=== PATIENT | male | born 1940 | race Caucasian/White ===

== ENCOUNTER 2016-07-31 11:56 | Observation (INO) ==
[2016-07-31] MEDS ORDERED: SODIUM CHLORIDE 1,000 ML IV STA (12:07)
[2016-07-31 12:29] LABS: ABG PH 7.121 (7.35-7.45)
[2016-07-31 12:30] LABS: ABG BASE EXCESS -16 (-2.0-2.0); ABG HCO3 13 (22.0-26.0); ABG TCO2 14 (22.0-28.0)
[2016-07-31 12:39] LABS: BASOPHILS % (AUTO) 0.3 % (0.0-3.0); EOSINOPHILS % (AUTO) 0.5 % (0.0-7.0); HEMATOCRIT 43.5 % (42.0-52.0); HEMOGLOBIN 14.9 g/dl (14.0-18.0); IMMATURE GRANULOCYTE % (AUTO) 0.3 % (0.0-5.0); LYMPHOCYTES # (AUTO) 1.1 K/uL (0.60-3.4); LYMPHOCYTES % (AUTO) 16.9 (10.0-50.0); MEAN CORPUSCULAR HEMOGLOBIN 28.9 pg (27.0-31.0); MEAN CORPUSCULAR HGB CONC 34.3 (31.8-35.4); MEAN CORPUSCULAR VOLUME 84.3 fl (80.0-94.0); MONOCYTES # (AUTO) 0.4 K/uL (0.4-2.0); MONOCYTES % (AUTO) 5.4 (0-10); NEUTROPHILS # (AUTO) 4.9 K/ul (2.0-6.9); NEUTROPHILS % (AUTO) 76.6; PLATELET COUNT 284 10^3/uL (140-440); RED BLOOD COUNT 5.16 10^6/ul (4.70-6.10); WHITE BLOOD COUNT 6.44 K/ul (4.2-10.2)
--- NOTE | 2016-07-31 13:02 | DI ---
EXAMINATION: AP chest radiograph. HISTORY: Chest pain COMPARISON: 05/07/2015 FINDINGS: No focal consolidation, pleural effusion or pneumothorax is identified. The cardiomediastinal silhouette is within normal limits. There is calcified atherosclerotic plaque of the aorta. Degenerative changes of the acromioclavicular joints are seen. IMPRESSION: No acute cardiopulmonary findings.
[2016-07-31 13:06] LABS: ALANINE AMINOTRANSFERASE 25 U/L (12-78); ALBUMIN/GLOBULIN RATIO 1.43; ALKALINE PHOSPHATASE 172 U/L (56-119); ANION GAP 12.1; ASPARTATE AMINO TRANSFERASE 23 U/L (15-37); BILIRUBIN,TOTAL 0.65 mg/dL (0.00-1.20); BLOOD UREA NITROGEN 13 mg/dL (7-18); BUN/CREATININE RATIO 14.77; CARBON DIOXIDE 28 mmol/L (23-31); CHLORIDE 104 mmol/L (98-107); CREATINE KINASE 38 U/L; CREATININE 0.88 mg/dL (0.60-1.10); GLUCOSE 105 mg/dL (82-115); POTASSIUM 4.1 mmol/L (3.5-5.1); SODIUM 140 mmol/L (136-145); TOTAL PROTEIN 6.8 g/dL (5.8-8.1)
--- NOTE | 2016-07-31 13:12 | ED.PDOC ---
General ED Provider: Dr. 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 HTN DM IA ARTH CAD. stent 1993 and replaced 2013. gallbladder. appendix. [ End ]. dizzy with chest pressure. [ End ] Time Seen by Physician: 13:07 Mode of Arrival: Walk-In Information Source: Patient Exam Limitations: No limitations Primary Care Provider: SUN NAGEL Nursing and Triage Documentation Reviewed and Agree: No Review of Systems - Review Of Systems Constitutional: Reports: Malaise, Weakness Eyes: Reports: No symptoms Ears, Nose, Mouth, Throat: Reports: No symptoms Respiratory: Reports: No symptoms Cardiac: Reports: Chest pain, Lightheadedness GI: Reports: No symptoms : Reports: No symptoms Musculoskeletal: Reports: No symptoms Skin: Reports: No symptoms Neurological: Reports: Other (dizziness) Endocrine: Reports: No symptoms Hematologic/Lymphatic: Reports: No symptoms All Other Systems: Other Past Medical History - Past Medical History Previously Healthy: No Endocrine: Reports: DM 2 Cardiovascular: Reports: CAD, IA, Hypertension Respiratory: Reports: None Hematological: Reports: None Gastrointestinal: Reports: None Genitourinary: Reports: None Neuro/Psych: Reports: None Musculoskeletal: Reports: Arthritis Cancer: Reports: None - Surgical History General Surgical History: Reports: Appendectomy, Cholecystectomy, Stent - Family History Family History: Reports: Heart, Diabetes - Social History Smoking Status: Former smoker Hx Substance Use: No Alcohol Screening: None Physical Exam - Physical Exam Appearance: Well-appearing, Thin Pain Distress: Mild Eyes: TRACY, EOMI, Conjunctiva clear ENT: Ears normal, Nose normal, Oropharynx normal Neck: Supple Respiratory: Airway patent, Breath sounds clear, Breath sounds equal, Respirations nonlabored Cardiovascular: RRR, Pulses normal, No rub, No murmur GI/: Soft, Nontender, No masses, Bowel sounds normal, No Organomegaly Musculoskeletal: Normal strength, ROM intact, No edema, No calf tenderness Skin: Warm, Dry, Normal color Neurological: Sensation intact, Motor intact, Reflexes intact, Cranial nerves intact, Alert, Oriented Psychiatric: Affect appropriate, Mood appropriate Interpretation - Radiology Interpretation Radiology Interpretation By: Radiologist Radiology Results: No acute changes Exam Interpreted: CT Scan (head) Radiology Interpretation By: Radiologist Radiology Results: Negative Exam Interpreted: CXR - EKG Interpretation Time of EKG #1: 12:10 Rate: Normal Rhythm: Sinus Interpretation: no acute inf q waves Critical Care Note - Critical Care Note Total Time (mins): 10 Course - Course Hematology/Chemistry: 07/31/16 12:20 07/31/16 12:20 Orders, Labs, Meds: Lab Review 07/31/16 07/31/16 07/31/16 12:20 13:20 13:30 WBC 6.44 RBC 5.16 Hgb 14.9 Hct 43.5 MCV 84.3 MCH 28.9 MCHC 34.3 RDW Coeff of Leda 14.3 Plt Count 284 Immature Gran % (Auto) 0.3 Neut % (Auto) 76.6 Lymph % (Auto) 16.9 [place] % (Auto) 5.4 Eos % (Auto) 0.5 Baso % (Auto) 0.3 Immature Gran # (Auto) 0.0 Neut # 4.9 Lymph # 1.1 [place] # 0.4 Eos # 0.0 Baso # 0.0 Puncture Site R rad R rad O2 Saturation 91.0 L 98.0 ABG pH 7.121 L* 7.418 ABG pCO2 40.0 38.7 ABG pO2 81.0 L 102.0 H ABG HCO3 13 L 25.0 ABG Total CO2 14 L 26 ABG Base Excess -16 L 0 Zaki Test + + FiO2 % 21.0 21.0 Sodium 140 Potassium 4.1 Chloride 104 Carbon Dioxide 28 Anion Gap 12.1 BUN 13 Creatinine 0.88 Estimated GFR (MDRD) 85.00 BUN/Creatinine Ratio 14.77 Glucose 105 Calcium 10.0 Total Bilirubin 0.65 AST 23 ALT 25 Alkaline Phosphatase 172 H Total Creatine Kinase 38 Troponin I < 0.0100 B-Natriuretic Peptide 12 Total Protein 6.8 Albumin 4.0 Globulin 2.8 Albumin/Globulin Ratio 1.43 Urine Color Yellow Urine Clarity Clear Urine pH 6.5 Ur Specific [place] 1.010 Urine Protein Negative Urine Glucose (UA) Negative Urine Ketones Negative Urine Blood Negative Urine Nitrite Negative Urine Bilirubin Negative Urine Urobilinogen 0.2 Ur Leukocyte Esterase Negative Orders Category Date Time Status PLACE PATIENT OBSERVATION .TO MEDS[facility] (MONITORED BED ADMISSION 07/31/16 16: 06 Ordered ) ABG DRAW REQUEST Stat CARDIO 07/31/16 12:08 Completed ABG DRAW REQUEST Stat CARDIO 07/31/16 12:58 Completed EKG-(ED ONLY) Stat CARDIO 07/31/16 12:07 Completed EKG-(IP & OP ONLY) DAILY CARDIO 08/01/16 06:00 Ordered EKG-(IP & OP ONLY) DAILY CARDIO 08/02/16 06:00 Ordered EKG-(IP & OP ONLY) DAILY CARDIO 08/03/16 06:00 Ordered ACTIVITY .Early Mobilization for VTE Prevention CARE 07/31/16 16:06 Ordered INTAKE & OUTPUT Q8HR CARE 07/31/16 16:06 Ordered Neuro Check [NEUROLOGICAL CHECKS] Q2HR CARE 07/31/16 16:11 Ordered TELEMETRY MONITORING TELE CARE 07/31/16 16:10 Ordered VITAL SIGNS Q4HR CARE 07/31/16 16:06 Ordered CARDIAC DIET DIETARY 07/31/16 Dinner Ordered 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 .ONCE EMERGENCY 07/31/16 12:07 Active ED IV/MEDIPORT/POWERPORT .ONCE EMERGENCY 07/31/16 12:07 Active Orthostatic [ED ORTHOSTATIC VITAL SIGNS] .ONCE EMERGENCY 07/31/16 12:09 Active ABG Stat LAB 07/31/16 12:20 Completed ABG Stat LAB 07/31/16 13:20 Completed B-TYPE NATRIURETIC PEPTIDE Stat LAB 07/31/16 12:20 Completed CBC W/ AUTO DIFF DAILY@0600 LAB 08/01/16 06:00 Ordered CBC W/ AUTO DIFF DAILY@0600 LAB 08/02/16 06:00 Ordered CBC W/ AUTO DIFF DAILY@0600 LAB 08/03/16 06:00 Ordered CBC W/ AUTO DIFF DAILY@0600 LAB 08/04/16 06:00 Ordered CBC W/ AUTO DIFF DAILY@0600 LAB 08/05/16 06:00 Ordered CBC W/ AUTO DIFF DAILY@0600 LAB 08/06/16 06:00 Ordered CBC W/ AUTO DIFF DAILY@0600 LAB 08/07/16 06:00 Ordered CBC W/ AUTO DIFF DAILY@0600 LAB 08/08/16 06:00 Ordered CBC W/ AUTO DIFF DAILY@0600 LAB 08/09/16 06:00 Ordered CBC W/ AUTO DIFF DAILY@0600 LAB 08/10/16 06:00 Ordered CBC W/ AUTO DIFF DAILY@0600 LAB 08/11/16 06:00 Ordered CBC W/ AUTO DIFF DAILY@0600 LAB 08/12/16 06:00 Ordered CBC W/ AUTO DIFF DAILY@0600 LAB 08/13/16 06:00 Ordered CBC W/ AUTO DIFF DAILY@0600 LAB 08/14/16 06:00 Ordered CBC W/ AUTO DIFF DAILY@0600 LAB 08/15/16 06:00 Ordered CBC W/ AUTO DIFF DAILY@0600 LAB 08/16/16 06:00 Ordered CBC W/ AUTO DIFF DAILY@0600 LAB 08/17/16 06:00 Ordered CBC W/ AUTO DIFF DAILY@0600 LAB 08/18/16 06:00 Ordered CBC W/ AUTO DIFF DAILY@0600 LAB 08/19/16 06:00 Ordered CBC W/ AUTO DIFF DAILY@0600 LAB 08/20/16 06:00 Ordered CBC W/ AUTO DIFF Stat LAB 07/31/16 12:20 Completed COMPREHENSIVE METABOLIC PANEL DAILY@0600 LAB 08/01/16 06:00 Ordered COMPREHENSIVE METABOLIC PANEL DAILY@0600 LAB 08/02/16 06:00 Ordered COMPREHENSIVE METABOLIC PANEL DAILY@0600 LAB 08/03/16 06:00 Ordered COMPREHENSIVE METABOLIC PANEL DAILY@0600 LAB 08/04/16 06:00 Ordered COMPREHENSIVE METABOLIC PANEL DAILY@0600 LAB 08/05/16 06:00 Ordered COMPREHENSIVE METABOLIC PANEL DAILY@0600 LAB 08/06/16 06:00 Ordered COMPREHENSIVE METABOLIC PANEL DAILY@0600 LAB 08/07/16 06:00 Ordered COMPREHENSIVE METABOLIC PANEL DAILY@0600 LAB 08/08/16 06:00 Ordered COMPREHENSIVE METABOLIC PANEL DAILY@0600 LAB 08/09/16 06:00 Ordered COMPREHENSIVE METABOLIC PANEL DAILY@0600 LAB 08/10/16 06:00 Ordered COMPREHENSIVE METABOLIC PANEL DAILY@0600 LAB 08/11/16 06:00 Ordered COMPREHENSIVE METABOLIC PANEL DAILY@0600 LAB 08/12/16 06:00 Ordered COMPREHENSIVE METABOLIC PANEL DAILY@0600 LAB 08/13/16 06:00 Ordered COMPREHENSIVE METABOLIC PANEL DAILY@0600 LAB 08/14/16 06:00 Ordered COMPREHENSIVE METABOLIC PANEL DAILY@0600 LAB 08/15/16 06:00 Ordered COMPREHENSIVE METABOLIC PANEL DAILY@0600 LAB 08/16/16 06:00 Ordered COMPREHENSIVE METABOLIC PANEL DAILY@0600 LAB 08/17/16 06:00 Ordered COMPREHENSIVE METABOLIC PANEL DAILY@0600 LAB 08/18/16 06:00 Ordered COMPREHENSIVE METABOLIC PANEL DAILY@0600 LAB 08/19/16 06:00 Ordered COMPREHENSIVE METABOLIC PANEL DAILY@0600 LAB 08/20/16 06:00 Ordered COMPREHENSIVE METABOLIC PANEL Stat LAB 07/31/16 12:20 Completed CREATINE KINASE Q8H LAB 07/31/16 22:15 Ordered CREATINE KINASE Q8H LAB 08/01/16 06:15 Ordered CREATINE KINASE Stat LAB 07/31/16 12:20 Completed TROPONIN I Q8H LAB 07/31/16 22:15 Ordered TROPONIN I Q8H LAB 08/01/16 06:15 Ordered TROPONIN I Stat LAB 07/31/16 12:20 Completed URINALYSIS C & S IF INDICATED Stat LAB 07/31/16 13:30 Completed 0.9 % Sodium Chloride [Saline Flush] MEDS 07/31/16 12:07 Active 1 syr IVF PRN PRN Acetaminophen [Tylenol] MEDS 07/31/16 16:06 Ordered 650 mg PO Q4H PRN Potassium Chloride in 0.9%NaCl [Sodium Chloride 0.9%- MEDS 07/31/16 16:30 Ordered KCl 20 Meq] 1,000 ml IV 75 mls/hr Sodium Chloride 0.9% [Sodium Chloride] 1,000 ml MEDS 07/31/16 12:07 Discontinued IV BOLUS RESUSCITATION STATUS Routine OTHERS 07/31/16 16:06 Ordered CHEST, 1V AP ONLY Stat RADS 07/31/16 12:[address] HEAD W/O CONTRAST Stat RADS 07/31/16 13:01 Completed U/S DOPPLER CAROTID Stat RADS 07/31/16 15:47 Ordered Medications Generic Name Dose Route Start Last Admin Trade Name Freq PRN Reason Stop Dose Admin Acetaminophen 650 mg 07/31/16 16:06 Tylenol PO Q4H PRN Mild Pain Potassium Chloride/Sodium Chloride 1,000 mls @ 75 mls/hr 07/31/16 16:30 Sodium Chloride 0.9%-Kcl 20 Meq IV .[id number] OSCAR Sodium Chloride 1 syr 07/31/16 12:07 07/31/16 13:37 Saline Flush IVF 1 syr PRN PRN Administration To flush IV Discontinued Medications Generic Name Dose Route Start Last Admin Trade Name Freq PRN Reason Stop Dose Admin Sodium Chloride 1,000 mls @ 1,000 mls/hr 07/31/16 12:07 07/31/16 13:37 Sodium Chloride IV 07/31/16 13:06 1,000 mls/hr BOLUS STA Administration Vital Signs: Temp Pulse Resp BP Pulse Ox 07/31/16 15:28 65 121/68 07/31/16 15:27 61 127/68 07/31/16 11:59 96.4 F L 64 18 138/76 96 Departure - Departure Time of Disposition: 16:03 Disposition: PLACED OBSERVATION Discharge Problem: Dizziness, Chest pain Condition: Fair Pt referred to PMD for follow-up: Yes Allergies/Adverse Reactions: Allergies celecoxib [From Celebrex] Adverse Reaction (Verified 07/31/16 11:57) meloxicam [From Mobic] Adverse Reaction (Verified 07/31/16 11:57) Penicillins Adverse Reaction (Verified 07/31/16 11:57) Rash Home Medications: Ambulatory Orders Aspirin [Ecotrin] 81 mg PO DAILY 05/07/15 Enalapril Maleate 10 mg PO DAILY 05/07/15 Metformin HCl [Glucophage] 1,000 mg PO DAILY 05/07/15 Pantoprazole Sodium [Protonix] 40 mg PO DAILY 05/07/15 Simvastatin 40 mg PO DAILY 05/07/15 Meclizine HCl [Antivert] 25 mg PO BID #20 tablet 10/21/15
[2016-07-31 13:26] LABS: ABG BASE EXCESS 0 (-2.0-2.0); ABG PCO2 38.7 mmHg (35-45); ABG PH 7.418 (7.35-7.45); ABG TCO2 26 (22.0-28.0)
--- NOTE | 2016-07-31 13:40 | CT ---
EXAM: CT head without contrast. HISTORY: Dizziness. COMPARISON: 10/21/2015. TECHNIQUE: Multiple axial images of the brain were obtained from the skull base through the vertex without intravenous contrast. FINDINGS: There is no intracranial hemorrhage or extraaxial collection. The blackman-white differentia tion is maintained without evidence for acute large vascular territory infarction. There are areas of periventricular and subcortical white matter low attenuation. The cortical sulci and cerebral ve ntricles are symmetrically enlarged. The basal cisterns are well visualized. There is no hydroceph alus, mass effect, or midline shift. There is partial opacification of the right mastoid air cells. Otherwise, the paranasal sinuses and mastoid air cells are clear. The calvarium is intact. Since the prior study, there has been no significant interval change. IMPRESSION: 1. No acute intracranial abnormality. 2. Chronic small vessel ischemic changes and atrophy.
[2016-07-31 13:42] LABS: BILIRUBIN,URINE Negative (NEGATIVE); KETONES,URINE Negative (NEGATIVE); LEUKOCYTE ESTERASE ,URINE Negative (NEGATIVE); NITRITE,URINE Negative (NEGATIVE); PH,URINE 6.5 (5-9); PROTEIN,URINE Negative (NEGATIVE); URINE, BLOOD Negative (NEGATIVE)
[2016-07-31 13:43] LABS: ADD URINE MICROSCOPIC NO
[2016-07-31] MEDS ORDERED: TYLENOL PO PRN (16:06)
--- NOTE | 2016-07-31 17:05 | US ---
EXAM: Ultrasound bilateral carotid duplex. HISTORY: Dizziness. COMPARISON: None available. TECHNIQUE: Multiple blackman scale and color Doppler images were obtained. FINDINGS: Please note that estimates of internal carotid artery stenoses are based upon NASCET nicole arevalo. Right carotid: Mixed plaquing noted which causes shadowing and limits evaluation for stenosis in th e proximal internal carotid artery. Peak systolic velocity measurement in the right internal caroti d artery is 0.9 meters per second. Right internal to common carotid artery peak systolic velocity r atio measures 2.3. End diastolic velocity measurement in the right internal carotid artery is 0.3 m eters per second. Flow in the right vertebral artery is the antegrade. Left carotid: Mixed plaquing present which cause shadowing, limiting evaluation of the proximal int ernal carotid artery. Peak systolic velocity measurement in the left internal carotid artery is 1.0 meters per second. Left internal to common carotid artery peak systolic velocity ratio measures 1. 7. End diastolic velocity measurement in the left internal carotid artery measures 0.3 meters per s econd. Flow in the left vertebral artery is antegrade. IMPRESSION: 1. Velocity measurements suggest mild, less than 50%, stenosis in the right and left internal carot id artery. 2. Relatively extensive plaquing in both proximal internal carotid arteries which limit visual asse ssment of stenosis. 3. Antegrade flow in both vertebral arteries.
[2016-07-31] MEDS: SODIUM CHLORIDE 0.9%-KCL 20 MEQ 1,000 ML IV SCH (17:40)
[2016-07-31 17:48] VITALS: BMI 24.7
[2016-07-31] MEDS ORDERED: DECADRON 4 MG/ML SDV 4 MG in SODIUM CHLORIDE 50 ML IV STA (19:12)
[2016-07-31] MEDS ORDERED: DECADRON 4 MG/ML SDV ONE (19:15)
[2016-07-31] MEDS ORDERED: SODIUM CHLORIDE 50 ML IV ONE (19:17)
[2016-07-31] MEDS ORDERED: ANTIVERT ONE (20:00)
[2016-07-31] MEDS ORDERED: MECLIZINE HCL 25 MG PO SCH ×21 (21:00)
[2016-07-31 22:26] LABS: CREATINE KINASE 30 U/L
[2016-08-01 06:04] LABS: BASOPHILS % (AUTO) 0.2 % (0.0-3.0); HEMATOCRIT 41.9 % (42.0-52.0); HEMOGLOBIN 14.3 g/dl (14.0-18.0); IMMATURE GRANULOCYTE % (AUTO) 0.4 % (0.0-5.0); LYMPHOCYTES # (AUTO) 1.2 K/uL (0.60-3.4); LYMPHOCYTES % (AUTO) 14.7 (10.0-50.0); MEAN CORPUSCULAR HEMOGLOBIN 28.7 pg (27.0-31.0); MEAN CORPUSCULAR HGB CONC 34.1 (31.8-35.4); MEAN CORPUSCULAR VOLUME 84.1 fl (80.0-94.0); MONOCYTES # (AUTO) 0.4 K/uL (0.4-2.0); MONOCYTES % (AUTO) 4.5 (0-10); NEUTROPHILS # (AUTO) 6.4 K/ul (2.0-6.9); NEUTROPHILS % (AUTO) 80.2; PLATELET COUNT 267 10^3/uL (140-440); RED BLOOD COUNT 4.98 10^6/ul (4.70-6.10); WHITE BLOOD COUNT 8.03 K/ul (4.2-10.2)
[2016-08-01 06:25] LABS: ALBUMIN 3.6 g/dL (3.4-5.0); ALBUMIN/GLOBULIN RATIO 1.38; ANION GAP 12.1; BILIRUBIN,TOTAL 0.6 mg/dL (0.00-1.20); BUN/CREATININE RATIO 16.88; CALCIUM 9.1 mg/dL (8.2-10.2); CREATININE 0.77 mg/dL (0.60-1.10); POTASSIUM 4.1 mmol/L (3.5-5.1); TOTAL PROTEIN 6.2 g/dL (5.8-8.1)
[2016-08-01 06:34] LABS: CREATINE KINASE 27 U/L
[2016-08-01] MEDS: SODIUM CHLORIDE 0.9%-KCL 20 MEQ 1,000 ML IV SCH (08:03)
[2016-08-01] MEDS ORDERED: DECADRON 4 MG/ML SDV 4 MG in SODIUM CHLORIDE 50 ML IV STA (08:32)
[2016-08-01] MEDS ORDERED: ENALAPRIL MALEATE 10 MG PO SCH ×22 (09:00)
[2016-08-01] MEDS ORDERED: MECLIZINE HCL 25 MG PO SCH ×21 (09:00)
[2016-08-01] MEDS ORDERED: ANTIVERT PO SCH (09:00)
[2016-08-01] MEDS ORDERED: NON-FORMULARY MEDICATION (Metformin Hcl [Glucophage] 1,000 MG) PO SCH ×22 (09:00)
[2016-08-01] MEDS ORDERED: ASPIRIN 81 MG PO SCH (09:00)
[2016-08-01] MEDS ORDERED: NON-FORMULARY MEDICATION (Pantoprazole Sodium [Protonix] 40 MG) PO SCH ×22 (09:00)
--- NOTE | 2016-08-01 09:19 | PCM.PROG ---
Attending Provider: ATTENDING PROVIDER: Dr. JERALD DENISE DATE OF SERVICE: 08/01/16 SUBJECTIVE: This 75 year old WHITE/ M was hospitalized 07/31/16 with dizziness and CHF, bilateral upper extremity weakness, chronic and gradually getting worse over the last year or so. This morning the dizziness is better. He complains of right-sided headache, scheduled for MRI of brain without contrast. The patient has a tremor in hands bilaterally. REVIEW OF SYSTEMS: CONSTITUTIONAL: No fever, no chills. ENDOCRINE: No weight loss or weight gain. HEENT: No sinus drainage, no sore throat. CVS: No angina symptoms. No CHF symptoms. No palpitations. No atypical chest pain for CAD. No shortness of breath. RESPIRATORY: No cough, no hemoptysis. GI: No melena. No abdominal pain. No nausea, no vomiting. : No hematuria. No polyuria. SKIN: No rash. No wounds. MUSCULOSKELETAL: Bilateral upper extremity weakness. 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 Dizziness is better. No blackout. No blurred vision. No double vision. PSYCHIATRIC: Not anxious; no depression. No suicidal thoughts. No homicidal thoughts. PHYSICAL EXAMINATION: GENERAL: Lying in bed in no distress. VITAL SIGNS: Temperature 97.0 F, Pulse 61, Respiratory Rate 18, BP 114/67, Pulse Ox 95% HEENT: Normocephalic, atraumatic. Mucosa is dry, pallor positive. NECK: No JVP, no carotid bruit. No lymphadenopathy. CARDIAC: S1, S2, no S3. No murmur, gallop or regurgitation. LUNGS: Clear to auscultation. ABDOMEN: Soft, non-tender. Bowel sounds active. No rigidity, guarding or CVA tenderness. EXTREMITIES: No clubbing, cyanosis or edema. NEUROLOGIC: Awake, alert and oriented x3. Right-sided headache. Dizziness is less. Tremors hands bilaterally. LYMPHATIC: No palpable lymph nodes SKIN: Not dry. Intact. MUSCULOSKELETAL: No joint swelling. LAB REVIEW: 08/01/16 05:55 08/01/16 05:55 08/01/16 05:55: WBC 8.03, RBC 4.98, Hgb 14.3, Hct 41.9 L, MCV 84.1, MCH 28.7, MCHC 34.1, RDW Coeff of Leda 14.3, Plt Count 267, Immature Gran % (Auto) 0.4, Neut % (Auto) 80.2, Lymph % (Auto) 14.7, [place] % (Auto) 4.5, Eos % (Auto) 0.0, Baso % (Auto) 0.2, Immature Gran # (Auto) 0.0, Neut # 6.4, Lymph # 1.2, [place] # 0.4, Eos # 0.0, Baso # 0.0, Sodium 140, Potassium 4.1, Chloride 109 H, Carbon Dioxide 23, Anion Gap 12.1, BUN 13, Creatinine 0.77, Estimated GFR (MDRD) 99.00 , BUN/Creatinine Ratio 16.88, Glucose 119 H, Calcium 9.1, Total Bilirubin 0.60, AST 19, ALT 20, Alkaline Phosphatase 147 H D, Total Creatine Kinase 27, Troponin I < 0.0100, Total Protein 6.2, Albumin 3.6, Globulin 2.6, Albumin/ Globulin Ratio 1.38 07/31/16 22:00: Total Creatine Kinase 30, Troponin I < 0.0100 ASSESSMENT: 1. Dizziness 2. Upper extremity weakness will get C-spine CT scan 3. Hypertension 4. Dyslipidemia 5. Osteoarthritis 6. DJD spine PLAN: 1. Decadron [address] scan C-spine Plan and coordination of the patient's care discussed in the presence of Survey Coordinator and nurse. CONDITION: Stable SCRIBED BY: MANJU LOBATO Emissions Inspector scribed while in presence of service performed by Dr. JERALD DENISE on 08/01/16 ([id number])
--- NOTE | 2016-08-01 12:29 | CT ---
EXAM: CT cervical spine without contrast. HISTORY: Left arm pain. COMPARISON: 11/08/2011. TECHNIQUE: Multiple axial images of the cervical spine were obtained without intravenous contrast. Images were reformatted in the sagittal and coronal planes. FINDINGS: T curvature and alignment are normal. Paravertebral body intervertebral disc heights are maintained. No fracture or subluxation identified. C2-3: Uncovertebral and facet hypertrophy cause mild to moderate left neural foraminal narrowing. C3-4: Broad-based disc bulge, uncovertebral hypertrophy and facet arthropathy with flattening of th e ventral thecal sac. C4-5: Uncovertebral hypertrophy and facet arthropathy with mild left neural foraminal narrowing. C5-6: Uncovertebral hypertrophy and facet arthropathy with mild left neural foraminal narrowing. C6-7: Uncovertebral hypertrophy and facet arthropathy with mild left neural foraminal narrowing. C7-T1: No neural compromise. Mild emphysematous change seen in the lung apices. Paravertebral soft tissues are without acute abn ormality. Atherosclerotic calcifications are present. There is partial opacification of the right m astoid air cells. IMPRESSION: 1. No fracture or subluxation. 2. Mild degenerative changes as described.
[2016-08-01 14:22] VITALS: BP 97/64; TEMP 96.2
--- NOTE | 2016-08-01 15:16 | HP ---
DATE OF SERVICE: 07/31/16 REASON FOR HOSPITALIZATION: Dizziness HISTORY OF PRESENT ILLNESS: The patient is a 75 year old male who has a history of dizziness for which he takes Antivert. He woke up from the sleep was totally dizzy and not able to tolerated and almost read to fall, took the Antivert and did not help so he came to the emergency room. The room is spinning, not steady and having difficulty walking. He was seen by Dr. Carballo in the emergency room. CBC and CMP is normal. CT scan of the head was negative for any acute strokes. As patient was intractably dizzy and not able to stand he was admitted to the hospital for observation. REVIEW OF SYSTEMS: CONSTITUTIONAL: No night sweats. Weakness and tiredness. No fever or chills. HEENT: Eyes: No visual changes. No eye pain. No eye discharge. ENT: No runny nose. No epistaxis. No sinus pain. No sore throat. No odynophagia. No ear pain. No congestion. RESPIRATORY: No cough, no congestion. No hemoptysis. CARDIOVASCULAR: No angina symptoms. No CHF symptoms. No atypical chest pain for CAD. No palpitations. No shortness of breath. GASTROINTESTINAL: No abdominal pain. No nausea or vomiting. No diarrhea or constipation. No hematemesis. No hematochezia. GENITOURINARY: No urgency. No frequency. No dysuria. No hematuria. No obstructive symptoms. No discharge. No pain. No significant abnormal bleeding. MUSCULOSKELETAL: No musculoskeletal pain. No joint swelling. No arthritis. NEUROLOGICAL: No headache. No neck pain. No syncope. No seizures. Dizziness. PSYCHIATRIC: Not anxious. No depression. No suicidal thoughts. No homicidal thoughts. SKIN: No rash. No lesions. No wounds. ENDOCRINE: No unexplained weight loss. No weight gain. HEMATOLOGIC/LYMPHATIC: No anemia. No purpura. No petechiae. No prolonged or excessive bleeding. No palpable lymph nodes. PERSONAL/FAMILY/SOCIAL HISTORY: The patient does not smoke or drink alcohol. The family history is significant for the heart problems PAST MEDICAL/SURGICAL PROBLEMS: Coronary artery disease, status post stent Hypertension Dyslipidemia Osteoarthritis DJD spine Diabetes Mellitus Bilateral double inguinal hernia repair, 2011 MEDICATIONS: Simvastatin Enalapril Maleate Pantoprazole Aspirin Metformin Meclizine ALLERGIES: Celecoxib Meloxicam Penicillins PHYSICAL EXAMINATION: VITAL SIGNS: blood pressure 138/76, respiratory rate 18, heart rate 64, temperature 96.4. HEENT: Head normocephalic, atraumatic. Eyes: Extraocular muscles are intact. Pupils are equal, round and reactive to light and accommodation. Ears: No lesions. Nose appeared normal. Throat: No exudate or erythema. Mucosa dry. NECK: Supple. No JVD, no carotid bruit. No lymphadenopathy or thyromegaly. LUNGS: Clear to auscultation. Percussion note normal. Chest symmetrical. HEART: S1, S2, no S3. No murmurs. No cyanosis or clubbing. No ascites. Pulses: Dorsalis pedis and posterior tibial pulses +1 to +2 both sides. ABDOMEN: Soft. Nontender. Bowel sounds active. No CVA tenderness. No mass felt. EXTREMITIES: No edema. Full range of motion of all extremities, equal. NEUROLOGIC: No focal deficit. Cranial nerves II through XII are grossly intact. No headache, no double vision or headache. Unsteady on standing but unable to stand straight SKIN: Not dry. Intact. Turgor - normal. LYMPHATIC: No palpable lymph nodes/no lymphedema. MUSCULOSKELETAL: Normal joints with no swelling. Muscle tone is normal. LABS: WBC 6.44, hgb 14.9, hct 43.5, plt count 284, pH 7.418, pCO2 38.7, pO2 102, sodium 140, potassium 4.1, chloride 104, bicarb 28, BUN 13 and creatinine 0.88. ASSESSMENT: 1. Intractable dizziness rule out stroke 2. History of Hypertension 3. Dyslipidemia 4. Diabetes Mellitus PLAN: 1. Admit patient for the observation 2. CBC and CMP today and daily 3. Carotid Ultrasound 4. Decadron 4mg 5. Accu-checks with coverage 6. MRI of brain in the morning Will follow the patient in daily rounds. TIME SPENT: More than 65 minutes. [facility]
[2016-08-01] MEDS ORDERED: NON-FORMULARY MEDICATION (Simvastatin [Simvastatin] 40 MG) PO SCH ×22 (17:00)
--- NOTE | 2016-08-01 22:46 | MRI ---
EXAM: Brain MRI without contrast. HISTORY: Dizziness. COMPARISON: Head CT 07/31/2016. TECHNIQUE: Multiplanar, multisequence MR images were acquired of the brain without contrast. FINDINGS: The midline structures are central and the craniocervical junction is unremarkable. The ventricles and sulci are mildly prominent compatible with age related involutional changes. The brain parenchyma has no diffusion restriction to suggest acute hypoperfusion or infarction. Smal l T2 hyperintensities are present in the supratentorial white matter compatible with mild leukomalac ia. There are no abnormal foci of dark gradient echo signal. The corpus callosum is normal in conf iguration. The pituitary gland is low normal in size. There are no intraorbital masses. The frontal sinus is hypoplastic. Paranasal sinuses are clear. There is mucosal thickening and fluid opacifying a moderately extensive number of the right mastoid air cells which have mildly thickened sclerotic septa.. The flow voids are present in the major intracranial arteries and dural venous sinuses. IMPRESSION: 1. No intracranial mass, hemorrhage or acute cerebral infarct. 2. Age related involutional changes and mild chronic ischemic small vessel disease. 3. Moderately extensive chronic right mastoiditis.
--- NOTE | 2016-08-29 14:51 | DS ---
DATE OF SERVICE: 08/01/16 FINAL DIAGNOSIS: 1. DIZZINESS, MOST LIKELY POSITIONAL AND NO STROKE 2. 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 HYPERTENSION 4. DYSLIPIDEMIA 5. OSTEOARTHRITIS 6. DJD SPINE 7. CAD 8. VASCULAR SURGERY 2014 9. DIABETES MELLITUS DISCHARGE INSTRUCTIONS: Discharge the patient home. Followup appointment with Dr. De La Fuente on Friday, August 09 at 11:30 a.m. An appointment is scheduled with Dr. Menchaca, ENT on August 14 at 9:30 a.m. MEDICATIONS AT DISCHARGE: 1. Simvastatin 2. Aspirin 3. Enalapril 4. Metformin 5. Glucophage 6. Protonix NEW PRESCRIPTIONS: 1. Antivert 25 mg one twice a day as needed for dizziness. Do not drive if dizzy or drowsy from medication. 2. Prednisone 10 mg, take one twice a day for 7 days. Steroid. Take with food. May cause increase in blood sugar. DIET INSTRUCTIONS: Low carbohydrate diabetic diet. ACTIVITY: Resume as tolerated. No driving if dizzy or drowsy. SMOKING: N/A DISEASE SPECIFIC EDUCATION: Dizziness and fall risk discussed with the patient and he verbalized understanding. HOSPITAL COURSE: This is a 75-year-old male who came to the emergency room complaining that he has been feeling dizzy and some chest pressure, left-sided arm pain and numbness. EKG wsn normal sinus. First set of cardiac enzymes were negative. At that time, the patient was admitted for observation to rule out stroke. CT of the head was negative for any stroke. Carotid ultrasound showed less than 50%. Extensive block in both proximal internal carotid arteries. 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 CT of cervical spine was done for the left arm weakness and tingling which did show mild degenerative changes. The patient was given some Decadron and Meclizine which did help him with the dizziness. As the patient was symptom free by the next day and stroke evaluation was also negative, at that time, the patient was discharged home. Mostly, the dizziness is from mastoiditis/positional vertigo so Antivert should be helping him. TIME SPENT: More than 55 minutes. [facility]OSPITALMarleni
== END 2016-08-01 18:30 | disposition home or self-care (01) ==
LOC: ED 11:56 → MEDSURG B 16:29
PROVIDERS: ADMIT Emergency Medicine; ATTEND Emergency Medicine
DX: H81.49 Vertigo of central origin, unspecified ear (principal); H70.90 Unspecified mastoiditis, unspecified ear; M54.12 Radiculopathy, cervical region; I50.9 Heart failure, unspecified; R07.9 Chest pain, unspecified; M79.602 Pain in left arm; E11.9 Type 2 diabetes mellitus without complications; I25.10 Atherosclerotic heart disease of native coronary artery without angina pectoris; I10 Essential (primary) hypertension; M19.90 Unspecified osteoarthritis, unspecified site; M47.9 Spondylosis, unspecified; R26.2 Difficulty in walking, not elsewhere classified; I25.2 Old myocardial infarction; Z87.891 Personal history of nicotine dependence; Z95.5 Presence of coronary angioplasty implant and graft; Z79.84 Long term (current) use of oral hypoglycemic drugs; Z79.899 Other long term (current) drug therapy; Z98.890 Other specified postprocedural states
CPT/HCPCS: 36415; 80053; 81001; 82550; 82803; 82962; 83880; 84484; 85025; 93005; 93010; 96360; 96361; 96365; 97802; 99284

== ENCOUNTER → 2016-08-14 | Outpatient (POV) | payer OTHER ==
[2016-07-31 17:48] VITALS: BMI 24.7
== END ==
LOC: OUTPT 00:01
PROVIDERS: ATTEND Otolaryngology
DX: H91.90 Unspecified hearing loss, unspecified ear (principal); R42 Dizziness and giddiness
CPT/HCPCS: 92557; 92567

== ENCOUNTER 2017-01-21 09:55 | Day surgery (SDC) ==
[2017-01-21 11:08] VITALS: TEMP 98.7
[2017-01-21] MEDS ORDERED: DIPRIVAN 20 ML VIAL IVP ONE (12:44)
[2017-01-21] MEDS ORDERED: VERSED ONE (12:44)
[2017-01-21 13:24] VITALS: BP 115/35
--- NOTE | 2017-01-22 10:31 | OP ---
INDICATIONS FOR PROCEDURE: 76-year-old gentleman presents for colonoscopy exam. He has a remote history of colon polyps, unknown histology. Incidently he suffers with some chronic diarrhea. MEDICATIONS: SEE ANESTHESIA NOTES. PROCEDURE: COLONOSCOPY. REPORT: The risks, benefits, alternatives and limitations were discussed in detail with the patient. Informed consent was obtained. After adequate sedation was achieved, a digital rectal exam revealed good tone, no masses. The colonoscope was introduced into the rectum and advanced under direct visual guidance to the cecum. The cecum was identified by the appendiceal orifice and IC valve. I was able to intubate the terminal ileum and examine the distance of 10 cm. This appeared normal. I then slowly withdrew the scope in a circumferential manner examining the mucosa quite carefully. I looked on the proximal and distal side of folds and flexures as best as possible. I was able to retroflex the scope in the right colon and left colon to increase visualization. The colonic mucosa was unremarkable its entire length other than several small mouth diverticula scattered throughout the sigmoid. No other abnormalities were noted including on retroflex view of the anal canal. The prep was good. The withdrawal time was 6 minutes and 0 seconds. The patient tolerated the procedure well with stable vital signs and pulse oximetry throughout. IMPRESSION: 1. MILD DIVERTICULOSIS 2. OTHERWISE NORMAL COLON EXAM INCLUDING THE TERMINAL ILEUM RECOMMENDATIONS: 1. High fiber diet 2. Office visit as needed 3. Screening colonoscopy examination again in the future as needed CC: DR. ROBE THOMAS
== END 2017-01-21 14:24 | disposition home or self-care (01) ==
LOC: SURG 09:55
PROVIDERS: ATTEND Internal Medicine Gastroenterology
DX: Z09 Encounter for follow-up examination after completed treatment for conditions other than malignant neoplasm (principal); Z86.010 Personal history of colon polyps; K52.9 Noninfective gastroenteritis and colitis, unspecified; K57.30 Diverticulosis of large intestine without perforation or abscess without bleeding

== ENCOUNTER 2017-02-11 14:02 | Outpatient (CLI) ==
--- NOTE | 2017-02-11 17:37 | MRI ---
EXAM: Brain MRI with and without contrast. HISTORY: Dizziness and facial tremors. COMPARISON: Brain MRI 08/01/[address] 07/31/2016. TECHNIQUE: Multiplanar, multisequence MR images were acquired of the brain before and after administ ration of intravenous contrast. FINDINGS: The midline structures are central and the craniocervical junction is unremarkable. The v entricles, sulci and cisterns are prominent compatible with age related involutional changes. There are no abnormal extra-axial fluid collections. The brain parenchyma has no restricted diffusion to suggest acute hypoperfusion or infarction. Small T2 hyperintensities are present in the supratentorial white matter compatible mild leukomalacia. Th ere is no abnormal dark gradient echo signal to suggest intracranial hemorrhage. After administratio n of gadolinium, no enhancing lesions are identified. The corpus callosum has a normal configuration . The sella is mildly expanded and the pituitary gland is low normal in size. There are no intraorbital masses. Mucosal thickening and fluid opacifies a mild to moderate number o f the right mastoid air cells. No abnormal contrast enhancement is present in the internal auditory c anals or labyrinthine structures. Paranasal sinuses are clear. Flow voids are present in the major intracranial arteries and dural venous sinuses. There is left C2- 3 hypertrophic facet arthropathy. Mildly increased T1-8, T2 fatty bone marrow signal is present in t he calvarium suggestive of osteopenia. IMPRESSION: 1. No intracranial mass, hemorrhage or acute cerebral infarct. 2. Age related involutional changes and mild chronic ischemic small vessel disease.
== END 2017-02-11 14:03 | disposition home or self-care (01) ==
LOC: RAD 14:02
PROVIDERS: ATTEND Internal Medicine
DX: R42 Dizziness and giddiness (principal); R25.1 Tremor, unspecified

== ENCOUNTER 2018-06-30 08:54 | Outpatient (CLI) ==
--- NOTE | 2018-06-30 10:10 | CT ---
EXAM: CT of the chest with and without contrast History: Right lung nodule. Comparison: Chest radiograph 07/31/2016 Technique: Multiplanar CT images through the thorax were obtained with and without the administratio n of IV contrast Findings: Heart size is normal. Coronary calcifications. No pericardial effusion. No axillary lym phadenopathy. No mediastinal or hilar lymphadenopathy. Great vessels are unremarkable. No consolid ation. No pleural fluid and no pneumothorax. No lung masses or lung nodules. Within the visualized upper abdomen, status post cholecystectomy. No acute osseous abnormalities. Impression: 1. No acute intrathoracic process. 2. No lung masses or lung nodules. 3. Coronary artery disease
== END 2018-06-30 08:55 | disposition home or self-care (01) ==
LOC: RAD 08:54
PROVIDERS: ATTEND Internal Medicine
DX: R91.1 Solitary pulmonary nodule (principal)

== ENCOUNTER 2018-08-23 18:00 | Emergency (ER) | payer OTHER ==
[2018-08-23 18:02] VITALS: BP 134/77; TEMP 96.3; BMI 25.0
--- NOTE | 2018-08-23 18:42 | ED.PDOC ---
General ED Provider: Dr. ELLA LOPEZ Chief Complaint: Dizziness Stated Complaint: Dizziness and gait imbalance; Onset recently. Hx of parkinsons ds and takes Sinemet and Symmeterl; Has not fallen and denies vertigo -just lightheadedness Time Seen by Physician: 18:30 Mode of Arrival: Walk-In Information Source: Patient Exam Limitations: No limitations Primary Care Provider: SUN NAGEL Nursing and Triage Documentation Reviewed and Agree: Yes Does patient meet sepsis criteria?: No System Inflammatory Response Syndrome: Not Applicable Sepsis Protocol: For patient's 13 years and over: Temp is 96.8 and below OR 101 and greater Pulse >90 BPM Resp >20/minute Acutely Altered Mental Status Are patient's symptoms suggestive of a new infection, such as: -Pneumonia -Skin, Soft Tissue -Endocarditis -UTI -Bone, Joint Infection -Implantable Device -Acute Abdominal Infection -Wound Infection -Meningitis -Blood Stream Catheter Infection -Unknown Neurological Complaint Exam - Dizziness Complaint/Exam Onset: Gradual Symptoms Are: Still present Timing: Intermittent Episodes Lasting: Minutes Initial Severity: Mild Current Severity: Mild Character: Reports: Lightheaded, Dizzy Alleviating: Reports: Lying down Associated Signs and Symptoms: Denies: Nausea, Vomiting, Diaphoresis, Tinnitus, Chest pain, Short of air, Palpitations, Unsteady gait, GI blood loss, Visual changes, Decreased oral intake, Change in medication, Change in diet, OTC meds, Loss of balance CVA Risk Factors: Reports: None Review of Systems - Review Of Systems Constitutional: Reports: No symptoms Eyes: Reports: No symptoms Ears, Nose, Mouth, Throat: Reports: No symptoms Respiratory: Reports: No symptoms Cardiac: Reports: No symptoms GI: Reports: No symptoms : Reports: No symptoms Musculoskeletal: Reports: No symptoms Skin: Reports: No symptoms Neurological: Reports: No symptoms, Other (dizziness) Endocrine: Reports: No symptoms Hematologic/Lymphatic: Reports: No symptoms All Other Systems: Reviewed and Negative Past Medical History - Past Medical History Previously Healthy: No Endocrine: Reports: DM 2 Cardiovascular: Reports: CAD, MO, Hypertension Respiratory: Reports: None Hematological: Reports: None Gastrointestinal: Reports: None Genitourinary: Reports: None Neuro/Psych: Reports: None Musculoskeletal: Reports: Arthritis Cancer: Reports: None - Surgical History General Surgical History: Reports: Appendectomy, Cholecystectomy, Stent - Family History Family History: Reports: Heart, Diabetes - Social History Smoking Status: Former smoker Hx Substance Use: No Alcohol Screening: None - Immunizations Tetanus Shot up to Date: Yes Physical Exam - Physical Exam Appearance: Well-appearing, No pain distress, Well-nourished Ill-appearing: None Pain Distress: None Eyes: TRACY, EOMI, Conjunctiva clear ENT: Ears normal, Nose normal, Oropharynx normal Neck: Supple (No carotid bruit bilat) Respiratory: Airway patent, Breath sounds clear, Breath sounds equal, Respirations nonlabored Cardiovascular: RRR, Pulses normal, No rub, No murmur GI/: Soft, Nontender, No masses, Bowel sounds normal, No Organomegaly Musculoskeletal: Normal strength, ROM intact, No edema, No calf tenderness Skin: Warm, Dry, Normal color Neurological: Sensation intact, Motor intact, Reflexes intact, Cranial nerves intact (postional dizziness upon examination with out loss of balance-dizziness passes), Alert, Oriented Psychiatric: Affect appropriate, Mood appropriate Critical Care Note - Critical Care Note Total Time (mins): 60 Course - Course Hematology/Chemistry: 08/23/18 19:00 08/23/18 19:00 Orders, Labs, Meds: Lab Review 08/23/18 08/23/18 19:00 19:00 WBC 7.51 RBC 5.00 Hgb 14.9 Hct 45.1 MCV 90.2 MCH 29.8 MCHC 33.0 RDW Coeff of Leda 14.6 Plt Count 240 Immature Gran % (Auto) 0.3 Neut % (Auto) 62.0 Lymph % (Auto) 28.0 [place] % (Auto) 7.2 Eos % (Auto) 2.0 Baso % (Auto) 0.5 Immature Gran # (Auto) 0.0 Neut # (Auto) 4.7 Lymph # (Auto) 2.1 [place] # (Auto) 0.5 Eos # (Auto) 0.2 Baso # (Auto) 0.0 Sodium 141.2 Potassium 4.05 Chloride 101.2 Carbon Dioxide 30.6 H Anion Gap 13.45 BUN 11.4 Creatinine 0.80 Estimated GFR (MDRD) 94.00 BUN/Creatinine Ratio 14.25 Glucose 96.5 Calcium 9.43 Total Bilirubin 0.71 AST 29.0 ALT 8.8 Alkaline Phosphatase 175.5 H Troponin I < 0.012 Total Protein 7.39 Albumin 4.56 Globulin 2.83 Albumin/Globulin Ratio 1.61 Orders Category Date Time Status EKG-(ED ONLY) Stat CARDIO 08/23/18 19:41 Ordered CBC W/ AUTO DIFF Stat LAB 08/23/18 19:00 Completed COMPREHENSIVE METABOLIC PANEL Stat LAB 08/23/18 19:00 Completed TROPONIN I Stat LAB 08/23/18 19:00 Completed Meclizine HCl [Antivert] MEDS 08/23/18 19:41 Stat 25 mg PO ONCE STA CT HEAD W/O CONTRAST Stat RADS 08/23/18 18:40 Completed CXR [CHEST, 1V AP ONLY] Stat RADS 08/23/18 18:41 Completed Medications Discontinued Medications Generic Name Dose Route Start Last Admin Trade Name Freq PRN Reason Stop Dose Admin Meclizine HCl 25 mg 08/23/18 19:41 08/23/18 19:50 Antivert PO 08/23/18 19:42 25 mg ONCE STA Administration Vital Signs: Temp Pulse Resp BP Pulse Ox 08/23/18 18:00 96.3 F L 79 18 134/77 97 Departure - Departure Time of Disposition: 19:50 Disposition: HOME SELF-CARE Discharge Problem: Parkinsons disease Instructions: Dizziness (ED) Condition: Good Pt referred to PMD for follow-up: Yes IPMP verified?: No Additional Instructions: Take Meclizine as needed for dizziness Change position slowly Assisted ambulation as needed See PCP in next week Prescriptions: Meclizine HCl 12.5 mg PO Q8HR #15 tablet Allergies/Adverse Reactions: Allergies celecoxib [From Celebrex] Adverse Reaction (Verified 08/23/18 18:02) meloxicam [From Mobic] Adverse Reaction (Verified 08/23/18 18:02) Penicillins Adverse Reaction (Verified 08/23/18 18:02) Rash Home Medications: Ambulatory Orders Enalapril Maleate 10 mg PO DAILY 05/07/15 Pantoprazole Sodium [Protonix] 40 mg PO DAILY 05/07/15 Simvastatin 40 mg PO 1700 05/07/15 Aspirin [Aspir 81] 81 mg PO DAILY 08/14/16 Metformin HCl 1,000 mg PO DAILY 08/14/16 Meclizine HCl 12.5 mg PO Q8HR #15 tablet 08/23/18 Disposition Discussed With: Patient, Family
--- NOTE | 2018-08-23 19:22 | CT ---
EXAM: CT scan brain without contrast HISTORY: Dizziness COMPARISON: CT scan brain 07/31/2016 FINDINGS: Contiguous axial images were obtained from skull base to the convexities without contrast utilizing 5-mm collimation.. Sagittal and coronal reconstructions were imaged and reviewed. The luigi tricles and CSF spaces are prominent compatible with age appropriate atrophy. There is periventricul ar hypodensity noted compatible with chronic microvascular disease. Atherosclerotic changes are seen involving the bilateral vertebral and cavernous internal carotid arteries. Visualized paranasal sin uses and mastoid air cells are clear. The calvarium is intact. IMPRESSION: No acute intracranial findings
--- NOTE | 2018-08-23 19:23 | DI ---
EXAM: Single-view chest HISTORY: Dizziness COMPARISON: Single-view chest 07/31/2016 FINDINGS: The cardiomediastinal silhouette is stable. The lungs are clear bilaterally. No osseous abnormalities are identified. IMPRESSION: No evidence of active pulmonary disease
[2018-08-23] MEDS ORDERED: ANTIVERT PO STA (19:41)
== END 2018-08-23 20:11 | disposition home or self-care (01) ==
LOC: ED 18:00
DX: G20 Parkinson's disease (principal); R42 Dizziness and giddiness; R26.89 Other abnormalities of gait and mobility; E11.9 Type 2 diabetes mellitus without complications; I25.10 Atherosclerotic heart disease of native coronary artery without angina pectoris; I10 Essential (primary) hypertension; I25.2 Old myocardial infarction; Z79.899 Other long term (current) drug therapy
CPT/HCPCS: 36415; 80053; 84484; 85025; 93005; 93010; 99283

== ENCOUNTER 2020-06-23 13:42 | Inpatient (IN) ==
[2020-06-23 14:25] VITALS: BMI 11.8
[2020-06-23] MEDS ORDERED: LASIX IVP STA (14:48)
[2020-06-23 14:51] LABS: ABG PH 7.45 (7.35-7.45)
[2020-06-23] MEDS ORDERED: ATROPINE SULFATE PFS IVP PRN (15:18)
[2020-06-23] MEDS ORDERED: NITROSTAT SL PRN (15:18)
[2020-06-23] MEDS ORDERED: [UNRECOGNIZED DRUG - OTHER] PO SCH (15:30)
[2020-06-23] MEDS ORDERED: LEVODOPA PO SCH (15:30)
[2020-06-23] MEDS ORDERED: CARBIDOPA PO SCH (15:30)
[2020-06-23] MEDS ORDERED: NYSTOP POWDER TP SCH (15:32)
[2020-06-23 15:39] LABS: BASOPHILS % (AUTO) 0.5 % (0.0-3.0); EOSINOPHILS # (AUTO) 0.1 K/ul (0.0-0.7); EOSINOPHILS % (AUTO) 1.6 % (0.0-7.0); HEMATOCRIT 43.9 % (42.0-52.0); HEMOGLOBIN 13.8 g/dl (14.0-18.0); IMMATURE GRANULOCYTE % (AUTO) 0.3 % (0.0-5.0); LYMPHOCYTES # (AUTO) 1.7 K/uL (0.60-3.4); LYMPHOCYTES % (AUTO) 19.5 (10.0-50.0); MEAN CORPUSCULAR HEMOGLOBIN 27.3 pg (27.0-31.0); MEAN CORPUSCULAR HGB CONC 31.4 (31.8-35.4); MEAN CORPUSCULAR VOLUME 86.8 fl (80.0-94.0); MONOCYTES # (AUTO) 0.6 K/uL (0.4-2.0); MONOCYTES % (AUTO) 6.8 (0-10); NEUTROPHILS # (AUTO) 6.3 K/ul (2.0-6.9); NEUTROPHILS % (AUTO) 71.3 % (42.2-75.2); PLATELET COUNT 385 10^3/uL (140-440); RDW COEFFICIENT OF VARIATION 15.1 % (11.6-14.8); RED BLOOD COUNT 5.06 10^6/ul (4.70-6.10); WHITE BLOOD COUNT 8.88 K/ul (4.2-10.2)
[2020-06-23 15:50] LABS: ALBUMIN 4.61 g/dL (3.5-5.0); ALKALINE PHOSPHATASE 160.8 U/L (56-119); ASPARTATE AMINO TRANSFERASE 23.6 U/L (17-59); BILIRUBIN,TOTAL 0.54 mg/dL (0.2-1.3); BLOOD UREA NITROGEN 12.1 mg/dL (9-20); CALCIUM 9.73 mg/dL (8.4-10.2); CHLORIDE 97.8 mmol/L (98-107); CREATINE KINASE 24.2 U/L (55-170); CREATININE 0.75 mg/dL (0.60-1.10); GLUCOSE 117.1 mg/dL (74-106); POTASSIUM 3.53 mmol/L (3.5-5.1); SODIUM 139.5 mmol/L (134.5-145); TOTAL PROTEIN 8.16 g/dL (6.3-8.2)
--- NOTE | 2020-06-23 16:02 | DI ---
EXAM: Single frontal view of the chest HISTORY: Shortness of breath. COMPARISON: Chest x-ray 08/23/2018 FINDINGS: Cardiomediastinal silhouette is normal. There is no pneumothorax or effusion. There is no consolidation, nodule or mass. The osseous structures are unremarkable. IMPRESSION: No acute cardiopulmonary process
[2020-06-23 16:21] LABS: ALANINE AMINOTRANSFERASE < 4.0 U/L (0-50)
[2020-06-23 16:22] LABS: TROPONIN I < 0.012 ng/ml (0.0000-0.120)
[2020-06-23 16:37] LABS: BILIRUBIN,URINE Negative (NEGATIVE); CLARITY,URINE Clear (CLEAR); COLOR,URINE Yellow (YELLOW); GLUCOSE, URINE (UA) Negative (NEGATIVE); KETONES,URINE Negative (NEGATIVE); LEUKOCYTE ESTERASE ,URINE Negative (NEGATIVE); NITRITE,URINE Negative (NEGATIVE); PROTEIN,URINE Negative (NEGATIVE); URINE, BLOOD 1+ (NEGATIVE); UROBILINOGEN,URINE 0.2 (0.2)
[2020-06-23 16:38] LABS: SQUAMOUS EPITHELIAL CELL,UR NOT PRESENT (0-5); URINE RBC, MICROSCOPIC 0-2 (0-2)
[2020-06-23] MEDS: DIFLUCAN PO SCH (16:57)
[2020-06-23] MEDS: TYLENOL PO PRN (18:26)
[2020-06-23] MEDS: CARBIDOPA LEVODOPA PO SCH ×2 (18:31→21:58)
[2020-06-23] MEDS ORDERED: LEVAQUIN 500 MG/100 ML D5W 500 MG/100 ML BAG IV ONE (19:30)
[2020-06-23] MEDS: NYSTOP POWDER TP SCH (20:51)
[2020-06-23 23:57] LABS: TROPONIN I < 0.012 ng/ml (0.0000-0.120)
[2020-06-24] MEDS: TYLENOL PO PRN (04:46)
[2020-06-24 05:00] LABS: BASOPHILS % (AUTO) 0.3 % (0.0-3.0); EOSINOPHILS # (AUTO) 0.2 K/ul (0.0-0.7); HEMATOCRIT 38.4 % (42.0-52.0); HEMOGLOBIN 12.2 g/dl (14.0-18.0); IMMATURE GRANULOCYTE % (AUTO) 0.2 % (0.0-5.0); LYMPHOCYTES # (AUTO) 1.6 K/uL (0.60-3.4); LYMPHOCYTES % (AUTO) 17.4 (10.0-50.0); MEAN CORPUSCULAR HEMOGLOBIN 27.2 pg (27.0-31.0); MEAN CORPUSCULAR HGB CONC 31.8 (31.8-35.4); MEAN CORPUSCULAR VOLUME 85.5 fl (80.0-94.0); MONOCYTES # (AUTO) 0.7 K/uL (0.4-2.0); MONOCYTES % (AUTO) 7.8 (0-10); NEUTROPHILS # (AUTO) 6.5 K/ul (2.0-6.9); NEUTROPHILS % (AUTO) 72.3 % (42.2-75.2); PLATELET COUNT 322 10^3/uL (140-440); RDW COEFFICIENT OF VARIATION 14.8 % (11.6-14.8); RED BLOOD COUNT 4.49 10^6/ul (4.70-6.10); WHITE BLOOD COUNT 8.96 K/ul (4.2-10.2)
[2020-06-24 05:14] LABS: ALBUMIN 3.79 g/dL (3.5-5.0); ALKALINE PHOSPHATASE 145.8 U/L (56-119); ASPARTATE AMINO TRANSFERASE 31.1 U/L (17-59); BILIRUBIN,TOTAL 0.62 mg/dL (0.2-1.3); BLOOD UREA NITROGEN 13.2 mg/dL (9-20); CALCIUM 9.07 mg/dL (8.4-10.2); CARBON DIOXIDE 33.9 mmol/L (22-30.0); CREATININE 0.58 mg/dL (0.60-1.10); GLUCOSE 109.5 mg/dL (74-106); POTASSIUM 3.43 mmol/L (3.5-5.1); TOTAL PROTEIN 6.84 g/dL (6.3-8.2)
[2020-06-24 05:16] LABS: ALANINE AMINOTRANSFERASE < 4.0 U/L (0-50)
[2020-06-24] MEDS: LASIX IVP SCH (05:36)
[2020-06-24] MEDS: PROTONIX PO SCH (05:47)
[2020-06-24] MEDS: LEVAQUIN 250 MG/50 ML D5W 250 MG/50 ML BAG IV SCH (09:13)
[2020-06-24] MEDS: CARBIDOPA LEVODOPA PO SCH ×3 (09:13→20:26)
[2020-06-24] MEDS: ZOCOR PO SCH (09:14)
[2020-06-24] MEDS: ASPIRIN EC PO SCH (09:14)
[2020-06-24] MEDS: DIFLUCAN PO SCH (09:14)
[2020-06-24] MEDS: GLUCOPHAGE PO SCH (09:14)
[2020-06-24] MEDS: ALDACTONE PO SCH (09:14)
[2020-06-24] MEDS: NYSTOP POWDER TP SCH ×3 (09:15→20:25)
[2020-06-25 04:54] LABS: BASOPHILS % (AUTO) 0.5 % (0.0-3.0); EOSINOPHILS # (AUTO) 0.2 K/ul (0.0-0.7); EOSINOPHILS % (AUTO) 2.3 % (0.0-7.0); HEMOGLOBIN 11.7 g/dl (14.0-18.0); IMMATURE GRANULOCYTE % (AUTO) 0.4 % (0.0-5.0); LYMPHOCYTES % (AUTO) 25.6 (10.0-50.0); MEAN CORPUSCULAR HEMOGLOBIN 27.2 pg (27.0-31.0); MEAN CORPUSCULAR HGB CONC 31.6 (31.8-35.4); MONOCYTES # (AUTO) 0.7 K/uL (0.4-2.0); MONOCYTES % (AUTO) 8.3 (0-10); NEUTROPHILS % (AUTO) 62.9 % (42.2-75.2); PLATELET COUNT 310 10^3/uL (140-440); RDW COEFFICIENT OF VARIATION 15.2 % (11.6-14.8); WHITE BLOOD COUNT 7.96 K/ul (4.2-10.2)
[2020-06-25 05:07] LABS: ALANINE AMINOTRANSFERASE < 4.0 U/L (0-50); ALBUMIN 3.65 g/dL (3.5-5.0); ALKALINE PHOSPHATASE 142.9 U/L (56-119); ASPARTATE AMINO TRANSFERASE 29.3 U/L (17-59); BILIRUBIN,TOTAL 0.47 mg/dL (0.2-1.3); BLOOD UREA NITROGEN 14.9 mg/dL (9-20); CALCIUM 8.86 mg/dL (8.4-10.2); CARBON DIOXIDE 33.5 mmol/L (22-30.0); CHLORIDE 97.3 mmol/L (98-107); CREATININE 0.68 mg/dL (0.60-1.10); GLUCOSE 119.9 mg/dL (74-106); SODIUM 136.2 mmol/L (134.5-145); TOTAL PROTEIN 6.61 g/dL (6.3-8.2)
[2020-06-25] MEDS: TYLENOL PO PRN ×2 (05:59→19:16)
[2020-06-25] MEDS: PROTONIX PO SCH (05:59)
[2020-06-25] MEDS: LASIX IVP SCH (05:59)
[2020-06-25] MEDS: LEVAQUIN 250 MG/50 ML D5W 250 MG/50 ML BAG IV SCH (08:39)
[2020-06-25] MEDS: ZOCOR PO SCH (08:39)
[2020-06-25] MEDS: DIFLUCAN PO SCH (08:39)
[2020-06-25] MEDS: NYSTOP POWDER TP SCH ×3 (08:39→20:56)
[2020-06-25] MEDS: ASPIRIN EC PO SCH (08:40)
[2020-06-25] MEDS: GLUCOPHAGE PO SCH (08:40)
[2020-06-25] MEDS: ALDACTONE PO SCH (08:40)
[2020-06-25] MEDS: CARBIDOPA LEVODOPA PO SCH ×3 (08:44→20:55)
[2020-06-26] MEDS: TYLENOL PO PRN ×3 (03:50→20:57)
[2020-06-26 05:30] LABS: BASOPHILS # (AUTO) 0.1 K/uL (0-0.2); BASOPHILS % (AUTO) 0.8 % (0.0-3.0); EOSINOPHILS # (AUTO) 0.3 K/ul (0.0-0.7); EOSINOPHILS % (AUTO) 3.9 % (0.0-7.0); HEMATOCRIT 36.3 % (42.0-52.0); HEMOGLOBIN 11.5 g/dl (14.0-18.0); IMMATURE GRANULOCYTE % (AUTO) 0.3 % (0.0-5.0); LYMPHOCYTES # (AUTO) 2.1 K/uL (0.60-3.4); LYMPHOCYTES % (AUTO) 31.8 (10.0-50.0); MEAN CORPUSCULAR HEMOGLOBIN 27.5 pg (27.0-31.0); MEAN CORPUSCULAR HGB CONC 31.7 (31.8-35.4); MEAN CORPUSCULAR VOLUME 86.8 fl (80.0-94.0); MONOCYTES # (AUTO) 0.5 K/uL (0.4-2.0); MONOCYTES % (AUTO) 7.1 (0-10); NEUTROPHILS # (AUTO) 3.7 K/ul (2.0-6.9); NEUTROPHILS % (AUTO) 56.1 % (42.2-75.2); PLATELET COUNT 324 10^3/uL (140-440); RDW COEFFICIENT OF VARIATION 15.2 % (11.6-14.8); RED BLOOD COUNT 4.18 10^6/ul (4.70-6.10)
[2020-06-26 05:42] LABS: ALBUMIN 3.74 g/dL (3.5-5.0); ALKALINE PHOSPHATASE 129.9 U/L (56-119); ASPARTATE AMINO TRANSFERASE 22.7 U/L (17-59); BILIRUBIN,TOTAL 0.42 mg/dL (0.2-1.3); BLOOD UREA NITROGEN 16.5 mg/dL (9-20); CALCIUM 8.86 mg/dL (8.4-10.2); CARBON DIOXIDE 33.6 mmol/L (22-30.0); CHLORIDE 98.7 mmol/L (98-107); CREATININE 0.67 mg/dL (0.60-1.10); GLUCOSE 102.4 mg/dL (74-106); POTASSIUM 3.51 mmol/L (3.5-5.1); SODIUM 138.2 mmol/L (134.5-145); TOTAL PROTEIN 6.82 g/dL (6.3-8.2)
[2020-06-26 05:47] LABS: ALANINE AMINOTRANSFERASE < 4.0 U/L (0-50)
[2020-06-26] MEDS: PROTONIX PO SCH (05:55)
[2020-06-26] MEDS: LASIX IVP SCH (05:55)
--- NOTE | 2020-06-26 09:14 | PCM.PROG ---
Attending Provider: ATTENDING PROVIDER: Dr. SUN NAGEL This patient is seen with Tiera Vaz, Nurse Practitioner. DATE OF SERVICE: 06/26/20 SUBJECTIVE: This 79 year old /WHITE M was hospitalized 06/23/20. The patient is resting comfortably. He is eating well. Still with some shortness of breath. Labs are stable. REVIEW OF SYSTEMS: CONSTITUTIONAL: No night sweats. No fatigue, malaise, lethargy. No fever or chills. Weakness. HEENT: Eyes: No visual changes. No eye pain. No eye discharge. ENT: No runny nose. No epistaxis. No sinus pain. No odynophagia. No congestion. RESPIRATORY: No cough, no congestion. No hemoptysis. No shortness of breath. CARDIOVASCULAR: No angina symptoms. No CHF symptoms. No atypical chest pain for CAD. No palpitations. No orthopnea.. GASTROINTESTINAL: No abdominal pain. No nausea or vomiting. No diarrhea or constipation. No hematemesis. No hematochezia. GENITOURINARY: No urgency. No frequency. No dysuria. No hematuria. No obstru ctive symptoms. No discharge. No pain. No significant abnormal bleeding. MUSCULOSKELETAL: No musculoskeletal pain; no joint swelling. NEUROLOGICAL: Awake, alert, oriented to time, place and person. No headache. No neck pain. No syncope. No seizures. No dizziness. PSYCHIATRIC: Not anxious. No depression. No suicidal thoughts. No homicidal thoughts. SKIN: No rash. No lesions. No wounds. ENDOCRINE: No unexplained weight loss. No weight gain. HEMATOLOGIC/LYMPHATIC: No anemia. No purpura. No petechiae. No prolonged or excessive bleeding. No palpable lymph nodes. PHYSICAL EXAMINATION: GENERAL: The patient is awake, alert and oriented, lying in bed in no distress. VITAL SIGNS: Temperature 97.7 F, Pulse 65, Respiratory Rate 16, BP 133/73, Pulse Ox 95% HEENT: Head normocephalic, atraumatic. Eyes: Extraocular muscles are intact. Pupils are equal, round and reactive to light and accommodation. Ears: No lesions. Nose appeared normal. Throat: No exudate or erythema. NECK: Supple. No JVD, no carotid bruit. No lymphadenopathy or thyromegaly. LUNGS: Diminished breath sounds. Clear to auscultation. Percussion note normal. Chest symmetrical. HEART: S1, S2, no S3. No murmurs. No cyanosis or clubbing. No ascites. Pulses: Dorsalis pedis and posterior tibial pulses +1 to +2 both sides. ABDOMEN: Soft. Non-tender. Bowel sounds active. No CVA tenderness. No mass felt. EXTREMITIES: No edema. Full range of motion of all extremities, equal. NEUROLOGIC: No focal deficit. Cranial nerves II through XII are grossly intact. No headache. No double vision. SKIN: Not dry. Intact. Turgor-normal. Two areas on coccyx on admission. LYMPHATIC: No palpable lymph nodes/no lymphedema. MUSCULOSKELETAL: Normal joints with no swelling. Muscle tone is normal. LAB REVIEW: 06/26/20 05:05 06/26/20 05:05 06/26/20 05:05: Sodium 138.2, Potassium 3.51, Chloride 98.7, Carbon Dioxide 33.6 H, Anion Gap 9.41, BUN 16.5, Creatinine 0.67, Estimated GFR (MDRD) 115.00, BUN/Creatinine Ratio 24.62, Glucose 102.4, Calcium 8.86, Total Bilirubin 0.42, AST 22.7, ALT < 4.0, Alkaline Phosphatase 129.9 H, Total Protein 6.82, Albumin 3.74, Globulin 3.08, Albumin/Globulin Ratio 1.21 06/26/20 05:05: WBC 6.60, RBC 4.18 L, Hgb 11.5 L, Hct 36.3 L, MCV 86.8, MCH 27.5, MCHC 31.7 L, RDW Coeff of Leda 15.2 H, Plt Count 324, Immature Gran % (Auto) 0.3, Neut % (Auto) 56.1, Lymph % (Auto) 31.8, [place] % (Auto) 7.1, Eos % (Auto) 3.9, Baso % (Auto) 0.8, Neut # (Auto) 3.7, Lymph # (Auto) 2.1, [place] # (Auto) 0.5, Eos # (Auto) 0.3, Baso # (Auto) 0.1, Immature Gran # (Auto) 0.0 ASSESSMENT: Please see below. 1. Shortness of breath 2. COPD 3. Leg edema, resolving 4. Parkinson's disease 5. Generalized weakness. PLAN: 1. Discontinue IV Lasix 2. Lasix PO 40mg tomorrow 3. Continue antibiotics. Plan and coordination of the patient's care discussed in the presence of Planograph Operator and nurse. EDUCATION: CONDITION: SCRIBED BY: Tom ROBERTS scribed while in presence of service performed by Dr. Nagel/Tiera Vaz APRN on 06/26/20 ([id number])
[2020-06-26] MEDS: LEVAQUIN 250 MG/50 ML D5W 250 MG/50 ML BAG IV SCH (09:21)
[2020-06-26] MEDS: ALDACTONE PO SCH (09:22)
[2020-06-26] MEDS: CARBIDOPA LEVODOPA PO SCH ×3 (09:22→20:57)
[2020-06-26] MEDS: GLUCOPHAGE PO SCH (09:22)
[2020-06-26] MEDS: ASPIRIN EC PO SCH (09:22)
[2020-06-26] MEDS: ZOCOR PO SCH (09:22)
[2020-06-26] MEDS: NYSTOP POWDER TP SCH ×3 (09:22→20:58)
--- NOTE | 2020-06-26 13:21 | PN ---
DATE OF SERVICE: 06/23/20 SUBJECTIVE: The patient was hospitalized today through the office. The patient has been started on Levaquin antibiotics for possibility of mild superficial skin infection along with Candidiasis. He has already put out more than 3,000 cc. He has +3 to +4 pitting edema up to the thighs. We placed Moess catheter because he was incontinent to some extent and was unable to get up. He will be restarted on all the medications that was started by Dr. Castillo. CONDITION: Stable. TIME SPENT: More than 30 minutes. Plan and coordination of the patient's care discussed in the presence of nurse. MARTHA
--- NOTE | 2020-06-26 13:31 | PN ---
DATE OF SERVICE: 06/24/20 SUBJECTIVE: 79-year-old white male hospitalized with massive bilateral leg edema, pitting +3 with bilateral pitting edema and having Candidiasis of groin area, possibility of mild cellulitis. The patient's saturation in the office was also borderline 90%. The patient's condition has improved remarkably. He is feeling a lot better, has put out a lot of urine. REVIEW OF SYSTEMS: CONSTITUTIONAL: No night sweats. No fatigue, malaise, lethargy. No fever or chills. HEENT: Eyes: No visual changes. No eye pain. No eye discharge. ENT: No runny nose. No epistaxis. No sinus pain. No sore throat. No odynophagia. No congestion. RESPIRATORY: No cough, no congestion. No hemoptysis. No shortness of breath. CARDIOVASCULAR: No angina symptoms. No CHF symptoms. No atypical chest pain for CAD. No palpitations. No PND. No orthopnea. GASTROINTESTINAL: Appetite seems to have improved according to the patient. No abdominal pain. No nausea or vomiting. No diarrhea or constipation. No hematemesis. No hematochezia. GENITOURINARY: No urgency. No frequency. No dysuria. No hematuria. No obstructive symptoms. No discharge. No pain. No significant abnormal bleeding. MUSCULOSKELETAL: No musculoskeletal pain; no joint swelling. NEUROLOGICAL: The patient is oriented to time, place and person. No headache. No neck pain. No syncope. No seizures. No dizziness. PSYCHIATRIC: Not anxious. No depression. No suicidal thoughts. No homicidal thoughts. SKIN: No rash. No lesions. No wounds. ENDOCRINE: No unexplained weight loss. No weight gain. HEMATOLOGIC/LYMPHATIC: No anemia. No purpura. No petechiae. No prolonged or excessive bleeding. No palpable lymph nodes. PHYSICAL EXAMINATION: GENERAL: The patient is oriented to time, place and person. VITAL SIGNS: Temperature 97.6, pulse 70, respiratory rate 18, blood pressure 126/79, pulse ox 98%. HEENT: Head normocephalic, atraumatic. Eyes: Extraocular muscles are intact. Pupils are equal, round and reactive to light and accommodation. Ears: No lesions. Nose appeared normal. Throat: No exudate or erythema. NECK: Supple. No JVD, no carotid bruit. No lymphadenopathy or thyromegaly. LUNGS: Decreased breath sounds but clear to auscultation. Percussion note normal. Chest symmetrical. HEART: S1, S2, no S3. No murmurs. No cyanosis or clubbing. No ascites. Pulses: Dorsalis pedis and posterior tibial pulses +1 to +2 bilaterally. ABDOMEN: Soft. Nontender. Bowel sounds active. No CVA tenderness. No mass felt. EXTREMITIES: Pitting edema +3. Calf muscles are somewhat loose instead of being tight. Full range of motion of all extremities, equal. NEUROLOGIC: No focal deficit. Cranial nerves II through XII are grossly intact. No headache. No double vision. SKIN: Not dry. Intact. Turgor - normal. LYMPHATIC: No palpable lymph nodes/no lymphedema. MUSCULOSKELETAL: Normal joints with no swelling. Muscle tone is normal. ASSESSMENT: 1. Bilateral leg edema, +3 pitting now. No evidence of real active infection of the skin. Skin redness is from scratching and from hemosideran pigmentation. 2. Coronary artery disease. No evidence of CHF. 3. Chronic anemia. 4. Parkinson's disease with complications. PLAN: 1. Continue IV Lasix. 2. Continue Aldactone. 3. Levaquin started. Possibility of some infection involving skin which is infected by fungal infection. 4. Hypokalemia, borderline. Will give K tab 20 mEq t.i.d. 5. Daily weight. 6. Elevate the legs. 7. Cut down on salt intake. 8. Restrict the fluids 700 cc. The patient was explained about all of this. CONDITION: Stable, improving. TIME SPENT: More than 30 minutes. Plan and coordination of the patient's care discussed in the presence of nurse. MARTHA
--- NOTE | 2020-06-26 13:36 | PN ---
DATE OF SERVICE: 06/25/20 SUBJECTIVE: The patient is doing well, a lot better. He is ready for breakfast. Appetite, according to him, seems to have improved. REVIEW OF SYSTEMS: CONSTITUTIONAL: No night sweats. No fatigue, malaise, lethargy. No fever or chills. HEENT: Eyes: No visual changes. No eye pain. No eye discharge. ENT: No runny nose. No epistaxis. No sinus pain. No sore throat. No odynophagia. No congestion. RESPIRATORY: No cough, no congestion. No hemoptysis. No shortness of breath. CARDIOVASCULAR: No angina symptoms. No CHF symptoms. No atypical chest pain for CAD. No palpitations. No PND. No orthopnea. GASTROINTESTINAL: No abdominal pain. No nausea or vomiting. No diarrhea or constipation. No hematemesis. No hematochezia. GENITOURINARY: No urgency. No frequency. No dysuria. No hematuria. No obstructive symptoms. No discharge. No pain. No significant abnormal bleeding. MUSCULOSKELETAL: No musculoskeletal pain; no joint swelling. NEUROLOGICAL: No headache. No neck pain. No syncope. No seizures. No dizziness. PSYCHIATRIC: Not anxious. No depression. No suicidal thoughts. No homicidal thoughts. SKIN: No rash. No lesions. No wounds. ENDOCRINE: No unexplained weight loss. No weight gain. HEMATOLOGIC/LYMPHATIC: No anemia. No purpura. No petechiae. No prolonged or excessive bleeding. No palpable lymph nodes. PHYSICAL EXAMINATION: GENERAL: The patient is oriented to time, place and person. HEENT: Head normocephalic, atraumatic. Eyes: Extraocular muscles are intact. Pupils are equal, round and reactive to light and accommodation. Ears: No lesions. Nose appeared normal. Throat: No exudate or erythema. NECK: Supple. No JVD, no carotid bruit. No lymphadenopathy or thyromegaly. LUNGS: Clear to auscultation. Percussion note normal. Chest symmetrical. HEART: S1, S2, no S3. No murmurs. No cyanosis or clubbing. No ascites. Pulses: Dorsalis pedis and posterior tibial pulses +1 to +2 bilaterally. ABDOMEN: Soft. Nontender. Bowel sounds active. No CVA tenderness. No mass felt. EXTREMITIES: Leg edema is half of what it was, +2 pitting, was +3 to +4, less tense. Edema has subsided. The Candidiasis of skin in the fold. Full range of motion of all extremities, equal. NEUROLOGIC: No focal deficit. Cranial nerves II through XII are grossly intact. No headache. No double vision. SKIN: Not dry. Intact. Turgor - normal. LYMPHATIC: No palpable lymph nodes/no lymphedema. MUSCULOSKELETAL: Normal joints with no swelling. Muscle tone is normal. ASSESSMENT: 1. Bilateral massive leg edema. 2. Cellulitis seems to be resolving. 3. Parkinson's disease stable. PLAN: 1. Continue IV Lasix. 2. Aldactone. 3. Advise low salt diet. 4. Advise to cut down on fluid intake. CONDITION: Stable. TIME SPENT: More than 30 minutes. Plan and coordination of the patient's care discussed in the presence of nurse. MARTHA
--- NOTE | 2020-06-26 14:42 | RS.OTINEVL ---
Subjective - Patient information Date of Evaluation: 06/26/20 Date of Arrival on Unit: 06/23/20 Admitted From:: Home Diagnosis: BLE edema, SOB, Resp. Failure PRECAUTIONS: O2 2L Usual Living Arrangement: with son Living Arrangement Comments: lives with son Home Environment: Level/No stairs Medical History Comments:: Parkinson's, - Level of function Current Equipment Used at Home: walker, bedside commode Interventions - Objective Patient Orientation: Person, Place, Time Current Interventions: IV's, Oxygen, Telemetry Observation: Pt appears weak and has the posture of Parkinson's with the small gait pattern. Pt has difficulty with ADLS. Pt reports he does his bathing himself. Interventions - ROM Right Upper Extremity AROM: Slight limitation Left Upper Extremity AROM: Slight limitation - Strength Right Upper Extremity Strength: Mild Weakness Left Upper Extremity Strength: Mild Weakness Balance - Sitting Balance Static Sitting Balance: Fair Dynamic Sitting Balance: Fair - Standing Balance Static Standing Balance: Poor Dynamic Standing Balance: Poor ADL Skills - Self Feeding Self Feeding: Set Up Only - Grooming Grooming: Min Assist - Bathing Bathing UE: Independent Bathing LE: Min Assist - Dressing Dressing UE: Independent Dressing LE: Min Assist - Toilet Management Toileting Management: Min Assist Functional Mobility - Transfers Sit to Stand: Mod Assist, 2 person assist Stand to Sit: Mod Assist, 2 person assist Stand Pivot Transfers: Mod Assist, 2 person assist - Ambulation Weight Bearing Status: FWB Assistance needed with Ambulation: Min Assist Comments:: Pt has difficulty with turning with RW and walking. - Safety Awareness Safety Awareness: Fair CHRISTINE INDEX SCORE: . Additional Treatment Performed - Time with patient Length of Evaluation: 20 Total treatment time: 20 Activities Do you enjoy playing games?: Yes Would you be interested in leaving your room for activities?: Yes Would you enjoy group activities?: Yes Do you have difficulty with your vision?: Yes Patient Education Patient Education: Home Safety, Education of Plan of Care Teaching Recipient: Patient Teaching Methods: Discussion Assessment Problem List:: Decreased level of function, Requires training/education, Decreased safety/Risk of falls, Weakness Rehab Potential: Fair Further Therapy Indicated?: Yes Evaluation Complexity: HISTORY: Medium, EXAM OF BODY SYSTEMS: Medium, CLINICAL DECISION MAKING: Medium Patient's Goal(s): To get stronger, edema goes down, and be able to go back home. Short Term Goals - Goals GOAL 1: Pt to increase Indep. of toilet tranfers to Min A. Goal to be met by: 06/29/20 GOAL 2: Pt to increase I of BLE dressing to Min A. Goal to be met by: 06/29/20 GOAL 3: Pt to increase (I) of sink level ADLS to Min A. Custodial Goals GOAL 1: Pt to increase toilet tranfers to Mod-I. Goal to be met by: 06/19/20 GOAL 2: Pt to be Mod-I for ADLS. Goal to be met by: 06/19/20 Goal to be met by: 06/19/20 Plan Plan of Care: Therapeutic EX, Neuromuscular Re-Educ, Therapeutic Activity, Self- Care/Home Management Frequency of Treatment: 1-2 X day, as tolerated Duration of Treatment: 2 Weeks Anticipated Discharge Destination: Home Treatment Diagnosis (ICD 10 Codes): M62.81 General weakness, Z74.1 Need for assistance with personal care. Has the Physician been added for Co-signature?: Yes
--- NOTE | 2020-06-26 15:09 | RS.PTINEVL ---
Subjective - Patient information Date of Evaluation: 06/26/20 Date of Arrival on Unit: 06/23/20 Admitted From:: Home Diagnosis: BLE edema, Resp. failure, gait difficulty, balance impaired Usual Living Arrangement: with son Home Environment: House, Level/No stairs Medical History: Hypertension, COPD, Diabetes, Arthritis, Vascular Disease Medical History Comments:: [place], DDD, Parkinson's disease, GERD, ventricular hypertrophy, LATEX ALLERGY?: No Surgical History Comments:: vascular surgery, B double inguinal hernia repair Medications: see chart Subjective Information/ Patient Comments:: pt states that he is sore on his bottom. He states that he has been sitting up in chair for about an hour. - Level of function Abilities prior to this admission: pt states that his son helped him with ADL's at home. He states he ambulated independently with rwx. Current Level of Function: Partially Dependent Current Equipment Used at Home: rolling walker, bedside commode, shower chair Pain Assessement - Location wounds near coccyx Description: Burning Pain Behavior: Facial Grimacing Pain Aggravating Factors: Changing Position, Sitting Interventions - Objective Patient Orientation: Person, Place, Situation Current Interventions: Oxygen (2 liters), Telemetry Observation: pt with wounds near coccyx covered with mepilex Range of Motion - ROM Right Upper Extremity AROM: WFL's Left Upper Extremity AROM: WFL's Right Lower Extremity AROM: WFL's Left Lower Extremity AROM: WFL's Muscle Strength - Muscle Strength Right Upper Extremity Strength: Mild Weakness (grossly 4-/5) Left Upper Extremity Strength: Mild Weakness (grossly 4-/5) Right Lower Extremity Strength: Mild Weakness (hip flex 3+/5, knee flex/ext 4- /5, ankle DF/PF 4-/5) Left Lower Extremity Strength: Mild Weakness (hip flex 3+/5, knee flex/ext 4-/5, ankle DF/PF 4-/5) Sensation - Sensation Right Upper Extremity Sensation: Intact/Normal Left Upper Extremity Sensation: Intact/Normal Right Lower Extremity Sensation: Intact/Normal Left Lower Extremity Sensation: Intact/Normal Palpation Palpation Findings: Tenderness Comments:: tenderness to palpation BLE Balance - Sitting Balance and Reactions Static Sitting Balance: Fair Dynamic Sitting Balance: Fair Sitting Equilibrium Reactions: Delayed Left, Delayed Right Sitting Protective Reactions: Delayed Left, Delayed Right - Standing Balance and Reactions Static Standing Balance: Poor Dynamic Standing Balance: Poor Standing Equilibrium Reactions: Delayed Left, Delayed Right Standing Protective Reactions: Delayed Left, Delayed Right Functional Mobility - Bed Mobility Comments:: pt seen sitting up in bedside chair. - Transfers Sit to Stand: Min Assist, Mod Assist, 2 person assist Stand to Sit: Min Assist, 2 person assist - Safety Awareness Safety Awareness: Fair CHRISTINE INDEX SCORE: n/a Ambulation - Ambulation Assistive Device Used: Rolling Walker Orthotic/Prosthetic Device: No Distance: 30ft Assistance needed with Ambulation: Min Assist, 1 person assist, 2 person assist Quality of Ambulation: pt amb with O2 at 2 liters Gait Deviations: Forward posture, Short stride Ambulation Comments: pt amb with decreased step length, festinating gait, decreased JORDAN, flexed posture Factors Affecting Ambulation: Decreased Balance, Weakness, Decreased Coordination, Dizziness, Decreased Safety, Limited Endurance Treatment time - Time with patient Length of Evaluation: 21 Total treatment time: 32 Patient Education - Education Patient Education: Activity Modification, Education of Plan of Care Teaching Recipient: Patient Teaching Methods: Discussion, Demonstration Assessment - Assessment Problem List:: Decreased level of function, Requires training/education, Decreased safety/Risk of falls, Weakness Rehab Potential: Fair Further Therapy Indicated?: Yes Candidate for Swing Bed for Therapy Services?: Feel pt may be a candidate for swing bed for therapy if remains cooperative with PT. Evaluation Complexity: HISTORY: Medium, EXAM OF BODY SYSTEMS: Medium, CLINICAL PRESENTATION: Medium, CLINICAL DECISION MAKING: Medium Patient's Goal(s): return home with son Short Term Goals GOAL #1: pt demonstrate rolling, scooting in bed independently Goal to be met by: 06/28/20 GOAL #2: Transfer sup to/from sit min x 1 Goal to be met by: 06/28/20 GOAL #3: Sit to/from stand min x 1 Goal to be met by: 06/28/20 GOAL #4: pt amb with rwx 75ft with min x 1 Goal to be met by: 06/28/20 GOAL #5: Improve BLE Strength 4/5 Goal to be met by: 06/28/20 Half-Way Goals GOAL #1: pt transfer sup to/from sit to/from stand independently Goal to be met by: 06/30/20 GOAL #2: pt amb with rwx functional disatances with CGA x 1 Goal to be met by: 04/30/21 GOAL #3: Improve dyn stand balance fair with rwx Goal to be met by: 06/30/20 Plan Plan of Care: Therapeutic EX, Therapeutic Activity, Self-Care/Home Management Other:: gait training Frequency of Treatment: 1-2 X day, as tolerated Duration of Treatment: 5 days Anticipated Discharge Destination: Home Treatment Diagnosis (ICD 10 Codes): impaired balance R 26.81. difficulty walking R 26.2. muscle weakness M62.81. risk of falls. Parkinsons disease Has the Physician been added for Co-signature?: Yes
[2020-06-27 05:27] LABS: BASOPHILS % (AUTO) 0.5 % (0.0-3.0); EOSINOPHILS # (AUTO) 0.3 K/ul (0.0-0.7); EOSINOPHILS % (AUTO) 4.2 % (0.0-7.0); HEMATOCRIT 37.6 % (42.0-52.0); HEMOGLOBIN 11.8 g/dl (14.0-18.0); IMMATURE GRANULOCYTE % (AUTO) 0.4 % (0.0-5.0); LYMPHOCYTES # (AUTO) 2.1 K/uL (0.60-3.4); LYMPHOCYTES % (AUTO) 26.3 (10.0-50.0); MEAN CORPUSCULAR HGB CONC 31.4 (31.8-35.4); MONOCYTES # (AUTO) 0.6 K/uL (0.4-2.0); MONOCYTES % (AUTO) 6.9 (0-10); NEUTROPHILS % (AUTO) 61.7 % (42.2-75.2); PLATELET COUNT 359 10^3/uL (140-440); RDW COEFFICIENT OF VARIATION 14.7 % (11.6-14.8); RED BLOOD COUNT 4.37 10^6/ul (4.70-6.10); WHITE BLOOD COUNT 8.02 K/ul (4.2-10.2)
[2020-06-27] MEDS: PROTONIX PO SCH (05:36)
[2020-06-27] MEDS: LASIX TAB PO SCH (05:36)
[2020-06-27 05:42] LABS: ALBUMIN 3.82 g/dL (3.5-5.0); ALKALINE PHOSPHATASE 124.3 U/L (56-119); BILIRUBIN,TOTAL 0.34 mg/dL (0.2-1.3); BLOOD UREA NITROGEN 15.8 mg/dL (9-20); CALCIUM 9.04 mg/dL (8.4-10.2); CARBON DIOXIDE 32.6 mmol/L (22-30.0); CHLORIDE 98.7 mmol/L (98-107); CREATININE 0.74 mg/dL (0.60-1.10); GLUCOSE 116.9 mg/dL (74-106); TOTAL PROTEIN 6.87 g/dL (6.3-8.2)
[2020-06-27 05:55] LABS: ALANINE AMINOTRANSFERASE < 4.0 U/L (0-50)
--- NOTE | 2020-06-27 08:26 | PCM.PROG ---
Attending Provider: ATTENDING PROVIDER: Dr. SUN NAGEL This patient is seen with Tiera Vaz, Nurse Practitioner. DATE OF SERVICE: 06/27/20 SUBJECTIVE: This 79 year old /WHITE M was hospitalized 06/23/20. The patient is resting comfortably. Still very weak. He is feeling short of breath. He had over 4000 out yesterday. Old laceration on left arm with purulent drainage. No fever. He was seen by therapy yesterday and they feel he would benefit. REVIEW OF SYSTEMS: CONSTITUTIONAL: No night sweats. No fatigue, malaise, lethargy. No fever or chills. Generalized weakness. HEENT: Eyes: No visual changes. No eye pain. No eye discharge. ENT: No runny nose. No epistaxis. No sinus pain. No odynophagia. No congestion. RESPIRATORY: No cough, no congestion. No hemoptysis. Shortness of breath. CARDIOVASCULAR: No angina symptoms. No CHF symptoms. No atypical chest pain for CAD. No palpitations. No orthopnea.. GASTROINTESTINAL: No abdominal pain. No nausea or vomiting. No diarrhea or constipation. No hematemesis. No hematochezia. GENITOURINARY: No urgency. No frequency. No dysuria. No hematuria. No obstructive symptoms. No discharge. No pain. No significant abnormal bleeding. MUSCULOSKELETAL: No musculoskeletal pain; no joint swelling. NEUROLOGICAL: Awake, alert, oriented to time, place and person. No headache. No neck pain. No syncope. No seizures. No dizziness. PSYCHIATRIC: Not anxious. No depression. No suicidal thoughts. No homicidal thoughts. SKIN: No rash. No lesions. Laceration left arm. ENDOCRINE: No unexplained weight loss. No weight gain. HEMATOLOGIC/LYMPHATIC: No anemia. No purpura. No petechiae. No prolonged or excessive bleeding. No palpable lymph nodes. PHYSICAL EXAMINATION: GENERAL: The patient is awake, alert and oriented, lying in bed in no distress. VITAL SIGNS: Temperature 97.0 F, Pulse 70, Respiratory Rate 20, BP 140/87, Pulse Ox 98% HEENT: Head normocephalic, atraumatic. Eyes: Extraocular muscles are intact. Pupils are equal, round and reactive to light and accommodation. Ears: No lesi ons. Nose appeared normal. Throat: No exudate or erythema. NECK: Supple. No JVD, no carotid bruit. No lymphadenopathy or thyromegaly. LUNGS: Diminished breath sounds. Clear to auscultation. Percussion note normal. Chest symmetrical. HEART: S1, S2, no S3. No murmurs. No cyanosis or clubbing. No ascites. Pulses: Dorsalis pedis and posterior tibial pulses +1 to +2 both sides. ABDOMEN: Soft. Non-tender. Bowel sounds active. No CVA tenderness. No mass felt. EXTREMITIES: No edema. Full range of motion of all extremities, equal. NEUROLOGIC: No focal deficit. Cranial nerves II through XII are grossly intact. No headache. No double vision. SKIN: Not dry. Intact. Turgor-normal. 6 inch laceration left forearm with scabbing and scant purulent drainage. No surrounding erythema or warmth. LYMPHATIC: No palpable lymph nodes/no lymphedema. MUSCULOSKELETAL: Normal joints with no swelling. Muscle tone is normal. LAB REVIEW: 06/27/20 04:45 06/27/20 04:45 06/27/20 04:45: Sodium 137.0, Potassium 3.70, Chloride 98.7, Carbon Dioxide 32.6 H, Anion Gap 9.40, BUN 15.8, Creatinine 0.74, Estimated GFR (MDRD) 103.00, BUN/Creatinine Ratio 21.35, Glucose 116.9 H, Calcium 9.04, Total Bilirubin 0.34, AST 23.0, ALT < 4.0, Alkaline Phosphatase 124.3 H, Total Protein 6.87, Albumin 3.82, Globulin 3.05, Albumin/Globulin Ratio 1.25 06/27/20 04:45: WBC 8.02, RBC 4.37 L, Hgb 11.8 L, Hct 37.6 L, MCV 86.0, MCH 27.0, MCHC 31.4 L, RDW Coeff of Leda 14.7, Plt Count 359, Immature Gran % (Auto) 0.4, Neut % (Auto) 61.7, Lymph % (Auto) 26.3, [place] % (Auto) 6.9, Eos % (Auto) 4.2, Baso % (Auto) 0.5, Neut # (Auto) 5.0, Lymph # (Auto) 2.1, [place] # (Auto) 0.6, Eos # (Auto) 0.3, Baso # (Auto) 0.0, Immature Gran # (Auto) 0.0 ASSESSMENT: Please see below. 1. Shortness of breath 2. COPD 3. Generalized weakness 4. Parkinson's Disease 5. Leg edema 6. Laceration left arm 7. Stage II decubitus on buttocks present on admission. PLAN: 1. Bactroban twice a day 2. Left forearm wound culture 3. Will begin daily PT/OT Plan and coordination of the patient's care discussed in the presence of Complex Human Resources Manager and nurse. SCRIBED BY: Tom ROBERTS scribed while in presence of service performed by Dr. Nagel/Tiera Vaz APRN on 06/27/20 ([id number])
--- NOTE | 2020-06-27 08:31 | HP ---
DATE OF SERVICE: 06/23/20 REASON FOR HOSPITALIZATION/HISTORY OF PRESENT ILLNESS: Leg edema +3 to +4 with scrotal swelling. Shortness of breath with exertion. Fluid coming from skin lesions from thigh. PAST MEDICAL HISTORY: Parkinson's disease Dementia Anemia Dizziness Hypertension BPH GERD Cervical radiculopathy Mild LVH Hyperglycemia REVIEW OF SYSTEMS: CONSTITUTIONAL: No fever, no fatigue. HEENT: No sinus drainage, no sore throat. RESPIRATORY: No cough, no congestion. CARDIOVASCULAR: No atypical chest pain for coronary artery disease. No angina, CHF symptoms, palpitations or shortness of breath. GASTROINTESTINAL: No melena or abdominal pain. No GERD. GENITOURINARY: No hematuria, no polyuria. TON CYLINDER INSPECTOR: No blackout, no dizziness, no headache, no double vision. MUSCULOSKELETAL: No osteoarthritis pain, no joint swelling. ENDOCRINE: No weight loss, no weight gain. SKIN: Dry. Rash. PSYCHIATRIC: Anxious. No depression, no suicidal thoughts, no homicidal thoughts. SOCIAL HISTORY: . Drug usage none. Smoking none. Alcohol use none. FAMILY HISTORY: Father ; mother . MEDICATIONS: Metformin 500 mg one daily Carbidopa-Levodopa 25/100 t.i.d.; 50/200 h.s. Protonix 40 mg one daily Simvastatin 40 mg one daily Aspirin 81 mg one daily Lasix 20 mg one daily Aldactone 25 mg one daily Amantadine 100 mg b.i.d. [place] 5/325 mg 1/2 - 1 daily p.r.n. Neurontin 100 mg p.o. b.i.d. Zaroxolyn 2.5 mg daily Rytary three times a day ALLERGIES: PENICILLIN PHYSICAL EXAMINATION: V/S: Pulse 52, BP 138/64, temperature 97.7, 02 sat 90% on room air. Weight: Unable to weigh. GENERAL APPEARANCE: Oriented times three. HEENT: Normal. NECK: No JVP, no bruits. RESPIRATORY: Lungs are clear. CARDIOVASCULAR: S1, S2, no S3, no murmur. No cyanosis, clubbing. No ascites. GI/ABDOMEN: No tenderness. Bowel sounds are active. EXTREMITIES: +3 to +4 pitting edema. Pulses +1, equal. TON CYLINDER INSPECTOR: Deep tendon reflexes, sensory, motor and gait all normal. RECTAL/PROSTATE: Prostate: 08/20 (0.6); colonoscopy - 01/17. Refused colocare. ASSESSMENT: 1. Bilateral leg edema/Shortness of breath/Respiratory failure. 2. Bilateral carotid stenosis. (Dr. Catalan recommended surgery but patient said "no" according to son.) 3. Parkinson's disease (Dr. Castillo). 4. Bilateral leg pain - radiculopathy; peripheral vascular disease??, Dr. Catalan. 5. 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 6. Lumbar fusion 06/18. 7. Anemia. 8. Dependent leg edema 9. Decubitus both buttocks, Stage 1; skin lesions, conditions of skin inguinal, Dr. Sharpe. 10. Hypertension 11. BPH. 12. CAD with stent. 13. Cervical radiculopathy. 14. Dyslipidemia. 15. LVH. 16. Diabetes mellitus (A1C 5.7 12/20). PLAN: 1. Admit with telemetry orders. 2. ABG. 3. T4, TSH. 4. Continue all home medications. 5. Discontinue p.o. Lasix. 6. IV Lasix 40 mg now and q.a.m. 7. Diflucan 150 mg daily times three days 8. Nystatin powder to inguinal area. 9. Oxygen 2L/cannula/min. TIME SPENT: More than 70 minutes. MTDD
[2020-06-27] MEDS ORDERED: BACTROBAN OINTMENT 1 GRAM APPLICATOR (ER) TP SCH (09:00)
[2020-06-27] MEDS: ZOCOR PO SCH (09:42)
[2020-06-27] MEDS: CARBIDOPA LEVODOPA PO SCH ×3 (09:42→21:18)
[2020-06-27] MEDS: ALDACTONE PO SCH (09:42)
[2020-06-27] MEDS: ASPIRIN EC PO SCH (09:42)
[2020-06-27] MEDS: GLUCOPHAGE PO SCH (09:42)
[2020-06-27] MEDS: NYSTOP POWDER TP SCH ×3 (09:44→21:19)
[2020-06-27] MEDS: BACTROBAN TP SCH ×2 (11:16→21:19)
[2020-06-27] MEDS: TYLENOL PO PRN ×2 (11:27→22:04)
[2020-06-27] MEDS ORDERED: LEVAQUIN 250 MG/50 ML D5W 250 MG/50 ML BAG IV STA (15:59)
[2020-06-28 04:56] LABS: BASOPHILS % (AUTO) 0.5 % (0.0-3.0); EOSINOPHILS # (AUTO) 0.4 K/ul (0.0-0.7); EOSINOPHILS % (AUTO) 4.6 % (0.0-7.0); HEMATOCRIT 37.7 % (42.0-52.0); HEMOGLOBIN 12.3 g/dl (14.0-18.0); IMMATURE GRANULOCYTE % (AUTO) 0.4 % (0.0-5.0); LYMPHOCYTES # (AUTO) 1.9 K/uL (0.60-3.4); LYMPHOCYTES % (AUTO) 23.3 (10.0-50.0); MEAN CORPUSCULAR HEMOGLOBIN 27.8 pg (27.0-31.0); MEAN CORPUSCULAR HGB CONC 32.6 (31.8-35.4); MEAN CORPUSCULAR VOLUME 85.3 fl (80.0-94.0); MONOCYTES # (AUTO) 0.6 K/uL (0.4-2.0); MONOCYTES % (AUTO) 7.1 (0-10); NEUTROPHILS # (AUTO) 5.2 K/ul (2.0-6.9); NEUTROPHILS % (AUTO) 64.1 % (42.2-75.2); PLATELET COUNT 384 10^3/uL (140-440); RDW COEFFICIENT OF VARIATION 14.6 % (11.6-14.8); RED BLOOD COUNT 4.42 10^6/ul (4.70-6.10); WHITE BLOOD COUNT 8.03 K/ul (4.2-10.2)
[2020-06-28 05:10] LABS: ALANINE AMINOTRANSFERASE 4.2 U/L (0-50); ALBUMIN 3.95 g/dL (3.5-5.0); ALKALINE PHOSPHATASE 138.6 U/L (56-119); ASPARTATE AMINO TRANSFERASE 28.9 U/L (17-59); BILIRUBIN,TOTAL 0.42 mg/dL (0.2-1.3); BLOOD UREA NITROGEN 17.4 mg/dL (9-20); CALCIUM 9.17 mg/dL (8.4-10.2); CARBON DIOXIDE 34.7 mmol/L (22-30.0); CHLORIDE 96.9 mmol/L (98-107); CREATININE 0.74 mg/dL (0.60-1.10); GLUCOSE 120.5 mg/dL (74-106); POTASSIUM 3.86 mmol/L (3.5-5.1); SODIUM 137.6 mmol/L (134.5-145); TOTAL PROTEIN 7.04 g/dL (6.3-8.2)
[2020-06-28] MEDS: PROTONIX PO SCH (05:56)
[2020-06-28] MEDS: LASIX TAB PO SCH (05:57)
[2020-06-28] MEDS: ZOCOR PO SCH (08:26)
[2020-06-28] MEDS: GLUCOPHAGE PO SCH (08:26)
[2020-06-28] MEDS: ASPIRIN EC PO SCH (08:26)
[2020-06-28] MEDS: ALDACTONE PO SCH (08:26)
[2020-06-28] MEDS: CARBIDOPA LEVODOPA PO SCH ×3 (08:28→20:41)
[2020-06-28] MEDS: BACTROBAN TP SCH ×2 (08:29→20:40)
[2020-06-28] MEDS: NYSTOP POWDER TP SCH ×3 (08:30→20:40)
[2020-06-28] MEDS: TYLENOL PO PRN ×2 (08:44→16:00)
[2020-06-28] MEDS ORDERED: LEVAQUIN 250 MG/50 ML D5W 250 MG/50 ML BAG IV SCH (09:00)
[2020-06-28] MEDS ORDERED: TORADOL IVP ONE (12:02)
[2020-06-28] MEDS ORDERED: DECADRON IM ONE (12:02)
[2020-06-28] MEDS: DOXYCYCLINE HYCLATE PO SCH ×2 (12:55→20:40)
[2020-06-28] MEDS: ULTRAM PO PRN ×2 (16:01→23:04)
[2020-06-29 05:16] LABS: BASOPHILS % (AUTO) 0.3 % (0.0-3.0); EOSINOPHILS % (AUTO) 0.2 % (0.0-7.0); HEMATOCRIT 39.5 % (42.0-52.0); HEMOGLOBIN 12.6 g/dl (14.0-18.0); IMMATURE GRANULOCYTE # (AUTO) 0.1 (0.0-1.0); IMMATURE GRANULOCYTE % (AUTO) 0.4 % (0.0-5.0); LYMPHOCYTES # (AUTO) 1.9 K/uL (0.60-3.4); LYMPHOCYTES % (AUTO) 15.2 (10.0-50.0); MEAN CORPUSCULAR HGB CONC 31.9 (31.8-35.4); MEAN CORPUSCULAR VOLUME 84.6 fl (80.0-94.0); MONOCYTES # (AUTO) 0.5 K/uL (0.4-2.0); MONOCYTES % (AUTO) 4.4 (0-10); NEUTROPHILS # (AUTO) 9.8 K/ul (2.0-6.9); NEUTROPHILS % (AUTO) 79.5 % (42.2-75.2); PLATELET COUNT 396 10^3/uL (140-440); RDW COEFFICIENT OF VARIATION 14.3 % (11.6-14.8); RED BLOOD COUNT 4.67 10^6/ul (4.70-6.10); WHITE BLOOD COUNT 12.33 K/ul (4.2-10.2)
[2020-06-29 05:27] LABS: ALANINE AMINOTRANSFERASE 6.1 U/L (0-50); ALBUMIN 4.32 g/dL (3.5-5.0); BILIRUBIN,TOTAL 0.38 mg/dL (0.2-1.3); BLOOD UREA NITROGEN 17.1 mg/dL (9-20); CALCIUM 9.65 mg/dL (8.4-10.2); CHLORIDE 96.7 mmol/L (98-107); CREATININE 0.63 mg/dL (0.60-1.10); POTASSIUM 4.26 mmol/L (3.5-5.1); SODIUM 137.4 mmol/L (134.5-145); TOTAL PROTEIN 7.7 g/dL (6.3-8.2)
[2020-06-29] MEDS: PROTONIX PO SCH (05:40)
[2020-06-29] MEDS: LASIX TAB PO SCH (05:40)
--- NOTE | 2020-06-29 08:47 | PCM.PROG ---
Attending Provider: ATTENDING PROVIDER: Dr. SUN NAGEL This patient is seen with Tiera Vaz, Nurse Practitioner. DATE OF SERVICE: 06/29/20 SUBJECTIVE: This 79 year old /WHITE M was hospitalized 06/23/20. The patient is resting comfortably. Still with significant weakness. Leg edema has improved. The patient has staph aureus on left arm. Maybe candidate for swing bed. I feel this would be beneficial for him. REVIEW OF SYSTEMS: CONSTITUTIONAL: No night sweats. No fatigue, malaise, lethargy. No fever or chills. Weakness. HEENT: Eyes: No visual changes. No eye pain. No eye discharge. ENT: No runny nose. No epistaxis. No sinus pain. No odynophagia. No congestion. RESPIRATORY: No cough, no congestion. No hemoptysis. No shortness of breath. CARDIOVASCULAR: No angina symptoms. No CHF symptoms. No atypical chest pain for CAD. No palpitations. No orthopnea.. GASTROINTESTINAL: No abdominal pain. No nausea or vomiting. No diarrhea or constipation. No hematemesis. No hematochezia. GENITOURINARY: No urgency. No frequency. No dysuria. No hematuria. No obstructi ve symptoms. No discharge. No pain. No significant abnormal bleeding. MUSCULOSKELETAL: No musculoskeletal pain; no joint swelling. NEUROLOGICAL: Awake, alert, oriented to time, place and person. No headache. No neck pain. No syncope. No seizures. No dizziness. PSYCHIATRIC: Not anxious. No depression. No suicidal thoughts. No homicidal thoughts. SKIN: No rash. No lesions. No wounds. ENDOCRINE: No unexplained weight loss. No weight gain. HEMATOLOGIC/LYMPHATIC: No anemia. No purpura. No petechiae. No prolonged or excessive bleeding. No palpable lymph nodes. PHYSICAL EXAMINATION: GENERAL: The patient is awake, alert and oriented, lying in bed in no distress. VITAL SIGNS: Temperature 97.5 F, Pulse 74, Respiratory Rate 16, BP 136/81, Pulse Ox 97% HEENT: Head normocephalic, atraumatic. Eyes: Extraocular muscles are intact. Pupils are equal, round and reactive to light and accommodation. Ears: No lesions. Nose appeared normal. Throat: No exudate or erythema. NECK: Supple. No JVD, no carotid bruit. No lymphadenopathy or thyromegaly. LUNGS: Diminished breath sounds. Clear to auscultation. Percussion note normal. Chest symmetrical. HEART: S1, S2, no S3. No murmurs. No cyanosis or clubbing. No ascites. Pulses: Dorsalis pedis and posterior tibial pulses +1 to +2 both sides. ABDOMEN: Soft. Non-tender. Bowel sounds active. No CVA tenderness. No mass felt. EXTREMITIES: Trace leg edema. Full range of motion of all extremities, equal. NEUROLOGIC: No focal deficit. Cranial nerves II through XII are grossly intact. No headache. No double vision. SKIN: Not dry. Intact. Turgor-normal. LYMPHATIC: No palpable lymph nodes/no lymphedema. MUSCULOSKELETAL: Normal joints with no swelling. Muscle tone is normal. LAB REVIEW: 06/29/20 05:00 06/29/20 05:00 06/29/20 05:00: Sodium 137.4, Potassium 4.26, Chloride 96.7 L, Carbon Dioxide 32.0 H, Anion Gap 12.96, BUN 17.1, Creatinine 0.63, Estimated GFR (MDRD) 123.00, BUN/Creatinine Ratio 27.14, Glucose 145.0 H, Calcium 9.65, Total Bilirubin 0.38, AST 30.0, ALT 6.1, Alkaline Phosphatase 155.0 H, Total Protein 7.70, Albumin 4.32, Globulin 3.38, Albumin/Globulin Ratio 1.27 06/29/20 05:00: WBC 12.33 H, RBC 4.67 L, Hgb 12.6 L, Hct 39.5 L, MCV 84.6, MCH 27.0, MCHC 31.9, RDW Coeff of Leda 14.3, Plt Count 396, Immature Gran % (Auto) 0.4, Neut % (Auto) 79.5 H, Lymph % (Auto) 15.2, [place] % (Auto) 4.4, Eos % (Auto) 0.2, Baso % (Auto) 0.3, Neut # (Auto) 9.8 H, Lymph # (Auto) 1.9, [place] # (Auto) 0.5, Eos # (Auto) 0.0, Baso # (Auto) 0.0, Immature Gran # (Auto) 0.1 ASSESSMENT: Please see below. 1. Generalized weakness 2. Bilateral leg edema, improved 3. Parkinson's disease 4. Staph Aureus laceration, left arm. PLAN: 1. Continue Doxycycline 2. Continue Bactroban. We will seek approval through insurance for swing bed. I feel the patient would greatly benefit from swing bed admission. He has been doing well with therapy thus far. Plan and coordination of the patient's care discussed in the presence of Insurance Plan Specialist and nurse. SCRIBED BY: CRIS DEL ROSARIO Records Analyst scribed while in presence of service performed by Dr. Nagel/Tiera Vaz APRN on 06/29/20 ([id number])
[2020-06-29] MEDS: ASPIRIN EC PO SCH (09:04)
[2020-06-29] MEDS: NYSTOP POWDER TP SCH ×3 (09:05→20:39)
[2020-06-29] MEDS: GLUCOPHAGE PO SCH (09:05)
[2020-06-29] MEDS: BACTROBAN TP SCH ×2 (09:05→20:40)
[2020-06-29] MEDS: DOXYCYCLINE HYCLATE PO SCH ×2 (09:05→20:36)
[2020-06-29] MEDS: ALDACTONE PO SCH (09:05)
[2020-06-29] MEDS: ZOCOR PO SCH (09:05)
[2020-06-29] MEDS: CARBIDOPA LEVODOPA PO SCH ×3 (09:06→20:36)
[2020-06-29] MEDS: ULTRAM PO PRN (20:36)
[2020-06-29] MEDS: TYLENOL PO PRN (20:36)
[2020-06-30 05:31] LABS: BASOPHILS # (AUTO) 0.1 K/uL (0-0.2); BASOPHILS % (AUTO) 0.7 % (0.0-3.0); EOSINOPHILS # (AUTO) 0.4 K/ul (0.0-0.7); EOSINOPHILS % (AUTO) 3.9 % (0.0-7.0); HEMATOCRIT 38.2 % (42.0-52.0); HEMOGLOBIN 12.1 g/dl (14.0-18.0); IMMATURE GRANULOCYTE # (AUTO) 0.1 (0.0-1.0); IMMATURE GRANULOCYTE % (AUTO) 0.6 % (0.0-5.0); LYMPHOCYTES # (AUTO) 2.9 K/uL (0.60-3.4); LYMPHOCYTES % (AUTO) 30.6 (10.0-50.0); MEAN CORPUSCULAR HEMOGLOBIN 27.2 pg (27.0-31.0); MEAN CORPUSCULAR HGB CONC 31.7 (31.8-35.4); MEAN CORPUSCULAR VOLUME 85.8 fl (80.0-94.0); MONOCYTES # (AUTO) 0.6 K/uL (0.4-2.0); NEUTROPHILS # (AUTO) 5.5 K/ul (2.0-6.9); NEUTROPHILS % (AUTO) 58.2 % (42.2-75.2); PLATELET COUNT 399 10^3/uL (140-440); RDW COEFFICIENT OF VARIATION 14.6 % (11.6-14.8); RED BLOOD COUNT 4.45 10^6/ul (4.70-6.10); WHITE BLOOD COUNT 9.48 K/ul (4.2-10.2)
[2020-06-30] MEDS: LASIX TAB PO SCH (05:39)
[2020-06-30] MEDS: PROTONIX PO SCH (05:39)
[2020-06-30] MEDS: ULTRAM PO PRN (05:39)
[2020-06-30] MEDS: TYLENOL PO PRN (05:40)
[2020-06-30 05:44] VITALS: BP 112/68; TEMP 97.5
[2020-06-30 05:45] LABS: ALBUMIN 4.14 g/dL (3.5-5.0); ALKALINE PHOSPHATASE 139.7 U/L (56-119); BILIRUBIN,TOTAL 0.33 mg/dL (0.2-1.3); BLOOD UREA NITROGEN 25.1 mg/dL (9-20); CALCIUM 9.43 mg/dL (8.4-10.2); CARBON DIOXIDE 31.4 mmol/L (22-30.0); CREATININE 0.84 mg/dL (0.60-1.10); POTASSIUM 3.99 mmol/L (3.5-5.1); SODIUM 137.1 mmol/L (134.5-145); TOTAL PROTEIN 7.25 g/dL (6.3-8.2)
[2020-06-30 05:46] LABS: ALANINE AMINOTRANSFERASE < 4.0 U/L (0-50)
--- NOTE | 2020-06-30 08:51 | PCM.PROG ---
Attending Provider: ATTENDING PROVIDER: Dr. SUN NAEGL DATE OF SERVICE: 06/30/20 SUBJECTIVE: This 79 year old /WHITE M was hospitalized 06/23/20 with bilateral leg edema. There was maybe mild superficial cellulitis. He had redness and probably skin fungal infection of the groin and had decubitus starting in the buttock area from incontinence of urine. Leg edema had reached to the thighs. Edema is +1 pitting less than before. Skin condition in buttock area and groin area better with no infection. Moses catheter will remain in place for next 3 days. The patient is admitted to swing bed today. Previous laceration to left arm, extensive initially and now some scarring and granulation tissue with crusted area, but has been healing well. REVIEW OF SYSTEMS: CONSTITUTIONAL: No night sweats. No fatigue, malaise, lethargy. No fever or chills. HEENT: Eyes: No visual changes. No eye pain. No eye discharge. ENT: No runny nose. No epistaxis. No sinus pain. No odynophagia. No congestion. RESPIRATORY: No cough, no congestion. No hemoptysis. No shortness of breath. CARDIOVASCULAR: No angina symptoms. No CHF symptoms. No atypical chest pain for CAD. No palpitations. No orthopnea.. GASTROINTESTINAL: No abdominal pain. No nausea or vomiting. No diarrhea or constipation. No hematemesis. No hematochezia. GENITOURINARY: No urgency. No frequency. No dysuria. No hematuria. No obstructive symptoms. No discharge. No pain. No significant abnormal bleeding. MUSCULOSKELETAL: Mild pain in legs. NEUROLOGICAL: Awake, alert, oriented to time, place and person. No headache. No neck pain. No syncope. No seizures. No dizziness. PSYCHIATRIC: Not anxious. No depression. No suicidal thoughts. No homicidal thoughts. SKIN: No rash. Skin condition in buttock and groin area better. No infection. Left arm laceration, present upon admission healing well. Irritation to groin, reddened bilaterally, improving. ENDOCRINE: No unexplained weight loss. No weight gain. HEMATOLOGIC/LYMPHATIC: No anemia. No purpura. No petechiae. No prolonged or excessive bleeding. No palpable lymph nodes. PHYSICAL EXAMINATION: GENERAL: The patient is awake, alert and oriented to time, place and person. He is lying/sitting in bed in no distress. VITAL SIGNS: Temperature 97.5 F, Pulse 76, Respiratory Rate 16, BP 112/68, Pulse Ox 96% HEENT: Head normocephalic, atraumatic. Mask-like facies of Parkinson's. Eyes: Extraocular muscles are intact. Pupils are equal, round and reactive to light and accommodation. Ears: No lesions. Nose appeared normal. Throat: No exudate or erythema. NECK: Supple. No JVD, no carotid bruit. No lymphadenopathy or thyromegaly. LUNGS: Decreased breath sounds. Clear to auscultation. Percussion note normal. Chest symmetrical. HEART: S1, S2, no S3. No murmurs. No cyanosis or clubbing. No ascites. Pulses: Dorsalis pedis and posterior tibial pulses +1 to +2 both sides. ABDOMEN: Soft. Non-tender. Bowel sounds active. No CVA tenderness. No mass felt. Stage 1 left buttock left more than right. EXTREMITIES: +1 to trace edema bilateral lower extremities. Full range of motion of all extremities, equal. Previous laceration to left arm healing well. NEUROLOGIC: No focal deficit. Cranial nerves II through XII are grossly intact. No headache, no double vision or headache. SKIN: Warm and dry. Turgor-normal. LYMPHATIC: No palpable lymph nodes/no lymphedema. MUSCULOSKELETAL: Normal joints with no swelling. Muscle tone is normal. LAB REVIEW: 06/30/20 04:36 06/30/20 04:36 06/30/20 04:36: Sodium 137.1, Potassium 3.99, Chloride 98.0, Carbon Dioxide 31.4 H, Anion Gap 11.69, BUN 25.1 H, Creatinine 0.84, Estimated GFR (MDRD) 89.00, BUN/Creatinine Ratio 29.88, Glucose 105.0, Calcium 9.43, Total Bilirubin 0.33, AST 28.0, ALT < 4.0, Alkaline Phosphatase 139.7 H, Total Protein 7.25, Albumin 4.14, Globulin 3.11, Albumin/Globulin Ratio 1.33 06/30/20 04:36: WBC 9.48, RBC 4.45 L, Hgb 12.1 L, Hct 38.2 L, MCV 85.8, MCH 27.2, MCHC 31.7 L, RDW Coeff of Leda 14.6, Plt Count 399, Immature Gran % (Auto) 0.6, Neut % (Auto) 58.2, Lymph % (Auto) 30.6, [place] % (Auto) 6.0, Eos % (Auto) 3.9, Baso % (Auto) 0.7, Neut # (Auto) 5.5, Lymph # (Auto) 2.9, [place] # (Auto) 0.6, Eos # (Auto) 0.4, Baso # (Auto) 0.1, Immature Gran # (Auto) 0.1 ASSESSMENT: Please see below. 1. Decreased mobility and endurance from massive leg edema on admission with skin infection. 2. Parkinson's disease. PLAN: 1. Admit the patient to swing bed. The patient is a good candidate for PT/OT. 2. Continue Carbidopa and Levodopa. 3. Continue Doxycycline. 4. Continue diuretic and the rest of his medication including Metformin, Simvastatin and Protonix. 5. A1C. 6. The patient is to have labs every other day. 7. Encouraged the patient to eat. Plan and coordination of the patient's care discussed in the presence of Commissioning Specialist and nurse. CONDITION: Stable SCRIBED BY: MANJU LOBATO, Saturator Tender scribed while in presence of service performed by Dr. SUN NAGEL on 06/30/20 (1905)
[2020-06-30] MEDS: ZOCOR PO SCH (09:07)
[2020-06-30] MEDS: GLUCOPHAGE PO SCH (09:07)
[2020-06-30] MEDS: ASPIRIN EC PO SCH (09:07)
[2020-06-30] MEDS: ALDACTONE PO SCH (09:07)
[2020-06-30] MEDS: DOXYCYCLINE HYCLATE PO SCH (09:07)
[2020-06-30] MEDS: CARBIDOPA LEVODOPA PO SCH (09:08)
[2020-06-30] MEDS: NYSTOP POWDER TP SCH (09:10)
[2020-06-30] MEDS: BACTROBAN TP SCH (09:10)
--- NOTE | 2020-06-30 11:03 | CM.DICTOOL ---
ADMISSION: 06/23/20 13:42 DISCHARGE: JUNE 30, 2020 DATE OF SERVICE: 06/30/20 FINAL DIAGNOSIS BILATERAL LEG EDEMA/SHORTNESS OF BREATH/RESPIRATORY FAILURE DECUBITUS BOTH BUTTOCKS DEVELOPED AT HOME SKIN LESIONS, CONDITIONS OF SKIN INGUINAL, DR. LOWERY PARKINSON'S DISEASE ( DR. HAWKINS) DEMENTIA RELATED TO PARKINSON'S BILATERAL LEG PAIN- RADICULOPATHY; PVD?, DR. CHACKO BILATERAL CAROTID STENOSIS ( DR. CHACKO RECOMMENDED SURGERY, SON STATED MR. ROWE REFUSED) DECREASED MOBILITY AND ENDURANCE FROM MASSIVE LEG EDEMA ON ADMISSION WITH SKIN INFECTION RESTRICTIVE COPD LACERATION LT ARM, STAPH AUREUS HX: COPD ANEMIA LT VENTRICULAR HYPERTROPHY HYPERTENSION DYSLIPIDEMIA CAD WITH A STENT PARKINSON'S DISEASE DEMENTIA DIZZINESS, MOST LIKELY POSITIONAL AND NO STROKE UPPER EXTREMITY WEAKNESS - FROM CERVICAL RADICULOPATHY OSTEOARTHRITIS DJD SPINE GERD BPH DIABETES MELLITUS - 12/2019 A1C 5.7 MILD LVH HYPERGLYCEMIA SURGICAL HISTORY: VASCULAR SURGERY 2014 LUMBAR FUSION 06/2017 LAST VITALS Temp Pulse Resp BP Pulse Ox 97.5 F L 76 16 112/68 96 06/30/20 05:42 06/30/20 05:42 06/30/20 05:42 06/30/20 05:42 06/30/20 05:42 TAKE THESE MEDICATIONS AT HOME Acetaminophen (Acetaminophen 325 Mg Tablet) 650 mg PO TID PRN -- ( NEW) PRN Reason: Pain Last Admin: 06/30/20 05:40 Dose: 650 mg Documented by: Aspirin (Aspirin 81 Mg Tablet.) 81 mg PO DAILYWM [facility] Last Admin: 06/30/20 09:07 Dose: 81 mg Documented by: Doxycycline Hyclate (Doxycycline Hyclate 100 Mg Capsule) 100 mg PO Q12HR [facility] [place] -- ( NEW) Stop: 07/03/20 22:00 Last Admin: 06/30/20 09:07 Dose: 100 mg Documented by: Furosemide (Furosemide 40 Mg Tablet) 40 mg PO QDAC [facility] [place] -- ( CHANGED) Last Admin: 06/30/20 05:39 Dose: 40 mg Documented by: Metformin HCl (Metformin Hcl 500 Mg Tablet) 500 mg PO DAILYWM [facility] [place] Last Admin: 06/30/20 09:07 Dose: 500 mg Documented by: Mupirocin (Mupirocin 22 Gm Oint) 1 applic TP BID [facility] [place] -- ( NEW) Stop: 06/30/20 09:59 Last Admin: 06/30/20 09:10 Dose: 1 applic Documented by: Non-Formulary Medication (Carbidopa-Levodopa [Rytary]) 3 cap PO TID [facility] [place] Last Admin: 06/30/20 09:08 Dose: 3 cap Documented by: Nystatin (Nystatin 15 Gm Powder) 1 applic TP TID [facility] [place] -- (NEW) Last Admin: 06/30/20 09:10 Dose: 1 applic Documented by: Pantoprazole Sodium (Pantoprazole Sodium 40 Mg Tablet.) 40 mg PO QDAC [facility] [place] Last Admin: 06/30/20 05:39 Dose: 40 mg Documented by: Simvastatin (Simvastatin 40 Mg Tablet) 40 mg PO DAILY [facility] [place] Last Admin: 06/30/20 09:07 Dose: 40 mg Documented by: Spironolactone (Spironolactone 25 Mg Tablet) 25 mg PO DAILY [facility] [place] Last Admin: 06/30/20 09:07 Dose: 25 mg Documented by: Tramadol HCl (Tramadol Hcl 50 Mg Tablet) 50 mg PO TID PRN -- ( NEW) PRN Reason: Pain Last Admin: 06/30/20 05:39 Dose: 50 mg Documented by: ALLERGIES celecoxib [From Celebrex] Adverse Reaction (Verified 08/23/18 18:02) meloxicam [From Mobic] Adverse Reaction (Verified 08/23/18 18:02) Penicillins Adverse Reaction (Verified 08/23/18 18:02) Rash DISCONTINUED MEDICATIONS LASIX 20 MG PO DAILY NEW PRESCRIPTIONS: TYLENOL (Acetaminophen) 650 mg PO TID PRN -- ( NEW) DOXYCYCLINE (Doxycycline Hyclate 100 Mg Capsule) 100 mg PO Q12HR -- ( NEW) LASIX (Furosemide 40 Mg Tablet) 40 mg PO QDAC -- ( CHANGED) BACTROBAN (Mupirocin 22 Gm Oint) 1 applic TP BID -- ( NEW) NYSTATIN (Nystatin 15 Gm Powder) 1 applic TP TID -- (NEW) TRAMADOL (Tramadol Hcl 50 Mg Tablet) 50 mg PO TID PRN -- ( NEW) SMOKING: N/A DISEASE SPECIFIC EDUCATION: EDEMA/ELEVATING PARKINSON'S DISEASE PROCESS PRESSURE ULCERS COVID 19 LAB REVIEW: 06/30/20 04:36 06/30/20 04:36 06/30/20 04:36: Hemoglobin A1c 5.95 06/30/20 04:36: Sodium 137.1, Potassium 3.99, Chloride 98.0, Carbon Dioxide 31.4 H, Anion Gap 11.69, BUN 25.1 H, Creatinine 0.84, Estimated GFR (MDRD) 89.00, BUN/Creatinine Ratio 29.88, Glucose 105.0, Calcium 9.43, Total Bilirubin 0.33, AST 28.0, ALT < 4.0, Alkaline Phosphatase 139.7 H, Total Protein 7.25, Albumin 4.14, Globulin 3.11, Albumin/Globulin Ratio 1.33 06/30/20 04:36: WBC 9.48, RBC 4.45 L, Hgb 12.1 L, Hct 38.2 L, MCV 85.8, MCH 27.2, MCHC 31.7 L, RDW Coeff of Leda 14.6, Plt Count 399, Immature Gran % (Auto) 0.6, Neut % (Auto) 58.2, Lymph % (Auto) 30.6, [place] % (Auto) 6.0, Eos % (Auto) 3.9, Baso % (Auto) 0.7, Neut # (Auto) 5.5, Lymph # (Auto) 2.9, [place] # (Auto) 0.6, Eos # (Auto) 0.4, Baso # (Auto) 0.1, Immature Gran # (Auto) 0.1 PLAN: DISCHARGE: TODAY 06/30/2020 TO [facility] SWING BED ACTIVITY: UP WITH ASSISTANCE AND WITH WALKER PER THERAPY GUIDLINES PT AND OT : TO EVAL AND TREAT FOR DECLINE IN FUNCTIONAL MOBILITY DIET: REGULAR DIET. ENCOURAGE FLUID AND NUTRITIONAL INTAKE MISC ORDERS: SWING BED ORDER SET AND CBC AND CMP EVERY OTHER DAY MD FOLLOW-UP: DR. NAGEL/TAMERA ARIZA APRN/ RAFAL LIZARRAGA APRN WILL SEE ON ROUNDS CODE STATUS: DO NOT RESUSCITATE WOUND CARE: CONTINUE SAME ORDERS FOR LT ARM AND BUTTOCKS LESIONS MR ROWE REMAINS ALERT AND ORIENTED X 4. HE IS FORGETFUL. HE HAS A BLANK AFFECT TO FACIAL EXPRESSIONS. CAN MOVE ALL EXTREMETIES, HOWEVER SLOW. HE FEEDS SELF. MINIMAL EDEMA TO LEGS AT THIS TIME. NUTRITIONAL AND FLUID INTAKE FAIR. PRESSURE ULCERS TO BUTTOCKS AND APPLYING HYDROCOLLOID DRESSINGS STAGE 2 AND GRANULATING. LT ARM LACERATION AREA SCATTERED GRANULATION AND CRUST. INGUINAL AREAS WITH SLI GHT IRRITATION. ALL SKIN ISSUES WERE PRESENT AT INPATIENT ADMISSION. SWING FOR THERAPY DUE TO NEED FOR DAILY THERAPY AND NURSING INTERVENTIONS TO PROMOTE ACITIVITY AND ENDURANCE FOR DISCHARGE HOME. HAS A ANTOINE CATHETER FOR NOW DUE TO URINARY INCONTINENCE AND NEED FOR OPTIMAL SKIN INTEGRITY PROMOTION. CONTINENT OF BOWELS, LAST BM 06/27/2020. PLAN IS TO RETURN HOME AFTER SWING BED THERAPY AND CONTINUE INTERMITTENT HOME HEALTH THERAPY AND BE TAKEN CARE OF BY FAMILY. MD TAMERA DÍAZ APRN ALYCE HANNAN, APRN
--- NOTE | 2020-06-30 14:17 | PN ---
DATE OF SERVICE: 06/26/20 SUBJECTIVE: The patient was seen and examined with the nurse practitioner. The patient is diuresing very well. His edema is trace to +1 now. Most of the fluid overload has subsided. TIME SPENT: More than 30 minutes. Plan and coordination of the patient's care discussed in the presence of nurse. MARTHA
--- NOTE | 2020-06-30 14:24 | PN ---
DATE OF SERVICE: 06/27/20 SUBJECTIVE: The patient was seen and examined with the nurse practitioner. The patient's condition has improved remarkably. Fluid retention has subsided. Will do an echo before discharge. The patient is encouraged to get up and walk around. The Parkinson's disease is somewhat advanced. TIME SPENT: More than 30 minutes. Plan and coordination of the patient's care discussed in the presence of nurse. MARTHA
--- NOTE | 2020-06-30 14:34 | PN ---
DATE OF SERVICE: 06/28/20 SUBJECTIVE: 79-year-old white male hospitalized with bilateral leg edema. The patient's condition seems to have improved. The leg edema is much less, +1 pitting. Appetite has improved. The patient had Stage 1 decubitis left side more than the right on the buttocks. REVIEW OF SYSTEMS: CONSTITUTIONAL: No night sweats. No fatigue, malaise, lethargy. No fever or chills. HEENT: Eyes: No visual changes. No eye pain. No eye discharge. ENT: No runny nose. No epistaxis. No sinus pain. No sore throat. No odynophagia. No congestion. RESPIRATORY: No cough, no congestion. No hemoptysis. No shortness of breath. CARDIOVASCULAR: No angina symptoms. No CHF symptoms. No atypical chest pain for CAD. No palpitations. No PND. No orthopnea. GASTROINTESTINAL: No abdominal pain. No nausea or vomiting. No diarrhea or constipation. No hematemesis. No hematochezia. GENITOURINARY: No urgency. No frequency. No dysuria. No hematuria. No obstructive symptoms. No discharge. No pain. No significant abnormal bleeding. MUSCULOSKELETAL: Leg pain is much less. NEUROLOGICAL: No headache. No neck pain. No syncope. No seizures. No dizziness. PSYCHIATRIC: Not anxious. No depression. No suicidal thoughts. No homicidal thoughts. SKIN: No rash. ENDOCRINE: No unexplained weight loss. No weight gain. HEMATOLOGIC/LYMPHATIC: No anemia. No purpura. No petechiae. No prolonged or excessive bleeding. No palpable lymph nodes. PHYSICAL EXAMINATION: VITAL SIGNS: Temperature 97.5, pulse 70, respiratory rate 20, blood pressure 134/70, pulse ox 97%. HEENT: Head normocephalic, atraumatic. Eyes: Extraocular muscles are intact. Pupils are equal, round and reactive to light and accommodation. Ears: No lesions. Nose appeared normal. Throat: No exudate or erythema. NECK: Supple. No JVD, no carotid bruit. No lymphadenopathy or thyromegaly. LUNGS: Decreased breath sounds but clear to auscultation. Percussion note normal. Chest symmetrical. HEART: S1, S2, no S3. No murmurs. No cyanosis or clubbing. No ascites. Pulses: Dorsalis pedis and posterior tibial pulses +1 to +2 bilaterally. ABDOMEN: Soft. Nontender. Bowel sounds active. No CVA tenderness. No mass felt. EXTREMITIES: No edema. Full range of motion of all extremities, equal. NEUROLOGIC: No focal deficit. Cranial nerves II through XII are grossly intact. No headache. No double vision. SKIN: Not dry. Intact. Turgor - normal. LYMPHATIC: No palpable lymph nodes/no lymphedema. MUSCULOSKELETAL: Normal joints with no swelling. Muscle tone is normal. LABS: Hemoglobin 12.3, hematocrit 37, WBC 8,000, normal differential. Creatinine 0.7, BUN 17, potassium 3.8. Glucose 120. ASSESSMENT: 1. Bilateral leg edema seems to be resolving, now is +1, use to be +4 pitting up to the thigh. 2. The patient's candidiasis type of infection of the skin, groin area, seems to have resolved. 3. The patient has urinary incontinence and had complicated the skin conditions with decubitus, seems to be healing, Stage 1, left side more than the right on the buttocks. 4. Parkinson's under control. 5. Blood pressure controlled. PLAN: 1. The patient is going to be on Doxycycline. 2. Discontinue Levaquin. 3. Echocardiogram to evaluate LV function. 4. The patient's shortness of breath could be from factors like aging process with Parkinson's with inactivity, possibility of LV dysfunction. TIME SPENT: More than 30 minutes. Plan and coordination of the patient's care discussed in the presence of nurse. MARTHA
--- NOTE | 2020-06-30 14:43 | PN ---
DATE OF SERVICE: 06/29/20 SUBJECTIVE: The patient was examined today with the nurse practitioner. The patient's condition has steadily improved. Edema is secondary to sedentary lifestyle with legs hanging with Parkinson's disease. The patient had an echocardiogram done. LV ejection fraction is practically normal, borderline enlarged LV cavity, LVH/LA cavity noted. The patient is going to be discharged to swing bed, Edema is +1 to trace with decubitus healing well. Pain in the legs much less. He is on Tramadol 1 tablet and Tylenol with it b.i.d. He is going to be in the swing bed for therapy with (fair?) Parkinson's disease has been done practically for the past few weeks with leg edema and also candidiasis with decubitus ulcers on the buttocks which are Stage I. CONDITION: Stable. TIME SPENT: More than 30 minutes. Plan and coordination of the patient's care discussed in the presence of nurse. MARTHA
--- NOTE | 2020-07-04 08:45 | ECHO2D ---
Date of Exam: 06/29/2020 Ordering Physician: DR. SUN NAGEL Room #: 104 Reason for Echo: CAD WITH STENT, PARKINSON'S, LEG EDEMA M-Mode Normal Adult Results LV Dimensions Normal Adult Results AoV Opening excursions >1.6 >1.6 LVEDD-base- 3.5-5.8 5.7 Ao root dimensions 2.0-3.7 3.3 LVESD-base- 3.1-4.6 L. Atrium dimensions 1.9-3.8 3.6 Post. Wall thickness 0.8-1.1 1.1 IV septum (thickness) 0.7-1.2 1.2 Post. Wall excursion 0.72-1.3 NORMAL Septal motion NORMAL Systolic motion R. Ventricular cavity 1.5-2.0 3.5 LVEF 60% 60% Paradoxical septal wall motion NORMAL 2-D : 2-D M Mode Echocardiogram was performed using apical four chamber and left parasternal long and short axis views. Mitral, tricuspid and aortic valves appear to be normal. Contractility of the left ventricle seems to be normal, so is the cavity size. Left atrial cavity size and aortic root appear to be normal. There is no pericardial effusion. There is no thrombus noted in the left ventricle or left atrial cavity. No mitral valve prolapse noted. RIGHT VENTRICLE CAVITY ENLARGEMENT. M-MODE: MV: NORMAL AV: NORMAL TV: NORMAL PV: CHAMBER SIZE: RIGHT VENTRICLE CAVITY ENLARGEMENT WALL MOTION: NORMAL PERICARDIUM: NORMAL INTERPRETATION: 1. BORDERLINE LEFT VENTRICULAR HYPERTROPHY/LVCAVITY 2. ENLARGED RIGHT VENTRICLE CAVITY 3. NORMAL VALVES 4. NORMAL LEFT VENTRICLE CONTRACTILITY MTDD
--- NOTE | 2020-07-04 10:53 | DS ---
DATE OF SERVICE: 06/30/20 - Discharged from Acute FINAL DIAGNOSIS: 1. BILATERAL LEG EDEMA/SHORTNESS OF BREATH/RESPIRATORY FAILURE 2. DECUBITUS BOTH BUTTOCKS DEVELOPED AT HOME 3. SKIN LESIONS, CONDITIONS OF SKIN INGUINAL, DR. LOWERY 4. PARKINSON'S DISEASE (DR. HAWKINS) 5. DEMENTIA RELATED TO PARKINSON'S 6. BILATERAL LEG PAIN- RADICULOPATHY; PVD?, DR. CHACKO 7. BILATERAL CAROTID STENOSIS (DR. CHACKO RECOMMENDED SURGERY, SON STATED MR. ROWE REFUSED) 8. DECREASED MOBILITY AND ENDURANCE FROM MASSIVE LEG EDEMA ON ADMISSION WITH SKIN INFECTION 9. RESTRICTIVE COPD 10. LACERATION LT ARM, STAPH AUREUS HX: 11. COPD 12. ANEMIA 13. LT VENTRICULAR HYPERTROPHY 14. HYPERTENSION 15. DYSLIPIDEMIA 16. CAD WITH A STENT 17. PARKINSON'S DISEASE 18. DEMENTIA 19. DIZZINESS, MOST LIKELY POSITIONAL AND NO STROKE 20. UPPER EXTREMITY WEAKNESS - FROM CERVICAL RADICULOPATHY 21. OSTEOARTHRITIS 22. DJD SPINE 23. GERD 24. BPH 25. DIABETES MELLITUS - 12/2019 A1C 5.7 26. MILD LVH 27. HYPERGLYCEMIA SURGICAL HISTORY: 28. VASCULAR SURGERY 2014 29. LUMBAR FUSION 06/2017 LAST VITALS Temp Pulse Resp BP Pulse Ox 97.5 F L 76 16 112/68 96 06/30/20 05:42 06/30/20 05:42 06/30/20 05:42 06/30/20 05:42 06/30/20 05:42 DISCHARGE INSTRUCTIONS: 1. DISCHARGE: TODAY 06/30/2020 TO [facility] SWING BED. 2. MD FOLLOW-UP: DR. NAGEL/TAMERA ARIZA APRN/ RAFAL LIZARRAGA APRN WILL SEE ON ROUNDS 3. WOUND CARE: CONTINUE SAME ORDERS FOR LT ARM AND BUTTOCKS LESIONS. 4. [facility] [place]: SWING BED ORDER SET AND CBC AND CMP EVERY OTHER DAY. 5. PT AND OT : TO EVALUATE AND TREAT FOR DECLINE IN FUNCTIONAL MOBILITY. MEDICATIONS AT DISCHARGE: Acetaminophen (Acetaminophen 325 Mg Tablet) 650 mg PO TID PRN -- ( NEW) PRN Reason: Pain Last Admin: 06/30/20 05:40 Dose: 650 mg Documented by: Aspirin (Aspirin 81 Mg Tablet.) 81 mg PO DAILYWM [facility] Last Admin: 06/30/20 09:07 Dose: 81 mg Documented by: Doxycycline Hyclate (Doxycycline Hyclate 100 Mg Capsule) 100 mg PO Q12HR [facility] -- ( NEW) Stop: 07/03/20 22:00 Last Admin: 06/30/20 09:07 Dose: 100 mg Documented by: Furosemide (Furosemide 40 Mg Tablet) 40 mg PO QDAC [facility] -- ( CHANGED) Last Admin: 06/30/20 05:39 Dose: 40 mg Documented by: Metformin HCl (Metformin Hcl 500 Mg Tablet) 500 mg PO DAILYWM [facility] Last Admin: 06/30/20 09:07 Dose: 500 mg Documented by: Mupirocin (Mupirocin 22 Gm Oint) 1 applic TP BID [facility] -- ( NEW) Stop: 06/30/20 09:59 Last Admin: 06/30/20 09:10 Dose: 1 applic Documented by: Non-Formulary Medication (Carbidopa-Levodopa ) 3 cap PO TID [facility] Last Admin: 06/30/20 09:08 Dose: 3 cap Documented by: Nystatin (Nystatin 15 Gm Powder) 1 applic TP TID [facility] -- (NEW) Last Admin: 06/30/20 09:10 Dose: 1 applic Documented by: Pantoprazole Sodium (Pantoprazole Sodium 40 Mg Tablet.Dr) 40 mg PO QDAC [facility] Last Admin: 06/30/20 05:39 Dose: 40 mg Documented by: Simvastatin (Simvastatin 40 Mg Tablet) 40 mg PO DAILY [facility] Last Admin: 06/30/20 09:07 Dose: 40 mg Documented by: Spironolactone (Spironolactone 25 Mg Tablet) 25 mg PO DAILY [facility] Last Admin: 06/30/20 09:07 Dose: 25 mg Documented by: Tramadol HCl (Tramadol Hcl 50 Mg Tablet) 50 mg PO TID PRN -- ( NEW) PRN Reason: Pain Last Admin: 06/30/20 05:39 Dose: 50 mg NEW PRESCRIPTIONS: TYLENOL (Acetaminophen) 650 mg PO TID PRN -- ( NEW) DOXYCYCLINE (Doxycycline Hyclate 100 Mg Capsule) 100 mg PO Q12HR -- ( NEW) LASIX (Furosemide 40 Mg Tablet) 40 mg PO QDAC -- ( CHANGED) BACTROBAN (Mupirocin 22 Gm Oint) 1 applic TP BID -- ( NEW) NYSTATIN (Nystatin 15 Gm Powder) 1 applic TP TID -- (NEW) TRAMADOL (Tramadol Hcl 50 Mg Tablet) 50 mg PO TID PRN -- ( NEW) DISCONTINUED MEDICATIONS: LASIX 20 MG PO DAILY DIET INSTRUCTIONS: REGULAR DIET. ENCOURAGE FLUID AND NUTRITIONAL INTAKE ACTIVITY: UP WITH ASSISTANCE AND WITH WALKER PER THERAPY GUIDLINES SMOKING: N/A DISEASE SPECIFIC EDUCATION: EDEMA/ELEVATING PARKINSON'S DISEASE PROCESS PRESSURE ULCERS COVID 19 HOSPITAL COURSE: 79-year-old white male admitted with worsening leg edema and worsening generalized weakness. He was given IV Lasix over the course of several days. Leg edema improved . He was evaluated by PT/OT and found to be a candidate for swing bed. He has a long history of Parkinson's disease along with his other medical conditions, which have contributed to his worsening weakness. At the time of discharge from acute, leg edema has resolved. The patient also had a fall several weeks ago with abrasion to left forehead. Wound culture done and was positive for staph. We started Doxycycline p.o. along with Bactroban, area is healing well. On admission, the patient also had shearing on buttocks due to immobility and these places have also improved. The patient lives at home with his son who is there to help intermittently and feeling he would greatly benefit from swing bed admission. TIME SPENT: More than 60 minutes. MTDD
== END 2020-06-30 11:10 | disposition swing bed (61) | DRG 592 ==
LOC: MEDSURG A 13:42
PROVIDERS: ADMIT Internal Medicine; ATTEND Internal Medicine

== ENCOUNTER 2020-08-21 13:39 | Observation (INO) ==
[2020-08-21] MEDS ORDERED: LASIX IVP ONE (14:39)
[2020-08-21] MEDS ORDERED: TYLENOL PO ONE (14:39)
[2020-08-21 14:59] LABS: BASOPHILS % (AUTO) 0.4 % (0.0-3.0); EOSINOPHILS % (AUTO) 0.4 % (0.0-7.0); HEMATOCRIT 38.9 % (42.0-52.0); HEMOGLOBIN 12.8 g/dl (14.0-18.0); IMMATURE GRANULOCYTE % (AUTO) 0.3 % (0.0-5.0); LYMPHOCYTES # (AUTO) 1.2 K/uL (0.60-3.4); LYMPHOCYTES % (AUTO) 18.4 (10.0-50.0); MEAN CORPUSCULAR HEMOGLOBIN 27.9 pg (27.0-31.0); MEAN CORPUSCULAR HGB CONC 32.9 (31.8-35.4); MEAN CORPUSCULAR VOLUME 84.7 fl (80.0-94.0); MONOCYTES # (AUTO) 0.5 K/uL (0.4-2.0); MONOCYTES % (AUTO) 6.7 (0-10); NEUTROPHILS % (AUTO) 73.8 % (42.2-75.2); PLATELET COUNT 342 10^3/uL (140-440); RDW COEFFICIENT OF VARIATION 15.5 % (11.6-14.8); RED BLOOD COUNT 4.59 10^6/ul (4.70-6.10); WHITE BLOOD COUNT 6.75 K/ul (4.2-10.2)
[2020-08-21 15:10] LABS: ALANINE AMINOTRANSFERASE 10.7 U/L (0-50); ALBUMIN 4.29 g/dL (3.5-5.0); ASPARTATE AMINO TRANSFERASE 26.9 U/L (17-59); BILIRUBIN,TOTAL 0.48 mg/dL (0.2-1.3); BLOOD UREA NITROGEN 16.3 mg/dL (9-20); CALCIUM 9.85 mg/dL (8.4-10.2); CARBON DIOXIDE 35.5 mmol/L (22-30.0); CHLORIDE 102.2 mmol/L (98-107); CREATININE 0.66 mg/dL (0.60-1.10); GLUCOSE 106.4 mg/dL (74-106); POTASSIUM 3.55 mmol/L (3.5-5.1); SODIUM 142.9 mmol/L (134.5-145); TOTAL PROTEIN 7.17 g/dL (6.3-8.2)
[2020-08-21 15:26] LABS: TROPONIN I < 0.012 ng/ml (0.0000-0.120)
--- NOTE | 2020-08-21 15:44 | US ---
EXAM: Ultrasound venous Doppler bilateral lower extermity HISTORY: Leg swelling COMPARISON: None TECHNIQUE: Venous duplex ultrasound of the bilateral lower extremity was performed using color, blackman -scale, and Doppler flow imaging. FINDINGS: There is normal color flow and compression of the bilateral common femoral, greater saphen ous, profunda femoral, femoral, popliteal, peroneal, posterior tibial, and anterior tibial veins with out evidence of intraluminal thrombus. IMPRESSION: No evidence of DVT within the bilateral lower extremities.
--- NOTE | 2020-08-21 15:53 | DI ---
EXAM: Chest one view. HISTORY: Leg swelling COMPARISON: 06/23/2020 chest x-ray FINDINGS: Heart is upper limits normal and pulmonary vascularity within normal limits. The lungs ar e satisfactory inflated with no active pulmonary infiltrate seen. Chronic appearing increased inters titial lung markings. Granulomatous calcifications are seen.No acute bone abnormality. IMPRESSION: Evidence of chronic lung findings with no active cardiac or pulmonary process seen. No radiographic evidence of congestive heart failure.
--- NOTE | 2020-08-21 16:23 | ED.PDOC ---
General ED Provider: Dr. KATLIN ECHEVARRIA MD Chief Complaint: Extremity Swelling/Pain Stated Complaint: bilateral leg swelling x 2 days. no acute SOB or chest pain Time Seen by Provider: 08/21/20 13:42 Mode of Arrival: Wheelchair Information Source: Patient Exam Limitations: No limitations Primary Care Provider: SUN NAGEL Nursing and Triage Documentation Reviewed and Agree: Yes Does patient meet sepsis criteria?: No System Inflammatory Response Syndrome: Not Applicable Sepsis Protocol: For patient's 13 years and over: Temp is 96.8 and below OR 101 and greater Pulse >90 BPM Resp >20/minute Acutely Altered Mental Status Are patient's symptoms suggestive of a new infection, such as: -Pneumonia -Skin, Soft Tissue -Endocarditis -UTI -Bone, Joint Infection -Implantable Device -Acute Abdominal Infection -Wound Infection -Meningitis -Blood Stream Catheter Infection -Unknown Cardiovascular Complaint Exam Hypertension Complaint/Exam Symptoms Are: Still present Timing: Constant Reported B/P Prior to Arrival: 149/74. cc: bilateral leg swelling to the knees. Aggravating: Reports None Alleviating: Reports None Associated Signs and Symptoms: Reports Swelling Cardiac Risk Factors: Reports Hypertension Recent Change in Medications: No Papilledema Present: No JVD Present: No Carotid Bruit Present: No Femoral Pulses Bounding: No Review of Systems Review Of Systems Constitutional: Reports No symptoms Eyes: Reports No symptoms Ears, Nose, Mouth, Throat: Reports No symptoms Respiratory: Reports No symptoms Cardiac: Reports No symptoms GI: Reports No symptoms : Reports No symptoms Musculoskeletal: Reports Other (bilateral leg swelling) Skin: Reports No symptoms Neurological: Reports No symptoms Endocrine: Reports No symptoms Hematologic/Lymphatic: Reports No symptoms All Other Systems: Reviewed and Negative [facility] Medical History Anemia BPH (benign prostatic hyperplasia) CAD (coronary artery disease) Cervical radiculopathy Chronic arthritis Dementia Diabetes mellitus Disc narrowing Gastroesophageal reflux disease Hyperlipidemia Hypertension Left ventricular hypertrophy Parkinson disease Family History FATHER Heart attack BROTHER Diabetes Social History Smoking and tobacco status: Former smoker Tobacco: How many years used: 30 Alcohol intake: former History of recent travel: No Seatbelt use: always Surgical History History of cholecystectomy History of heart artery stent History of lumbar fusion Physical Exam Physical Exam Appearance: Reports Obese Ill-appearing: Mild Pain Distress: None Eyes: Reports TRACY, EOMI and Conjunctiva clear ENT: Reports Ears normal, Nose normal and Oropharynx normal Neck: Supple Respiratory: Reports Airway patent, Breath sounds equal and Crackles (minimal posterior crackles.) Cardiovascular: Reports RRR, Pulses normal, No rub and No murmur GI/: Reports Soft, Nontender, No masses, Bowel sounds normal and No Organomegaly Musculoskeletal: Reports Normal strength, ROM intact, No edema and No calf tenderness Skin: Reports Warm, Dry and Normal color Neurological: Reports Sensation intact, Motor intact, Reflexes intact, Cranial nerves intact, Alert and Oriented Psychiatric: Reports Affect appropriate and Mood appropriate Interpretation Radiology Interpretation Radiology Interpretation By: Radiologist Exam Interpreted: Portable CXR and Other (U/S -- for DVT.) Re-Evaluation Re-Evaluation Time of Re-Evaluation: 14:38 Status: Improved Vital Signs Stable: Yes Pain Level: 1 Lungs: Clear Skin: Warm and Dry Neuro: Alert and Oriented X3 CV: RRR Critical Care Note Critical Care Note Total Critical Care Time (mins): 0 Course Course Hematology/Chemistry: 08/21/20 14:50 08/21/20 14:50 Orders, Labs, Meds: Lab Review 08/21/20 08/21/20 14:50 14:50 WBC 6.75 RBC 4.59 L Hgb 12.8 L Hct 38.9 L MCV 84.7 MCH 27.9 MCHC 32.9 RDW Coeff of Leda 15.5 H Plt Count 342 Immature Gran % (Auto) 0.3 Neut % (Auto) 73.8 Lymph % (Auto) 18.4 Victoria % (Auto) 6.7 Eos % (Auto) 0.4 Baso % (Auto) 0.4 Neut # (Auto) 5.0 Lymph # (Auto) 1.2 Victoria # (Auto) 0.5 Eos # (Auto) 0.0 Baso # (Auto) 0.0 Immature Gran # (Auto) 0.0 Sodium 142.9 Potassium 3.55 Chloride 102.2 Carbon Dioxide 35.5 H Anion Gap 8.75 BUN 16.3 Creatinine 0.66 Estimated GFR (MDRD) 117.00 BUN/Creatinine Ratio 24.69 Glucose 106.4 H Calcium 9.85 Total Bilirubin 0.48 AST 26.9 ALT 10.7 Alkaline Phosphatase 135.0 H Troponin I < 0.012 NT-Pro-B Natriuret Pep 196.000 Total Protein 7.17 Albumin 4.29 Globulin 2.88 Albumin/Globulin Ratio 1.48 Orders Category Date Time Status EKG-(ED ONLY) Stat CARDIO 08/21/20 14:39 Completed CBC W/ AUTO DIFF Stat LAB 08/21/20 14:50 Completed COMPREHENSIVE METABOLIC PANEL Stat LAB 08/21/20 14:50 Completed NT-PROBNP Stat LAB 08/21/20 14:50 Completed TROPONIN I Stat LAB 08/21/20 14:50 Completed Acetaminophen [Tylenol] MEDS 08/21/20 14:39 Discontinued 650 mg PO ONCE ONE Furosemide [Lasix] MEDS 08/21/20 14:39 Discontinued 80 mg IVP ONCE ONE CHEST, 1V AP ONLY Stat RADS 08/21/20 14:41 Completed U/S VENOUS SCAN ARELI LEGS Stat RADS 08/21/20 14:41 Completed Medications Discontinued Medications Generic Name Dose Route Start Last Admin Trade Name Freq PRN Reason Stop Dose Admin Acetaminophen 650 mg 08/21/20 14:39 08/21/20 14:55 Acetaminophen 325 Mg Tablet PO 08/21/20 14:40 650 mg ONCE ONE Administration Furosemide 80 mg 08/21/20 14:39 08/21/20 14:54 Furosemide Inj 100 Mg/10 Ml Vial IVP 08/21/20 14:40 80 mg ONCE ONE Administration Vital Signs: Temp Pulse Resp BP Pulse Ox 08/21/20 13:40 98.6 F 78 16 149/74 H 93 L ELSA Risk Score ELSA Risk Score: Risk Score Odds of by 30D 0 0.1 (0.1-0.2) 1 0.3 (0.2-0.3) 2 0.4 (0.3-0.5) 3 0.7 (0.6-0.9) 4 1.2 (1.0-1.5) 5 2.2 (1.9-2.6) 6 3.0 (2.5-3.6) 7 4.8 (3.8-6.1) Discharge Plan Discharge Patient Disposition: ADMITTED INPATIENT Discharge Problem: Edema of lower extremity, Mild congestive heart failure ED Provider: KATLIN ECHEVARRIA Condition: Fair Physician Progress Note: []Pt was d/w Dr Nagel: for admission x 2 days. See orders.
[2020-08-21 16:39] LABS: BORDETELLA PARAPERTUSSIS (PCR) NOT DETECTED (NOT DETECT); BORDETELLA PERTUSSIS (PCR) NOT DETECTED (NOT DETECT); CHLAMYDIA PNEUMONIAE (PCR) NOT DETECTED (NOT DETECT); CORONAVIRUS 229E (PCR) NOT DETECTED (NOT DETECT); CORONAVIRUS HKU1 (PCR) NOT DETECTED (NOT DETECT); CORONAVIRUS NL63 (PCR) NOT DETECTED (NOT DETECT); CORONAVIRUS OC43 (PCR) NOT DETECTED (NOT DETECT); HUMAN METAPNEUMOVIRUS (PCR) NOT DETECTED (NOT DETECT); HUMAN RHINOVIRUS/ENTEROV (PCR) NOT DETECTED (NOT DETECT); INFLUENZA B (PCR) NOT DETECTED (NOT DETECT); MYCOPLASMA PNEUMONIAE (PCR) NOT DETECTED (NOT DETECT); PARAINFLUENZA VIRUS 1 (PCR) NOT DETECTED (NOT DETECT); PARAINFLUENZA VIRUS 2 (PCR) NOT DETECTED (NOT DETECT); PARAINFLUENZA VIRUS 3 (PCR) NOT DETECTED (NOT DETECT); PARAINFLUENZA VIRUS 4 (PCR) NOT DETECTED (NOT DETECT); RESPIRATORY SYNCYTIAL V (PCR) NOT DETECTED (NOT DETECT); SARS_COV_2 (PCR) NOT DETECTED (NOT DETECT)
[2020-08-21 17:28] LABS: ADENOVIRUS (PCR) NOT DETECTED (NOT DETECT)
[2020-08-21] MEDS ORDERED: TYLENOL PO PRN (17:40)
[2020-08-21] MEDS ORDERED: ULTRAM PO PRN (17:45)
[2020-08-21 18:41] VITALS: BMI 25.9
[2020-08-21] MEDS: FLOMAX PO SCH (20:44)
[2020-08-21] MEDS: NYSTOP POWDER TP SCH (20:44)
[2020-08-21] MEDS ORDERED: NON-FORMULARY MEDICATION (Doxycycline Monohydrate 100 mg capsule) PO SCH (21:00)
[2020-08-22] MEDS ORDERED: LASIX IVP SCH (06:30)
[2020-08-22 06:36] LABS: BASOPHILS % (AUTO) 0.3 % (0.0-3.0); EOSINOPHILS # (AUTO) 0.1 K/ul (0.0-0.7); EOSINOPHILS % (AUTO) 1.4 % (0.0-7.0); HEMATOCRIT 37.8 % (42.0-52.0); HEMOGLOBIN 12.1 g/dl (14.0-18.0); IMMATURE GRANULOCYTE % (AUTO) 0.3 % (0.0-5.0); LYMPHOCYTES # (AUTO) 1.4 K/uL (0.60-3.4); LYMPHOCYTES % (AUTO) 18.1 (10.0-50.0); MEAN CORPUSCULAR HEMOGLOBIN 27.3 pg (27.0-31.0); MEAN CORPUSCULAR VOLUME 85.1 fl (80.0-94.0); MONOCYTES # (AUTO) 0.6 K/uL (0.4-2.0); MONOCYTES % (AUTO) 7.5 (0-10); NEUTROPHILS # (AUTO) 5.5 K/ul (2.0-6.9); NEUTROPHILS % (AUTO) 72.4 % (42.2-75.2); PLATELET COUNT 307 10^3/uL (140-440); RDW COEFFICIENT OF VARIATION 15.3 % (11.6-14.8); RED BLOOD COUNT 4.44 10^6/ul (4.70-6.10); WHITE BLOOD COUNT 7.61 K/ul (4.2-10.2)
[2020-08-22 06:48] LABS: ALBUMIN 3.98 g/dL (3.5-5.0); ALKALINE PHOSPHATASE 134.3 U/L (56-119); ASPARTATE AMINO TRANSFERASE 42.8 U/L (17-59); BILIRUBIN,TOTAL 0.68 mg/dL (0.2-1.3); CALCIUM 9.22 mg/dL (8.4-10.2); CHLORIDE 102.4 mmol/L (98-107); CREATININE 0.66 mg/dL (0.60-1.10); GLUCOSE 91.1 mg/dL (74-106); POTASSIUM 3.07 mmol/L (3.5-5.1); TOTAL PROTEIN 6.61 g/dL (6.3-8.2)
[2020-08-22] MEDS: LEVODOPA PO SCH ×4 (07:39→20:16)
[2020-08-22] MEDS: CARBIDOPA PO SCH ×4 (07:39→20:16)
[2020-08-22] MEDS: [UNRECOGNIZED DRUG - OTHER] PO SCH ×4 (07:39→20:16)
[2020-08-22] MEDS ORDERED: NORCO 5-325 PO PRN (08:36)
[2020-08-22] MEDS ORDERED: GLUCOPHAGE PO SCH (09:00)
[2020-08-22 09:22] LABS: BILIRUBIN,URINE Negative (NEGATIVE); CLARITY,URINE Clear (CLEAR); COLOR,URINE Yellow (YELLOW); GLUCOSE, URINE (UA) Negative (NEGATIVE); KETONES,URINE Negative (NEGATIVE); LEUKOCYTE ESTERASE ,URINE 1+ (NEGATIVE); NITRITE,URINE Negative (NEGATIVE); PROTEIN,URINE Negative (NEGATIVE); URINE, BLOOD 2+ (NEGATIVE); UROBILINOGEN,URINE 0.2 (0.2)
[2020-08-22 09:29] LABS: SQUAMOUS EPITHELIAL CELL,UR 0-2 (0-5)
[2020-08-22 09:30] LABS: BACTERIA,URINE TRACE (NOT PRESENT); MUCUS,URINE TRACE (NOT PRESENT)
[2020-08-22] MEDS: ZOCOR PO SCH (09:35)
[2020-08-22] MEDS: ASPIRIN EC PO SCH (09:35)
[2020-08-22] MEDS: PROTONIX PO SCH (09:35)
[2020-08-22] MEDS: ALDACTONE PO SCH (09:35)
[2020-08-22] MEDS: ULTRAM PO SCH ×2 (09:35→20:16)
[2020-08-22] MEDS: NYSTOP POWDER TP SCH ×3 (09:37→20:17)
--- NOTE | 2020-08-22 09:49 | PCM.PROG ---
Attending Provider: ATTENDING PROVIDER: Dr. SUN NAGEL This patient is seen with Tiera Vaz, Nurse Practitioner. DATE OF SERVICE: 08/22/20 SUBJECTIVE: This 79 year old /WHITE M was hospitalized 08/21/20. The patient is resting comfortably in bed. He came in through ER after being found in floor at home. He had 3+ leg edema at home per family. This morning the patient states right hip is hurting, seems very weak. BNP is normal. Chest x-ray normal. REVIEW OF SYSTEMS: CONSTITUTIONAL: Weakness. No night sweats. No fatigue, malaise, lethargy. No fever or chills. HEENT: Eyes: No visual changes. No eye pain. No eye discharge. ENT: No runny nose. No epistaxis. No sinus pain. No odynophagia. No congestion. RESPIRATORY: No cough, no congestion. No hemoptysis. No shortness of breath. CARDIOVASCULAR: No angina symptoms. No CHF symptoms. No atypical chest pain for CAD. No palpitations. No orthopnea.. GASTROINTESTINAL: No abdominal pain. No nausea or vomiting. No diarrhea or constipation. No hematemesis. No hematochezia. GENITOURINARY: No urgency. No frequency. No dysuria. No hematuria. No obstructive symptoms. No discharge. No pain. No significant abnormal bleeding. MUSCULOSKELETAL: Right hip pain, bilateral leg edema. NEUROLOGICAL: Awake, alert, oriented to time, place and person. No headache. No neck pain. No syncope. No seizures. No dizziness. PSYCHIATRIC: Not anxious. No depression. No suicidal thoughts. No homicidal thoughts. SKIN: No rash. No lesions. No wounds. ENDOCRINE: No unexplained weight loss. No weight gain. HEMATOLOGIC/LYMPHATIC: No anemia. No purpura. No petechiae. No prolonged or excessive bleeding. No palpable lymph nodes. PHYSICAL EXAMINATION: GENERAL: The patient is awake, alert and oriented, lying/sitting in bed in no distress. VITAL SIGNS: Temperature 98.8 F, Pulse 74, Respiratory Rate 18, BP 123/74, Pulse Ox 96% HEENT: Head normocephalic, atraumatic. Eyes: Extraocular muscles are intact. Pupils are equal, round and reactive to light and accommodation. Ears: No lesions. Nose appeared normal. Throat: No exudate or erythema. NECK: Supple. No JVD, no carotid bruit. No lymphadenopathy or thyromegaly. LUNGS: Diminished breath sounds. Clear to auscultation. Percussion note norm al. Chest symmetrical. HEART: S1, S2, no S3. No murmurs. No cyanosis or clubbing. No ascites. Pulses: Dorsalis pedis and posterior tibial pulses +1 to +2 both sides. ABDOMEN: Soft. Non-tender. Bowel sounds active. No CVA tenderness. No mass felt. EXTREMITIES: Trace bilateral edema. Full range of motion of all extremities, equal. NEUROLOGIC: No focal deficit. Cranial nerves II through XII are grossly intact. No headache. No double vision. SKIN: Not dry. Intact. Turgor-normal. LYMPHATIC: No palpable lymph nodes/no lymphedema. MUSCULOSKELETAL: Normal joints with no swelling. Muscle tone is normal. LAB REVIEW: 08/22/20 06:25 08/22/20 06:25 08/22/20 06:25: Sodium 143.0, Potassium 3.07 L, Chloride 102.4, Carbon Dioxide 34.0 H, Anion Gap 9.67, BUN 14.0, Creatinine 0.66, Estimated GFR (MDRD) 117.00, BUN/Creatinine Ratio 21.21, Glucose 91.1, Calcium 9.22, Total Bilirubin 0.68, AST 42.8, ALT 14.0, Alkaline Phosphatase 134.3 H, Total Protein 6.61, Albumin 3.98, Globulin 2.63, Albumin/Globulin Ratio 1.51 08/22/20 06:25: WBC 7.61, RBC 4.44 L, Hgb 12.1 L, Hct 37.8 L, MCV 85.1, MCH 27.3, MCHC 32.0, RDW Coeff of Leda 15.3 H, Plt Count 307, Immature Gran % (Auto) 0.3, Neut % (Auto) 72.4, Lymph % (Auto) 18.1, Imperial % (Auto) 7.5, Eos % (Auto) 1.4, Baso % (Auto) 0.3, Neut # (Auto) 5.5, Lymph # (Auto) 1.4, Imperial # (Auto) 0.6, Eos # (Auto) 0.1, Baso # (Auto) 0.0, Immature Gran # (Auto) 0.0 08/21/20 16:30: Adenovirus (PCR) Not detected, B. pertussis DNA (PCR) Not detected, B.parapertussis DNA PCR Not detected, C. pneumoniae DNA (PCR) Not detected, Coronavirus OC43 (PCR) Not detected, Coronavirus HKU1 (PCR) Not detected, Coronavirus 229E (PCR) Not detected, Coronavirus NL63 (PCR) Not detected, Human Metapneumovir PCR Not detected, Influenza Type A (PCR) Not detected, Influenza B (RT-PCR) Not detected, M. pneumoniae (PCR) Not detected, Parainfluenza 1 (PCR) Not detected, Parainfluenza 2 (PCR) Not detected, Parainfluenza 3 (PCR) Not detected, Parainfluenza 4 (PCR) Not detected, RSV (PCR) Not detected, Entero/Rhino (PCR) Not detected, SARS-CoV-2 (PCR) Not detected 08/21/20 14:50: Sodium 142.9, Potassium 3.55, Chloride 102.2, Carbon Dioxide 35.5 H, Anion Gap 8.75, BUN 16.3, Creatinine 0.66, Estimated GFR (MDRD) 117.00, BUN/Creatinine Ratio 24.69, Glucose 106.4 H, Calcium 9.85, Total Bilirubin 0.48, AST 26.9, ALT 10.7, Alkaline Phosphatase 135.0 H, Troponin I < 0.012, NT-Pro-B Natriuret Pep 196.000, Total Protein 7.17, Albumin 4.29, Globulin 2.88, Albumin/Globulin Ratio 1.48 08/21/20 14:50: WBC 6.75, RBC 4.59 L, Hgb 12.8 L, Hct 38.9 L, MCV 84.7, MCH 27.9, MCHC 32.9, RDW Coeff of Leda 15.5 H, Plt Count 342, Immature Gran % (Auto) 0.3, Neut % (Auto) 73.8, Lymph % (Auto) 18.4, Imperial % (Auto) 6.7, Eos % (Auto) 0.4, Baso % (Auto) 0.4, Neut # (Auto) 5.0, Lymph # (Auto) 1.2, Imperial # (Auto) 0.5, Eos # (Auto) 0.0, Baso # (Auto) 0.0, Immature Gran # (Auto) 0.0 ASSESSMENT: Please see below. 1. Leg edema bilateral. 2. Generalized weakness. 3. Right hip pain. 4. Parkinson's disease. PLAN: 1. Discontinue IV Lasix. 2. Resume p.o. Lasix tomorrow. 3. X-ray bilateral hips. 4. UA. 5. Tramadol b.i.d. OSCAR. 6. Altus 5 mg b.i.d. p.r.n. Plan and coordination of the patient's care discussed in the presence of [employer] Operators and nurse. CONDITION: Stable SCRIBED BY: MANJU LOBATO, Membership Secretary scribed while in presence of service performed by Dr. Nagel/Tiera Vaz APRN on 08/22/20 ([id number])
--- NOTE | 2020-08-22 11:01 | DI ---
EXAM: Chest one-view. HISTORY: Congestive heart failure. COMPARISON: 08/21/2020 chest x-ray. FINDINGS: The lungs are clear with no focal lung opacity. Scattered calcified granulomas and chron ic interstitial lung markings are present. The cardiac silhouette is upper limits normal. There is no pulmonary edema present. There is no pleural effusion identified. There is no acute osseous abno rmality. IMPRESSION: No acute cardiopulmonary process.
--- NOTE | 2020-08-22 11:03 | DI ---
EXAM: Three views of the pelvis and bilateral hip. HISTORY: Bilateral hip pain. COMPARISON: None. FINDINGS: No acute fracture or dislocation. No trabecular disruption or cortical offset in the femor al neck to suggest fracture. The bilateral femoral heads are located in the osseous acetabulum. The joint spaces are maintained with osteophyte formation. Decreased mineralization is seen. A Moses c atheter is present. Postoperative changes involving the lower lumbar spine are noted. IMPRESSION: No acute fracture or dislocation of the pelvis or bilateral hip. Very mild degenerative changes involving both hips.
[2020-08-22] MEDS ORDERED: NON-FORMULARY MEDICATION PO ONE (15:00)
[2020-08-22] MEDS: FLOMAX PO SCH (20:16)
[2020-08-23 04:53] LABS: BASOPHILS % (AUTO) 0.3 % (0.0-3.0); EOSINOPHILS # (AUTO) 0.1 K/ul (0.0-0.7); EOSINOPHILS % (AUTO) 1.6 % (0.0-7.0); HEMATOCRIT 36.3 % (42.0-52.0); HEMOGLOBIN 11.5 g/dl (14.0-18.0); IMMATURE GRANULOCYTE % (AUTO) 0.3 % (0.0-5.0); LYMPHOCYTES # (AUTO) 1.5 K/uL (0.60-3.4); LYMPHOCYTES % (AUTO) 17.7 (10.0-50.0); MEAN CORPUSCULAR HEMOGLOBIN 26.9 pg (27.0-31.0); MEAN CORPUSCULAR HGB CONC 31.7 (31.8-35.4); MONOCYTES # (AUTO) 0.7 K/uL (0.4-2.0); MONOCYTES % (AUTO) 7.8 (0-10); NEUTROPHILS # (AUTO) 6.3 K/ul (2.0-6.9); NEUTROPHILS % (AUTO) 72.3 % (42.2-75.2); PLATELET COUNT 329 10^3/uL (140-440); RDW COEFFICIENT OF VARIATION 15.9 % (11.6-14.8); RED BLOOD COUNT 4.27 10^6/ul (4.70-6.10); WHITE BLOOD COUNT 8.68 K/ul (4.2-10.2)
[2020-08-23 05:03] LABS: ALBUMIN 3.81 g/dL (3.5-5.0); ALKALINE PHOSPHATASE 141.6 U/L (56-119); ASPARTATE AMINO TRANSFERASE 35.2 U/L (17-59); BILIRUBIN,TOTAL 0.54 mg/dL (0.2-1.3); CALCIUM 9.07 mg/dL (8.4-10.2); CARBON DIOXIDE 33.9 mmol/L (22-30.0); CHLORIDE 100.2 mmol/L (98-107); CREATININE 0.66 mg/dL (0.60-1.10); POTASSIUM 3.33 mmol/L (3.5-5.1); SODIUM 139.1 mmol/L (134.5-145); TOTAL PROTEIN 6.46 g/dL (6.3-8.2)
[2020-08-23 05:04] LABS: ALANINE AMINOTRANSFERASE < 4.0 U/L (0-50)
[2020-08-23] MEDS: LASIX TAB PO SCH (06:02)
[2020-08-23] MEDS: PROTONIX PO SCH (06:02)
[2020-08-23] MEDS: LEVODOPA PO SCH ×3 (08:49→20:20)
[2020-08-23] MEDS: CARBIDOPA PO SCH ×3 (08:49→20:20)
[2020-08-23] MEDS: NYSTOP POWDER TP SCH ×3 (08:49→20:21)
[2020-08-23] MEDS: [UNRECOGNIZED DRUG - OTHER] PO SCH ×3 (08:49→20:20)
[2020-08-23] MEDS: ALDACTONE PO SCH (08:50)
[2020-08-23] MEDS: GLUCOPHAGE PO SCH (08:50)
[2020-08-23] MEDS: ZOCOR PO SCH (08:50)
[2020-08-23] MEDS: ULTRAM PO SCH ×2 (08:50→20:19)
[2020-08-23] MEDS: ASPIRIN EC PO SCH (08:50)
--- NOTE | 2020-08-23 10:19 | PN ---
DATE OF SERVICE: 08/22/2020 SUBJECTIVE: The patient was seen and examined today with the Nurse Practitioner. The patient's condition has improved. Edema is much less. Discussed about how to prevent dependent edema. TIME SPENT: More than 30 minutes. Plan and coordination of the patient's care discussed in the presence of nurse. MARTHA
--- NOTE | 2020-08-23 11:55 | RS.PTINEVL ---
Subjective - Patient information Date of Evaluation: 08/22/20 Date of Arrival on Unit: 08/21/20 Admitted From:: Home Diagnosis: BLE edema, fall at home, CHF Usual Living Arrangement: With Others (with son) Home Environment: House Medical History: Hypertension, COPD, Diabetes, CHF, Arthritis Medical History Comments:: CAD, GERD, L ventricular hypertrophy, BPH, Parkinson's disease, dementia Surgical History: Lumbar Spine, Cholecystectomy Medications: see chart Subjective Information/ Patient Comments:: pt states his lift chair at home broke and he slid out onto the floor and could not get up so he got a pillow and took a nap on the floor until his son got home. - Level of function Prior to this admission, the patient could do the following:: Partially Dependent Ambulation Abilities prior to this admission: son assisted with ADL's Current Level of Function: Dependent Current Equipment Used at Home: RWX, lift chair Pain Assessement - Location B hips Description: Aching Pain Behavior: Facial Grimacing Pain Aggravating Factors: Exercise/Activity, Standing, Walking Pain Alleviating Factors: Medication Interventions - Objective Patient Orientation: Person, Place, Time, Situation Current Interventions: IV's, Telemetry, Moses Catheter Observation: open area to buttocks, pitting edema BLE. pt presents with dysarthria. Range of Motion - ROM Right Upper Extremity AROM: WFL's Left Upper Extremity AROM: WFL's Right Lower Extremity AROM: WFL's Left Lower Extremity AROM: WFL's Muscle Strength - Muscle Strength Right Upper Extremity Strength: Mild Weakness (grossly 4+/5) Left Upper Extremity Strength: Mild Weakness (grossly 4/5) Right Lower Extremity Strength: Mild Weakness (hip flex 4-/5, knee flex/ext 4/5, ankle Df/pF 4-/5) Left Lower Extremity Strength: Mild Weakness (hip flex 4-/5, knee flex/ext 4/5, ankle Df/pF 4-/5) Sensation - Sensation Right Upper Extremity Sensation: Intact/Normal Left Upper Extremity Sensation: Intact/Normal Right Lower Extremity Sensation: Intact/Normal Left Lower Extremity Sensation: Intact/Normal Palpation Palpation Findings: None/Normal Balance - Sitting Balance and Reactions Static Sitting Balance: Poor Dynamic Sitting Balance: Poor Sitting Equilibrium Reactions: Absent Left, Absent Right Sitting Protective Reactions: Absent Left, Absent Right - Standing Balance and Reactions Static Standing Balance: Poor Dynamic Standing Balance: Poor Standing Equilibrium Reactions: Absent Left, Absent Right Standing Protective Reactions: Absent Left, Absent Right Functional Mobility - Bed Mobility Rolling R/L: Mod Assist, 2 person assist Supine to Sit: Mod Assist, Max Assist, 2 person assist - Transfers Sit to Stand: Mod Assist, Max Assist, 2 person assist Stand to Sit: Mod Assist, 2 person assist Stand Pivot Transfers: Mod Assist, Max Assist, 2 person assist - Safety Awareness Safety Awareness: Fair CHRISTINE INDEX SCORE: n/a Ambulation - Ambulation Assistive Device Used: Rolling Walker Orthotic/Prosthetic Device: No Distance: 10ft + 5 ft Assistance needed with Ambulation: Min Assist, Mod Assist, 2 person assist Gait Deviations: Narrow Based gait, Shuffling gait, Forward posture, Short stride Ambulation Comments: pt with shuffling gait with very narrow JORDAN, flexed posture pt requires cues to take larger steps as well as for posture. pt required assist to hold rwx to prevent walker too far forward. Factors Affecting Ambulation: Decreased Balance, Weakness, Decreased Safety, Limited Endurance Treatment time - Units charged Gait trainin - Time with patient Length of Evaluation: 19 Total treatment time: 50 Patient Education - Education Patient Education: Activity Modification, Education of Plan of Care Teaching Recipient: Patient Teaching Methods: Discussion Comments: discussion regarding POC Assessment - Assessment Problem List:: Decreased level of function, Requires training/education, Decreased safety/Risk of falls, Weakness Rehab Potential: Good Further Therapy Indicated?: Yes Candidate for Swing Bed for Therapy Services?: Feel pt may require longer term rehab after dc to be able to return home safely with son. Evaluation Complexity: HISTORY: High ( CHF, parkinsons, DM, HTN, age, falls,), EXAM OF BODY SYSTEMS: Medium (balance strength posture, gait , speech ), CLINICAL PRESENTATION: Medium, CLINICAL DECISION MAKING: Medium Patient's Goal(s): to be able to go home with my son Short Term Goals GOAL #1: pt demonstrate rolling with min x 1 Goal to be met by: 08/26/20 GOAL #2: Sup to/from sit min x 2 Goal to be met by: 08/26/20 GOAL #3: sit to/from stand min x 2 Goal to be met by: 08/26/20 GOAL #4: pt amb with rwx 50ft with min x 2 with improved JORDAN. Goal to be met by: 08/26/20 GOAL #5: Improve B LE strength to 4/5 Goal to be met by: 08/26/20 Eligibility Specialist Goals GOAL #1: sup to/from sit to/from stand min x 1 Goal to be met by: 08/28/20 GOAL #2: pt transfer bed to/from chair min x 1 Goal to be met by: 08/28/20 GOAL #3: pt amb with rwx 75ft with min x 1 Goal to be met by: 08/28/20 Plan Plan of Care: Therapeutic EX, Therapeutic Activity Other:: gait training Frequency of Treatment: 1-2 X day, as tolerated Duration of Treatment: 5 days Anticipated Discharge Destination: plans to dc home with son Treatment Diagnosis (ICD 10 Codes): Parkinson's disease. gait abnormality R 26.2. balance impaired R 26.81. weakness M62.81 Has the Physician been added for Co-signature?: Yes
[2020-08-23] MEDS: K-DUR PO SCH ×2 (12:12→17:26)
--- NOTE | 2020-08-23 13:23 | RS.OTINEVL ---
Subjective - Patient information Date of Evaluation: 08/23/20 Date of Arrival on Unit: 08/21/20 Admitted From:: Home Diagnosis: Mild CHF, Edema of BLE. PRECAUTIONS: O2 2L Usual Living Arrangement: With Others (with son) Living Arrangement Comments: lives with son and other sons come to help. Home Environment: House Medical History: Hypertension, COPD, Diabetes, CHF, Arthritis Medical History Comments:: CAD, GERD, L ventricular hypertrophy, BPH, Parkinson's disease, dementia LATEX ALLERGY?: No Surgical History: Lumbar Spine, Cholecystectomy Surgical History Comments:: B double inguinal hernia repair, vascular surgery Medications: see chart - Level of function Prior to this admission, the patient could do the following:: Partially Dependent Ambulation Current Level of Function: Partially Dependent Comments: Pt reports his lift chair is broken. Current Equipment Used at Home: RWX, lift chair Pain Assessment - Pain Pain Score: 0 Interventions - Objective Patient Orientation: Person, Place Current Interventions: IV's, Oxygen, Moses Catheter Observation: Pt is Mod to max assist for sit to stand from chair. Once patient is in standing his functional transfers are Min to Moderate assistance. Pt requires minimal to moderate assistance with moving the RW. Pt is maximum assist with doffing his socks. Pt is independent with self feeding after setup. Interventions - ROM Right Upper Extremity AROM: WFL's Left Upper Extremity AROM: WFL's - Strength Right Upper Extremity Strength: Mild Weakness Left Upper Extremity Strength: Mild Weakness - Sensation Right Upper Extremity Sensation: Intact/Normal Left Upper Extremity Sensation: Intact/Normal Balance - Sitting Balance Static Sitting Balance: Good Dynamic Sitting Balance: Good - Standing Balance Static Standing Balance: Poor Dynamic Standing Balance: Poor ADL Skills - Self Feeding Self Feeding: Set Up Only - Grooming Grooming: Mod Assist - Bathing Bathing UE: CGA Bathing LE: Max Assist - Dressing Dressing UE: Min Assist Dressing LE: Max Assist - Toilet Management Toileting Management: Mod Assist Functional Mobility - Transfers Sit to Stand: Max Assist Stand to Sit: Mod Assist Stand Pivot Transfers: Mod Assist - Ambulation Weight Bearing Status: FWB Assistive Device Used: Rolling Walker Assistance needed with Ambulation: 2 person assist - Safety Awareness Safety Awareness: Good CHRISTINE INDEX SCORE: . Additional Treatment Performed - Additional units charged ADL: 15 - Time with patient Length of Evaluation: 20 Total treatment time: 35 Activities Would you be interested in leaving your room for activities?: No What types of things do you enjoy doing? Any Hobbies?: tv Patient Interests:: Watching Television, Visiting/Socializing Patient Education Patient Education: Education of diagnosis, Home Safety, Education of Plan of Care Teaching Recipient: Patient Teaching Methods: Discussion Assessment Problem List:: Decreased level of function, Requires training/education, Decreased safety/Risk of falls, Weakness Rehab Potential: Good Further Therapy Indicated?: Yes Evaluation Complexity: HISTORY: Medium, EXAM OF BODY SYSTEMS: Medium, CLINICAL DECISION MAKING: Medium Patient's Goal(s): To get where he can move better. Short Term Goals - Goals GOAL 1: Pt to increase Indep. of toilet tranfers to CGA. Goal to be met by: 08/30/20 GOAL 2: Pt to increase I of BLE dressing to Min A. Goal to be met by: 08/30/20 GOAL 3: Pt to increase (I) of sink level ADLS to CGA. Goal to be met by: 08/30/20 Skilled Nursing Goals GOAL 1: Pt to increase toilet transfer with RW to be Mod-I. Goal to be met by: 09/06/20 GOAL 2: Pt to increase I of BLE dressing to CGA. Goal to be met by: 09/06/20 GOAL 3: Pt to increase independence of sink level ADLS to Mod-I Goal to be met by: 09/06/20 Plan Plan of Care: Therapeutic EX, Therapeutic Activity, Self-Care/Home Management Frequency of Treatment: 1-2 X day, as tolerated Duration of Treatment: 2 Weeks Anticipated Discharge Destination: Home Treatment Diagnosis (ICD 10 Codes): Weakness M62.81 Has the Physician been added for Co-signature?: Yes
--- NOTE | 2020-08-23 13:49 | PN ---
DATE OF SERVICE: 08/21/2020 SUBJECTIVE: The patient was admitted through the emergency room as he came to the emergency room with pitting edema, dependent +2 to +3. The patient was admitted a few weeks ago with the similar problem. The patient has Parkinson's disease and he is practically has a sedentary lifestyle and he sits during the day time with this legs hanging. The patient was given IV Lasix 80mg in the emergency room and also 40mg to be given tomorrow morning. His cardiovascular status seems to be otherwise stable. Venous scan of both lower extremities normal. His labs are all acceptable. Condition otherwise is stable. The patient's education to be carried out to prevent patient's lower extremity swelling. TIME SPENT: More than 30 minutes. Plan and coordination of the patient's care discussed in the presence of nurse. MARTHA
[2020-08-23] MEDS: FLOMAX PO SCH (20:19)
[2020-08-24] MEDS ORDERED: MILK OF MAGNESIA PO ONE (04:31)
[2020-08-24 05:13] LABS: BASOPHILS % (AUTO) 0.4 % (0.0-3.0); EOSINOPHILS # (AUTO) 0.3 K/ul (0.0-0.7); EOSINOPHILS % (AUTO) 3.5 % (0.0-7.0); HEMATOCRIT 36.6 % (42.0-52.0); HEMOGLOBIN 11.4 g/dl (14.0-18.0); IMMATURE GRANULOCYTE % (AUTO) 0.4 % (0.0-5.0); LYMPHOCYTES # (AUTO) 1.8 K/uL (0.60-3.4); LYMPHOCYTES % (AUTO) 23.9 (10.0-50.0); MEAN CORPUSCULAR HEMOGLOBIN 26.8 pg (27.0-31.0); MEAN CORPUSCULAR HGB CONC 31.1 (31.8-35.4); MEAN CORPUSCULAR VOLUME 85.9 fl (80.0-94.0); MONOCYTES # (AUTO) 0.6 K/uL (0.4-2.0); NEUTROPHILS # (AUTO) 4.9 K/ul (2.0-6.9); NEUTROPHILS % (AUTO) 63.8 % (42.2-75.2); PLATELET COUNT 337 10^3/uL (140-440); RDW COEFFICIENT OF VARIATION 15.8 % (11.6-14.8); RED BLOOD COUNT 4.26 10^6/ul (4.70-6.10); WHITE BLOOD COUNT 7.67 K/ul (4.2-10.2)
[2020-08-24 05:38] LABS: ALBUMIN 3.81 g/dL (3.5-5.0); ALKALINE PHOSPHATASE 173.1 U/L (56-119); ASPARTATE AMINO TRANSFERASE 60.5 U/L (17-59); BILIRUBIN,TOTAL 0.5 mg/dL (0.2-1.3); BLOOD UREA NITROGEN 14.4 mg/dL (9-20); CALCIUM 8.89 mg/dL (8.4-10.2); CARBON DIOXIDE 32.9 mmol/L (22-30.0); CHLORIDE 100.6 mmol/L (98-107); CREATININE 0.61 mg/dL (0.60-1.10); GLUCOSE 116.9 mg/dL (74-106); POTASSIUM 3.89 mmol/L (3.5-5.1); SODIUM 138.5 mmol/L (134.5-145); TOTAL PROTEIN 6.53 g/dL (6.3-8.2)
[2020-08-24] MEDS: LASIX TAB PO SCH (05:39)
[2020-08-24] MEDS: PROTONIX PO SCH (05:39)
[2020-08-24] MEDS ORDERED: CITRATE OF MAGNESIA PO ONE (08:23)
[2020-08-24] MEDS ORDERED: DULCOLAX RC ONE (08:24)
[2020-08-24] MEDS: ZOCOR PO SCH (09:07)
[2020-08-24] MEDS: ASPIRIN EC PO SCH (09:07)
[2020-08-24] MEDS: ULTRAM PO SCH ×2 (09:07→20:30)
[2020-08-24] MEDS: ALDACTONE PO SCH (09:08)
[2020-08-24] MEDS: GLUCOPHAGE PO SCH (09:08)
[2020-08-24] MEDS: K-DUR PO SCH ×2 (09:08→18:13)
[2020-08-24] MEDS: NYSTOP POWDER TP SCH ×3 (09:11→20:32)
[2020-08-24] MEDS: CARBIDOPA PO SCH ×3 (09:11→20:32)
[2020-08-24] MEDS: LEVODOPA PO SCH ×3 (09:11→20:32)
[2020-08-24] MEDS: [UNRECOGNIZED DRUG - OTHER] PO SCH ×3 (09:11→20:32)
--- NOTE | 2020-08-24 09:16 | PCM.PROG ---
Attending Provider: ATTENDING PROVIDER: Dr. SUN DE LA FUENTE This patient is seen with Tiera Vaz, Nurse Practitioner. DATE OF SERVICE: 08/24/20 SUBJECTIVE: This 79 year old /WHITE M was hospitalized 08/21/20. The patient is resting comfortably. He worked with therapy yesterday. He is still extremely weak. Last night had to use bedside commode. REVIEW OF SYSTEMS: CONSTITUTIONAL: No night sweats. No fatigue, malaise, lethargy. No fever or chills. Weakness. HEENT: Eyes: No visual changes. No eye pain. No eye discharge. ENT: No runny nose. No epistaxis. No sinus pain. No odynophagia. No congestion. RESPIRATORY: No cough, no congestion. No hemoptysis. No shortness of breath. CARDIOVASCULAR: No angina symptoms. No CHF symptoms. No atypical chest pain for CAD. No palpitations. No orthopnea.. GASTROINTESTINAL: No abdominal pain. No nausea or vomiting. No diarrhea or constipation. No hematemesis. No hematochezia. GENITOURINARY: No urgency. No frequency. No dysuria. No hematuria. No obstructive symptoms. No discharge. No pain. No significant abnormal bleeding. MUSCULOSKELETAL: No musculoskeletal pain; no joint swelling. NEUROLOGICAL: Awake, alert, oriented to time, place and person. No headache. No neck pain. No syncope. No seizures. No dizziness. PSYCHIATRIC: Not anxious. No depression. No suicidal thoughts. No homicidal thoughts. SKIN: No rash. No lesions. No wounds. ENDOCRINE: No unexplained weight loss. No weight gain. HEMATOLOGIC/LYMPHATIC: No anemia. No purpura. No petechiae. No prolonged or excessive bleeding. No palpable lymph nodes. PHYSICAL EXAMINATION: GENERAL: The patient is awake, alert and oriented, lying in bed in no distress. VITAL SIGNS: Temperature 97.0 F, Pulse 97, Respiratory Rate 18, BP 115/62, Pulse Ox 96% HEENT: Head normocephalic, atraumatic. Eyes: Extraocular muscles are intact. Pupils are equal, round and reactive to light and accommodation. Ears: No lesions. Nose appeared normal. Throat: No exudate or erythema. NECK: Supple. No JVD, no carotid bruit. No lymphadenopathy or thyromegaly. LUNGS: Clear to auscultation. Percussion note normal. Chest symmetrical. HEART: S1, S2, no S3. No murmurs. No cyanosis or clubbing. No ascites. Pulses: Dorsalis pedis and posterior tibial pulses +1 to +2 both sides. ABDOMEN: Soft. Non-tender. Bowel sounds active. No CVA tenderness. No mass felt. EXTREMITIES: No edema. Full range of motion of all extremities, equal. Trace l eg edema. NEUROLOGIC: No focal deficit. Cranial nerves II through XII are grossly intact. No headache. No double vision. SKIN: Not dry. Intact. Turgor-normal. LYMPHATIC: No palpable lymph nodes/no lymphedema. MUSCULOSKELETAL: Normal joints with no swelling. Muscle tone is normal. LAB REVIEW: 08/24/20 04:35 08/24/20 04:35 08/24/20 04:35: Sodium 138.5, Potassium 3.89, Chloride 100.6, Carbon Dioxide 32.9 H, Anion Gap 8.89, BUN 14.4, Creatinine 0.61, Estimated GFR (MDRD) 128.00, BUN/Creatinine Ratio 23.60, Glucose 116.9 H, Calcium 8.89, Total Bilirubin 0.50, AST 60.5 H D, ALT 4.0, Alkaline Phosphatase 173.1 H D, Total Protein 6.53, Albumin 3.81, Globulin 2.72, Albumin/Globulin Ratio 1.40 08/24/20 04:35: WBC 7.67, RBC 4.26 L, Hgb 11.4 L, Hct 36.6 L, MCV 85.9, MCH 26.8 L, MCHC 31.1 L, RDW Coeff of Leda 15.8 H, Plt Count 337, Immature Gran % (Auto) 0.4, Neut % (Auto) 63.8, Lymph % (Auto) 23.9, [place] % (Auto) 8.0, Eos % (Auto) 3.5, Baso % (Auto) 0.4, Neut # (Auto) 4.9, Lymph # (Auto) 1.8, [place] # (Auto) 0.6, Eos # (Auto) 0.3, Baso # (Auto) 0.0, Immature Gran # (Auto) 0.0 ASSESSMENT: Please see below. 1. Leg edema 2. Generalized weakness 3. Parkinson's Disease 4. Constipation PLAN: 1. Continue PT/OT 2. Continue Potassium 3. Discussed with the patient concerns with regards discharge to his home. We will contact Bettina Lang for further assistance. The patient has Home Health for PT/OT and nursing. Plan and coordination of the patient's care discussed in the presence of [employer] and nurse. SCRIBED BY: CRIS DEL ROSARIO Salesperson Sheet Music scribed while in presence of service performed by Dr. De La Fuente/Tiera Vaz APRN on 08/24/20 ([id number])
[2020-08-24] MEDS: FLOMAX PO SCH (20:30)
[2020-08-25 05:11] LABS: BASOPHILS % (AUTO) 0.3 % (0.0-3.0); EOSINOPHILS # (AUTO) 0.3 K/ul (0.0-0.7); EOSINOPHILS % (AUTO) 4.4 % (0.0-7.0); HEMATOCRIT 35.9 % (42.0-52.0); HEMOGLOBIN 11.2 g/dl (14.0-18.0); IMMATURE GRANULOCYTE % (AUTO) 0.3 % (0.0-5.0); LYMPHOCYTES # (AUTO) 1.7 K/uL (0.60-3.4); LYMPHOCYTES % (AUTO) 25.1 (10.0-50.0); MEAN CORPUSCULAR HEMOGLOBIN 26.8 pg (27.0-31.0); MEAN CORPUSCULAR HGB CONC 31.2 (31.8-35.4); MEAN CORPUSCULAR VOLUME 85.9 fl (80.0-94.0); MONOCYTES # (AUTO) 0.6 K/uL (0.4-2.0); MONOCYTES % (AUTO) 8.6 (0-10); NEUTROPHILS # (AUTO) 4.1 K/ul (2.0-6.9); NEUTROPHILS % (AUTO) 61.3 % (42.2-75.2); PLATELET COUNT 330 10^3/uL (140-440); RDW COEFFICIENT OF VARIATION 15.8 % (11.6-14.8); RED BLOOD COUNT 4.18 10^6/ul (4.70-6.10); WHITE BLOOD COUNT 6.61 K/ul (4.2-10.2)
[2020-08-25 05:25] LABS: ALANINE AMINOTRANSFERASE < 4.0 U/L (0-50); ALBUMIN 3.72 g/dL (3.5-5.0); ALKALINE PHOSPHATASE 209.1 U/L (56-119); ASPARTATE AMINO TRANSFERASE 58.4 U/L (17-59); BILIRUBIN,TOTAL 0.47 mg/dL (0.2-1.3); BLOOD UREA NITROGEN 15.2 mg/dL (9-20); CALCIUM 8.81 mg/dL (8.4-10.2); CARBON DIOXIDE 33.4 mmol/L (22-30.0); CHLORIDE 101.1 mmol/L (98-107); CREATININE 0.58 mg/dL (0.60-1.10); GLUCOSE 109.7 mg/dL (74-106); SODIUM 137.1 mmol/L (134.5-145); TOTAL PROTEIN 6.44 g/dL (6.3-8.2)
[2020-08-25] MEDS: LASIX TAB PO SCH (05:39)
[2020-08-25] MEDS: PROTONIX PO SCH (05:39)
--- NOTE | 2020-08-25 08:39 | HP ---
DATE OF SERVICE: 08/21/20 HISTORY OF PRESENT ILLNESS: 79-year-old white male who presents to the emergency room with lower extremity swelling for the past several days. He was found in the floor by his family. 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 No night sweats. No fatigue, malaise. No fever or chills. HEENT: Eyes: No visual changes. No eye pain. No eye discharge. ENT: No runny nose. No epistaxis. No sinus pain. No sore throat. No odynophagia. No ear pain. No congestion. RESPIRATORY: No cough, no congestion. No hemoptysis. No shortness of breath. CARDIOVASCULAR: No angina symptoms. No CHF symptoms. No atypical chest pain for CAD. No palpitations. No PND. No orthopnea. GASTROINTESTINAL: No abdominal pain. No nausea or vomiting. No diarrhea or constipation. No hematemesis. No hematochezia. GENITOURINARY: No urgency. No frequency. No dysuria. No hematuria. No obstructive symptoms. No discharge. No pain. No significant abnormal bleeding. MUSCULOSKELETAL: Leg edema. No musculoskeletal pain. No joint swelling. NEUROLOGICAL: No headache. No neck pain. No syncope. No seizures. No dizziness. PSYCHIATRIC: Not anxious. No depression. No suicidal thoughts. No homicidal thoughts. SKIN: No rash. No lesions. No wounds. ENDOCRINE: No unexplained weight loss. No weight gain. HEMATOLOGIC/LYMPHATIC: No anemia. No purpura. No petechiae. No prolonged or excessive bleeding. No palpable lymph nodes. PERSONAL/FAMILY/SOCIAL HISTORY: Nonsmoker. No alcohol or ilicit drug use. He is . He currently lives at home. His two sons take turns in an attempt to take care of him at home. MEDICATIONS: Simvastatin 40 mg p.o. daily Protonix 40 mg p.o. daily Aspirin 81 mg p.o. daily Metformin 500 mg p.o. daily Aldactone 25 mg p.o. daily Carbidopa-Levodopa three cap p.o. t.i.d. Tramadol 50 mg p.o. t.i.d. p.r.n. Lasix 40 mg p.o. daily Nystatin one application topical t.i.d. Flomax 0.4 mg p.o. bedtime Mupirocin Doxycycline 100 mg p.o. b.i.d. ALLERGIES: CELECOXIB, MELOXICAM, PENICILLINS PHYSICAL EXAMINATION: VITAL SIGNS: Temperature 98.6, heart rate 78, respirations 16, blood pressure 149/74, pulse ox 93%. HEENT: Head normocephalic, atraumatic. Eyes: Extraocular muscles are intact. Pupils are equal, round and reactive to light and accommodation. Ears: No lesions. Nose appeared normal. Throat: No exudate or erythema. NECK: Supple. No JVD, no carotid bruit. No lymphadenopathy or thyromegaly. LUNGS: Diminished breath sounds bilaterally. Clear to auscultation. Percussion note normal. Chest symmetrical. HEART: S1, S2, no S3. No murmur. No cyanosis or clubbing. No ascites. Pulses: Dorsalis pedis and posterior tibial pulses +1 to +2 bilaterally. ABDOMEN: Soft. Nontender. Bowel sounds active. No CVA tenderness. No mass felt. EXTREMITIES: +1 bilateral lower extremity edema. Full range of motion of all extremities, equal. NEUROLOGIC: No focal deficit. Cranial nerves II through XII are grossly intact. No headache, no double vision or headache. SKIN: Not dry. Intact. Turgor - normal. LYMPHATIC: No palpable lymph nodes/no lymphedema. MUSCULOSKELETAL: Normal joints with no swelling. Muscle tone is normal. LABS/IMAGING: White count 6.75, hemoglobin 12.8, hematocrit 38.9, platelets 342. Sodium 142, potassium 3.5, BUN 16, creatinine 0.66, glucose 106. Troponin less than 0.012. NT-Pro-BNP 196, AST 26, ALT 10. Chest x-ray shows no acute process other than some chronic lung disease. Bilateral venous scan was negative for DVT. Respiratory panel by PCR was negative. ASSESSMENT: 1. BILATERAL LOWER EXTREMITY EDEMA 2. GENERALIZED WEAKNESS 3. END-STAGE PARKINSON'S DISEASE PLAN: 1. We will admit. 2. Routine telemetry orders. 3. CBC, CMP daily. 4. 40 mg of IV Lasix now. 5. UA. 6. Regular diet. 7. Oxygen at 1 to 2L as needed. 8. Will follow closely. TIME SPENT: More than 70 minutes. MTDD
[2020-08-25] MEDS ORDERED: DECADRON IM ONE (09:32)
--- NOTE | 2020-08-25 09:58 | PCM.PROG ---
Attending Provider: ATTENDING PROVIDER: Dr. SUN NAGEL DATE OF SERVICE: 08/25/20 SUBJECTIVE: This 79 year old /WHITE M was hospitalized 08/21/20 with dependent leg edema mainly because of the patient sitting at home without activity in the chair. With Parkinson's he is not able to ambulate. He has a history of chronic leg edema. With IV Lasix the leg edema has been trace to +1. No evidence of CHF. PROBNP is 196. The patient's problem is living at home by himself with help from sons and very likely not receiving Parkinson's medication on a regular basis. The patient's appetite seems to have improved. He is oriented to time, place and person. He needs to be in a retirement where he is taken care of and for physical therapy, medication and daily vitals. The patient refuses. REVIEW OF SYSTEMS: CONSTITUTIONAL: No night sweats. No fatigue, malaise, lethargy. No fever or chills. HEENT: Eyes: No visual changes. No eye pain. No eye discharge. ENT: No runny nose. No epistaxis. No sinus pain. No odynophagia. No congestion. RESPIRATORY: No cough, no congestion. No hemoptysis. No shortness of breath. CARDIOVASCULAR: No angina symptoms. No CHF symptoms. No atypical chest pain for CAD. No palpitations. No orthopnea.. GASTROINTESTINAL: No abdominal pain. No nausea or vomiting. No diarrhea or constipation. No hematemesis. No hematochezia. Appetite has improved some. Swallowing is not up to par. GENITOURINARY: No urgency. No frequency. No dysuria. No hematuria. No obstructive symptoms. No discharge. No pain. No significant abnormal bleeding. MUSCULOSKELETAL: No musculoskeletal pain; no joint swelling. NEUROLOGICAL: Awake, alert, oriented to time, place and person. No headache. No neck pain. No syncope. No seizures. No dizziness. PSYCHIATRIC: Not anxious. No depression. No suicidal thoughts. No homicidal thoughts. SKIN: No rash. No lesions. No wounds. ENDOCRINE: No unexplained weight loss. No weight gain. HEMATOLOGIC/LYMPHATIC: No anemia. No purpura. No petechiae. No prolonged or excessive bleeding. No palpable lymph nodes. PHYSICAL EXAMINATION: GENERAL: The patient is awake, alert and oriented, lying in bed in no distress. VITAL SIGNS: Temperature 97.8 F, Pulse 76, Respiratory Rate 18, BP 98/62, Pulse Ox 97% HEENT: Head normocephalic, atraumatic. Eyes: Extraocular muscles are intact. Pupils are equal, round and reactive to light and accommodation. Ears: No lesions. Nose appeared normal. Throat: No exudate or erythema. NECK: Supple. No JVD, no carotid bruit. No lymphadenopathy or thyromegaly. LUNGS: Clear to auscultation. Percussion note normal. Chest symmetrical. mild expiratory wheezing. HEART: S1, S2, no S3. No murmurs. No cyanosis or clubbing. No ascites. Pulses: Dorsalis pedis and posterior tibial pulses +1 to +2 both sides. ABDOMEN: Soft. Non-tender. Bowel sounds active. No CVA tenderness. No mass felt. EXTREMITIES: Trace edema. Full range of motion of all extremities, equal. NEUROLOGIC: No focal deficit. Cranial nerves II through XII are grossly intact. No headache, no double vision or headache. SKIN: Warm and dry. Intact. Turgor-normal. LYMPHATIC: No palpable lymph nodes/no lymphedema. MUSCULOSKELETAL: Normal joints with no swelling. Muscle tone is normal. LAB REVIEW: 08/25/20 04:42 08/25/20 04:42 08/25/20 04:42: Sodium 137.1, Potassium 4.30, Chloride 101.1, Carbon Dioxide 33.4 H, Anion Gap 6.90, BUN 15.2, Creatinine 0.58 L, Estimated GFR (MDRD) 136.00, BUN/Creatinine Ratio 26.20, Glucose 109.7 H, Calcium 8.81, Total Bilirubin 0.47, AST 58.4, ALT < 4.0, Alkaline Phosphatase 209.1 H D, Total Protein 6.44, Albumin 3.72, Globulin 2.72, Albumin/Globulin Ratio 1.36 08/25/20 04:42: WBC 6.61, RBC 4.18 L, Hgb 11.2 L, Hct 35.9 L, MCV 85.9, MCH 26.8 L, MCHC 31.2 L, RDW Coeff of Leda 15.8 H, Plt Count 330, Immature Gran % (Auto) 0.3, Neut % (Auto) 61.3, Lymph % (Auto) 25.1, [place] % (Auto) 8.6, Eos % (Auto) 4.4, Baso % (Auto) 0.3, Neut # (Auto) 4.1, Lymph # (Auto) 1.7, [facility] # (Auto) 0.6, Eos # (Auto) 0.3, Baso # (Auto) 0.0, Immature Gran # (Auto) 0.0 ASSESSMENT: Please see below. 1. Leg edema been under control with diuretic. PLAN: 1. Continue Parkinson's medications 2. The patient is followed by Neurologist 3. The patient is going to be discharged home to be taken care of by family 4. Discontinue Moses Catheter. Plan and coordination of the patient's care discussed in the presence of [employer] and nurse. PROGNOSIS: Guarded SCRIBED BY: Tom ROBERTS scribed while in presence of service performed by Dr. SUN NAGEL on 08/25/20 ([id number])
[2020-08-25] MEDS: ASPIRIN EC PO SCH (10:12)
[2020-08-25] MEDS: ULTRAM PO SCH (10:12)
[2020-08-25] MEDS: K-DUR PO SCH (10:12)
[2020-08-25] MEDS: GLUCOPHAGE PO SCH (10:12)
[2020-08-25] MEDS: ZOCOR PO SCH (10:13)
[2020-08-25] MEDS: ALDACTONE PO SCH (10:13)
[2020-08-25] MEDS: CARBIDOPA PO SCH ×2 (10:15→15:30)
[2020-08-25] MEDS: NYSTOP POWDER TP SCH ×2 (10:15→15:30)
[2020-08-25] MEDS: [UNRECOGNIZED DRUG - OTHER] PO SCH ×2 (10:15→15:30)
[2020-08-25] MEDS: LEVODOPA PO SCH ×2 (10:15→15:30)
[2020-08-25 14:52] VITALS: BP 112/76; TEMP 96.9
--- NOTE | 2020-08-25 15:12 | CM.DICTOOL ---
ADMISSION: 08/21/20 17:33 DISCHARGE: AUGUST 25, 2020 DATE OF SERVICE: 08/25/20 FINAL DIAGNOSIS BILATERAL LOWER EXTREMITY EDEMA GENERALIZED WEAKNESS END-STAGE PARKINSON'S DISEASE - DR. HAWKINS RIGHT HIP PAIN-MILD DEGENERATIVE CHANGES PER X-RAY CONSTIPATION, RESOLVED HYPOKALEMIA, RESOLVED HX: CAD WITH STENTS - DR. MADDEN, 2012 CAROTID STENOSIS LESS THAN 50% - DR. CHACKO , 2018 CHRONIC LEG EDEMA DEMENTIA ANEMIA,CHRONIC DIZZINESS, RELATED TO PARKINSON'S DISEASE HYPERTENSION BPH GERD UPPER EXTREMITY WEAKNESS - FROM CERVICAL RADICULOPATHY CHRONIC BACK PAIN MILD LVH HYPERGLYCEMIA DUCUBITIS ULCER TO COCCYX WITH POSITIVE FOR STAPH HEMOLYTICUS ON THE LAST HOSPITAL ADMISSION, STAGE 2 SURGICAL HISTORY: LUMBAR FUSION 06/2017 CODE STATUS: DO NOT RESUSCITATE LAST VITALS Temp Pulse Resp BP Pulse Ox 97.8 F 76 18 98/62 97 08/25/20 05:38 08/25/20 05:38 08/25/20 05:38 08/25/20 05:38 08/25/20 09:57 TAKE THESE MEDICATIONS AT HOME Acetaminophen (Acetaminophen 325 Mg Tablet) 650 mg PO Q4H PRN PRN Reason: Headache Aspirin (Aspirin 81 Mg Tablet.) 81 mg PO DAILYWM [facility] Last Admin: 08/25/20 10:12 Dose: 81 mg Documented by: Furosemide (Furosemide 40 Mg Tablet) 40 mg PO QDAC [facility] Last Admin: 08/25/20 05:39 Dose: 40 mg Documented by: Metformin HCl (Metformin Hcl 500 Mg Tablet) 500 mg PO DAILYWM [facility] Last Admin: 08/25/20 10:12 Dose: 500 mg Documented by: Non-Formulary Medication (Carbidopa-Levodopa [Rytary]) 3 cap PO TID [facility] Last Admin: 08/25/20 10:15 Dose: 3 cap Documented by: Nystatin (Nystatin 15 Gm Powder) 1 applic TP TID [facility] Last Admin: 08/25/20 10:15 Dose: 1 applic Documented by: Pantoprazole Sodium (Pantoprazole Sodium 40 Mg Tablet.) 40 mg PO QDAC [facility] Last Admin: 08/25/20 05:39 Dose: 40 mg Documented by: Potassium Chloride (Potassium Chloride 20 Meq Tab) 20 meq PO BIDWM [facility] Last Admin: 08/25/20 10:12 Dose: 20 meq Documented by: Simvastatin (Simvastatin 40 Mg Tablet) 40 mg PO DAILY [facility] Last Admin: 08/25/20 10:13 Dose: 40 mg Documented by: Spironolactone (Spironolactone 25 Mg Tablet) 25 mg PO DAILY [facility] Last Admin: 08/25/20 10:13 Dose: 25 mg Documented by: Tamsulosin HCl (Tamsulosin Hcl 0.4 Mg Cap.Er.24h) 0.4 mg PO BEDTIME [facility] Last Admin: 08/24/20 20:30 Dose: 0.4 mg Documented by: Tramadol HCl (Tramadol Hcl 50 Mg Tablet) 50 mg PO TID PRN Last Admin: 08/25/20 10:12 Dose: 50 mg Documented by: CALMOSEPTINE OINTMENT TO BUTTOCKS BID AND PRN ALLERGIES celecoxib [From Celebrex] Adverse Reaction (Verified 08/21/20 13:56) meloxicam [From Mobic] Adverse Reaction (Verified 08/21/20 13:56) Penicillins Adverse Reaction (Verified 08/21/20 13:56) Rash DISCONTINUED MEDICATIONS NONE NEW PRESCRIPTIONS: TYLENOL 650 MG PO EVERY 4 HOURS PRN FOR MILD PAIN POTASSIUM 20 MEQ PO BID CALMOSEPTINE OINTMENT TO BUTTOCKS BID AND PRN SMOKING: N/A DISEASE SPECIFIC EDUCATION: PARKINSONS EDEMA FALL PRECAUTIONS COVID LAB REVIEW: 08/25/20 04:42 08/25/20 04:42 08/25/20 04:42: Sodium 137.1, Potassium 4.30, Chloride 101.1, Carbon Dioxide 33.4 H, Anion Gap 6.90, BUN 15.2, Creatinine 0.58 L, Estimated GFR (MDRD) 136.00, BUN/Creatinine Ratio 26.20, Glucose 109.7 H, Calcium 8.81, Total Bilirubin 0.47, AST 58.4, ALT < 4.0, Alkaline Phosphatase 209.1 H D, Total Protein 6.44, Albumin 3.72, Globulin 2.72, Albumin/Globulin Ratio 1.36 08/25/20 04:42: WBC 6.61, RBC 4.18 L, Hgb 11.2 L, Hct 35.9 L, MCV 85.9, MCH 26.8 L, MCHC 31.2 L, RDW Coeff of Leda 15.8 H, Plt Count 330, Immature Gran % (Auto) 0.3, Neut % (Auto) 61.3, Lymph % (Auto) 25.1, [place] % (Auto) 8.6, Eos % (Auto) 4.4, Baso % (Auto) 0.3, Neut # (Auto) 4.1, Lymph # (Auto) 1.7, [place] # (Auto) 0.6, Eos # (Auto) 0.3, Baso # (Auto) 0.0, Immature Gran # (Auto) 0.0 PLAN: DISCHARGE HOME: [facility] TO RESUME CARE : SN, PT, OT, AND ACID EXTRACTOR FILEMON NAGEL CONTACTED TO EVALUATE FOR HOMEMAKING SERVICES ACTIVITY: UP WITH WALKER AND SUPERVISION, NEEDS 24/ SUPERVISION AND ASSISTANCE ELEVATE LOWER EXTREMITIES HIGHER THAN HIS HIPS MUCH POSSIBLE WEIGH DAILY AND REPORT 2-3 LBS GAIN IN 24 HOURS OR 5-7 LBS IN A WEEK TO YOUR DOCTOR MD FOLLOW UP: SEE DR NAGEL/ TAMERA ARIZA APRN/ JAY LIZARRAGA APRN IN THE O FFICE ON FRIDAY, AUGUST 31, 2020 @ 130 PM FOLLOW -UP WITH DR. HAWKINS (NEUROLOGIST) AT DESIGNATED APPOINTMENTS DIET: HEART HEALTHY CODE STATUS: DO NOT RESUSCITATE RT BUTTOCKS OPEN AREA: CLEANSE WITH SOAP AND WATER, DRY, APPLY CALMOSEPTINE TWICE DAILY AND PRN AND OFF LOAD AT ALL TIMES. MR. ROWE IS ALERT AND ORIENTED X 4. HE IS PLEASANT WITH WEAK AND DELAYED SPEECH. HE CAN PERFORM ALL BODY MOVEMENTS BUT SLOW AND WITH WEAKNESS. NO REPORTS OF SOA. HAS A PERSISTENT +1 PTTING EDEMA TO LEGS. SKIN WARM AND DRY AND INTACT EXCEPT CASE WORKER SKIN ISSUES TO BUTTOCK AREA DUE TO WEAKNESS, DECREASED FUNCTIONAL MOBILITY AND PREFERENCE TO STAY IN A SITTING POSITION MAJORITY OF THE TIME IN A LIFT CHAIR. HE PREFERS TO SLEEP IN THE RECLINER/LIFT CHAIR BECAUSE HE CANNOT TRANSFER HIMSELF IN AND OUT OF BED ON HIS OWN. HE HAS AN OPEN AREA TO HIS RT INNER BUTTOCKS AT THIS TIME. HE IS ABLE TO FEED SELF, HOWEVER VERY SLOW. NUTRITIONAL INTAKE HAD BEEN 25 - 50% AND THEN YESTERDAY UP TO 100%. FLUID INTAKE SUBSTANTIAL. THE ED GAVE LARGE DOSE OF IV LASIX AND MR. ROWE REQUESTED A ANTOINE CATHETER. HAS HAD ADEQUATE OUTPUTS AND WEIGHTS HAVE BEEN STABLE. CATHETER WAS REMOVED. HE HAS A HISTORY OF INTERMITTENT BLADDER INCONTINENCE AND USES A URINAL ON OWN. CONTINENT OF BOWELS AND LAST BM 08/24. HE HAS BEEN GETTING PT AND OT AND HAS BEEN SLOWLY IMPROVING. USES A WALKER WHEN UP. HE LIVES WITH SON, WHOM DOES SPEND SOME TIME OUT OF THE HOME AND OTHER SONS ASSIST INTERMITTENTLY. THERE IS SEVERAL HOURS THAT MAY GO BY AND MR. ROWE IS ALONE. EVERYONE HAS BEEN INSTRUCTED ON THE SAFETY RISK OF BEING ALONE. NO LONG-TERM PLACEMENT AT THIS TIME. FILEMON NAGEL HAS BEEN CONTACTED TO EVALUATE FOR HOMEMAKER AND [facility] WILL CONTINUE TO SEE. FAMILY TO ARRANGE ADDITIONAL SITTERS. MD TAMERA DÍAZ APRN ALYCE HANNAN, APRN
--- NOTE | 2020-08-25 15:53 | US ---
EXAM: Carotid ultrasound HISTORY: Dizziness COMPARISON: 07/31/2016 TECHNIQUE: Carotid ultrasound was performed using Duplex imaging with blackman scale, color, and Doppler imaging performed. FINDINGS: Right carotid: There is atherosclerotic plaque in the common carotid and bulb/internal carotid arter y with areas of shadowing artifact, with the visual estimate of narrowing moderate or severe. Peak s ystolic velocity measurement in the right internal carotid artery is 1.09 meters per second. End-trevon stolic velocity measurement in the right internal carotid artery is 0.29 meters per second. Right in ternal to common carotid artery peak systolic velocity ratio is 2.5. Right vertebral artery not visu alized Left carotid: There is atherosclerotic plaque in the common carotid and bulb/internal carotid artery with areas of shadowing artifact, with the visual estimate of narrowing moderate or severe. Peak sy stolic velocity measurement in the left internal carotid artery is 1.24 meters per second. End-diast olic velocity measurement in the left internal carotid artery is 0.36 meters per second. 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 Flow in the left vertebral ar [place] is antegrade. Irregular cardiac rhythm suggested. IMPRESSION: 1. Right internal carotid: Peak systolic velocity corresponds with mild (less than 50%) stenosis; ho wever, the visual estimate of narrowing may be moderate or severe. Recommend correlation with CT ang iography neck. 2. Left internal carotid: Peak systolic velocity corresponds) with mild (less than 50%) stenosis; ho wever, the visual estimate of narrowing may be moderate or severe. Recommend correlation with CT ang iography neck. 3. Right vertebral artery not visualized. Antegrade flow left vertebral artery. 4. Irregular cardiac rhythm suggested. Correlation with patient history/EKG.
--- NOTE | 2020-08-28 13:14 | PN ---
DATE OF SERVICE: 08/23/20 SUBJECTIVE: 79-year-old white male hospitalized with bilateral leg edema. The patient had no evidence of CHF. The patient's appetite seems to be a little bit better. He is talking now. The patient's problem is taken care of by sons at home and probably not getting his medications. The patient has difficulty swallowing, even talking. Now he is getting full dose medications, he seems to be improving. Two times he has gotten IV Lasix. His edema is trace to +1. He is being seen by Physical Therapy. Condition seems to have improved. REVIEW OF SYSTEMS: CONSTITUTIONAL: No night sweats. No fatigue, malaise, lethargy. No fever or chills. HEENT: Eyes: No visual changes. No eye pain. No eye discharge. ENT: No runny nose. No epistaxis. No sinus pain. No sore throat. No odynophagia. No congestion. RESPIRATORY: No cough, no congestion. No hemoptysis. No shortness of breath. CARDIOVASCULAR: No angina symptoms. No CHF symptoms. No atypical chest pain for CAD. No palpitations. No PND. No orthopnea. GASTROINTESTINAL: No abdominal pain. No nausea or vomiting. No diarrhea or constipation. No hematemesis. No hematochezia. GENITOURINARY: No urgency. No frequency. No dysuria. No hematuria. No obstructive symptoms. No discharge. No pain. No significant abnormal bleeding. MUSCULOSKELETAL: No musculoskeletal pain; no joint swelling. NEUROLOGICAL: No headache. No neck pain. No syncope. No seizures. No dizziness. PSYCHIATRIC: Not anxious. No depression. No suicidal thoughts. No homicidal thoughts. SKIN: No rash. No lesions. No wounds. ENDOCRINE: No unexplained weight loss. No weight gain. HEMATOLOGIC/LYMPHATIC: No anemia. No purpura. No petechiae. No prolonged or excessive bleeding. No palpable lymph nodes. PHYSICAL EXAMINATION: VITAL SIGNS: Temperature 97, pulse 76, respiratory rate 18, blood pressure 100/58, pulse ox 93% on room air. HEENT: Head normocephalic, atraumatic. Eyes: Extraocular muscles are intact. Pupils are equal, round and reactive to light and accommodation. Ears: No lesions. Nose appeared normal. Throat: No exudate or erythema. NECK: Supple. No JVD, no carotid bruit. No lymphadenopathy or thyromegaly. LUNGS: Clear to auscultation. Percussion note normal. Chest symmetrical. HEART: S1, S2, no S3. No murmurs. No cyanosis or clubbing. No ascites. Pulses: Dorsalis pedis and posterior tibial pulses +1 to +2 bilaterally. ABDOMEN: Soft. Nontender. Bowel sounds active. No CVA tenderness. No mass felt. EXTREMITIES: No edema. Full range of motion of all extremities, equal. NEUROLOGIC: The patient has masklike face, no tremors. No focal deficit. Cranial nerves II through XII are grossly intact. No headache. No double vision. SKIN: Not dry. Intact. Turgor - normal. LYMPHATIC: No palpable lymph nodes/no lymphedema. MUSCULOSKELETAL: Normal joints with no swelling. Muscle tone is normal. LABS: Hemoglobin 11.5, hematocrit 36, WBC 8,600, normal differential. Creatinine 0.6, BUN 18, potassium 3.3. ASSESSMENT: 1. Bilateral leg edema from inactivity and Parkinson's. 2. Parkinson's disease with worsening. 3. History of coronary artery disease. 4. Hypokalemia. PLAN: 1. Elevate the legs. 2. Give Potassium supplements. 3. Physical Therapy has already started. 4. Continue all the Carbidopa, Levodopa and Parkinson's medicine. The patient is better, talking better, eating some and is going to need physical therapy and continuation of all his medication on regular basis. He and the family were explained about the findings and that with the Parkinson's disease he may be better off like at a [facility] where he is taken care of with need for physical therapy intermittently that could be provided by [facility]. TIME SPENT: More than 30 minutes. Plan and coordination of the patient's care discussed in the presence of nurse. MARTHA
--- NOTE | 2020-08-29 11:07 | PN ---
DATE OF SERVICE: 08/24/20 SUBJECTIVE: The patient was seen and examined with the nurse practitioner. The patient's condition was stable. Edema is much less than before. The patient was explained about him going to the alf where he could be taken care of and he flatly declined. He wants to go home whenever he is discharged. He is refusing to go to the alf. The patient's appetite seems to have improved. He is moving his extremities. TIME SPENT: More than 30 minutes. Plan and coordination of the patient's care discussed in the presence of nurse. MARTHA
--- NOTE | 2020-08-29 14:47 | DS ---
DATE OF SERVICE: 08/25/20 CODE STATUS: DO NOT RESUSCITATE FINAL DIAGNOSIS: 1. BILATERAL LOWER EXTREMITY EDEMA 2. GENERALIZED WEAKNESS 3. END-STAGE PARKINSON'S DISEASE - DR. HAWKINS 4. RIGHT HIP PAIN-MILD DEGENERATIVE CHANGES PER X-RAY 5. CONSTIPATION, RESOLVED 6. HYPOKALEMIA, RESOLVED HX: 7. CAD WITH STENTS - DR. MADDEN, 2012 8. CAROTID STENOSIS LESS THAN 50% - DR. CHACKO, 2017 9. CHRONIC LEG EDEMA 10. DEMENTIA 11. ANEMIA,CHRONIC 12. DIZZINESS, RELATED TO PARKINSON'S DISEASE 13. HYPERTENSION 14. BPH 15. GERD 16. UPPER EXTREMITY WEAKNESS - FROM CERVICAL RADICULOPATHY 17. CHRONIC BACK PAIN 18. MILD LVH 19. HYPERGLYCEMIA 20. DECUBITIS ULCER TO COCCYX WITH POSITIVE FOR STAPH HEMOLYTICUS ON THE LAST HOSPITAL ADMISSION, STAGE 2 SURGICAL HISTORY: 21. LUMBAR FUSION 06/2017 LAST VITALS Temp Pulse Resp BP Pulse Ox 97.8 F 76 18 98/62 97 08/25/20 05:38 08/25/20 05:38 08/25/20 05:38 08/25/20 05:38 08/25/20 09:57 DISCHARGE INSTRUCTIONS: 1. DISCHARGE HOME: [facility] TO RESUME CARE : SN, PT, OT, AND [employer] SUPERVISOR [employer] NAGEL CONTACTED TO EVALUATE FOR HOMEMAKING SERVICES 2. MD FOLLOW UP: SEE DR NAGEL/TAMERA ARIZA APRN/JAY LIZARRAGA APRN IN THE OFFICE ON MONDAY, AUGUST 31, 2020 @ 130 PM FOLLOW-UP WITH DR. HAWKINS (NEUROLOGIST) AT DESIGNATED APPOINTMENTS. 3. RT BUTTOCKS OPEN AREA: CLEANSE WITH SOAP AND WATER, DRY, APPLY CALMOSEPTINE TWICE DAILY AND PRN AND OFF LOAD AT ALL TIMES. MEDICATIONS AT DISCHARGE: Acetaminophen (Acetaminophen 325 Mg Tablet) 650 mg PO Q4H PRN PRN Reason: Headache Aspirin (Aspirin 81 Mg Tablet.) 81 mg PO DAILYWM [facility] Last Admin: 08/25/20 10:12 Dose: 81 mg Documented by: Furosemide (Furosemide 40 Mg Tablet) 40 mg PO QDAC [facility] Last Admin: 08/25/20 05:39 Dose: 40 mg Documented by: Metformin HCl (Metformin Hcl 500 Mg Tablet) 500 mg PO DAILYWM [facility] Last Admin: 08/25/20 10:12 Dose: 500 mg Documented by: Non-Formulary Medication (Carbidopa-Levodopa ) 3 cap PO TID [facility] Last Admin: 08/25/20 10:15 Dose: 3 cap Documented by: Nystatin (Nystatin 15 Gm Powder) 1 applic TP TID [facility] Last Admin: 08/25/20 10:15 Dose: 1 applic Documented by: Pantoprazole Sodium (Pantoprazole Sodium 40 Mg Tablet.) 40 mg PO QDAC [facility] Last Admin: 08/25/20 05:39 Dose: 40 mg Documented by: Potassium Chloride (Potassium Chloride 20 Meq Tab) 20 meq PO BIDWM [facility] Last Admin: 08/25/20 10:12 Dose: 20 meq Documented by: Simvastatin (Simvastatin 40 Mg Tablet) 40 mg PO DAILY [facility] Last Admin: 08/25/20 10:13 Dose: 40 mg Documented by: Spironolactone (Spironolactone 25 Mg Tablet) 25 mg PO DAILY [facility] Last Admin: 08/25/20 10:13 Dose: 25 mg Documented by: Tamsulosin HCl (Tamsulosin Hcl 0.4 Mg Cap.Er.24h) 0.4 mg PO BEDTIME [facility] Last Admin: 08/24/20 20:30 Dose: 0.4 mg Documented by: Tramadol HCl (Tramadol Hcl 50 Mg Tablet) 50 mg PO TID PRN Last Admin: 08/25/20 10:12 Dose: 50 mg Documented by: CALMOSEPTINE OINTMENT TO BUTTOCKS BID AND PRN NEW PRESCRIPTIONS: TYLENOL 650 MG PO EVERY 4 HOURS PRN FOR MILD PAIN POTASSIUM 20 MEQ PO BID CALMOSEPTINE OINTMENT TO BUTTOCKS BID AND PRN DISCONTINUED MEDICATIONS: NONE DIET INSTRUCTIONS: HEART HEALTHY ACTIVITY: ACTIVITY: UP WITH WALKER AND SUPERVISION, NEEDS 24/7 SUPERVISION AND ASSISTANCE ELEVATE LOWER EXTREMITIES HIGHER THAN HIS HIPS MUCH POSSIBLE WEIGH DAILY AND REPORT 2-3 LBS GAIN IN 24 HOURS OR 5-7 LBS IN A WEEK TO YOUR DOCTOR SMOKING: N/A DISEASE SPECIFIC EDUCATION: PARKINSON'S EDEMA FALL PRECAUTIONS [facility] COURSE: 79-year-old white male admitted through the emergency room with bilateral leg swelling. Initially was thought to have CHF but the patient's pro-BNP was negative. He did not have any symptoms of CHF. He has dependent edema and he sits at home. He is unable to move. He spends most of the time in the bed and has practically end-stage Parkinson's disease followed by neurologist. He was given IV Lasix, required Moses catheter because of history of decubitus ulcer and he was unable to hold his urine. In any case, the patient's Moses catheter was taken out before discharge. He was able to urinate on his own. He was discharged home on Lasix and Aldactone with potassium supplements. His condition is stable. He has no CHF. He has history of coronary artery disease with stent and no symptoms of coronary insufficiency. Continued on the rest of the medications that he was on before and advised to continue to take all of his Parkinson's medicine on a regular basis. Sugar is well-controlled. His appetite had improved. His movement improved because I think he was getting his medications on a regular basis in the hospital while at home the patient is being taken care of by two sons. Part of the time the patient doesn't have anybody to take care of him. The sons are trying to do the best they could as far as taking care of the patient. Maybe he is not getting enough professional care. The patient was explained about this and he agreed that yes they are trying to the best but the best may not be good enough. In any case, he declined to go home, flatly refused. The patient's condition at the time of discharge stable. Prognosis guarded. He is strongly advised to followup with urologist. Labs on discharge, hemoglobin 11.2, hematocrit 35, WBC 6,600. Normal differential. Creatinine 0.5, BUN 15, potassium 4.3. The patient had carotid scan before discharge, report pending. The patient has declined to go back to Dr. Chacko for his peripheral arterial disease and carotid artery stenosis. TIME SPENT: More than 60 minutes. MARTHA
--- NOTE | 2020-08-29 14:49 | PN ---
BILLING 08/21/20 ADMISSION DAY LEVEL 5 08/22/20 INTERMEDIATE 08/23/20 INTERMEDIATE 08/24/20 INTERMEDIATE 08/25/20 D IN DISCHARGE MTDD
== END 2020-08-25 16:30 | disposition home or self-care (01) ==
LOC: ED 13:39 → MEDSURG A 17:33 → INTOOBSV 17:33 → MEDSURG A 18:07
PROVIDERS: ADMIT Internal Medicine; ATTEND Internal Medicine
DX: E87.6 Hypokalemia; G20 Parkinson's disease; R60.0 Localized edema; Z20.822 Contact with and (suspected) exposure to COVID-19; M25.551 Pain in right hip; R53.1 Weakness; I25.10 Atherosclerotic heart disease of native coronary artery without angina pectoris; M79.89 Other specified soft tissue disorders; I50.9 Heart failure, unspecified; K59.00 Constipation, unspecified

== ENCOUNTER 2020-10-28 00:08 | Inpatient (IN) ==
[2020-10-28] MEDS ORDERED: VENTOLIN HFA (PER PUFF-WITH SPACER) IH STA (00:21)
--- NOTE | 2020-10-28 00:27 | ED.PDOC ---
General ED Provider: Dr. STEVEN HAIR Chief Complaint: Cough Stated Complaint: past day - pt said he didn't feel any different than normal his son wanted him checked. Hazel had C19 vax Time Seen by Provider: 10/28/20 00:20 Mode of Arrival: Ambulance Information Source: Patient and EMT Primary Care Provider: SUN NAGEL Nursing and Triage Documentation Reviewed and Agree: Yes Does patient meet sepsis criteria?: No System Inflammatory Response Syndrome: Not Applicable Sepsis Protocol: For patient's 13 years and over: Temp is 96.8 and below OR 101 and greater Pulse >90 BPM Resp >20/minute Acutely Altered Mental Status Are patient's symptoms suggestive of a new infection, such as: -Pneumonia -Skin, Soft Tissue -Endocarditis -UTI -Bone, Joint Infection -Implantable Device -Acute Abdominal Infection -Wound Infection -Meningitis -Blood Stream Catheter Infection -Unknown Respiratory Complaint Exam Respiratory Complaint/Exam Onset/Duration: 1 day Symptoms Are: Still present Timing: Intermittent Initial Severity: Mild Current Severity: Mild Location: Chest Character: Reports Non-productive cough Aggravating: Reports None Alleviating: Reports None Associated Signs and Symptoms: Denies Rapid breathing, Dyspnea, Fever, Chills, Chest pain, Wheezing, Hemoptysis or Vomiting Cardiac Risk Factors: Reports CAD and CHF Current Antibiotic Use: No Respiratory Distress: None Inadequate Respiratory Effort: No Dysphagia Present: No Stridor Present: No JVD Present: No Accessory Muscle Use: No Retractions: Not Present Sinus Tenderness: None Grunting Respirations: No Kussmaul Respirations: No Differential Diagnoses: CHF, COPD Exacerbation, HI, Pneumonia, SARS, Bronchitis, RSV, URI and Influenza Quality Indicators For Pneumonia: Antibiotics in 6hr-admit, SpO2 assessed, Vital signs and Mental status assessed Non-Traumatic Chest Pain Syncope: EKG Performed Review of Systems Review Of Systems Constitutional: Reports Other (cough); Denies Chills, Diaphoresis, Fever or Loss of appetite Eyes: Reports No symptoms Ears, Nose, Mouth, Throat: Reports No symptoms Respiratory: Reports Cough Cardiac: Reports No symptoms GI: Reports No symptoms : Reports No symptoms Musculoskeletal: Reports Other (Parkinsons Dis) Skin: Reports No symptoms Neurological: Reports Other (Parkinsons ) Endocrine: Reports No symptoms Hematologic/Lymphatic: Reports No symptoms All Other Systems: Reviewed and Negative [facility] Medical History Anemia BPH (benign prostatic hyperplasia) CAD (coronary artery disease) Cervical radiculopathy Chronic arthritis Dementia Diabetes mellitus Disc narrowing Gastroesophageal reflux disease Hyperlipidemia Hypertension Left ventricular hypertrophy Oropharyngeal dysphagia Parkinson disease Family History FATHER Heart attack BROTHER Diabetes Social History Smoking and tobacco status: Former smoker Tobacco: How many years used: 30 Alcohol intake: former History of recent travel: No Seatbelt use: always Surgical History History of cholecystectomy History of heart artery stent History of lumbar fusion Physical Exam Physical Exam Appearance: Reports Ill-appearing, No pain distress and Thin Ill-appearing: Mild Pain Distress: None Eyes: Reports TRACY, EOMI and Conjunctiva clear ENT: Reports Ears normal, Nose normal and Oropharynx normal Neck: Supple Respiratory: Reports Airway patent, Breath sounds clear and Breath sounds equal Cardiovascular: Reports RRR and Pulses normal GI/: Reports Nontender Musculoskeletal: Reports Normal strength Skin: Reports Warm, Dry and Normal color Neurological: Reports Sensation intact, Motor intact, Alert and Oriented Psychiatric: Reports Affect appropriate Interpretation Radiology Interpretation Radiology Interpretation By: Radiologist Radiology Results: Positive Exam Interpreted: CXR Xray Comments: RLL atelctasis vx Pneu EKG Interpretation Time of EKG #1: 00:46 Rate: Normal Rhythm: Sinus Ectopy: None [place]: NL ST Segment: Normal Interpretation: nsr - trop neg / no cp Physician Notification Case Discussed Physician Notified: Dr Nagel Time of Notification: 01:30 Comments: No Dimer / Rocephin / Zmax ( disc pcn rash) , ns 60cc/hr / DNR status /re mdisdivir, decadron 4 mg daily /abg on 2 liters lovenox 40mg Critical Care Note Critical Care Note Total Critical Care Time (mins): 20 Comments: exam/ labs / imaging / review findings / additona IV meds / literature review UpToDate additional meds / discuss with PMD / admit orders/ discussion with floor RN Course Course Hematology/Chemistry: 10/28/20 00:30 10/28/20 00:30 Orders, Labs, Meds: Lab Review 10/28/20 10/28/20 10/28/20 00:30 00:30 00:30 WBC 4.82 RBC 4.61 L Hgb 12.5 L Hct 38.0 L MCV 82.4 MCH 27.1 MCHC 32.9 RDW Coeff of Leda 15.7 H Plt Count 259 Immature Gran % (Auto) 0.2 Neut % (Auto) 65.2 Lymph % (Auto) 26.1 Gregg % (Auto) 7.9 Eos % (Auto) 0.4 Baso % (Auto) 0.2 Neut # (Auto) 3.1 Lymph # (Auto) 1.3 Gregg # (Auto) 0.4 Eos # (Auto) 0.0 Baso # (Auto) 0.0 Immature Gran # (Auto) 0.0 PT INR Sodium 138.5 Potassium 4.34 Chloride 99.5 Carbon Dioxide 30.4 H Anion Gap 12.94 BUN 27.4 H Creatinine 0.99 Estimated GFR (MDRD) 73.00 BUN/Creatinine Ratio 27.67 Glucose 104.0 Lactic Acid Calcium 8.96 Ferritin Total Bilirubin 0.27 AST 33.2 ALT < 4.0 Alkaline Phosphatase 216.7 H Troponin I < 0.012 NT-Pro-B Natriuret Pep 43.700 Total Protein 6.66 Albumin 3.83 Globulin 2.83 Albumin/Globulin Ratio 1.35 Procalcitonin Adenovirus (PCR) B. pertussis DNA (PCR) B.parapertussis DNA PCR C. pneumoniae DNA (PCR) Coronavirus OC43 (PCR) Coronavirus HKU1 (PCR) Coronavirus 229E (PCR) Coronavirus NL63 (PCR) Human Metapneumovir PCR Influenza Type A (PCR) Influenza B (RT-PCR) M. pneumoniae (PCR) Parainfluenza 1 (PCR) Parainfluenza 2 (PCR) Parainfluenza 3 (PCR) Parainfluenza 4 (PCR) RSV (PCR) Entero/Rhino (PCR) SARS-CoV-2 (PCR) 10/28/20 10/28/20 10/28/20 00:30 01:50 01:50 WBC RBC Hgb Hct MCV MCH MCHC RDW Coeff of Leda Plt Count Immature Gran % (Auto) Neut % (Auto) Lymph % (Auto) Gregg % (Auto) Eos % (Auto) Baso % (Auto) Neut # (Auto) Lymph # (Auto) Gregg # (Auto) Eos # (Auto) Baso # (Auto) Immature Gran # (Auto) PT 10.9 INR 1.03 Sodium Potassium Chloride Carbon Dioxide Anion Gap BUN Creatinine Estimated GFR (MDRD) BUN/Creatinine Ratio Glucose Lactic Acid 0.89 Calcium Ferritin Total Bilirubin AST ALT Alkaline Phosphatase Troponin I NT-Pro-B Natriuret Pep Total Protein Albumin Globulin Albumin/Globulin Ratio Procalcitonin Adenovirus (PCR) Not detected B. pertussis DNA (PCR) Not detected B.parapertussis DNA PCR Not detected C. pneumoniae DNA (PCR) Not detected Coronavirus OC43 (PCR) Not detected Coronavirus HKU1 (PCR) Not detected Coronavirus 229E (PCR) Not detected Coronavirus NL63 (PCR) Not detected Human Metapneumovir PCR Not detected Influenza Type A (PCR) Not detected Influenza B (RT-PCR) Not detected M. pneumoniae (PCR) Not detected Parainfluenza 1 (PCR) Not detected Parainfluenza 2 (PCR) Not detected Parainfluenza 3 (PCR) Not detected Parainfluenza 4 (PCR) Not detected RSV (PCR) Not detected Entero/Rhino (PCR) Not detected SARS-CoV-2 (PCR) Detected H 10/28/20 10/28/20 01:50 01:50 WBC RBC Hgb Hct MCV MCH MCHC RDW Coeff of Leda Plt Count Immature Gran % (Auto) Neut % (Auto) Lymph % (Auto) Gregg % (Auto) Eos % (Auto) Baso % (Auto) Neut # (Auto) Lymph # (Auto) Gregg # (Auto) Eos # (Auto) Baso # (Auto) Immature Gran # (Auto) PT INR Sodium Potassium Chloride Carbon Dioxide Anion Gap BUN Creatinine Estimated GFR (MDRD) BUN/Creatinine Ratio Glucose Lactic Acid Calcium Ferritin 195.00 Total Bilirubin AST ALT Alkaline Phosphatase Troponin I NT-Pro-B Natriuret Pep Total Protein Albumin Globulin Albumin/Globulin Ratio Procalcitonin 0.05 Adenovirus (PCR) B. pertussis DNA (PCR) B.parapertussis DNA PCR C. pneumoniae DNA (PCR) Coronavirus OC43 (PCR) Coronavirus HKU1 (PCR) Coronavirus 229E (PCR) Coronavirus NL63 (PCR) Human Metapneumovir PCR Influenza Type A (PCR) Influenza B (RT-PCR) M. pneumoniae (PCR) Parainfluenza 1 (PCR) Parainfluenza 2 (PCR) Parainfluenza 3 (PCR) Parainfluenza 4 (PCR) RSV (PCR) Entero/Rhino (PCR) SARS-CoV-2 (PCR) Orders Category Date Time Status EKG-(ED ONLY) Stat CARDIO 10/28/20 00:18 Completed METERED DOSE INHALATION Routine CARDIO 10/28/20 00:22 Completed BLOOD CULTURE (ED ONLY) Stat LAB 10/28/20 01:50 Received CBC W/ AUTO DIFF Stat LAB 10/28/20 00:30 Completed COMPREHENSIVE METABOLIC PANEL Stat LAB 10/28/20 00:30 Completed FERRITIN Stat LAB 10/28/20 01:50 Completed LACTIC ACID Stat LAB 10/28/20 01:50 Completed NT-PROBNP Stat LAB 10/28/20 00:30 Completed PROCALCITONIN Stat LAB 10/28/20 01:50 Completed PT WITH INR Stat LAB 10/28/20 01:50 Completed RESPIRATORY PANEL 2.1 (PCR) Stat LAB 10/28/20 00:30 Completed TROPONIN I Stat LAB 10/28/20 00:30 Completed Acetaminophen [Tylenol] MEDS 10/28/20 01:49 Discontinued 650 mg PO ONCE ONE Albuterol Inhaler(with Spacer) [Ventolin Hfa (Per Puff- MEDS 10/28/20 00:21 Discontinued with Spacer)] 2 puff IH ONCE STA Ceftriaxone/D5w 1 gm Premix [Rocephin 1 gm/50 ml D5w] MEDS 10/28/20 01:51 Discontinued 1 gm in 50 ml IV ONCE CHEST, 1V AP ONLY Stat RADS 10/28/20 00:18 Completed Medications Generic Name Dose Route Start Last Admin Trade Name Freq PRN Reason Stop Dose Admin Albuterol Sulfate 2 puff 10/28/20 09:00 Albuterol Sulfate (Ventolin Hfa) 18 Gm 1 Puff With Spacer IH TID OSCAR Cholecalciferol 5,000 unit 10/28/20 09:00 Cholecalciferol (Vitamin D3) 1,000 Unit (25 Mcg) Tablet PO DAILY OSCAR Dexamethasone Sodium Phosphate 6 mg 10/28/20 03:00 10/28/20 02:46 Dexamethasone Sod Phos 10 Mg/Ml Inj IV 6 mg DAILY OSCAR Administration Famotidine 40 mg 10/28/20 02:30 10/28/20 02:42 Famotidine 20 Mg Tablet PO 40 mg BIDAC OSCAR Administration Sodium Chloride 1,000 mls @ 60 mls/hr 10/28/20 02:30 Sodium Chloride IV .[id number] OSCAR CEFTRIAXONE/D5W 1 GM PREMIX 1 gm in 50 mls @ 75 mls/hr 10/29/20 14:00 Rocephin 1 Gm/50 Ml D5w IV 11/01/20 13:59 DAILY OSACR Azithromycin 500 mg/ Sodium 250 mls @ 125 mls/hr 10/28/20 02:30 10/28/20 02:50 Chloride IV 10/31/20 02:29 125 mls/hr DAILY OSCAR Administration REMDESIVIR SOLUTION 200 mg/ 290 mls @ 145 mls/hr 10/28/20 02:22 Sodium Chloride IV 10/28/20 04:21 ONCE ONE Zinc Sulfate 220 mg 10/28/20 09:00 Zinc Sulfate 220 Mg Capsule PO DAILY OSCAR Discontinued Medications Generic Name Dose Route Start Last Admin Trade Name Caliq PRN Reason Stop Dose Admin Acetaminophen 650 mg 10/28/20 01:49 10/28/20 02:14 Acetaminophen 325 Mg Tablet PO 10/28/20 01:50 650 mg ONCE ONE Administration Albuterol Sulfate 2 puff 10/28/20 00:21 10/28/20 01:15 Albuterol Sulfate (Ventolin Hfa) 18 Gm 1 Puff With Spacer IH 10/28/20 00:22 2 puff ONCE STA Administration Dexamethasone Sodium Phosphate 6 mg 10/28/20 02:30 10/28/20 03:30 Dexamethasone Sod Phos 10 Mg/Ml Inj IM Not Given DAILY OSCAR CEFTRIAXONE/D5W 1 GM PREMIX 1 gm in 50 mls @ 75 mls/hr 10/28/20 01:51 10/28/20 02:14 Rocephin 1 Gm/50 Ml D5w IV 10/28/20 02:30 75 mls/hr ONCE ONE Administration Vital Signs: Temp Pulse Resp BP Pulse Ox 10/28/20 00:09 96.8 F L 76 14 122/66 100 Discharge Plan Discharge Patient Disposition: ADMITTED INPATIENT Discharge Problem: COVID-19 Pneumonia Qualifiers: Pneumonia type: due to unspecified organism Laterality: right Lung location: lower lobe of lung Qualified Code(s): J18.9 - Pneumonia, unspecified organism ED Provider: STEVEN HAIR Condition: Stable Physician Progress Note: []
[2020-10-28 00:41] LABS: BASOPHILS % (AUTO) 0.2 % (0.0-3.0); EOSINOPHILS % (AUTO) 0.4 % (0.0-7.0); HEMOGLOBIN 12.5 g/dl (14.0-18.0); IMMATURE GRANULOCYTE % (AUTO) 0.2 % (0.0-5.0); LYMPHOCYTES # (AUTO) 1.3 K/uL (0.60-3.4); LYMPHOCYTES % (AUTO) 26.1 (10.0-50.0); MEAN CORPUSCULAR HEMOGLOBIN 27.1 pg (27.0-31.0); MEAN CORPUSCULAR HGB CONC 32.9 (31.8-35.4); MEAN CORPUSCULAR VOLUME 82.4 fl (80.0-94.0); MONOCYTES # (AUTO) 0.4 K/uL (0.4-2.0); MONOCYTES % (AUTO) 7.9 (0-10); NEUTROPHILS # (AUTO) 3.1 K/ul (2.0-6.9); NEUTROPHILS % (AUTO) 65.2 % (42.2-75.2); PLATELET COUNT 259 10^3/uL (140-440); RDW COEFFICIENT OF VARIATION 15.7 % (11.6-14.8); RED BLOOD COUNT 4.61 10^6/ul (4.70-6.10); WHITE BLOOD COUNT 4.82 K/ul (4.2-10.2)
[2020-10-28 00:49] LABS: ALBUMIN 3.83 g/dL (3.5-5.0); ALKALINE PHOSPHATASE 216.7 U/L (56-119); ASPARTATE AMINO TRANSFERASE 33.2 U/L (17-59); BILIRUBIN,TOTAL 0.27 mg/dL (0.2-1.3); BLOOD UREA NITROGEN 27.4 mg/dL (9-20); CALCIUM 8.96 mg/dL (8.4-10.2); CARBON DIOXIDE 30.4 mmol/L (22-30.0); CHLORIDE 99.5 mmol/L (98-107); CREATININE 0.99 mg/dL (0.60-1.10); POTASSIUM 4.34 mmol/L (3.5-5.1); SODIUM 138.5 mmol/L (134.5-145); TOTAL PROTEIN 6.66 g/dL (6.3-8.2)
[2020-10-28 00:51] LABS: ALANINE AMINOTRANSFERASE < 4.0 U/L (0-50)
[2020-10-28 01:00] LABS: TROPONIN I < 0.012 ng/ml (0.0000-0.120)
--- NOTE | 2020-10-28 01:20 | DI ---
EXAM: AP single view of the chest. HISTORY: Cough. FINDINGS: The bones are unremarkable. The cardiac silhouette and pulmonary vasculature are within no rmal limits. The costophrenic angles are clear. There is minimal right basilar atelectasis and/or p neumonia. Impression: Right basilar atelectasis and/or pneumonia.
[2020-10-28 01:22] LABS: ADENOVIRUS (PCR) NOT DETECTED (NOT DETECT); BORDETELLA PARAPERTUSSIS (PCR) NOT DETECTED (NOT DETECT); BORDETELLA PERTUSSIS (PCR) NOT DETECTED (NOT DETECT); CHLAMYDIA PNEUMONIAE (PCR) NOT DETECTED (NOT DETECT); CORONAVIRUS 229E (PCR) NOT DETECTED (NOT DETECT); CORONAVIRUS HKU1 (PCR) NOT DETECTED (NOT DETECT); CORONAVIRUS NL63 (PCR) NOT DETECTED (NOT DETECT); CORONAVIRUS OC43 (PCR) NOT DETECTED (NOT DETECT); HUMAN METAPNEUMOVIRUS (PCR) NOT DETECTED (NOT DETECT); HUMAN RHINOVIRUS/ENTEROV (PCR) NOT DETECTED (NOT DETECT); INFLUENZA B (PCR) NOT DETECTED (NOT DETECT); MYCOPLASMA PNEUMONIAE (PCR) NOT DETECTED (NOT DETECT); PARAINFLUENZA VIRUS 1 (PCR) NOT DETECTED (NOT DETECT); PARAINFLUENZA VIRUS 2 (PCR) NOT DETECTED (NOT DETECT); PARAINFLUENZA VIRUS 3 (PCR) NOT DETECTED (NOT DETECT); PARAINFLUENZA VIRUS 4 (PCR) NOT DETECTED (NOT DETECT); RESPIRATORY SYNCYTIAL V (PCR) NOT DETECTED (NOT DETECT)
[2020-10-28 01:23] LABS: SARS_COV_2 (PCR) DETECTED (NOT DETECT)
[2020-10-28] MEDS ORDERED: TYLENOL PO ONE (01:49)
[2020-10-28] MEDS ORDERED: ROCEPHIN 1 GM/50 ML D5W 1 GM/50 ML BAG IV ONE (01:51)
[2020-10-28] MEDS ORDERED: VEKLURY 200 MG in SODIUM CHLORIDE 250 ML IV ONE ×2 (02:22→09:00)
[2020-10-28 02:26] LABS: ABG O2 HGB 89.7 % (95-100); ABG PH 7.43 (7.35-7.45); BEecf 2.2 (-2.0-3.0); COHb 1.9 (0.5-1.5); HCO3 26.5 (21-28); MetHb 1.2 (0-1.5); TCO2 27.7 (19-24); sO2 89.6 % (94-98); tHb 13.1 g/dl (11.7-17.4)
[2020-10-28] MEDS ORDERED: DECADRON IM SCH (02:30)
[2020-10-28] MEDS ORDERED: ZITHROMAX 500 MG in SODIUM CHLORIDE 250 ML IV SCH (02:30)
[2020-10-28] MEDS: PEPCID PO SCH ×3 (02:42→16:35)
[2020-10-28] MEDS: DECADRON IV SCH ×2 (02:46→16:38)
[2020-10-28 03:03] LABS: PROTHROMBIN TIME 10.9 SEC (9.3-11.0)
[2020-10-28 03:24] VITALS: BMI 22.2
[2020-10-28] MEDS ORDERED: ATROPINE SULFATE PFS IVP PRN (03:56)
[2020-10-28] MEDS ORDERED: NITROSTAT SL PRN (03:56)
[2020-10-28] MEDS: SODIUM CHLORIDE 1,000 ML IV SCH (04:25)
[2020-10-28] MEDS: LOVENOX SUBCUT SCH (04:28)
[2020-10-28 05:46] LABS: EOSINOPHILS % (AUTO) 0.2 % (0.0-7.0); HEMATOCRIT 38.2 % (42.0-52.0); HEMOGLOBIN 11.9 g/dl (14.0-18.0); IMMATURE GRANULOCYTE % (AUTO) 0.4 % (0.0-5.0); LYMPHOCYTES # (AUTO) 0.5 K/uL (0.60-3.4); LYMPHOCYTES % (AUTO) 11.3 (10.0-50.0); MEAN CORPUSCULAR HEMOGLOBIN 26.4 pg (27.0-31.0); MEAN CORPUSCULAR HGB CONC 31.2 (31.8-35.4); MEAN CORPUSCULAR VOLUME 84.9 fl (80.0-94.0); MONOCYTES # (AUTO) 0.2 K/uL (0.4-2.0); MONOCYTES % (AUTO) 3.8 (0-10); NEUTROPHILS % (AUTO) 84.3 % (42.2-75.2); PLATELET COUNT 264 10^3/uL (140-440); RDW COEFFICIENT OF VARIATION 15.9 % (11.6-14.8); WHITE BLOOD COUNT 4.77 K/ul (4.2-10.2)
[2020-10-28 06:01] LABS: ALBUMIN 3.54 g/dL (3.5-5.0); ALKALINE PHOSPHATASE 204.4 U/L (56-119); BILIRUBIN,TOTAL 0.26 mg/dL (0.2-1.3); BLOOD UREA NITROGEN 24.2 mg/dL (9-20); CALCIUM 8.71 mg/dL (8.4-10.2); CARBON DIOXIDE 28.6 mmol/L (22-30.0); CHLORIDE 100.6 mmol/L (98-107); CREATINE KINASE 37.5 U/L (55-170); CREATININE 0.84 mg/dL (0.60-1.10); GLUCOSE 105.8 mg/dL (74-106); POTASSIUM 4.09 mmol/L (3.5-5.1); SODIUM 138.4 mmol/L (134.5-145)
[2020-10-28 06:16] LABS: TROPONIN I < 0.012 ng/ml (0.0000-0.120)
[2020-10-28] MEDS ORDERED: VENTOLIN HFA (PER PUFF-WITH SPACER) IH SCH (09:00)
[2020-10-28] MEDS: VITAMIN D PO SCH (09:21)
[2020-10-28] MEDS: ZINC-220 PO SCH (09:22)
[2020-10-28] MEDS: GLUCOPHAGE PO SCH (12:14)
[2020-10-28] MEDS: ULTRAM PO PRN ×2 (12:14→16:35)
[2020-10-28] MEDS: LASIX TAB PO SCH (12:14)
[2020-10-28 12:26] LABS: CREATINE KINASE 39.5 U/L (55-170)
[2020-10-28 12:40] LABS: TROPONIN I < 0.012 ng/ml (0.0000-0.120)
[2020-10-28] MEDS: VENTOLIN HFA (PER PUFF-WITH SPACER) IH SCH ×2 (14:39→19:40)
[2020-10-28 15:05] LABS: BILIRUBIN,URINE Negative (NEGATIVE); CLARITY,URINE Clear (CLEAR); COLOR,URINE Yellow (YELLOW); GLUCOSE, URINE (UA) Negative (NEGATIVE); KETONES,URINE Trace (NEGATIVE); LEUKOCYTE ESTERASE ,URINE Negative (NEGATIVE); NITRITE,URINE Negative (NEGATIVE); PH,URINE 5.5 (5-9); PROTEIN,URINE Negative (NEGATIVE); URINE, BLOOD Negative (NEGATIVE); UROBILINOGEN,URINE 0.2 (0.2)
[2020-10-28] MEDS: NYSTOP POWDER TP SCH ×2 (16:35→20:29)
[2020-10-28] MEDS: K-DUR PO SCH (16:35)
[2020-10-28] MEDS: LEVODOPA PO SCH ×2 (16:38→20:16)
[2020-10-28] MEDS: [UNRECOGNIZED DRUG - OTHER] PO SCH ×2 (16:38→20:16)
[2020-10-28] MEDS: CARBIDOPA PO SCH ×2 (16:38→20:16)
[2020-10-28] MEDS: ZITHROMAX 500 MG in SODIUM CHLORIDE 250 ML IV SCH (20:15)
[2020-10-28] MEDS: FLOMAX PO SCH (20:16)
[2020-10-28] MEDS: CALMOSEPTINE OINTMENT TP SCH (20:17)
[2020-10-29] MEDS: SODIUM CHLORIDE 1,000 ML IV SCH ×2 (00:21→18:59)
[2020-10-29] MEDS: VENTOLIN HFA (PER PUFF-WITH SPACER) IH SCH ×3 (05:20→20:10)
[2020-10-29] MEDS: PEPCID PO SCH ×2 (05:33→17:14)
[2020-10-29] MEDS: LASIX TAB PO SCH (05:33)
[2020-10-29 05:50] LABS: BASOPHILS % (AUTO) 0.2 % (0.0-3.0); HEMATOCRIT 40.4 % (42.0-52.0); HEMOGLOBIN 12.6 g/dl (14.0-18.0); IMMATURE GRANULOCYTE % (AUTO) 0.5 % (0.0-5.0); LYMPHOCYTES % (AUTO) 15.3 (10.0-50.0); MEAN CORPUSCULAR HEMOGLOBIN 26.6 pg (27.0-31.0); MEAN CORPUSCULAR HGB CONC 31.2 (31.8-35.4); MEAN CORPUSCULAR VOLUME 85.2 fl (80.0-94.0); MONOCYTES # (AUTO) 0.5 K/uL (0.4-2.0); MONOCYTES % (AUTO) 6.9 (0-10); NEUTROPHILS % (AUTO) 77.1 % (42.2-75.2); PLATELET COUNT 312 10^3/uL (140-440); RDW COEFFICIENT OF VARIATION 15.8 % (11.6-14.8); RED BLOOD COUNT 4.74 10^6/ul (4.70-6.10); WHITE BLOOD COUNT 6.52 K/ul (4.2-10.2)
[2020-10-29 06:04] LABS: ALANINE AMINOTRANSFERASE 4.3 U/L (0-50); ALBUMIN 3.65 g/dL (3.5-5.0); ALKALINE PHOSPHATASE 191.4 U/L (56-119); ASPARTATE AMINO TRANSFERASE 26.4 U/L (17-59); BILIRUBIN,TOTAL 0.25 mg/dL (0.2-1.3); BLOOD UREA NITROGEN 21.5 mg/dL (9-20); CALCIUM 8.88 mg/dL (8.4-10.2); CARBON DIOXIDE 30.4 mmol/L (22-30.0); CHLORIDE 103.2 mmol/L (98-107); CREATININE 0.73 mg/dL (0.60-1.10); GLUCOSE 122.9 mg/dL (74-106); POTASSIUM 4.71 mmol/L (3.5-5.1); SODIUM 141.4 mmol/L (134.5-145); TOTAL PROTEIN 6.42 g/dL (6.3-8.2)
[2020-10-29 06:32] LABS: TROPONIN I < 0.012 ng/ml (0.0000-0.120)
[2020-10-29 07:46] LABS: PROTHROMBIN TIME 11.1 SEC (9.3-11.0)
[2020-10-29] MEDS: ALDACTONE PO SCH (08:06)
[2020-10-29] MEDS: ZOCOR PO SCH (08:06)
[2020-10-29] MEDS: ULTRAM PO PRN ×2 (08:06→17:13)
[2020-10-29] MEDS: GLUCOPHAGE PO SCH (08:06)
[2020-10-29] MEDS: VITAMIN D PO SCH (08:06)
[2020-10-29] MEDS: ZINC-220 PO SCH (08:07)
[2020-10-29] MEDS: [UNRECOGNIZED DRUG - OTHER] PO SCH ×3 (08:07→20:04)
[2020-10-29] MEDS: LEVODOPA PO SCH ×3 (08:07→20:04)
[2020-10-29] MEDS: CALMOSEPTINE OINTMENT TP SCH ×2 (08:07→20:24)
[2020-10-29] MEDS: CARBIDOPA PO SCH ×3 (08:07→20:04)
[2020-10-29] MEDS: K-DUR PO SCH ×2 (08:07→17:13)
[2020-10-29] MEDS: DECADRON IV SCH (08:07)
[2020-10-29] MEDS: ROCEPHIN 1 GM/50 ML D5W 1 GM/50 ML BAG IV SCH ×2 (08:08→15:14)
[2020-10-29] MEDS: NYSTOP POWDER TP SCH ×3 (08:08→20:24)
[2020-10-29] MEDS: LOVENOX SUBCUT SCH (08:10)
[2020-10-29] MEDS: VEKLURY 100 MG in SODIUM CHLORIDE 250 ML IV SCH (12:54)
[2020-10-29] MEDS: ZITHROMAX 500 MG in SODIUM CHLORIDE 250 ML IV SCH (20:03)
[2020-10-29] MEDS: FLOMAX PO SCH (20:03)
[2020-10-30] MEDS: PEPCID PO SCH ×2 (05:30→17:31)
[2020-10-30] MEDS: LASIX TAB PO SCH (05:30)
[2020-10-30] MEDS: VENTOLIN HFA (PER PUFF-WITH SPACER) IH SCH ×3 (05:35→20:20)
[2020-10-30 05:36] LABS: BASOPHILS % (AUTO) 0.2 % (0.0-3.0); HEMATOCRIT 38.7 % (42.0-52.0); HEMOGLOBIN 12.1 g/dl (14.0-18.0); IMMATURE GRANULOCYTE % (AUTO) 0.6 % (0.0-5.0); LYMPHOCYTES # (AUTO) 0.8 K/uL (0.60-3.4); MEAN CORPUSCULAR HEMOGLOBIN 26.8 pg (27.0-31.0); MEAN CORPUSCULAR HGB CONC 31.3 (31.8-35.4); MEAN CORPUSCULAR VOLUME 85.6 fl (80.0-94.0); MONOCYTES # (AUTO) 0.4 K/uL (0.4-2.0); MONOCYTES % (AUTO) 8.2 (0-10); NEUTROPHILS # (AUTO) 3.8 K/ul (2.0-6.9); PLATELET COUNT 316 10^3/uL (140-440); RDW COEFFICIENT OF VARIATION 15.6 % (11.6-14.8); RED BLOOD COUNT 4.52 10^6/ul (4.70-6.10); WHITE BLOOD COUNT 5.11 K/ul (4.2-10.2)
[2020-10-30] MEDS: ULTRAM PO PRN ×3 (05:45→17:31)
[2020-10-30 05:47] LABS: ALANINE AMINOTRANSFERASE 4.8 U/L (0-50); ALBUMIN 3.42 g/dL (3.5-5.0); ALKALINE PHOSPHATASE 168.3 U/L (56-119); ASPARTATE AMINO TRANSFERASE 22.3 U/L (17-59); BILIRUBIN,TOTAL 0.24 mg/dL (0.2-1.3); BLOOD UREA NITROGEN 18.2 mg/dL (9-20); CALCIUM 8.62 mg/dL (8.4-10.2); CHLORIDE 99.8 mmol/L (98-107); CREATININE 0.62 mg/dL (0.60-1.10); GLUCOSE 128.8 mg/dL (74-106); POTASSIUM 4.27 mmol/L (3.5-5.1); TOTAL PROTEIN 6.13 g/dL (6.3-8.2)
[2020-10-30] MEDS ORDERED: NORCO 5-325 PO PRN (08:39)
[2020-10-30] MEDS: VITAMIN D PO SCH (09:04)
[2020-10-30] MEDS: ZINC-220 PO SCH (09:05)
[2020-10-30] MEDS: GLUCOPHAGE PO SCH (09:05)
[2020-10-30] MEDS: ALDACTONE PO SCH (09:05)
[2020-10-30] MEDS: K-DUR PO SCH ×2 (09:05→17:31)
[2020-10-30] MEDS: ZOCOR PO SCH (09:05)
[2020-10-30] MEDS: LOVENOX SUBCUT SCH (09:06)
[2020-10-30] MEDS: [UNRECOGNIZED DRUG - OTHER] PO SCH ×3 (09:06→21:15)
[2020-10-30] MEDS: DECADRON IV SCH (09:06)
[2020-10-30] MEDS: CARBIDOPA PO SCH ×3 (09:06→21:15)
[2020-10-30] MEDS: LEVODOPA PO SCH ×3 (09:06→21:15)
[2020-10-30] MEDS: CALMOSEPTINE OINTMENT TP SCH ×2 (09:06→21:15)
[2020-10-30] MEDS: NYSTOP POWDER TP SCH ×3 (09:07→21:16)
[2020-10-30] MEDS: SYMBICORT 160-4.5 MCG INHALER IH SCH ×2 (09:07→21:16)
[2020-10-30] MEDS: SODIUM CHLORIDE 1,000 ML IV SCH (09:07)
[2020-10-30] MEDS: ROCEPHIN 1 GM/50 ML D5W 1 GM/50 ML BAG IV SCH (09:07)
[2020-10-30 09:15] LABS: ABG O2 HGB 91.7 % (95-100); ABG PH 7.45 (7.35-7.45); BEecf 8.7 (-2.0-3.0); COHb 2.2 (0.5-1.5); HCO3 32.7 (21-28); MetHb 0.9 (0-1.5); TCO2 34.1 (19-24); sO2 91.8 % (94-98); tHb 13.3 g/dl (11.7-17.4)
[2020-10-30 09:22] LABS: PROTHROMBIN TIME 11.1 SEC (9.3-11.0)
--- NOTE | 2020-10-30 10:00 | PCM.PROG ---
Attending Provider: ATTENDING PROVIDER: Dr. SUN NAGEL This patient is seen with Tiera Vaz, Nurse Practitioner. DATE OF SERVICE: 10/30/20 SUBJECTIVE: This 79 year old /WHITE M was hospitalized 10/28/20. The patient is resting comfortably. He is complaining of pain in this legs this morning which is chronic. He needs assistance with feeding himself. Respiratory status is stable at this time. REVIEW OF SYSTEMS: CONSTITUTIONAL: No night sweats. No fatigue, malaise, lethargy. No fever or chills. Weakness. HEENT: Eyes: No visual changes. No eye pain. No eye discharge. ENT: No runny nose. No epistaxis. No sinus pain. No odynophagia. No congestion. RESPIRATORY: No cough, no congestion. No hemoptysis. Shortness of breath. CARDIOVASCULAR: No angina symptoms. No CHF symptoms. No atypical chest pain for CAD. No palpitations. No orthopnea.. GASTROINTESTINAL: No abdominal pain. No nausea or vomiting. No diarrhea or constipation. No hematemesis. No hematochezia. GENITOURINARY: No urgency. No frequency. No dysuria. No hematuria. No obstructive symptoms. No discharge. No pain. No significant abnormal bleeding. MUSCULOSKELETAL: No musculoskeletal pain; no joint swelling. Leg pain. NEUROLOGICAL: Awake, alert, oriented to time, place and person. No headache. No neck pain. No syncope. No seizures. No dizziness. PSYCHIATRIC: Not anxious. No depression. No suicidal thoughts. No homicidal thoughts. SKIN: No rash. No lesions. No wounds. ENDOCRINE: No unexplained weight loss. No weight gain. HEMATOLOGIC/LYMPHATIC: No anemia. No purpura. No petechiae. No prolonged or excessive bleeding. No palpable lymph nodes. PHYSICAL EXAMINATION: GENERAL: The patient is awake, alert and oriented, lying in bed in no distress. VITAL SIGNS: Temperature 96.3 F, Pulse 60, Respiratory Rate 16, BP 152/83, Pulse Ox 96% HEENT: Head normocephalic, atraumatic. Eyes: Extraocular muscles are intact. Pupils are equal, round and reactive to light and accommodation. Ears: No lesions. Nose appeared normal. Throat: No exudate or erythema. NECK: Supple. No JVD, no carotid bruit. No lymphadenopathy or thyromegaly. LUNGS: Diminished breath sounds. Bilateral rhonchi. Clear to auscultation. Percussion note normal. Chest symmetrical. HEART: S1, S2, no S3. No murmurs. No cyanosis or clubbing. No ascites. Pulses: Dorsalis pedis and posterior tibial pulses +1 to +2 both sides. ABDOMEN: Soft. Non-tender. Bowel sounds active. No CVA tenderness. No mass felt. EXTREMITIES: +1 bilateral lower extremity edema. Full range of motion of all extremities, equal. NEUROLOGIC: No focal deficit. Cranial nerves II through XII are grossly intact. No headache. No double vision. SKIN: Not dry. Intact. Turgor-normal. LYMPHATIC: No palpable lymph nodes/no lymphedema. MUSCULOSKELETAL: Normal joints with no swelling. Muscle tone is normal. LAB REVIEW: 10/30/20 05:29 10/30/20 05:29 10/30/20 05:29: Sodium 139.0, Potassium 4.27, Chloride 99.8, Carbon Dioxide 32.0 H, Anion Gap 11.47, BUN 18.2, Creatinine 0.62, Estimated GFR (MDRD) 126.00, BUN/Creatinine Ratio 29.35, Glucose 128.8 H, Calcium 8.62, Ferritin 222.00, Total Bilirubin 0.24, AST 22.3, ALT 4.8, Alkaline Phosphatase 168.3 H, Total Protein 6.13 L, Albumin 3.42 L, Globulin 2.71, Albumin/Globulin Ratio 1.26 10/30/20 05:29: WBC 5.11, RBC 4.52 L, Hgb 12.1 L, Hct 38.7 L, MCV 85.6, MCH 26.8 L, MCHC 31.3 L, RDW Coeff of Leda 15.6 H, Plt Count 316, Immature Gran % (Auto) 0.6, Neut % (Auto) 75.0, Lymph % (Auto) 16.0, [place] % (Auto) 8.2, Eos % (Auto) 0.0, Baso % (Auto) 0.2, Neut # (Auto) 3.8, Lymph # (Auto) 0.8, [place] # (Auto) 0.4, Eos # (Auto) 0.0, Baso # (Auto) 0.0, Immature Gran # (Auto) 0.0 ASSESSMENT: Please see below. 1. COVID 19 2. Acute respiratory failure 3. Parkinson's disease 4. Generalized weakness 5. Chronic leg and back pain. PLAN: 1. [place] 5mg BID PRN 2. Discontinue fluids 3. ABG on 2 liters 4. Symbicort 160mg two puffs BID Plan and coordination of the patient's care discussed in the presence of Extended Day Teacher and nurse. SCRIBED BY: CRIS DEL ROSARIO Coder scribed while in presence of service performed by Dr. Nagel/Tiera Vaz APRN on 10/30/20 ([id number])
[2020-10-30] MEDS: VEKLURY 100 MG in SODIUM CHLORIDE 250 ML IV SCH (11:58)
--- NOTE | 2020-10-30 14:38 | HP ---
DATE OF SERVICE: 10/28/20 REASON FOR HOSPITALIZATION: Bronchitis type of symptoms with Covid positive status. HISTORY OF PRESENT ILLNESS: 79-year-old white male was brought to the emergency room by the son because the son was having cough, more or less constant at times for the past few days. The patient on further examination in the emergency room had Covid-19 positive. The patient has declined in the way of poor appetite for the past few days according to the son. The patient is being taken care of by son who works and not able to pay much attention. The patient requires a lot of help because of severe Parkinson's disease. He is more or less bed bound. PAST MEDICAL HISTORY: History of Parkinson's disease Reflux disease Dyslipidemia Coronary artery disease Bilateral leg edema, dependent Dementia REVIEW OF SYSTEMS: CONSTITUTIONAL: Weakness and fatigue. No night sweats. No malaise, lethargy. No fever or chills. HEENT: Eyes: No visual changes. No eye pain. No eye discharge. ENT: No runny nose. No epistaxis. No sinus pain. No sore throat. No odynophagia. No ear pain. No congestion. RESPIRATORY: Cough and congestion. Yellowish sputum. No hemoptysis. CARDIOVASCULAR: Shortness of breath. No angina symptoms. No CHF symptoms. No atypical chest pain for CAD. No palpitations. No PND. No orthopnea. GASTROINTESTINAL: Poor appetite lately. No abdominal pain. No nausea or vomiting. No diarrhea or constipation. No hematemesis. No hematochezia. GENITOURINARY: No urgency. No frequency. No dysuria. No hematuria. No obstructive symptoms. No discharge. No pain. No significant abnormal bleeding. MUSCULOSKELETAL: Weak, unable to get up unless being helped. NEUROLOGICAL: No headache. No neck pain. No syncope. No seizures. No dizziness. PSYCHIATRIC: Not anxious. No depression. No suicidal thoughts. No homicidal thoughts. SKIN: No rash. No lesions. No wounds. ENDOCRINE: No unexplained weight loss. No weight gain. HEMATOLOGIC/LYMPHATIC: No anemia. No purpura. No petechiae. No prolonged or excessive bleeding. No palpable lymph nodes. PERSONAL/FAMILY/SOCIAL HISTORY: The patient lives alone with the help of son. Nonsmoker. No alcohol abuse. Able to do most activity of daily living. Has severe Parkinson's disease, requires help. The patient is incontinent of urine. He is high risk for fall. MEDICATIONS: Pantoprazole 40 mg q.a.m. Simvastatin 40 mg daily Aspirin 81 mg daily Carbidopa-levodopa 23.75-95 mg three capsules p.o. t.i.d. Metformin 500 mg p.o. daily Spironolactone 25 mg p.o. daily Lasix 40 mg p.o. daily Nystatin topical powder Tamsulosin Tramadol for pain Acetaminophen for pain Potassium supplements 20 mEq b.i.d. ALLERGIES: CELEBREX, MELOXICAM, PENICILLIN PHYSICAL EXAMINATION: GENERAL: The patient seems to be oriented to time, place and person. VITAL SIGNS: Temperature 97.6, pulse 70, respiratory rate 18, blood pressure 118/65, pulse ox 95%. HEENT: Head normocephalic, atraumatic. Eyes: Extraocular muscles are intact. Pupils are equal, round and reactive to light and accommodation. Ears: No lesions. Nose appeared normal. Throat: No exudate or erythema. NECK: Supple. No JVD, no carotid bruit. No lymphadenopathy or thyromegaly. LUNGS: Decreased breath sounds. Good air entry but mild wheeze. Percussion note normal. Chest symmetrical. HEART: S1, S2, no S3. No murmur. No cyanosis or clubbing. No ascites. Pulses: Dorsalis pedis and posterior tibial pulses +1 to +2 bilaterally. ABDOMEN: Soft. Nontender. Bowel sounds active. No CVA tenderness. No mass felt. EXTREMITIES: Reflexes are diminished all over but has rigidity type on upper and lower extremities. NEUROLOGIC: No focal deficit. Cranial nerves II through XII are grossly intact. No headache, no double vision or headache. SKIN: Not dry. Intact. Turgor - normal. LYMPHATIC: No palpable lymph nodes/no lymphedema. MUSCULOSKELETAL: Normal joints with no swelling. Muscle tone is normal. LABS: Hemoglobin 12.5, hematocrit 38, WBC 4,800, normal differential. Creatinine 0.6, BUN 24, potassium 4. ABG p02 56, pc02 40, pH 7.43 with 89% saturation on room air. Covid virus detected. Ferritin level 195 normal. Troponin less than .012 which is normal. ASSESSMENT: 1. Acute respiratory failure with acute bronchitis with restrictive lung disease. 2. Parkinson's disease. 3. Covid positive status. 4. History of coronary Artery disease. 5. Dyslipidemia. 6. Dementia related to the patient's medications and Parkinson's disease. PLAN: 1. Admit the patient. 2. 1 cc Decadron IM daily. 3. Remdesivir is ordered. 4. Rocephin/Zithromax combination antibiotics. 5. High flow oxygen 2 to 3L. 6. Telemetry. 7. Oximetry. 8. Encourage the patient to eat. 9. Continue the rest of the medications as before. TIME SPENT: More than 70 minutes. MTDD
--- NOTE | 2020-10-30 14:47 | PN ---
DATE OF SERVICE: 10/28/20 SUBJECTIVE: 79-year-old white male hospitalized with cough, congestion, bronchitis. The patient was Covid positive. The patient has restrictive lung disease with Parkinson's disease. He is more or less practically bedridden. Dependent bilateral chronic edema. He is being taken care of by son who is not able to do a good job of taking care of his Dad properly. REVIEW OF SYSTEMS: CONSTITUTIONAL: No night sweats. No fatigue, malaise, lethargy. No fever or chills. HEENT: Eyes: No visual changes. No eye pain. No eye discharge. ENT: No runny nose. No epistaxis. No sinus pain. No sore throat. No odynophagia. No congestion. The patient has trouble swallowing, seems to have improved some according to the patient. RESPIRATORY: No cough, no congestion. No hemoptysis. No shortness of breath. CARDIOVASCULAR: No angina symptoms. No CHF symptoms. No atypical chest pain for CAD. No palpitations. No PND. No orthopnea. GASTROINTESTINAL: No abdominal pain. No nausea or vomiting. No diarrhea or constipation. No hematemesis. No hematochezia. GENITOURINARY: No urgency. No frequency. No dysuria. No hematuria. No obstructive symptoms. No discharge. No pain. No significant abnormal bleeding. MUSCULOSKELETAL: No musculoskeletal pain; no joint swelling. NEUROLOGICAL: No headache. No neck pain. No syncope. No seizures. No dizziness. PSYCHIATRIC: Not anxious. No depression. No suicidal thoughts. No homicidal thoughts. SKIN: No rash. No lesions. No wounds. ENDOCRINE: No unexplained weight loss. No weight gain. HEMATOLOGIC/LYMPHATIC: No anemia. No purpura. No petechiae. No prolonged or excessive bleeding. No palpable lymph nodes. PHYSICAL EXAMINATION: VITAL SIGNS: Temperature 97.6, pulse 70, respirations 18, BP 118/60, pulse ox 95%. HEENT: Head normocephalic, atraumatic. Eyes: Extraocular muscles are intact. Pupils are equal, round and reactive to light and accommodation. Ears: No lesions. Nose appeared normal. Throat: No exudate or erythema. NECK: Supple. No JVD, no carotid bruit. No lymphadenopathy or thyromegaly. LUNGS: Decreased breath sounds but clear to auscultation. Percussion note normal. Chest symmetrical. HEART: S1, S2, no S3. No murmurs. No cyanosis or clubbing. No ascites. Pulses: Dorsalis pedis and posterior tibial pulses +1 to +2 bilaterally. ABDOMEN: Soft. Nontender. Bowel sounds active. No CVA tenderness. No mass felt. EXTREMITIES: No edema. Full range of motion of all extremities, equal. NEUROLOGIC: No focal deficit. Cranial nerves II through XII are grossly intact. No headache. No double vision. SKIN: Not dry. Intact. Turgor - normal. LYMPHATIC: No palpable lymph nodes/no lymphedema. MUSCULOSKELETAL: Normal joints with no swelling. Muscle tone is normal. LABS: Hemoglobin 12.5, hematocrit 38, WBC 4,800, normal differential. Creatinine 0.8, BUN 24, potassium 4. ABG's p02 56, pc02 40, pH 7.43, 89% saturation. Ferritin level 195 which is normal. Troponin negative. Pro-BNP was 43. ASSESSMENT: 1. Bronchitis with SARS Covid positive. 2. Restrictive obstructive lung disease. 3. Parkinson's disease. 4. Bilateral dependent leg edema. 5. History of coronary artery disease. PLAN: 1. The patient is DNR. 2. The patient will be treated with Zithromax and Rocephin along with steroids. 3. Lovenox daily. 4. Will continue to monitor C-reactive protein and ferritin level. CONDITION: Stable. TIME SPENT: More than 30 minutes. Plan and coordination of the patient's care discussed in the presence of nurse. MARTHA
[2020-10-30] MEDS: ZITHROMAX 500 MG in SODIUM CHLORIDE 250 ML IV SCH (21:14)
[2020-10-30] MEDS: FLOMAX PO SCH (21:15)
[2020-10-31] MEDS: VENTOLIN HFA (PER PUFF-WITH SPACER) IH SCH ×3 (05:05→19:14)
[2020-10-31 05:11] LABS: BASOPHILS % (AUTO) 0.2 % (0.0-3.0); HEMATOCRIT 40.5 % (42.0-52.0); HEMOGLOBIN 12.8 g/dl (14.0-18.0); IMMATURE GRANULOCYTE % (AUTO) 0.5 % (0.0-5.0); LYMPHOCYTES # (AUTO) 0.9 K/uL (0.60-3.4); LYMPHOCYTES % (AUTO) 15.3 (10.0-50.0); MEAN CORPUSCULAR HEMOGLOBIN 26.9 pg (27.0-31.0); MEAN CORPUSCULAR HGB CONC 31.6 (31.8-35.4); MEAN CORPUSCULAR VOLUME 85.1 fl (80.0-94.0); MONOCYTES # (AUTO) 0.5 K/uL (0.4-2.0); MONOCYTES % (AUTO) 8.1 (0-10); NEUTROPHILS # (AUTO) 4.2 K/ul (2.0-6.9); NEUTROPHILS % (AUTO) 75.9 % (42.2-75.2); PLATELET COUNT 334 10^3/uL (140-440); RDW COEFFICIENT OF VARIATION 15.4 % (11.6-14.8); RED BLOOD COUNT 4.76 10^6/ul (4.70-6.10); WHITE BLOOD COUNT 5.56 K/ul (4.2-10.2)
[2020-10-31 05:23] LABS: PROTHROMBIN TIME 11.1 SEC (9.3-11.0)
[2020-10-31 05:30] LABS: ALANINE AMINOTRANSFERASE 5.1 U/L (0-50); ALBUMIN 3.62 g/dL (3.5-5.0); ALKALINE PHOSPHATASE 166.6 U/L (56-119); ASPARTATE AMINO TRANSFERASE 22.6 U/L (17-59); BILIRUBIN,TOTAL 0.23 mg/dL (0.2-1.3); BLOOD UREA NITROGEN 17.3 mg/dL (9-20); CARBON DIOXIDE 34.8 mmol/L (22-30.0); CHLORIDE 98.5 mmol/L (98-107); CREATININE 0.64 mg/dL (0.60-1.10); GLUCOSE 153.7 mg/dL (74-106); POTASSIUM 4.44 mmol/L (3.5-5.1); SODIUM 140.4 mmol/L (134.5-145); TOTAL PROTEIN 6.4 g/dL (6.3-8.2)
[2020-10-31] MEDS: PEPCID PO SCH ×2 (05:30→16:36)
[2020-10-31] MEDS: LASIX TAB PO SCH (05:30)
[2020-10-31] MEDS: LOVENOX SUBCUT SCH (09:04)
[2020-10-31] MEDS: CALMOSEPTINE OINTMENT TP SCH ×2 (09:07→20:20)
[2020-10-31] MEDS: NYSTOP POWDER TP SCH ×3 (09:15→20:20)
--- NOTE | 2020-10-31 09:17 | PCM.PROG ---
Attending Provider: ATTENDING PROVIDER: Dr. SUN NAGEL This patient is seen with Tiera Vaz, Nurse Practitioner. DATE OF SERVICE: 10/31/20 SUBJECTIVE: This 79 year old /WHITE M was hospitalized 10/28/20. The patient is resting comfortably. Still complaining of pain in legs. Scheduled pain m edication rather than PRN. Breathing is stable. He is tolerating Remdesivir. REVIEW OF SYSTEMS: CONSTITUTIONAL: No night sweats. No fatigue, malaise, lethargy. No fever or c hills. Weakness. HEENT: Eyes: No visual changes. No eye pain. No eye discharge. ENT: No runny nose. No epistaxis. No sinus pain. No odynophagia. No congestion. RESPIRATORY:Cough, no congestion. No hemoptysis. No shortness of breath. CARDIOVASCULAR: No angina symptoms. No CHF symptoms. No atypical chest pain for CAD. No palpitations. No orthopnea.. GASTROINTESTINAL: No abdominal pain. No nausea or vomiting. No diarrhea or constipation. No hematemesis. No hematochezia. GENITOURINARY: No urgency. No frequency. No dysuria. No hematuria. No obstructive symptoms. No discharge. No pain. No significant abnormal bleeding. MUSCULOSKELETAL: No musculoskeletal pain; no joint swelling. NEUROLOGICAL: Awake, alert, oriented to time, place and person. No headache. No neck pain. No syncope. No seizures. No dizziness. PSYCHIATRIC: Not anxious. No depression. No suicidal thoughts. No homicidal thoughts. SKIN: No rash. No lesions. No wounds. ENDOCRINE: No unexplained weight loss. No weight gain. HEMATOLOGIC/LYMPHATIC: No anemia. No purpura. No petechiae. No prolonged or excessive bleeding. No palpable lymph nodes. PHYSICAL EXAMINATION: GENERAL: The patient is awake, alert and oriented, lying in bed in no distress. VITAL SIGNS: Temperature 97.6 F, Pulse 68, Respiratory Rate 17, BP 130/65, Pulse Ox 94% HEENT: Head normocephalic, atraumatic. Eyes: Extraocular muscles are intact. Pupils are equal, round and reactive to light and accommodation. Ears: No lesions. Nose appeared normal. Throat: No exudate or erythema. NECK: Supple. No JVD, no carotid bruit. No lymphadenopathy or thyromegaly. LUNGS: Diminished breath sounds. Bilateral Rhonchi. Clear to auscultation. Percussion note normal. Chest symmetrical. HEART: S1, S2, no S3. No murmurs. No cyanosis or clubbing. No ascites. Pulses: Dorsalis pedis and posterior tibial pulses +1 to +2 both sides. ABDOMEN: Soft. Non-tender. Bowel sounds active. No CVA tenderness. No mass felt. EXTREMITIES: Trace edema. Full range of motion of all extremities, equal. NEUROLOGIC: No focal deficit. Cranial nerves II through XII are grossly intact. No headache. No double vision. SKIN: Not dry. Intact. Turgor-normal. LYMPHATIC: No palpable lymph nodes/no lymphedema. MUSCULOSKELETAL: Normal joints with no swelling. Muscle tone is normal. LAB REVIEW: 10/31/20 05:05 10/31/20 05:05 10/31/20 05:05: WBC 5.56, RBC 4.76, Hgb 12.8 L, Hct 40.5 L, MCV 85.1, MCH 26.9 L , MCHC 31.6 L, RDW Coeff of Leda 15.4 H, Plt Count 334, Immature Gran % (Auto) 0.5, Neut % (Auto) 75.9 H, Lymph % (Auto) 15.3, [place] % (Auto) 8.1, Eos % (Auto) 0.0, Baso % (Auto) 0.2, Neut # (Auto) 4.2, Lymph # (Auto) 0.9, [place] # (Auto) 0.5, Eos # (Auto) 0.0, Baso # (Auto) 0.0, Immature Gran # (Auto) 0.0 10/31/20 05:05: Sodium 140.4, Potassium 4.44, Chloride 98.5, Carbon Dioxide 34.8 H, Anion Gap 11.54, BUN 17.3, Creatinine 0.64, Estimated GFR (MDRD) 121.00, BUN/Creatinine Ratio 27.03, Glucose 153.7 H, Calcium 9.00, Ferritin 215.00, Total Bilirubin 0.23, AST 22.6, ALT 5.1, Alkaline Phosphatase 166.6 H, Total Protein 6.40, Albumin 3.62, Globulin 2.78, Albumin/Globulin Ratio 1.30 10/31/20 05:05: PT 11.1 H, INR 1.05 10/30/20 09:10: Puncture Site R rad, Base Excess 8.7 H, O2 Saturation 91.8 L, ABG pH 7.45, ABG pCO2 47.0 H, ABG pO2 60.0 L, ABG HCO3 32.7 H, ABG Total CO2 34.1 H, Zaki Test Y, Hemoglobin 0.9, Oxyhemoglobin 91.7 L, Carboxyhemoglobin 2.2 H, Total Hemoglobin 13.3, O2 Delivery Device Cannula, Oxygen Liter Flow 2.00 10/30/20 05:29: C-Reactive Prot, Quant 26 H 10/30/20 05:24: PT 11.1 H, INR 1.05 10/29/20 05:40: C-Reactive Prot, Quant 72 H 10/28/20 04:45: C-React Prot High Sens 93.61 H ASSESSMENT: Please see below. 1. COVID 19/Bibasilar pneumonia 2. Generalized weakness 3. Advanced Parkinson's disease 4. Respiratory distress 5. Chronic pain. PLAN: 1. [place] 5mg BID scheduled 2. Today is day 4 of Remdesivir 3. Continue Rocephin Plan and coordination of the patient's care discussed in the presence of [employer] Developer and nurse. SCRIBED BY: CRIS DEL ROSARIO Digital Project Coordinator scribed while in presence of service performed by Dr. Nagel/Tiera Vaz APRN on 10/31/20 ([id number])
--- NOTE | 2020-10-31 13:20 | PN ---
DATE OF SERVICE: 10/29/2020 SUBJECTIVE: 79 year old white male hospitalized with acute bronchitis type of symptoms with respiratory failure with pO2 in 50s, saturation 89%. The patient's condition has improved. He is COVID positive. Feeling a lot better and looking better this morning. REVIEW OF SYSTEMS: CONSTITUTIONAL: No night sweats. No fatigue, malaise, lethargy. No fever or chills. HEENT: Eyes: No visual changes. No eye pain. No eye discharge. ENT: No runny nose. No epistaxis. No sinus pain. No sore throat. No odynophagia. No congestion. RESPIRATORY: Coughing much less, no congestion. No hemoptysis. No shortness of breath. CARDIOVASCULAR: No angina symptoms. No CHF symptoms. No atypical chest pain for CAD. No palpitations. No PND. No orthopnea. GASTROINTESTINAL: No abdominal pain. No nausea or vomiting. No diarrhea or constipation. No hematemesis. No hematochezia. Appetite has improved. GENITOURINARY: No urgency. No frequency. No dysuria. No hematuria. No obstructive symptoms. No discharge. No pain. No significant abnormal bleeding. MUSCULOSKELETAL: No musculoskeletal pain; no joint swelling. NEUROLOGICAL: No headache. No neck pain. No syncope. No seizures. No dizziness. PSYCHIATRIC: Not anxious. No depression. No suicidal thoughts. No homicidal thoughts. SKIN: No rash. No lesions. No wounds. ENDOCRINE: No unexplained weight loss. No weight gain. HEMATOLOGIC/LYMPHATIC: No anemia. No purpura. No petechiae. No prolonged or excessive bleeding. No palpable lymph nodes. PHYSICAL EXAMINATION: VITAL SIGNS: Temperature 97.8, pulse 75, respiratory rate 16, blood pressure 105/63 and pulse ox 96%. HEENT: Head normocephalic, atraumatic. Eyes: Extraocular muscles are intact. Pupils are equal, round and reactive to light and accommodation. Ears: No lesions. Nose appeared normal. Throat: No exudate or erythema. NECK: Supple. No JVD, no carotid bruit. No lymphadenopathy or thyromegaly. LUNGS: Decreased breath sounds but clear to auscultation. Percussion note normal. Chest symmetrical. HEART: S1, S2, no S3. No murmurs. No cyanosis or clubbing. No ascites. Pulses: Dorsalis pedis and posterior tibial pulses +1 to +2 bilaterally. ABDOMEN: Soft. Nontender. Bowel sounds active. No CVA tenderness. No mass felt. EXTREMITIES: No edema. Full range of motion of all extremities, equal. NEUROLOGIC: No focal deficit. Cranial nerves II through XII are grossly intact. No headache. No double vision. SKIN: Not dry. Intact. Turgor - normal. LYMPHATIC: No palpable lymph nodes/no lymphedema. MUSCULOSKELETAL: Normal joints with no swelling. Muscle tone is normal. LABS: hgb 12.6, hct 40, WBC 6,500 normal differential, creatinine 0.7, BUN 21, potassium 4.7 ASSESSMENT: 1. Acute respiratory failure 2. Acute bronchitis with chronic lung disease mostly restrictive from Parkinson's disease 3. COVID 19, positive status 4. Coronary artery disease 5. Dementia with Parkinson's disease PLAN: 1. Advised to continue steroids, antibiotics and NEBS 2. COVID markers CONDITION: Improving The patient is on Remdesivir TIME SPENT: More than 30 minutes. Plan and coordination of the patient's care discussed in the presence of nurse. MARTHA
[2020-10-31] MEDS: [UNRECOGNIZED DRUG - OTHER] PO SCH ×3 (14:30→20:20)
[2020-10-31] MEDS: LEVODOPA PO SCH ×3 (14:30→20:20)
[2020-10-31] MEDS: NORCO 5-325 PO SCH ×2 (14:30→20:21)
[2020-10-31] MEDS: GLUCOPHAGE PO SCH (14:30)
[2020-10-31] MEDS: ZINC-220 PO SCH (14:30)
[2020-10-31] MEDS: DECADRON IV SCH (14:30)
[2020-10-31] MEDS: VITAMIN D PO SCH (14:30)
[2020-10-31] MEDS: SYMBICORT 160-4.5 MCG INHALER IH SCH ×2 (14:30→20:20)
[2020-10-31] MEDS: CARBIDOPA PO SCH ×3 (14:30→20:20)
[2020-10-31] MEDS: ROCEPHIN 1 GM/50 ML D5W 1 GM/50 ML BAG IV SCH (14:30)
[2020-10-31] MEDS: ALDACTONE PO SCH (14:30)
[2020-10-31] MEDS: K-DUR PO SCH ×2 (14:30→16:37)
[2020-10-31] MEDS: ZOCOR PO SCH (14:30)
[2020-10-31] MEDS: LOMOTIL PO PRN (15:11)
[2020-10-31] MEDS: ULTRAM PO PRN (15:51)
[2020-10-31] MEDS: VEKLURY 100 MG in SODIUM CHLORIDE 250 ML IV SCH (16:02)
[2020-10-31] MEDS: FLOMAX PO SCH (20:21)
[2020-11-01] MEDS: VENTOLIN HFA (PER PUFF-WITH SPACER) IH SCH ×3 (05:20→20:35)
[2020-11-01 05:42] LABS: BASOPHILS % (AUTO) 0.1 % (0.0-3.0); HEMATOCRIT 40.1 % (42.0-52.0); HEMOGLOBIN 12.9 g/dl (14.0-18.0); IMMATURE GRANULOCYTE % (AUTO) 0.4 % (0.0-5.0); LYMPHOCYTES % (AUTO) 10.8 (10.0-50.0); MEAN CORPUSCULAR HEMOGLOBIN 26.9 pg (27.0-31.0); MEAN CORPUSCULAR HGB CONC 32.2 (31.8-35.4); MEAN CORPUSCULAR VOLUME 83.5 fl (80.0-94.0); MONOCYTES # (AUTO) 0.7 K/uL (0.4-2.0); MONOCYTES % (AUTO) 7.5 (0-10); NEUTROPHILS # (AUTO) 7.4 K/ul (2.0-6.9); NEUTROPHILS % (AUTO) 81.2 % (42.2-75.2); PLATELET COUNT 445 10^3/uL (140-440); RDW COEFFICIENT OF VARIATION 15.1 % (11.6-14.8); WHITE BLOOD COUNT 9.15 K/ul (4.2-10.2)
[2020-11-01 05:46] LABS: ALANINE AMINOTRANSFERASE 4.1 U/L (0-50); ALBUMIN 3.83 g/dL (3.5-5.0); ALKALINE PHOSPHATASE 171.4 U/L (56-119); ASPARTATE AMINO TRANSFERASE 29.4 U/L (17-59); BILIRUBIN,TOTAL 0.4 mg/dL (0.2-1.3); BLOOD UREA NITROGEN 19.8 mg/dL (9-20); CALCIUM 9.2 mg/dL (8.4-10.2); CARBON DIOXIDE 32.8 mmol/L (22-30.0); CHLORIDE 98.4 mmol/L (98-107); CREATININE 0.68 mg/dL (0.60-1.10); GLUCOSE 108.4 mg/dL (74-106); POTASSIUM 4.25 mmol/L (3.5-5.1); PROTHROMBIN TIME 11.5 SEC (9.3-11.0); SODIUM 138.7 mmol/L (134.5-145); TOTAL PROTEIN 6.56 g/dL (6.3-8.2)
[2020-11-01] MEDS: LASIX TAB PO SCH (05:50)
[2020-11-01] MEDS: PEPCID PO SCH ×2 (05:50→17:14)
[2020-11-01 08:32] LABS: ABG O2 HGB 86.8 % (95-100); BEecf 11.9 (-2.0-3.0); COHb 2.5 (0.5-1.5); HCO3 35.1 (21-28); MetHb 1.2 (0-1.5); TCO2 36.5 (19-24); sO2 87.9 % (94-98); tHb 13.1 g/dl (11.7-17.4)
[2020-11-01] MEDS: NYSTOP POWDER TP SCH ×3 (09:32→20:11)
[2020-11-01] MEDS: CALMOSEPTINE OINTMENT TP SCH ×2 (09:32→20:11)
[2020-11-01] MEDS: ROCEPHIN 1 GM/50 ML D5W 1 GM/50 ML BAG IV SCH (09:32)
[2020-11-01] MEDS: LEVODOPA PO SCH ×3 (09:33→20:10)
[2020-11-01] MEDS: LOVENOX SUBCUT SCH (09:33)
[2020-11-01] MEDS: CARBIDOPA PO SCH ×3 (09:33→20:10)
[2020-11-01] MEDS: SYMBICORT 160-4.5 MCG INHALER IH SCH ×2 (09:33→20:12)
[2020-11-01] MEDS: DECADRON IV SCH (09:33)
[2020-11-01] MEDS: [UNRECOGNIZED DRUG - OTHER] PO SCH ×3 (09:33→20:10)
[2020-11-01] MEDS: ZINC-220 PO SCH (09:34)
[2020-11-01] MEDS: GLUCOPHAGE PO SCH (09:34)
[2020-11-01] MEDS: NORCO 5-325 PO SCH ×2 (09:34→20:10)
[2020-11-01] MEDS: ALDACTONE PO SCH (09:34)
[2020-11-01] MEDS: ZOCOR PO SCH (09:34)
[2020-11-01] MEDS: K-DUR PO SCH ×2 (09:34→17:14)
[2020-11-01] MEDS: VITAMIN D PO SCH (09:34)
[2020-11-01] MEDS: VEKLURY 100 MG in SODIUM CHLORIDE 250 ML IV SCH ×2 (11:25→11:28)
--- NOTE | 2020-11-01 14:22 | PN ---
DATE OF SERVICE: 10/30/20 SUBJECTIVE: The patient was seen and examined with the nurse practitioner. The patient's condition is improving. The patient has less cough. Markers for Covid are stable. Continue Remdesivir, steroids, antibiotics. TIME SPENT: More than 30 minutes. Plan and coordination of the patient's care discussed in the presence of nurse. MARTHA
[2020-11-01] MEDS: FLOMAX PO SCH (20:10)
[2020-11-02] MEDS: VENTOLIN HFA (PER PUFF-WITH SPACER) IH SCH ×3 (04:55→20:30)
[2020-11-02 05:41] LABS: BASOPHILS % (AUTO) 0.1 % (0.0-3.0); HEMATOCRIT 39.2 % (42.0-52.0); HEMOGLOBIN 12.6 g/dl (14.0-18.0); IMMATURE GRANULOCYTE # (AUTO) 0.1 (0.0-1.0); IMMATURE GRANULOCYTE % (AUTO) 0.5 % (0.0-5.0); LYMPHOCYTES # (AUTO) 1.1 K/uL (0.60-3.4); MEAN CORPUSCULAR HEMOGLOBIN 26.6 pg (27.0-31.0); MEAN CORPUSCULAR HGB CONC 32.1 (31.8-35.4); MEAN CORPUSCULAR VOLUME 82.7 fl (80.0-94.0); MONOCYTES # (AUTO) 0.6 K/uL (0.4-2.0); MONOCYTES % (AUTO) 5.6 (0-10); NEUTROPHILS # (AUTO) 8.8 K/ul (2.0-6.9); NEUTROPHILS % (AUTO) 83.8 % (42.2-75.2); PLATELET COUNT 389 10^3/uL (140-440); RED BLOOD COUNT 4.74 10^6/ul (4.70-6.10); WHITE BLOOD COUNT 10.55 K/ul (4.2-10.2)
[2020-11-02] MEDS: LASIX TAB PO SCH (05:57)
[2020-11-02] MEDS: PEPCID PO SCH ×2 (05:57→16:15)
[2020-11-02 06:26] LABS: ALANINE AMINOTRANSFERASE 4.8 U/L (0-50); ALBUMIN 3.63 g/dL (3.5-5.0); ALKALINE PHOSPHATASE 149.9 U/L (56-119); ASPARTATE AMINO TRANSFERASE 28.8 U/L (17-59); BILIRUBIN,TOTAL 0.49 mg/dL (0.2-1.3); BLOOD UREA NITROGEN 16.3 mg/dL (9-20); CALCIUM 9.16 mg/dL (8.4-10.2); CARBON DIOXIDE 29.3 mmol/L (22-30.0); CHLORIDE 98.8 mmol/L (98-107); CREATININE 0.63 mg/dL (0.60-1.10); POTASSIUM 4.26 mmol/L (3.5-5.1); SODIUM 136.6 mmol/L (134.5-145); TOTAL PROTEIN 6.4 g/dL (6.3-8.2)
[2020-11-02] MEDS ORDERED: LASIX IVP ONE (09:07)
[2020-11-02] MEDS ORDERED: SODIUM CHLORIDE 1,000 ML IV SCH (09:30)
--- NOTE | 2020-11-02 10:07 | PCM.PROG ---
Attending Provider: ATTENDING PROVIDER: Dr. SUN NAGEL This patient is seen with Tiera Vaz, Nurse Practitioner. DATE OF SERVICE: 11/02/20 SUBJECTIVE: This 79 year old /WHITE M was hospitalized 10/28/20. The patient is not eating or drinking very well. Confused with increasing weakness. He has completed a 5-day course of Remdesivir yesterday. REVIEW OF SYSTEMS: CONSTITUTIONAL: Severe weakness. No night sweats. No fatigue, malaise, lethargy. No fever or chills. HEENT: Eyes: No visual changes. No eye pain. No eye discharge. ENT: No runny nose. No epistaxis. No sinus pain. No odynophagia. No congestion. RESPIRATORY: Shortness of breath. Cough. No hemoptysis. CARDIOVASCULAR: No angina symptoms. No CHF symptoms. No atypical chest pain for CAD. No palpitations. No orthopnea.. GASTROINTESTINAL: Poor appetite. No abdominal pain. No nausea or vomiting. No d iarrhea or constipation. No hematemesis. No hematochezia. GENITOURINARY: No urgency. No frequency. No dysuria. No hematuria. No obstructive symptoms. No discharge. No pain. No significant abnormal bleeding. MUSCULOSKELETAL: No musculoskeletal pain; no joint swelling. NEUROLOGICAL: Awake, alert, oriented to time, place and person. No headache. No neck pain. No syncope. No seizures. No dizziness. PSYCHIATRIC: Not anxious. No depression. No suicidal thoughts. No homicidal thoughts. SKIN: No rash. No lesions. No wounds. ENDOCRINE: No unexplained weight loss. No weight gain. HEMATOLOGIC/LYMPHATIC: No anemia. No purpura. No petechiae. No prolonged or excessive bleeding. No palpable lymph nodes. PHYSICAL EXAMINATION: GENERAL: The patient is awake, alert with intermittent confusion. lying/sitting in bed in no distress. VITAL SIGNS: Temperature 98.4 F, Pulse 90, Respiratory Rate 20, BP 131/69, Pulse Ox 92% HEENT: Head normocephalic, atraumatic. Eyes: Extraocular muscles are intact. Pupils are equal, round and reactive to light and accommodation. Ears: No l esions. Nose appeared normal. Throat: No exudate or erythema. NECK: Supple. No JVD, no carotid bruit. No lymphadenopathy or thyromegaly. LUNGS: Upper airway rhonchi. Percussion note normal. Chest symmetrical. HEART: S1, S2, no S3. No murmurs. No cyanosis or clubbing. No ascites. Pulses: Dorsalis pedis and posterior tibial pulses +1 to +2 both sides. ABDOMEN: Soft. Non-tender. Bowel sounds active. No CVA tenderness. No mass felt. EXTREMITIES: Trace leg edema. Full range of motion of all extremities, equal. NEUROLOGIC: No focal deficit. Cranial nerves II through XII are grossly intact. No headache. No double vision. SKIN: Not dry. Intact. Turgor-normal. LYMPHATIC: No palpable lymph nodes/no lymphedema. MUSCULOSKELETAL: Normal joints with no swelling. Muscle tone is normal. LAB REVIEW: 11/02/20 05:33 11/02/20 05:33 11/02/20 05:33: Sodium 136.6, Potassium 4.26, Chloride 98.8, Carbon Dioxide 29.3, Anion Gap 12.76, BUN 16.3, Creatinine 0.63, Estimated GFR (MDRD) 123.00, BUN/Creatinine Ratio 25.87, Glucose 112.0 H, Calcium 9.16, Total Bilirubin 0.49, AST 28.8, ALT 4.8, Alkaline Phosphatase 149.9 H, Total Protein 6.40, Albumin 3.63, Globulin 2.77, Albumin/Globulin Ratio 1.31 11/02/20 05:33: WBC 10.55 H, RBC 4.74, Hgb 12.6 L, Hct 39.2 L, MCV 82.7, MCH 26.6 L, MCHC 32.1, RDW Coeff of Leda 15.0 H, Plt Count 389, Immature Gran % (Auto) 0.5, Neut % (Auto) 83.8 H, Lymph % (Auto) 10.0, [place] % (Auto) 5.6, Eos % (Auto) 0.0, Baso % (Auto) 0.1, Neut # (Auto) 8.8 H, Lymph # (Auto) 1.1, [place] # (Auto) 0.6, Eos # (Auto) 0.0, Baso # (Auto) 0.0, Immature Gran # (Auto) 0.1 11/02/20 05:33: Ferritin 216.00 11/01/20 05:06: Lactate Dehydrogenase 207 11/01/20 05:06: C-Reactive Prot, Quant 34 H 08/30/21 05:20: Lactate Dehydrogenase 169 ASSESSMENT: Please see below. 1. Covid-19. 2. Acute pneumonitis. 3. Generalized weakness. PLAN: 1. Repeat ABG this morning. 2. Lasix 20 mg IV today. 3. IV fluids KVO. Plan and coordination of the patient's care discussed in the presence of Pest Control Service Technician and nurse. CONDITION: Stable SCRIBED BY: Tom ALEMAN scribed while in presence of service performed by Dr. Nagel/Tiera Vaz APRN on 11/02/20 ([id number])
[2020-11-02 10:24] LABS: ABG O2 HGB 88.9 % (95-100); BEecf 8.1 (-2.0-3.0); COHb 2.6 (0.5-1.5); HCO3 31.1 (21-28); TCO2 32.3 (19-24); sO2 88.8 % (94-98); tHb 13.1 g/dl (11.7-17.4)
[2020-11-02 10:25] LABS: ABG PH 7.51 (7.35-7.45)
[2020-11-02] MEDS: LOVENOX SUBCUT SCH (10:25)
[2020-11-02] MEDS: DECADRON IV SCH (10:28)
[2020-11-02] MEDS: ROCEPHIN 1 GM/50 ML D5W 1 GM/50 ML BAG IV SCH (10:32)
[2020-11-02] MEDS: CALMOSEPTINE OINTMENT TP SCH ×2 (10:47→20:30)
[2020-11-02] MEDS: NYSTOP POWDER TP SCH ×3 (10:48→20:30)
[2020-11-02] MEDS: SYMBICORT 160-4.5 MCG INHALER IH SCH ×2 (10:48→20:30)
[2020-11-02] MEDS: NORCO 5-325 PO SCH ×2 (10:50→20:31)
[2020-11-02] MEDS: VITAMIN D PO SCH (10:52)
[2020-11-02] MEDS: LOMOTIL PO PRN (10:52)
[2020-11-02] MEDS: ZOCOR PO SCH (10:52)
[2020-11-02] MEDS: GLUCOPHAGE PO SCH (10:52)
[2020-11-02] MEDS: K-DUR PO SCH ×2 (10:53→16:16)
[2020-11-02] MEDS: ZINC-220 PO SCH (10:53)
[2020-11-02] MEDS: ALDACTONE PO SCH (10:53)
[2020-11-02] MEDS: LEVODOPA PO SCH ×2 (11:02→20:30)
[2020-11-02] MEDS: [UNRECOGNIZED DRUG - OTHER] PO SCH ×2 (11:02→20:30)
[2020-11-02] MEDS: CARBIDOPA PO SCH ×2 (11:02→20:30)
--- NOTE | 2020-11-02 11:10 | PN ---
DATE OF SERVICE: 10/31/20 SUBJECTIVE: 79-year-old white male hospitalized with acute bronchitis and respiratory failure with Covid positive status. The patient has Parkinson's disease and has become very uncooperative and paranoid. I think that is the effect of Parkinson's and/or the medication he is on with hospitalization with change in his living conditions with hospital dementia mixed together. The patient's respiratory status is more or less stable. He is refusing to take medications that will make his condition worsen. The patient was seen and examined with the nurse practitioner. TIME SPENT: More than 30 minutes. Plan and coordination of the patient's care discussed in the presence of nurse. MARTHA
--- NOTE | 2020-11-02 11:24 | PN ---
DATE OF SERVICE: 11/01/20 SUBJECTIVE: 79-year-old white male hospitalized with Covid bronchitis with respiratory failure. The patient's oxygen saturation has been fluctuating 88% to 92%. This morning his blood gases showed p02 of 49 with pc02 of 45 with pH of 7.5 with 88% saturation on 2L. The patient has been somewhat uncooperative. He has settled down somewhat but he is still paranoid. He has started taking Remdesivir and was the last dose today. REVIEW OF SYSTEMS: CONSTITUTIONAL: No night sweats. No fatigue, malaise, lethargy. No fever or chills. HEENT: Eyes: No visual changes. No eye pain. No eye discharge. ENT: No runny nose. No epistaxis. No sinus pain. No sore throat. No odynophagia. No congestion. RESPIRATORY: No cough, no congestion. No hemoptysis. No shortness of breath. CARDIOVASCULAR: No angina symptoms. No CHF symptoms. No atypical chest pain for CAD. No palpitations. No PND. No orthopnea. GASTROINTESTINAL: No abdominal pain. No nausea or vomiting. No diarrhea or constipation. No hematemesis. No hematochezia. GENITOURINARY: No urgency. No frequency. No dysuria. No hematuria. No obstructive symptoms. No discharge. No pain. No significant abnormal bleeding. MUSCULOSKELETAL: No musculoskeletal pain; no joint swelling. NEUROLOGICAL: Somewhat stable today but still somewhat uncooperative and paranoid, much better than yesterday's behavior. No headache. No neck pain. No syncope. No seizures. No dizziness. PSYCHIATRIC: Not anxious. No depression. No suicidal thoughts. No homicidal thoughts. SKIN: No rash. No lesions. No wounds. ENDOCRINE: No unexplained weight loss. No weight gain. HEMATOLOGIC/LYMPHATIC: No anemia. No purpura. No petechiae. No prolonged or excessive bleeding. No palpable lymph nodes. PHYSICAL EXAMINATION: VITAL SIGNS: Temperature 98.4, pulse 80, respiratory rate 16, BP 119/61, pulse ox 95%. HEENT: Head normocephalic, atraumatic. Eyes: Extraocular muscles are intact. Pupils are equal, round and reactive to light and accommodation. Ears: No lesions. Nose appeared normal. Throat: No exudate or erythema. NECK: Supple. No JVD, no carotid bruit. No lymphadenopathy or thyromegaly. LUNGS: Decreased breath sounds but clear to auscultation. Percussion note normal. Chest symmetrical. HEART: S1, S2, no S3. No murmurs. No cyanosis or clubbing. No ascites. Pulses: Dorsalis pedis and posterior tibial pulses +1 to +2 bilaterally. ABDOMEN: Soft. Nontender. Bowel sounds active. No CVA tenderness. No mass felt. EXTREMITIES: No edema. Full range of motion of all extremities, equal. NEUROLOGIC: No focal deficit. Cranial nerves II through XII are grossly intact. No headache. No double vision. SKIN: Not dry. Intact. Turgor - normal. LYMPHATIC: No palpable lymph nodes/no lymphedema. MUSCULOSKELETAL: Normal joints with no swelling. Muscle tone is normal. LABS: Hemoglobin 12.9, hematocrit 40, WBC 9,100, normal differential. Creatinine 0.6, BUN 19, potassium 4.2, arterial blood gases as mentioned above. C-reactive protein yesterday was 13 which is almost normal. LDH was 199 normal. Ferritin level 203 normal. All of the markers are still staying within normal range. ASSESSMENT: 1. The patient has restrictive lung disease. On top of that the patient has bronchitis that could be causing his fluctuations in oxygen saturation along with uncooperative behavior which is likely from Parkinson's or the Levadopa- Carbidopa medications that he is on for Parkinson's. 2. Covid with hypoxemia, hospital confinement could have contributed to that. Condition is more or less stable, improving to some extent with oxygen saturation now 93% with 2L. TIME SPENT: EXTENSIVE Plan and coordination of the patient's care discussed in the presence of nurse. MARTHA
[2020-11-02] MEDS: FLOMAX PO SCH (20:31)
[2020-11-03] MEDS: VENTOLIN HFA (PER PUFF-WITH SPACER) IH SCH ×3 (05:05→20:30)
[2020-11-03] MEDS: PEPCID PO SCH ×2 (05:58→17:46)
[2020-11-03] MEDS: LASIX TAB PO SCH (05:59)
[2020-11-03 06:01] LABS: BASOPHILS % (AUTO) 0.1 % (0.0-3.0); EOSINOPHILS % (AUTO) 0.1 % (0.0-7.0); HEMATOCRIT 40.1 % (42.0-52.0); HEMOGLOBIN 13.1 g/dl (14.0-18.0); IMMATURE GRANULOCYTE # (AUTO) 0.1 (0.0-1.0); IMMATURE GRANULOCYTE % (AUTO) 0.6 % (0.0-5.0); LYMPHOCYTES # (AUTO) 0.9 K/uL (0.60-3.4); LYMPHOCYTES % (AUTO) 9.4 (10.0-50.0); MEAN CORPUSCULAR HGB CONC 32.7 (31.8-35.4); MEAN CORPUSCULAR VOLUME 82.5 fl (80.0-94.0); MONOCYTES # (AUTO) 0.6 K/uL (0.4-2.0); MONOCYTES % (AUTO) 5.8 (0-10); NEUTROPHILS # (AUTO) 8.3 K/ul (2.0-6.9); PLATELET COUNT 476 10^3/uL (140-440); RDW COEFFICIENT OF VARIATION 14.9 % (11.6-14.8); RED BLOOD COUNT 4.86 10^6/ul (4.70-6.10); WHITE BLOOD COUNT 9.89 K/ul (4.2-10.2)
[2020-11-03 06:17] LABS: ALBUMIN 3.76 g/dL (3.5-5.0); ALKALINE PHOSPHATASE 146.3 U/L (56-119); ASPARTATE AMINO TRANSFERASE 28.3 U/L (17-59); BILIRUBIN,TOTAL 0.48 mg/dL (0.2-1.3); BLOOD UREA NITROGEN 18.6 mg/dL (9-20); CALCIUM 9.29 mg/dL (8.4-10.2); CHLORIDE 98.9 mmol/L (98-107); CREATININE 0.61 mg/dL (0.60-1.10); GLUCOSE 131.6 mg/dL (74-106); POTASSIUM 4.34 mmol/L (3.5-5.1); SODIUM 137.8 mmol/L (134.5-145); TOTAL PROTEIN 6.58 g/dL (6.3-8.2)
[2020-11-03 06:21] LABS: ALANINE AMINOTRANSFERASE < 4.0 U/L (0-50)
[2020-11-03] MEDS: [UNRECOGNIZED DRUG - OTHER] PO SCH ×4 (07:13→20:17)
[2020-11-03] MEDS: LEVODOPA PO SCH ×4 (07:13→20:17)
[2020-11-03] MEDS: CARBIDOPA PO SCH ×4 (07:13→20:17)
--- NOTE | 2020-11-03 09:30 | PCM.PROG ---
Attending Provider: ATTENDING PROVIDER: Dr. SUN NAGEL This patient is seen with Tiera Vaz, Nurse Practitioner. DATE OF SERVICE: 11/03/20 SUBJECTIVE: This 79 year old /WHITE M was hospitalized 10/28/20. Not eating or drinking. Too weak to chew. Intermittent confusion. REVIEW OF SYSTEMS: CONSTITUTIONAL: No night sweats. No fatigue, malaise, lethargy. No fever or chills. Weakness. HEENT: Eyes: No visual changes. No eye pain. No eye discharge. ENT: No runny no se. No epistaxis. No sinus pain. No odynophagia. No congestion. RESPIRATORY: No cough, no congestion. No hemoptysis. Shortness of breath. CARDIOVASCULAR: No angina symptoms. No CHF symptoms. No atypical chest pain for CAD. No palpitations. No orthopnea.. GASTROINTESTINAL: No abdominal pain. No nausea or vomiting. No diarrhea or constipation. No hematemesis. No hematochezia. GENITOURINARY: No urgency. No frequency. No dysuria. No hematuria. No obstructive symptoms. No discharge. No pain. No significant abnormal bleeding. MUSCULOSKELETAL: No musculoskeletal pain; no joint swelling. NEUROLOGICAL: Awake, alert, confusion. No headache. No neck pain. No syncope. No seizures. No dizziness. PSYCHIATRIC: Not anxious. No depression. No suicidal thoughts. No homicidal thoughts. SKIN: No rash. No lesions. No wounds. ENDOCRINE: No unexplained weight loss. No weight gain. HEMATOLOGIC/LYMPHATIC: No anemia. No purpura. No petechiae. No prolonged or excessive bleeding. No palpable lymph nodes. PHYSICAL EXAMINATION: GENERAL: The patient is awake, alert and oriented to person only, lying in bed in no distress. VITAL SIGNS: Temperature 97.9 F, Pulse 87, Respiratory Rate 17, BP 125/71, Pulse Ox 92% HEENT: Head normocephalic, atraumatic. Eyes: Extraocular muscles are intact. Pupils are equal, round and reactive to light and accommodation. Ears: No lesions. Nose appeared normal. Throat: No exudate or erythema. NECK: Supple. No JVD, no carotid bruit. No lymphadenopathy or thyromegaly. LUNGS: Diminished breath sounds. Clear to auscultation. Percussion note normal. Chest symmetrical. HEART: S1, S2, no S3. No murmurs. No cyanosis or clubbing. No ascites. Pulses: Dorsalis pedis and posterior tibial pulses +1 to +2 both sides. ABDOMEN: Soft. Non-tender. Bowel sounds active. No CVA tenderness. No mass felt. EXTREMITIES: No edema. Full range of motion of all extremities, equal. NEUROLOGIC: No focal deficit. Cranial nerves II through XII are grossly intact. No headache. No double vision. SKIN: Not dry. Intact. Turgor-normal. LYMPHATIC: No palpable lymph nodes/no lymphedema. MUSCULOSKELETAL: Normal joints with no swelling. Muscle tone is normal. LAB REVIEW: 11/03/20 05:26 11/03/20 05:26 11/03/20 05:26: Sodium 137.8, Potassium 4.34, Chloride 98.9, Carbon Dioxide 31.0 H, Anion Gap 12.24, BUN 18.6, Creatinine 0.61, Estimated GFR (MDRD) 128.00, BUN/Creatinine Ratio 30.49, Glucose 131.6 H, Calcium 9.29, Total Bilirubin 0.48, AST 28.3, ALT < 4.0, Alkaline Phosphatase 146.3 H, Total Protein 6.58, Albumin 3.76, Globulin 2.82, Albumin/Globulin Ratio 1.33 11/03/20 05:26: WBC 9.89, RBC 4.86, Hgb 13.1 L, Hct 40.1 L, MCV 82.5, MCH 27.0, MCHC 32.7, RDW Coeff of Leda 14.9 H, Plt Count 476 H, Immature Gran % (Auto) 0.6, Neut % (Auto) 84.0 H, Lymph % (Auto) 9.4 L, [place] % (Auto) 5.8, Eos % (Auto) 0.1, Baso % (Auto) 0.1, Neut # (Auto) 8.3 H, Lymph # (Auto) 0.9, [place] # (Auto) 0.6, Eos # (Auto) 0.0, Baso # (Auto) 0.0, Immature Gran # (Auto) 0.1 11/02/20 10:20: Puncture Site R rad, Base Excess 8.1 H, O2 Saturation 88.8 L, ABG pH 7.51 H*, ABG pCO2 39.0, ABG pO2 50.0 L*, ABG HCO3 31.1 H, ABG Total CO2 32.3 H, Zaki Test Y, Hemoglobin 1.0, Oxyhemoglobin 88.9 L, Carboxyhemoglobin 2.6 H, Total Hemoglobin 13.1, O2 Delivery Device Cannula, Oxygen Liter Flow 3.00 11/02/20 05:33: Lactate Dehydrogenase 187 11/02/20 05:33: C-Reactive Prot, Quant 104 H ASSESSMENT: Please see below. 1. COVID pneumonia 2. Acute respiratory failure 3. Parkinson's disease 4. Dementia PLAN: 1. Increase IV fluids to 50cc an hour 2. ABG on 4 liters. Plan and coordination of the patient's care discussed in the presence of Paper Mill Manager and nurse. SCRIBED BY: Maninder ROBERTSist scribed while in presence of service performed by Dr. Nagel/Tiera Vaz APRN on 11/03/20 ([id number])
[2020-11-03] MEDS: GLUCOPHAGE PO SCH (10:35)
[2020-11-03] MEDS: ROCEPHIN 1 GM/50 ML D5W 1 GM/50 ML BAG IV SCH (10:35)
[2020-11-03] MEDS: VITAMIN D PO SCH (10:36)
[2020-11-03] MEDS: ALDACTONE PO SCH (10:37)
[2020-11-03] MEDS: ZOCOR PO SCH (10:37)
[2020-11-03] MEDS: ZINC-220 PO SCH (10:37)
[2020-11-03] MEDS: NORCO 5-325 PO SCH ×2 (10:37→20:17)
[2020-11-03] MEDS: K-DUR PO SCH ×2 (10:37→17:46)
[2020-11-03] MEDS: DECADRON IVP SCH (10:38)
[2020-11-03] MEDS: LOVENOX SUBCUT SCH (10:39)
[2020-11-03] MEDS: NYSTOP POWDER TP SCH ×3 (10:50→20:16)
[2020-11-03] MEDS: SYMBICORT 160-4.5 MCG INHALER IH SCH ×2 (10:51→20:16)
[2020-11-03] MEDS: CALMOSEPTINE OINTMENT TP SCH ×2 (10:51→20:16)
[2020-11-03 11:01] LABS: ABG O2 HGB 92.6 % (95-100); BEecf 9.7 (-2.0-3.0); COHb 2.6 (0.5-1.5); HCO3 32.7 (21-28); MetHb 1.1 (0-1.5); tHb 11.9 g/dl (11.7-17.4)
[2020-11-03 11:05] LABS: ABG PH 7.51 (7.35-7.45)
[2020-11-03] MEDS: SODIUM CHLORIDE 1,000 ML IV SCH (16:41)
[2020-11-03] MEDS: FLOMAX PO SCH (20:17)
[2020-11-04 05:51] LABS: HEMOGLOBIN 11.7 g/dl (14.0-18.0); IMMATURE GRANULOCYTE # (AUTO) 0.1 (0.0-1.0); IMMATURE GRANULOCYTE % (AUTO) 0.7 % (0.0-5.0); LYMPHOCYTES % (AUTO) 11.1 (10.0-50.0); MEAN CORPUSCULAR HEMOGLOBIN 26.5 pg (27.0-31.0); MEAN CORPUSCULAR HGB CONC 31.6 (31.8-35.4); MEAN CORPUSCULAR VOLUME 83.7 fl (80.0-94.0); MONOCYTES # (AUTO) 0.6 K/uL (0.4-2.0); MONOCYTES % (AUTO) 5.8 (0-10); NEUTROPHILS # (AUTO) 7.8 K/ul (2.0-6.9); NEUTROPHILS % (AUTO) 82.4 % (42.2-75.2); PLATELET COUNT 463 10^3/uL (140-440); RDW COEFFICIENT OF VARIATION 15.1 % (11.6-14.8); RED BLOOD COUNT 4.42 10^6/ul (4.70-6.10); WHITE BLOOD COUNT 9.41 K/ul (4.2-10.2)
[2020-11-04] MEDS: VENTOLIN HFA (PER PUFF-WITH SPACER) IH SCH ×3 (05:55→20:20)
[2020-11-04] MEDS: PEPCID PO SCH ×2 (05:56→17:41)
[2020-11-04] MEDS: LASIX TAB PO SCH (05:56)
[2020-11-04 06:07] LABS: ALBUMIN 3.31 g/dL (3.5-5.0); ALKALINE PHOSPHATASE 125.3 U/L (56-119); ASPARTATE AMINO TRANSFERASE 18.8 U/L (17-59); BILIRUBIN,TOTAL 0.38 mg/dL (0.2-1.3); CALCIUM 8.86 mg/dL (8.4-10.2); CARBON DIOXIDE 30.5 mmol/L (22-30.0); CHLORIDE 101.9 mmol/L (98-107); CREATININE 0.59 mg/dL (0.60-1.10); GLUCOSE 143.3 mg/dL (74-106); POTASSIUM 4.15 mmol/L (3.5-5.1); SODIUM 138.8 mmol/L (134.5-145); TOTAL PROTEIN 6.06 g/dL (6.3-8.2)
[2020-11-04 06:17] LABS: ALANINE AMINOTRANSFERASE < 4.0 U/L (0-50)
[2020-11-04] MEDS: DECADRON IVP SCH (08:46)
[2020-11-04] MEDS: ROCEPHIN 1 GM/50 ML D5W 1 GM/50 ML BAG IV SCH (08:46)
[2020-11-04] MEDS: ALDACTONE PO SCH (08:47)
[2020-11-04] MEDS: LEVODOPA PO SCH ×3 (08:47→20:33)
[2020-11-04] MEDS: ZINC-220 PO SCH (08:47)
[2020-11-04] MEDS: VITAMIN D PO SCH (08:47)
[2020-11-04] MEDS: NORCO 5-325 PO SCH ×2 (08:47→20:32)
[2020-11-04] MEDS: ZOCOR PO SCH (08:47)
[2020-11-04] MEDS: GLUCOPHAGE PO SCH (08:47)
[2020-11-04] MEDS: CARBIDOPA PO SCH ×3 (08:47→20:33)
[2020-11-04] MEDS: [UNRECOGNIZED DRUG - OTHER] PO SCH ×3 (08:47→20:33)
[2020-11-04] MEDS: LOVENOX SUBCUT SCH (08:50)
[2020-11-04] MEDS: CALMOSEPTINE OINTMENT TP SCH ×2 (08:51→20:32)
[2020-11-04] MEDS: SYMBICORT 160-4.5 MCG INHALER IH SCH ×2 (08:52→20:32)
[2020-11-04] MEDS: NYSTOP POWDER TP SCH ×3 (08:52→20:32)
[2020-11-04] MEDS: K-DUR PO SCH ×2 (09:00→17:41)
[2020-11-04] MEDS: SODIUM CHLORIDE 1,000 ML IV SCH (14:22)
[2020-11-04] MEDS: FLOMAX PO SCH (20:31)
[2020-11-05] MEDS: VENTOLIN HFA (PER PUFF-WITH SPACER) IH SCH ×3 (05:14→20:21)
[2020-11-05] MEDS: LASIX TAB PO SCH (05:42)
[2020-11-05] MEDS: PEPCID PO SCH ×2 (05:42→17:18)
[2020-11-05 05:49] LABS: BASOPHILS % (AUTO) 0.1 % (0.0-3.0); EOSINOPHILS % (AUTO) 0.1 % (0.0-7.0); HEMATOCRIT 38.8 % (42.0-52.0); HEMOGLOBIN 12.3 g/dl (14.0-18.0); IMMATURE GRANULOCYTE # (AUTO) 0.1 (0.0-1.0); IMMATURE GRANULOCYTE % (AUTO) 0.7 % (0.0-5.0); LYMPHOCYTES # (AUTO) 1.2 K/uL (0.60-3.4); LYMPHOCYTES % (AUTO) 12.9 (10.0-50.0); MEAN CORPUSCULAR HEMOGLOBIN 26.9 pg (27.0-31.0); MEAN CORPUSCULAR HGB CONC 31.7 (31.8-35.4); MEAN CORPUSCULAR VOLUME 84.7 fl (80.0-94.0); MONOCYTES # (AUTO) 0.6 K/uL (0.4-2.0); MONOCYTES % (AUTO) 6.7 (0-10); NEUTROPHILS # (AUTO) 7.1 K/ul (2.0-6.9); NEUTROPHILS % (AUTO) 79.5 % (42.2-75.2); PLATELET COUNT 488 10^3/uL (140-440); RDW COEFFICIENT OF VARIATION 14.8 % (11.6-14.8); RED BLOOD COUNT 4.58 10^6/ul (4.70-6.10); WHITE BLOOD COUNT 8.92 K/ul (4.2-10.2)
[2020-11-05 06:09] LABS: ALANINE AMINOTRANSFERASE 4.1 U/L (0-50); ALBUMIN 3.46 g/dL (3.5-5.0); ALKALINE PHOSPHATASE 123.5 U/L (56-119); ASPARTATE AMINO TRANSFERASE 18.7 U/L (17-59); BILIRUBIN,TOTAL 0.42 mg/dL (0.2-1.3); BLOOD UREA NITROGEN 15.4 mg/dL (9-20); CALCIUM 8.93 mg/dL (8.4-10.2); CARBON DIOXIDE 30.7 mmol/L (22-30.0); CHLORIDE 99.2 mmol/L (98-107); CREATININE 0.55 mg/dL (0.60-1.10); GLUCOSE 130.1 mg/dL (74-106); POTASSIUM 4.5 mmol/L (3.5-5.1); SODIUM 136.3 mmol/L (134.5-145); TOTAL PROTEIN 6.21 g/dL (6.3-8.2)
[2020-11-05] MEDS: SYMBICORT 160-4.5 MCG INHALER IH SCH ×2 (08:35→20:34)
[2020-11-05] MEDS: ROCEPHIN 1 GM/50 ML D5W 1 GM/50 ML BAG IV SCH (08:35)
[2020-11-05] MEDS: CALMOSEPTINE OINTMENT TP SCH ×2 (08:35→20:34)
[2020-11-05] MEDS: DECADRON IVP SCH (08:36)
[2020-11-05] MEDS: VITAMIN D PO SCH (08:36)
[2020-11-05] MEDS: NYSTOP POWDER TP SCH ×3 (08:36→20:34)
[2020-11-05] MEDS: ALDACTONE PO SCH (08:37)
[2020-11-05] MEDS: ZINC-220 PO SCH (08:37)
[2020-11-05] MEDS: ZOCOR PO SCH (08:37)
[2020-11-05] MEDS: GLUCOPHAGE PO SCH (08:37)
[2020-11-05] MEDS: K-DUR PO SCH ×2 (08:37→17:18)
[2020-11-05] MEDS: NORCO 5-325 PO SCH ×2 (08:38→20:33)
[2020-11-05] MEDS: LOVENOX SUBCUT SCH (08:39)
[2020-11-05] MEDS: CARBIDOPA PO SCH ×3 (08:46→20:33)
[2020-11-05] MEDS: [UNRECOGNIZED DRUG - OTHER] PO SCH ×3 (08:46→20:33)
[2020-11-05] MEDS: LEVODOPA PO SCH ×3 (08:46→20:33)
[2020-11-05] MEDS: SODIUM CHLORIDE 1,000 ML IV SCH (11:16)
[2020-11-05] MEDS: FLOMAX PO SCH (20:33)
[2020-11-05] MEDS: ULTRAM PO PRN (23:18)
[2020-11-06] MEDS: VENTOLIN HFA (PER PUFF-WITH SPACER) IH SCH ×3 (05:00→19:35)
[2020-11-06 05:07] LABS: BASOPHILS % (AUTO) 0.1 % (0.0-3.0); EOSINOPHILS % (AUTO) 0.3 % (0.0-7.0); HEMOGLOBIN 12.3 g/dl (14.0-18.0); IMMATURE GRANULOCYTE # (AUTO) 0.1 (0.0-1.0); IMMATURE GRANULOCYTE % (AUTO) 0.8 % (0.0-5.0); LYMPHOCYTES # (AUTO) 1.4 K/uL (0.60-3.4); MEAN CORPUSCULAR HGB CONC 32.4 (31.8-35.4); MEAN CORPUSCULAR VOLUME 83.3 fl (80.0-94.0); MONOCYTES # (AUTO) 0.8 K/uL (0.4-2.0); MONOCYTES % (AUTO) 9.2 (0-10); NEUTROPHILS # (AUTO) 6.6 K/ul (2.0-6.9); NEUTROPHILS % (AUTO) 73.6 % (42.2-75.2); PLATELET COUNT 510 10^3/uL (140-440); RED BLOOD COUNT 4.56 10^6/ul (4.70-6.10)
[2020-11-06 05:21] LABS: ALBUMIN 3.43 g/dL (3.5-5.0); ALKALINE PHOSPHATASE 126.6 U/L (56-119); ASPARTATE AMINO TRANSFERASE 13.3 U/L (17-59); BILIRUBIN,TOTAL 0.42 mg/dL (0.2-1.3); BLOOD UREA NITROGEN 18.9 mg/dL (9-20); CALCIUM 8.91 mg/dL (8.4-10.2); CARBON DIOXIDE 30.6 mmol/L (22-30.0); CHLORIDE 98.2 mmol/L (98-107); GLUCOSE 129.1 mg/dL (74-106); POTASSIUM 4.32 mmol/L (3.5-5.1); SODIUM 135.6 mmol/L (134.5-145); TOTAL PROTEIN 6.14 g/dL (6.3-8.2)
[2020-11-06 05:27] LABS: ALANINE AMINOTRANSFERASE < 4.0 U/L (0-50)
[2020-11-06] MEDS: LASIX TAB PO SCH (05:43)
[2020-11-06] MEDS: PEPCID PO SCH ×2 (05:44→17:24)
[2020-11-06] MEDS: SODIUM CHLORIDE 1,000 ML IV SCH (05:55)
[2020-11-06 08:54] LABS: ABG O2 HGB 89.3 % (95-100); ABG PH 7.47 (7.35-7.45); BEecf 9.8 (-2.0-3.0); COHb 2.5 (0.5-1.5); HCO3 33.5 (21-28); MetHb 0.7 (0-1.5); TCO2 34.9 (19-24); sO2 91.5 % (94-98); tHb 13.4 g/dl (11.7-17.4)
[2020-11-06] MEDS: DECADRON IVP SCH (09:27)
[2020-11-06] MEDS: ROCEPHIN 1 GM/50 ML D5W 1 GM/50 ML BAG IV SCH (09:51)
[2020-11-06] MEDS: ALDACTONE PO SCH (09:52)
[2020-11-06] MEDS: ZINC-220 PO SCH (09:52)
[2020-11-06] MEDS: ZOCOR PO SCH (09:52)
[2020-11-06] MEDS: K-DUR PO SCH ×2 (09:52→17:24)
[2020-11-06] MEDS: VITAMIN D PO SCH (09:52)
[2020-11-06] MEDS: LOVENOX SUBCUT SCH (09:53)
[2020-11-06] MEDS: NORCO 5-325 PO SCH ×2 (09:53→22:41)
[2020-11-06] MEDS: GLUCOPHAGE PO SCH (09:53)
[2020-11-06] MEDS: SYMBICORT 160-4.5 MCG INHALER IH SCH ×2 (09:54→22:59)
[2020-11-06] MEDS: CALMOSEPTINE OINTMENT TP SCH ×2 (09:54→23:00)
[2020-11-06] MEDS: [UNRECOGNIZED DRUG - OTHER] PO SCH ×3 (09:54→22:41)
[2020-11-06] MEDS: CARBIDOPA PO SCH ×3 (09:54→22:41)
[2020-11-06] MEDS: NYSTOP POWDER TP SCH ×3 (09:54→22:59)
[2020-11-06] MEDS: LEVODOPA PO SCH ×3 (09:54→22:41)
[2020-11-06] MEDS: FLOMAX PO SCH (22:41)
[2020-11-07] MEDS: SODIUM CHLORIDE 1,000 ML IV SCH ×2 (02:42→15:33)
[2020-11-07] MEDS: VENTOLIN HFA (PER PUFF-WITH SPACER) IH SCH ×3 (04:30→19:50)
[2020-11-07 06:03] LABS: BASOPHILS % (AUTO) 0.1 % (0.0-3.0); EOSINOPHILS % (AUTO) 0.4 % (0.0-7.0); HEMATOCRIT 38.8 % (42.0-52.0); HEMOGLOBIN 12.5 g/dl (14.0-18.0); IMMATURE GRANULOCYTE # (AUTO) 0.1 (0.0-1.0); IMMATURE GRANULOCYTE % (AUTO) 1.4 % (0.0-5.0); LYMPHOCYTES # (AUTO) 1.5 K/uL (0.60-3.4); LYMPHOCYTES % (AUTO) 18.2 (10.0-50.0); MEAN CORPUSCULAR HEMOGLOBIN 26.9 pg (27.0-31.0); MEAN CORPUSCULAR HGB CONC 32.2 (31.8-35.4); MEAN CORPUSCULAR VOLUME 83.4 fl (80.0-94.0); MONOCYTES # (AUTO) 0.7 K/uL (0.4-2.0); MONOCYTES % (AUTO) 8.9 (0-10); NEUTROPHILS # (AUTO) 5.9 K/ul (2.0-6.9); PLATELET COUNT 493 10^3/uL (140-440); RDW COEFFICIENT OF VARIATION 14.8 % (11.6-14.8); RED BLOOD COUNT 4.65 10^6/ul (4.70-6.10); WHITE BLOOD COUNT 8.31 K/ul (4.2-10.2)
[2020-11-07] MEDS: KEFLEX PO SCH ×3 (06:04→20:53)
[2020-11-07] MEDS: PEPCID PO SCH ×2 (06:04→17:46)
[2020-11-07] MEDS: LASIX TAB PO SCH (06:04)
[2020-11-07 06:26] LABS: ALANINE AMINOTRANSFERASE 4.1 U/L (0-50); ALBUMIN 3.55 g/dL (3.5-5.0); ALKALINE PHOSPHATASE 127.9 U/L (56-119); ASPARTATE AMINO TRANSFERASE 23.9 U/L (17-59); BILIRUBIN,TOTAL 0.53 mg/dL (0.2-1.3); BLOOD UREA NITROGEN 17.5 mg/dL (9-20); CALCIUM 9.07 mg/dL (8.4-10.2); CARBON DIOXIDE 32.7 mmol/L (22-30.0); CHLORIDE 98.8 mmol/L (98-107); CREATININE 0.62 mg/dL (0.60-1.10); GLUCOSE 122.5 mg/dL (74-106); POTASSIUM 3.97 mmol/L (3.5-5.1); SODIUM 135.3 mmol/L (134.5-145); TOTAL PROTEIN 6.22 g/dL (6.3-8.2)
[2020-11-07] MEDS: CARBIDOPA PO SCH ×3 (10:11→20:54)
[2020-11-07] MEDS: LEVODOPA PO SCH ×3 (10:11→20:54)
[2020-11-07] MEDS: [UNRECOGNIZED DRUG - OTHER] PO SCH ×3 (10:11→20:54)
[2020-11-07] MEDS: VITAMIN D PO SCH (10:13)
[2020-11-07] MEDS: K-DUR PO SCH ×2 (10:13→17:46)
[2020-11-07] MEDS: GLUCOPHAGE PO SCH (10:14)
[2020-11-07] MEDS: CALMOSEPTINE OINTMENT TP SCH ×2 (10:14→21:06)
[2020-11-07] MEDS: ZOCOR PO SCH (10:14)
[2020-11-07] MEDS: NORCO 5-325 PO SCH ×2 (10:14→20:53)
[2020-11-07] MEDS: ALDACTONE PO SCH (10:14)
[2020-11-07] MEDS: ZINC-220 PO SCH (10:14)
[2020-11-07] MEDS: SYMBICORT 160-4.5 MCG INHALER IH SCH ×2 (10:15→21:05)
[2020-11-07] MEDS: LOVENOX SUBCUT SCH (10:15)
[2020-11-07] MEDS: NYSTOP POWDER TP SCH ×3 (10:15→21:06)
--- NOTE | 2020-11-07 10:52 | PN ---
DATE OF SERVICE: 11/02/2020 SUBJECTIVE: 79 year old white male hospitalized with respiratory failure with COVID positive status. Condition seems to be more or less stable with continued hypoxemia. He has been confused at time with abnormal behavior maybe related to hypoxemia, COVID, Parkinson's disease, change in the place and combination of all. Continue steroids, NEBS and antibiotics and has finished Remdesivir. The patient was seen and examined with the Nurse Practitioner. TIME SPENT: More than 30 minutes. Plan and coordination of the patient's care discussed in the presence of nurse. MARTHA
--- NOTE | 2020-11-07 11:27 | PCM.PROG ---
Attending Provider: ATTENDING PROVIDER: Dr. SUN NAGEL This patient is seen with Tiera Vaz, Nurse Practitioner. DATE OF SERVICE: 11/07/20 SUBJECTIVE: This 79 year old /WHITE M was hospitalized 10/28/20. The patient has been more alert. He has been eating better. He is still very weak. Respiratory status has been stable. Tolerating 4L nasal cannula. REVIEW OF SYSTEMS: CONSTITUTIONAL: Weakness. No night sweats. No fatigue, malaise, lethargy. No fever or chills. HEENT: Eyes: No visual changes. No eye pain. No eye discharge. ENT: No runny nose. No epistaxis. No sinus pain. No odynophagia. No congestion. RESPIRATORY: No cough, no congestion. No hemoptysis. Shortness of breath. CARDIOVASCULAR: No angina symptoms. No CHF symptoms. No atypical chest pain for CAD. No palpitations. No orthopnea.. GASTROINTESTINAL: No abdominal pain. No nausea or vomiting. No diarrhea or constipation. No hematemesis. No hematochezia. GENITOURINARY: No urgency. No frequency. No dysuria. No hematuria. No obstructive symptoms. No discharge. No pain. No significant abnormal bleeding. MUSCULOSKELETAL: No musculoskeletal pain; no joint swelling. NEUROLOGICAL: Awake, alert, oriented to person. No headache. No neck pain. No syncope. No seizures. No dizziness. PSYCHIATRIC: Not anxious. No depression. No suicidal thoughts. No homicidal thoughts. SKIN: No rash. No lesions. No wounds. ENDOCRINE: No unexplained weight loss. No weight gain. HEMATOLOGIC/LYMPHATIC: No anemia. No purpura. No petechiae. No prolonged or excessive bleeding. No palpable lymph nodes. PHYSICAL EXAMINATION: GENERAL: The patient is awake, alert and oriented to person lying/sitting in bed in no distress. VITAL SIGNS: Temperature 97.8 F, Pulse 75, Respiratory Rate 16, BP 146/85, Pulse Ox 93% HEENT: Head normocephalic, atraumatic. Eyes: Extraocular muscles are intact. Pupils are equal, round and reactive to light and accommodation. Ears: No lesions. Nose appeared normal. Throat: No exudate or erythema. NECK: Supple. No JVD, no carotid bruit. No lymphadenopathy or thyromegaly. LUNGS: Diminished breath sounds. Clear to auscultation. Percussion note normal. Chest symmetrical. HEART: S1, S2, no S3. No murmurs. No cyanosis or clubbing. No ascites. Pulse s: Dorsalis pedis and posterior tibial pulses +1 to +2 both sides. ABDOMEN: Soft. Non-tender. Bowel sounds active. No CVA tenderness. No mass felt. EXTREMITIES: No edema. Full range of motion of all extremities, equal. NEUROLOGIC: No focal deficit. Cranial nerves II through XII are grossly intact. No headache. No double vision. SKIN: Not dry. Intact. Turgor-normal. LYMPHATIC: No palpable lymph nodes/no lymphedema. MUSCULOSKELETAL: Normal joints with no swelling. Muscle tone is normal. LAB REVIEW: 11/07/20 05:58 11/07/20 05:58 11/07/20 05:58: Sodium 135.3, Potassium 3.97, Chloride 98.8, Carbon Dioxide 32.7 H, Anion Gap 7.77, BUN 17.5, Creatinine 0.62, Estimated GFR (MDRD) 126.00, BUN/Creatinine Ratio 28.22, Glucose 122.5 H, Calcium 9.07, Total Bilirubin 0.53, AST 23.9, ALT 4.1, Alkaline Phosphatase 127.9 H, Total Protein 6.22 L, Albumin 3.55, Globulin 2.67, Albumin/Globulin Ratio 1.32 11/07/20 05:58: WBC 8.31, RBC 4.65 L, Hgb 12.5 L, Hct 38.8 L, MCV 83.4, MCH 26.9 L, MCHC 32.2, RDW Coeff of Leda 14.8, Plt Count 493 H, Immature Gran % (Auto) 1.4, Neut % (Auto) 71.0, Lymph % (Auto) 18.2, [place] % (Auto) 8.9, Eos % (Auto) 0.4, Baso % (Auto) 0.1, Neut # (Auto) 5.9, Lymph # (Auto) 1.5, [place] # (Auto) 0.7, Eos # (Auto) 0.0, Baso # (Auto) 0.0, Immature Gran # (Auto) 0.1 11/06/20 08:30: Puncture Site R rad, Base Excess 9.8 H, O2 Saturation 91.5 L, ABG pH 7.47 H, ABG pCO2 46.0 H, ABG pO2 58.0 L*, ABG HCO3 33.5 H, ABG Total CO2 34.9 H, Zaki Test Yes, Hemoglobin 0.7, Oxyhemoglobin 89.3 L, Carboxyhemoglobin 2.5 H, Total Hemoglobin 13.4, O2 Delivery Device Cannula, Oxygen Liter Flow 4.00 ASSESSMENT: Please see below. 1. COVID pneumonia 2. Acute respiratory failure 3. Parkinson's disease 4. Dementia PLAN: 1. D/C IV fluids. Plan and coordination of the patient's care discussed in the presence of Clinic Manager and nurse. CONDITION: Stable SCRIBED BY: MANJU LOBATO Cnc Machine Programmer scribed while in presence of service performed by Dr. Nagel/Tiera Vaz APRN on 11/07/20 ([id number])
[2020-11-07] MEDS: DECADRON IVP SCH (15:17)
[2020-11-07] MEDS: FLOMAX PO SCH (20:53)
[2020-11-08] MEDS: VENTOLIN HFA (PER PUFF-WITH SPACER) IH SCH ×3 (05:05→20:50)
[2020-11-08 05:42] LABS: BASOPHILS % (AUTO) 0.2 % (0.0-3.0); EOSINOPHILS % (AUTO) 0.1 % (0.0-7.0); HEMATOCRIT 41.1 % (42.0-52.0); HEMOGLOBIN 13.3 g/dl (14.0-18.0); IMMATURE GRANULOCYTE # (AUTO) 0.1 (0.0-1.0); IMMATURE GRANULOCYTE % (AUTO) 1.4 % (0.0-5.0); LYMPHOCYTES # (AUTO) 1.3 K/uL (0.60-3.4); LYMPHOCYTES % (AUTO) 12.9 (10.0-50.0); MEAN CORPUSCULAR HEMOGLOBIN 27.3 pg (27.0-31.0); MEAN CORPUSCULAR HGB CONC 32.4 (31.8-35.4); MEAN CORPUSCULAR VOLUME 84.4 fl (80.0-94.0); MONOCYTES # (AUTO) 0.6 K/uL (0.4-2.0); MONOCYTES % (AUTO) 5.4 (0-10); NEUTROPHILS # (AUTO) 8.1 K/ul (2.0-6.9); PLATELET COUNT 565 10^3/uL (140-440); RED BLOOD COUNT 4.87 10^6/ul (4.70-6.10); WHITE BLOOD COUNT 10.17 K/ul (4.2-10.2)
[2020-11-08 05:54] LABS: ALANINE AMINOTRANSFERASE 5.9 U/L (0-50); ALBUMIN 3.9 g/dL (3.5-5.0); ALKALINE PHOSPHATASE 135.6 U/L (56-119); ASPARTATE AMINO TRANSFERASE 22.4 U/L (17-59); BILIRUBIN,TOTAL 0.56 mg/dL (0.2-1.3); BLOOD UREA NITROGEN 18.5 mg/dL (9-20); CALCIUM 9.42 mg/dL (8.4-10.2); CHLORIDE 96.9 mmol/L (98-107); CREATININE 0.59 mg/dL (0.60-1.10); GLUCOSE 129.7 mg/dL (74-106); POTASSIUM 4.71 mmol/L (3.5-5.1); SODIUM 135.9 mmol/L (134.5-145); TOTAL PROTEIN 6.6 g/dL (6.3-8.2)
[2020-11-08] MEDS: PEPCID PO SCH ×2 (06:08→17:18)
[2020-11-08] MEDS: LASIX TAB PO SCH (06:09)
[2020-11-08] MEDS: KEFLEX PO SCH ×3 (06:10→20:33)
--- NOTE | 2020-11-08 07:33 | PN ---
DATE OF SERVICE: 11/03/20 SUBJECTIVE: 79-year-old white male hospitalized with respiratory failure and Covid pneumonia. The patient's condition seems to be stable. He is less confused, a little bit better. The oxygen saturation is still 92% on 2L. Condition is stabilizing. The patient was seen and examined with the nurse practitioner. TIME SPENT: More than 30 minutes. Plan and coordination of the patient's care discussed in the presence of nurse. MARTHA
--- NOTE | 2020-11-08 07:57 | PN ---
DATE OF SERVICE: 11/04/20 SUBJECTIVE: 79-year-old white male hospitalized with acute respiratory failure with positive Covid status. Developed pneumonia in between with severe hypoxemia. The patient also was confused with dementia which was a combination of Covid, Parkinson's, anti-Parkinson's medications and probably the aging process. In fact, he has come out of it. His appetite seemed to be getting better. He is not in any distress. REVIEW OF SYSTEMS: CONSTITUTIONAL: No night sweats. No fatigue, malaise, lethargy. No fever or chills. HEENT: Eyes: No visual changes. No eye pain. No eye discharge. ENT: No runny nose. No epistaxis. No sinus pain. No sore throat. No odynophagia. No congestion. RESPIRATORY: No cough, no congestion. No hemoptysis. No shortness of breath. CARDIOVASCULAR: No angina symptoms. No CHF symptoms. No atypical chest pain for CAD. No palpitations. No PND. No orthopnea. GASTROINTESTINAL: No abdominal pain. No nausea or vomiting. No diarrhea or constipation. No hematemesis. No hematochezia. GENITOURINARY: No urgency. No frequency. No dysuria. No hematuria. No obstructive symptoms. No discharge. No pain. No significant abnormal bleeding. MUSCULOSKELETAL: No musculoskeletal pain; no joint swelling. NEUROLOGICAL: No headache. No neck pain. No syncope. No seizures. No dizziness. PSYCHIATRIC: Not anxious. No depression. No suicidal thoughts. No homicidal thoughts. SKIN: No rash. No lesions. No wounds. ENDOCRINE: No unexplained weight loss. No weight gain. HEMATOLOGIC/LYMPHATIC: No anemia. No purpura. No petechiae. No prolonged or excessive bleeding. No palpable lymph nodes. PHYSICAL EXAMINATION: VITAL SIGNS: Temperature 97.6, pulse 75, respiratory rate 18, blood pressure 136/82, pulse ox 94% on 2L. HEENT: Head normocephalic, atraumatic. Eyes: Extraocular muscles are intact. Pupils are equal, round and reactive to light and accommodation. Ears: No lesions. Nose appeared normal. Throat: No exudate or erythema. NECK: Supple. No JVD, no carotid bruit. No lymphadenopathy or thyromegaly. LUNGS: Decreased breath sounds but clear to auscultation. Percussion note normal. Chest symmetrical. HEART: S1, S2, no S3. No murmurs. No cyanosis or clubbing. No ascites. Pulses: Dorsalis pedis and posterior tibial pulses +1 to +2 bilaterally. ABDOMEN: Soft. Nontender. Bowel sounds active. No CVA tenderness. No mass felt. EXTREMITIES: No edema. Full range of motion of all extremities, equal. NEUROLOGIC: No focal deficit. Cranial nerves II through XII are grossly intact. No headache. No double vision. SKIN: Not dry. Intact. Turgor - normal. LYMPHATIC: No palpable lymph nodes/no lymphedema. MUSCULOSKELETAL: Normal joints with no swelling. Muscle tone is normal. LABS: Hemoglobin 11.7, hematocrit 37, WBC 9,000, normal differential. Creatinine 0.5, BUN 18, potassium 4.0. ASSESSMENT: 1. Respiratory failure seems to be under control. 2. Covid pneumonia seems to be improving. 3. Dementia seems to be under control. 4. Parkinson's disease is better as the patient has started taking medicine. For awhile, he was so much more demented, had abnormal behavior with dementia that he didn't take his medications. On admission to the hospital his overall status had declined but now the patient seems to be becoming stable. Yesterday the blood gases p02 68, pc02 41, pH 7.51, saturation of 95% on 4L. PLAN: 1. Continue antibiotics, steroids. CONDITION: Improving. TIME SPENT: More than 30 minutes. Plan and coordination of the patient's care discussed in the presence of nurse. MARTHA
--- NOTE | 2020-11-08 08:38 | PN ---
DATE OF SERVICE: 11/06/20 SUBJECTIVE: 79-year-old white male hospitalized with respiratory failure with Covid positive status with bronchitis. The patient's condition now is stable. His dementia more or less has resolved. He is more or less calm, seems to have improved. REVIEW OF SYSTEMS: CONSTITUTIONAL: No night sweats. No fatigue, malaise, lethargy. No fever or chills. HEENT: Eyes: No visual changes. No eye pain. No eye discharge. ENT: No runny nose. No epistaxis. No sinus pain. No sore throat. No odynophagia. No congestion. RESPIRATORY: No cough, no congestion. No hemoptysis. No shortness of breath. CARDIOVASCULAR: No angina symptoms. No CHF symptoms. No atypical chest pain for CAD. No palpitations. No PND. No orthopnea. GASTROINTESTINAL: Appetite seems to be improving. No abdominal pain. No nausea or vomiting. No diarrhea or constipation. No hematemesis. No hematochezia. GENITOURINARY: No urgency. No frequency. No dysuria. No hematuria. No obstructive symptoms. No discharge. No pain. No significant abnormal bleeding. MUSCULOSKELETAL: No musculoskeletal pain; no joint swelling. NEUROLOGICAL: No headache. No neck pain. No syncope. No seizures. No dizziness. PSYCHIATRIC: Not anxious. No depression. No suicidal thoughts. No homicidal thoughts. SKIN: No rash. No lesions. No wounds. ENDOCRINE: No unexplained weight loss. No weight gain. HEMATOLOGIC/LYMPHATIC: No anemia. No purpura. No petechiae. No prolonged or excessive bleeding. No palpable lymph nodes. PHYSICAL EXAMINATION: VITAL SIGNS: Temperature 98, pulse 64, respiratory rate 14, BP 160/80, pulse ox 94% with 2L. HEENT: Head normocephalic, atraumatic. Eyes: Extraocular muscles are intact. Pupils are equal, round and reactive to light and accommodation. Ears: No lesions. Nose appeared normal. Throat: No exudate or erythema. NECK: Supple. No JVD, no carotid bruit. No lymphadenopathy or thyromegaly. LUNGS: Decreased breath sounds but clear to auscultation. Percussion note normal. Chest symmetrical. HEART: S1, S2, no S3. No murmurs. No cyanosis or clubbing. No ascites. Pulses: Dorsalis pedis and posterior tibial pulses +1 to +2 bilaterally. ABDOMEN: Soft. Nontender. Bowel sounds active. No CVA tenderness. No mass felt. EXTREMITIES: No edema. Full range of motion of all extremities, equal. NEUROLOGIC: No focal deficit. Cranial nerves II through XII are grossly intact. No headache. No double vision. SKIN: Not dry. Intact. Turgor - normal. LYMPHATIC: No palpable lymph nodes/no lymphedema. MUSCULOSKELETAL: Normal joints with no swelling. Muscle tone is normal. LABS: Hemoglobin 12.3, hematocrit 38, WBC 8,000, normal differential. Creatinine 0.6, BUN 18, potassium 4.3. ASSESSMENT: 1. Respiratory failure with Covid bronchitis to be under control. 2. Parkinson's disease seems to be stable. 3. Dementia seems to be under control. PLAN: 1. Continue nebs, steroids, antibiotics. 2. The patient's C-reactive protein is 102 on 11/03. Will check it again. LDH was normal. Ferritin level was 216 on 11/02. CONDITION: Improving. TIME SPENT: More than 30 minutes. Plan and coordination of the patient's care discussed in the presence of nurse. MARTHA
--- NOTE | 2020-11-08 09:03 | PN ---
DATE OF SERVICE: 11/05/20 SUBJECTIVE: 79-year-old white male hospitalized with respiratory failure with Covid positive status, bronchitis and pneumonitis seems to be resolving. First time that I have seen him sitting down in the chair and eating. The patient seems to be oriented to place and person. REVIEW OF SYSTEMS: CONSTITUTIONAL: No night sweats. No fatigue, malaise, lethargy. No fever or chills. HEENT: Eyes: No visual changes. No eye pain. No eye discharge. ENT: No runny nose. No epistaxis. No sinus pain. No sore throat. No odynophagia. No congestion. RESPIRATORY: No cough, no congestion. No hemoptysis. No shortness of breath. CARDIOVASCULAR: No angina symptoms. No CHF symptoms. No atypical chest pain for CAD. No palpitations. No PND. No orthopnea. GASTROINTESTINAL: No abdominal pain. No nausea or vomiting. No diarrhea or constipation. No hematemesis. No hematochezia. GENITOURINARY: No urgency. No frequency. No dysuria. No hematuria. No obstructive symptoms. No discharge. No pain. No significant abnormal bleeding. MUSCULOSKELETAL: No musculoskeletal pain; no joint swelling. NEUROLOGICAL: Dementia seems to be resolving. No headache. No neck pain. No syncope. No seizures. No dizziness. PSYCHIATRIC: Not anxious. No depression. No suicidal thoughts. No homicidal thoughts. SKIN: No rash. No lesions. No wounds. ENDOCRINE: No unexplained weight loss. No weight gain. HEMATOLOGIC/LYMPHATIC: No anemia. No purpura. No petechiae. No prolonged or excessive bleeding. No palpable lymph nodes. PHYSICAL EXAMINATION: VITAL SIGNS: Temperature 97.6, pulse 60, respiratory rate 15, blood pressure 120/68, pulse ox 93%. HEENT: Head normocephalic, atraumatic. Eyes: Extraocular muscles are intact. Pupils are equal, round and reactive to light and accommodation. Ears: No lesions. Nose appeared normal. Throat: No exudate or erythema. NECK: Supple. No JVD, no carotid bruit. No lymphadenopathy or thyromegaly. LUNGS: Decreased breath sounds but clear to auscultation. Percussion note normal. Chest symmetrical. HEART: S1, S2, no S3. No murmurs. No cyanosis or clubbing. No ascites. Pulses: Dorsalis pedis and posterior tibial pulses +1 to +2 bilaterally. ABDOMEN: Soft. Nontender. Bowel sounds active. No CVA tenderness. No mass felt. EXTREMITIES: No edema. Full range of motion of all extremities, equal. NEUROLOGIC: No focal deficit. Cranial nerves II through XII are grossly intact. No headache. No double vision. SKIN: Not dry. Intact. Turgor - normal. LYMPHATIC: No palpable lymph nodes/no lymphedema. MUSCULOSKELETAL: Normal joints with no swelling. Muscle tone is normal. LABS: Hemoglobin 12.3, hematocrit 38, WBC 8,900, normal differential. Creatinine 0.5, BUN 15, potassium 4.5. ASSESSMENT: 1. Covid positive status with respiratory failure with pneumonitis seems to be under control. 2. The patient's dementia seems to be under control. 3. Parkinson's disease seems to be stable. PLAN: 1. Continue steroids, nebs and antibiotics. 2. Encouraged the patient to eat. CONDITION: Stable. TIME SPENT: More than 30 minutes. Plan and coordination of the patient's care discussed in the presence of nurse. MARTHA
[2020-11-08] MEDS: DECADRON IVP SCH (09:10)
[2020-11-08] MEDS: VITAMIN D PO SCH (09:26)
[2020-11-08] MEDS: K-DUR PO SCH ×2 (09:27→17:18)
[2020-11-08] MEDS: ZOCOR PO SCH (09:27)
[2020-11-08] MEDS: ZINC-220 PO SCH (09:27)
[2020-11-08] MEDS: NORCO 5-325 PO SCH ×2 (09:27→20:33)
[2020-11-08] MEDS: [UNRECOGNIZED DRUG - OTHER] PO SCH ×3 (09:28→20:32)
[2020-11-08] MEDS: CARBIDOPA PO SCH ×3 (09:28→20:32)
[2020-11-08] MEDS: ALDACTONE PO SCH (09:28)
[2020-11-08] MEDS: LEVODOPA PO SCH ×3 (09:28→20:32)
[2020-11-08] MEDS: CALMOSEPTINE OINTMENT TP SCH ×2 (09:28→20:32)
[2020-11-08] MEDS: GLUCOPHAGE PO SCH (09:28)
[2020-11-08] MEDS: SYMBICORT 160-4.5 MCG INHALER IH SCH ×2 (09:29→20:33)
[2020-11-08] MEDS: LOVENOX SUBCUT SCH (09:29)
[2020-11-08] MEDS: NYSTOP POWDER TP SCH ×3 (09:29→20:32)
[2020-11-08] MEDS: FLOMAX PO SCH (20:33)
[2020-11-09 05:07] LABS: ABG O2 HGB 94.3 % (95-100); ABG PH 7.41 (7.35-7.45); BEecf 7.1 (-2.0-3.0); COHb 2.4 (0.5-1.5); HCO3 31.7 (21-28); MetHb 0.7 (0-1.5); TCO2 33.2 (19-24); sO2 96.5 % (94-98)
[2020-11-09 05:20] LABS: BASOPHILS % (AUTO) 0.2 % (0.0-3.0); EOSINOPHILS % (AUTO) 0.4 % (0.0-7.0); HEMATOCRIT 41.6 % (42.0-52.0); HEMOGLOBIN 13.5 g/dl (14.0-18.0); IMMATURE GRANULOCYTE # (AUTO) 0.1 (0.0-1.0); IMMATURE GRANULOCYTE % (AUTO) 1.1 % (0.0-5.0); LYMPHOCYTES # (AUTO) 1.6 K/uL (0.60-3.4); LYMPHOCYTES % (AUTO) 14.8 (10.0-50.0); MEAN CORPUSCULAR HEMOGLOBIN 27.1 pg (27.0-31.0); MEAN CORPUSCULAR HGB CONC 32.5 (31.8-35.4); MEAN CORPUSCULAR VOLUME 83.4 fl (80.0-94.0); MONOCYTES # (AUTO) 0.9 K/uL (0.4-2.0); MONOCYTES % (AUTO) 7.9 (0-10); NEUTROPHILS # (AUTO) 8.2 K/ul (2.0-6.9); NEUTROPHILS % (AUTO) 75.6 % (42.2-75.2); PLATELET COUNT 558 10^3/uL (140-440); RED BLOOD COUNT 4.99 10^6/ul (4.70-6.10)
[2020-11-09] MEDS: VENTOLIN HFA (PER PUFF-WITH SPACER) IH SCH ×3 (05:22→20:09)
[2020-11-09 05:32] LABS: ALANINE AMINOTRANSFERASE 4.5 U/L (0-50); ALBUMIN 3.97 g/dL (3.5-5.0); ALKALINE PHOSPHATASE 140.4 U/L (56-119); ASPARTATE AMINO TRANSFERASE 17.8 U/L (17-59); BILIRUBIN,TOTAL 0.54 mg/dL (0.2-1.3); CALCIUM 9.36 mg/dL (8.4-10.2); CARBON DIOXIDE 31.9 mmol/L (22-30.0); CHLORIDE 95.2 mmol/L (98-107); CREATININE 0.53 mg/dL (0.60-1.10); GLUCOSE 125.4 mg/dL (74-106); POTASSIUM 4.28 mmol/L (3.5-5.1); TOTAL PROTEIN 6.77 g/dL (6.3-8.2)
[2020-11-09] MEDS: LASIX TAB PO SCH (05:45)
[2020-11-09] MEDS: PEPCID PO SCH ×2 (05:45→16:40)
[2020-11-09] MEDS: KEFLEX PO SCH ×3 (05:45→20:15)
[2020-11-09] MEDS: NYSTOP POWDER TP SCH ×3 (09:12→20:15)
[2020-11-09] MEDS: ZINC-220 PO SCH (09:13)
[2020-11-09] MEDS: VITAMIN D PO SCH (09:13)
[2020-11-09] MEDS: ALDACTONE PO SCH (09:13)
[2020-11-09] MEDS: GLUCOPHAGE PO SCH (09:13)
[2020-11-09] MEDS: ZOCOR PO SCH (09:13)
[2020-11-09] MEDS: K-DUR PO SCH ×2 (09:13→16:40)
[2020-11-09] MEDS: PREDNISONE PO SCH ×2 (09:14→16:40)
[2020-11-09] MEDS: NORCO 5-325 PO SCH ×2 (09:14→20:15)
--- NOTE | 2020-11-09 09:16 | PCM.PROG ---
Attending Provider: ATTENDING PROVIDER: Dr. SUN NAGEL This patient is seen with Tiera Vaz, Nurse Practitioner. DATE OF SERVICE: 11/09/20 SUBJECTIVE: This 79 year old /WHITE M was hospitalized 10/28/20. The patient is doing remarkably well. ABGs normal this morning on 4L. He has been feeding himself, eating well. He is alert and oriented. REVIEW OF SYSTEMS: CONSTITUTIONAL: Weakness. No night sweats. No fatigue, malaise, lethargy. No fever or chills. HEENT: Eyes: No visual changes. No eye pain. No eye discharge. ENT: No runny nose. No epistaxis. No sinus pain. No odynophagia. No congestion. RESPIRATORY: No cough, no congestion. No hemoptysis. Shortness of breath. CARDIOVASCULAR: No angina symptoms. No CHF symptoms. No atypical chest pain for CAD. No palpitations. No orthopnea.. GASTROINTESTINAL: No abdominal pain. No nausea or vomiting. No diarrhea or constipation. No hematemesis. No hematochezia. GENITOURINARY: No urgency. No frequency. No dysuria. No hematuria. No obstructive symptoms. No discharge. No pain. No significant abnormal bleeding. MUSCULOSKELETAL: No musculoskeletal pain; no joint swelling. NEUROLOGICAL: Awake, alert, oriented to time, place and person. No headache. No neck pain. No syncope. No seizures. No dizziness. PSYCHIATRIC: Not anxious. No depression. No suicidal thoughts. No homicidal thoughts. SKIN: No rash. No lesions. No wounds. ENDOCRINE: No unexplained weight loss. No weight gain. HEMATOLOGIC/LYMPHATIC: No anemia. No purpura. No petechiae. No prolonged or excessive bleeding. No palpable lymph nodes. PHYSICAL EXAMINATION: GENERAL: The patient is awake, alert and oriented, lying/sitting in bed in no distress. VITAL SIGNS: Temperature 97.6 F, Pulse 71, Respiratory Rate 16, BP 139/76, Pulse Ox 96% HEENT: Head normocephalic, atraumatic. Eyes: Extraocular muscles are intact. Pupils are equal, round and reactive to light and accommodation. Ears: No lesions. Nose appeared normal. Throat: No exudate or erythema. NECK: Supple. No JVD, no carotid bruit. No lymphadenopathy or thyromegaly. LUNGS: Diminished breath sounds. Clear to auscultation. Percussion note normal. Chest symmetrical. HEART: S1, S2, no S3. No murmurs. No cyanosis or clubbing. No ascites. Puls es: Dorsalis pedis and posterior tibial pulses +1 to +2 both sides. ABDOMEN: Soft. Non-tender. Bowel sounds active. No CVA tenderness. No mass felt. EXTREMITIES: No edema. Full range of motion of all extremities, equal. NEUROLOGIC: No focal deficit. Cranial nerves II through XII are grossly intact. No headache. No double vision. SKIN: Not dry. Intact. Turgor-normal. LYMPHATIC: No palpable lymph nodes/no lymphedema. MUSCULOSKELETAL: Normal joints with no swelling. Muscle tone is normal. LAB REVIEW: 11/09/20 04:55 11/09/20 04:55 11/09/20 04:55: Sodium 134.0 L, Potassium 4.28, Chloride 95.2 L, Carbon Dioxide 31.9 H, Anion Gap 11.18, BUN 18.0, Creatinine 0.53 L, Estimated GFR (MDRD) 151.00, BUN/Creatinine Ratio 33.96, Glucose 125.4 H, Calcium 9.36, Total Bilirubin 0.54, AST 17.8, ALT 4.5, Alkaline Phosphatase 140.4 H, Total Protein 6.77, Albumin 3.97, Globulin 2.80, Albumin/Globulin Ratio 1.41 11/09/20 04:55: WBC 10.80 H, RBC 4.99, Hgb 13.5 L, Hct 41.6 L, MCV 83.4, MCH 27.1, MCHC 32.5, RDW Coeff of Leda 15.0 H, Plt Count 558 H, Immature Gran % (Auto) 1.1, Neut % (Auto) 75.6 H, Lymph % (Auto) 14.8, [place] % (Auto) 7.9, Eos % (Auto) 0.4, Baso % (Auto) 0.2, Neut # (Auto) 8.2 H, Lymph # (Auto) 1.6, [place] # (Auto) 0.9, Eos # (Auto) 0.0, Baso # (Auto) 0.0, Immature Gran # (Auto) 0.1 11/09/20 04:15: Puncture Site Lb, Base Excess 7.1 H, O2 Saturation 96.5, ABG pH 7.41, ABG pCO2 50.0 H, ABG pO2 85.0, ABG HCO3 31.7 H, ABG Total CO2 33.2 H, Ej n Test +, Hemoglobin 0.7, Oxyhemoglobin 94.3 L, Carboxyhemoglobin 2.4 H, Total Hemoglobin 18.0 H, O2 Delivery Device Cannula, Oxygen Liter Flow 4.00, FiO2 % 36.0 ASSESSMENT: Please see below. 1. Acute respiratory failure. 2. Covid-19 pneumonia. 3. Parkinson's disease. 4. Generalized weakness. PLAN: 1. Continue Keflex until tomorrow. 2. D/C IV Decadron. 3. Start Prednisone 20 mg b.i.d. 4. Today is day 13 of isolation. 5. Will continue to monitor. Plan and coordination of the patient's care discussed in the presence of Rugby League Footballer and nurse. CONDITION: Stable SCRIBED BY: MANJU LOBATO Salon Designer scribed while in presence of service performed by Dr. Nagel/Tiera Vaz APRN on 11/09/20 ([id number])
[2020-11-09] MEDS: LOVENOX SUBCUT SCH (09:19)
[2020-11-09] MEDS: LEVODOPA PO SCH ×3 (09:25→20:16)
[2020-11-09] MEDS: CARBIDOPA PO SCH ×3 (09:25→20:16)
[2020-11-09] MEDS: CALMOSEPTINE OINTMENT TP SCH ×2 (09:25→20:14)
[2020-11-09] MEDS: SYMBICORT 160-4.5 MCG INHALER IH SCH ×2 (09:25→20:14)
[2020-11-09] MEDS: [UNRECOGNIZED DRUG - OTHER] PO SCH ×3 (09:25→20:16)
[2020-11-09] MEDS: FLOMAX PO SCH (20:15)
[2020-11-10] MEDS: VENTOLIN HFA (PER PUFF-WITH SPACER) IH SCH ×3 (04:20→19:35)
[2020-11-10 04:35] LABS: ABG O2 HGB 95.7 % (95-100); ABG PH 7.44 (7.35-7.45); BEecf 6.4 (-2.0-3.0); COHb 2.1 (0.5-1.5); HCO3 30.6 (21-28); MetHb 1.1 (0-1.5); sO2 99.2 % (94-98); tHb 18.7 g/dl (11.7-17.4)
[2020-11-10 05:40] LABS: BASOPHILS % (AUTO) 0.2 % (0.0-3.0); EOSINOPHILS % (AUTO) 0.1 % (0.0-7.0); HEMATOCRIT 40.9 % (42.0-52.0); HEMOGLOBIN 13.3 g/dl (14.0-18.0); IMMATURE GRANULOCYTE # (AUTO) 0.2 (0.0-1.0); IMMATURE GRANULOCYTE % (AUTO) 1.2 % (0.0-5.0); LYMPHOCYTES # (AUTO) 1.3 K/uL (0.60-3.4); LYMPHOCYTES % (AUTO) 10.7 (10.0-50.0); MEAN CORPUSCULAR HGB CONC 32.5 (31.8-35.4); MEAN CORPUSCULAR VOLUME 83.1 fl (80.0-94.0); MONOCYTES # (AUTO) 0.7 K/uL (0.4-2.0); MONOCYTES % (AUTO) 5.3 (0-10); NEUTROPHILS # (AUTO) 10.1 K/ul (2.0-6.9); NEUTROPHILS % (AUTO) 82.5 % (42.2-75.2); PLATELET COUNT 496 10^3/uL (140-440); RDW COEFFICIENT OF VARIATION 15.1 % (11.6-14.8); RED BLOOD COUNT 4.92 10^6/ul (4.70-6.10); WHITE BLOOD COUNT 12.18 K/ul (4.2-10.2)
[2020-11-10] MEDS: LASIX TAB PO SCH (05:52)
[2020-11-10] MEDS: KEFLEX PO SCH ×3 (05:52→21:10)
[2020-11-10] MEDS: PEPCID PO SCH ×2 (05:52→17:38)
[2020-11-10 05:58] LABS: ALANINE AMINOTRANSFERASE 5.6 U/L (0-50); ALBUMIN 3.91 g/dL (3.5-5.0); ASPARTATE AMINO TRANSFERASE 26.6 U/L (17-59); BILIRUBIN,TOTAL 0.59 mg/dL (0.2-1.3); BLOOD UREA NITROGEN 19.5 mg/dL (9-20); CALCIUM 9.64 mg/dL (8.4-10.2); CARBON DIOXIDE 31.7 mmol/L (22-30.0); CREATININE 0.56 mg/dL (0.60-1.10); GLUCOSE 142.4 mg/dL (74-106); POTASSIUM 4.46 mmol/L (3.5-5.1); SODIUM 133.7 mmol/L (134.5-145); TOTAL PROTEIN 6.67 g/dL (6.3-8.2)
[2020-11-10] MEDS: LOVENOX SUBCUT SCH (08:56)
[2020-11-10] MEDS: ALDACTONE PO SCH (08:56)
[2020-11-10] MEDS: VITAMIN D PO SCH (08:57)
[2020-11-10] MEDS: PREDNISONE PO SCH ×2 (08:57→17:35)
[2020-11-10] MEDS: ZOCOR PO SCH (08:57)
[2020-11-10] MEDS: K-DUR PO SCH ×2 (08:57→17:38)
[2020-11-10] MEDS: GLUCOPHAGE PO SCH (08:57)
[2020-11-10] MEDS: ZINC-220 PO SCH (08:57)
[2020-11-10] MEDS: NORCO 5-325 PO SCH ×2 (08:57→21:09)
[2020-11-10] MEDS: NYSTOP POWDER TP SCH ×3 (09:00→21:12)
[2020-11-10] MEDS: CALMOSEPTINE OINTMENT TP SCH ×2 (09:01→21:13)
[2020-11-10] MEDS: [UNRECOGNIZED DRUG - OTHER] PO SCH ×3 (09:01→21:13)
[2020-11-10] MEDS: LEVODOPA PO SCH ×3 (09:01→21:13)
[2020-11-10] MEDS: CARBIDOPA PO SCH ×3 (09:01→21:13)
[2020-11-10] MEDS: SYMBICORT 160-4.5 MCG INHALER IH SCH ×2 (09:02→21:12)
--- NOTE | 2020-11-10 10:21 | PCM.PROG ---
Attending Provider: ATTENDING PROVIDER: Dr. SUN NAGEL DATE OF SERVICE: 11/10/20 SUBJECTIVE: This 79 year old /WHITE M was hospitalized 10/28/20 with respiratory failure, Covid positive status with bronchitis. The patient went through dementia with Parkinson's disease, aggressive behavior with worsening of Covid status with respiratory failure. He has come through with antibiotics, steroids and nebs. He is in regular room status post 14 days post Covid. The patient answers questions and is in no distress. REVIEW OF SYSTEMS: CONSTITUTIONAL: No night sweats. No fatigue, malaise, lethargy. No fever or chills. HEENT: Eyes: No visual changes. No eye pain. No eye discharge. ENT: No runny nose. No epistaxis. No sinus pain. No odynophagia. No congestion. RESPIRATORY: No cough, no congestion. No hemoptysis. No shortness of breath. CARDIOVASCULAR: No angina symptoms. No CHF symptoms. No atypical chest pain for CAD. No palpitations. No orthopnea.. GASTROINTESTINAL: Appetite improved. No abdominal pain. No nausea or vomiting. No diarrhea or constipation. No hematemesis. No hematochezia. GENITOURINARY: No urgency. No frequency. No dysuria. No hematuria. No obstru ctive symptoms. No discharge. No pain. No significant abnormal bleeding. MUSCULOSKELETAL: No musculoskeletal pain; no joint swelling. NEUROLOGICAL: Awake, alert, oriented to place and person. No headache. No neck pain. No syncope. No seizures. No dizziness. PSYCHIATRIC: Not anxious. No depression. No suicidal thoughts. No homicidal thoughts. SKIN: No rash. No lesions. No wounds. ENDOCRINE: No unexplained weight loss. No weight gain. HEMATOLOGIC/LYMPHATIC: No anemia. No purpura. No petechiae. No prolonged or excessive bleeding. No palpable lymph nodes. PHYSICAL EXAMINATION: GENERAL: The patient is awake, alert and oriented, lying/sitting in bed in no distress. VITAL SIGNS: Temperature 97.6 F, Pulse 88, Respiratory Rate 18, BP 124/73, Pulse Ox 97% HEENT: Head normocephalic, atraumatic. Eyes: Extraocular muscles are intact. Pupils are equal, round and reactive to light and accommodation. Ears: No lesions. Nose appeared normal. Throat: No exudate or erythema. NECK: Supple. No JVD, no carotid bruit. No lymphadenopathy or thyromegaly. LUNGS: Decreased breath sounds with good air entry. Percussion note normal. Chest symmetrical. HEART: S1, S2, no S3. No murmurs. No cyanosis or clubbing. No ascites. Pulses: Dorsalis pedis and posterior tibial pulses +1 to +2 both sides. ABDOMEN: Soft. Non-tender. Bowel sounds active. No CVA tenderness. No mass felt. EXTREMITIES: No edema. Full range of motion of all extremities, equal. NEUROLOGIC: No focal deficit. Cranial nerves II through XII are grossly intact. No headache, no double vision or headache. SKIN: Warm and dry. Intact. Turgor-normal. LYMPHATIC: No palpable lymph nodes/no lymphedema. MUSCULOSKELETAL: Normal joints with no swelling. Muscle tone is normal. LAB REVIEW: 11/10/20 05:24 11/10/20 05:24 11/10/20 05:24: Sodium 133.7 L, Potassium 4.46, Chloride 95.0 L, Carbon Dioxide 31.7 H, Anion Gap 11.46, BUN 19.5, Creatinine 0.56 L, Estimated GFR (MDRD) 141.00, BUN/Creatinine Ratio 34.82, Glucose 142.4 H, Calcium 9.64, Total Bilirubin 0.59, AST 26.6, ALT 5.6, Alkaline Phosphatase 144.0 H, Total Protein 6.67, Albumin 3.91, Globulin 2.76, Albumin/Globulin Ratio 1.41 11/10/20 05:24: WBC 12.18 H, RBC 4.92, Hgb 13.3 L, Hct 40.9 L, MCV 83.1, MCH 27.0, MCHC 32.5, RDW Coeff of Leda 15.1 H, Plt Count 496 H, Immature Gran % (Auto) 1.2, Neut % (Auto) 82.5 H, Lymph % (Auto) 10.7, [place] % (Auto) 5.3, Eos % (Auto) 0.1, Baso % (Auto) 0.2, Neut # (Auto) 10.1 H, Lymph # (Auto) 1.3, [place] # (Auto) 0.7, Eos # (Auto) 0.0, Baso # (Auto) 0.0, Immature Gran # (Auto) 0.2 11/10/20 00:11: Puncture Site Lb, Base Excess 6.4 H, O2 Saturation 99.2 H, ABG pH 7.44, ABG pCO2 45.0, ABG pO2 135.0 H, ABG HCO3 30.6 H, ABG Total CO2 32.0 H, Zaki Test +, Hemoglobin 1.1, Oxyhemoglobin 95.7, Carboxyhemoglobin 2.1 H, Total Hemoglobin 18.7 H, O2 Delivery Device Cannula, Oxygen Liter Flow 4.00, FiO2 % 36.0 11/09/20 04:53: C-Reactive Prot, Quant 4 ASSESSMENT: Please see below. 1. Covid status seems to have improved. 2. Pneumonia seems to have resolved. 3. Respiratory failure seems to be resolving. 4. Overall medical status improving with Parkinson's disease. No aggressive behavior with Parkinson's with change of place or medication effect from Parkinson's. PLAN: 1. The patient is tolerating diet well. 2. The patient is going to be actively involved in Physical Therapy. He will be up and about. 3. Will encourage the patient to eat. Plan and coordination of the patient's care discussed in the presence of Manager Logistic and nurse. CONDITION: Stable SCRIBED BY: MANJU LOBATO, [employer] Bone Roller scribed while in presence of service performed by Dr. SUN NAGEL on 11/10/20 ([id number])
--- NOTE | 2020-11-10 14:11 | RS.OTINEVL ---
Subjective - Patient information Date of Evaluation: 11/10/20 Date of Arrival on Unit: 10/28/20 Admitted From:: Home Diagnosis: Cough, SOA PRECAUTIONS: High risk for falls Usual Living Arrangement: With Others Living Arrangement Comments: lives with son and other sons come to help. Home Environment: House Medical History: Hypertension, COPD, Diabetes, CHF, Arthritis Medical History Comments:: CAD, GERD, L ventricular hypertrophy, BPH, Parkinson's disease, dementia LATEX ALLERGY?: No Surgical History: Lumbar Spine, Cholecystectomy Surgical History Comments:: B double inguinal hernia repair, vascular surgery Medications: see chart Subjective Information/ Patient Comments:: "I have a sore." - Level of function Prior to this admission, the patient could do the following:: Partially Dependent Ambulation Abilities prior to this admission: Pt was not walking much at home. Pt reports he was receiving home health. Pt is able to feed himself some of the meal and then he fatigues. Pt requires assistance with all ADLS. Current Level of Function: Partially Dependent Comments: Pt is mod to max assistance to transfer from EOB to chair. Pt is maximum assist to sit EOB. Current Equipment Used at Home: walker Pain Assessment - Pain Pain Location Body Site: coccyx Pain Aggravating Factors: Sitting, Walking Pain Alleviating Factors: Medication, Position Change, Lying Supine Interventions - Objective Patient Orientation: Person Current Interventions: IV's, Oxygen, Telemetry Observation: Pt is weak and stiff joints, painful legs and shoulders. Pt has limited shoulder AROM. Pt sat EOB with max assistance. Pt sit to stand maximum assistance. Pt moved legs to EOB minimal assistance. Interventions - ROM Right Upper Extremity AROM: Moderate limitation Left Upper Extremity AROM: Moderate limitation Comments: Pt has pain and stiffness of BUE shoulders - Strength Right Upper Extremity Strength: Mild Weakness Left Upper Extremity Strength: Mild Weakness - Sensation Right Upper Extremity Sensation: Intact/Normal Left Upper Extremity Sensation: Intact/Normal Balance - Sitting Balance Static Sitting Balance: Fair Dynamic Sitting Balance: Fair - Standing Balance Static Standing Balance: Poor Dynamic Standing Balance: Poor ADL Skills - Self Feeding Self Feeding: Mod Assist - Grooming Grooming: Max Assist, 1 person assist, Verbal Cues, Tactile Cues - Bathing Bathing UE: Not Tested Bathing LE: Not Tested - Dressing Dressing UE: Max Assist Dressing LE: Max Assist - Toilet Management Toilet Hygiene: Max Assist Toilet Clothing Management: Max Assist Functional Mobility - Bed Mobility Rolling R/L: Max Assist Scooting: Max Assist Supine to Sit: Max Assist Sit to Supine: Max Assist - Transfers Sit to Stand: Max Assist, 2 person assist Stand to Sit: Max Assist, 2 person assist Stand Pivot Transfers: Max Assist, 2 person assist Comments:: The transfer was moderate to maximum assistance. Pt is maximum assist for bed mobility, sit to stand, and controlling the walker. - Ambulation Weight Bearing Status: FWB Assistive Device Used: Rolling Walker Assistance needed with Ambulation: Mod Assist, 2 person assist - Safety Awareness Safety Awareness: Fair CHRISTINE INDEX SCORE: . Additional Treatment Performed - Time with patient Length of Evaluation: 20 Total treatment time: 20 Activities Would you be interested in leaving your room for activities?: Yes Would you enjoy group activities?: Yes Do you have difficulty with your vision?: Yes (Pt wears glasses and he does not have them here at the hospital. ) What types of things do you enjoy doing? Any Hobbies?: Watching TV. Patient Interests:: Watching Television Patient Education Patient Education: Education of Plan of Care Teaching Recipient: Patient Teaching Methods: Discussion Assessment Problem List:: Decreased level of function, Requires training/education, Decreased safety/Risk of falls, Weakness, Pain limits previous level of function, Cognitive status limits abilities Rehab Potential: Fair Further Therapy Indicated?: Yes Candidate for Swing Bed for Therapy Services?: Pt would improve better with superintendent terminal therapy. Evaluation Complexity: HISTORY: Medium, EXAM OF BODY SYSTEMS: Medium, CLINICAL DECISION MAKING: Medium Patient's Goal(s): To feel better. Short Term Goals - Goals GOAL 1: Pt to increase toilet transfers to CGA. Goal to be met by: 11/15/20 GOAL 2: Pt to increase I of BLE dressing to Min A. Goal to be met by: 11/15/20 GOAL 3: Pt to increase independence of sink level ADLS to CGA. Goal to be met by: 11/15/20 GOAL 4: Pt to increase BUE strength to 4/5. Goal to be met by: 11/15/20 Telecine Operator Goals GOAL 1: Pt to increase toilet transfer to Mod-I. Goal to be met by: 11/17/20 GOAL 2: Pt to increase BUE strength to 4+/5. Goal to be met by: 11/17/20 GOAL 3: Pt to increase Indep. of sink level ADLS to SUP. Goal to be met by: 11/17/20 Plan Plan of Care: Therapeutic EX, Neuromuscular Re-Educ, Therapeutic Activity, Self- Care/Home Management Frequency of Treatment: 1-2 X day, as tolerated Duration of Treatment: 1 Week Anticipated Discharge Destination: Telecine Operator Care Facility Treatment Diagnosis (ICD 10 Codes): M25.61 Shoulder stiffness, R53.1 Weakness, Z74.1 Need for assistance with personal care. Has the Physician been added for Co-signature?: Yes
--- NOTE | 2020-11-10 14:55 | RS.PTINEVL ---
Subjective - Patient information Date of Evaluation: 11/10/20 Date of Arrival on Unit: 10/28/20 Admitted From:: Home Diagnosis: acute respiratory failure, COVID19 Usual Living Arrangement: With Others Living Arrangement Comments: pt lives with son Home Environment: House Medical History: Hypertension, Dementia, Diabetes, Arthritis Medical History Comments:: CAD, BPH, cervical radiculopathy, GERD, L vent hypertrophy, dysphagia, parkinson's disease Surgical History: Lumbar Spine, Cholecystectomy Medications: see chart Subjective Information/ Patient Comments:: pt states that he has a sore on his bottom. - Level of function Prior to this admission, the patient could do the following:: Partially Dependent Ambulation Abilities prior to this admission: pt amb with rwx with assist of home health PT. pt states he only walked with therapy Current Level of Function: Dependent Current Equipment Used at Home: rolling walker Pain Assessement - Location buttocks Description: Sharp Pain Behavior: Facial Grimacing Pain Aggravating Factors: Changing Position, Sitting Interventions - Objective Patient Orientation: Person, Place Current Interventions: IV's, Oxygen, Telemetry Range of Motion - ROM Right Upper Extremity AROM: Slight limitation (limited shld flex) Left Upper Extremity AROM: Slight limitation (limited shld flex) Right Lower Extremity AROM: WFL's Left Lower Extremity AROM: WFL's Muscle Strength - Muscle Strength Right Upper Extremity Strength: Mild Weakness (grossly 4-/5 except shld flex 3- /5) Left Upper Extremity Strength: Mild Weakness (grossly 4-/5 except shld flex 3- /5) Right Lower Extremity Strength: Mild Weakness (hip flex 3/5, knee flex/ext 3+/5, ankle DF/PF 3+/5) Left Lower Extremity Strength: Mild Weakness (hip flex 3/5, knee flex/ext 3+/5, ankle DF/PF 3+/5) Sensation - Sensation Right Upper Extremity Sensation: Intact/Normal Left Upper Extremity Sensation: Intact/Normal Right Lower Extremity Sensation: Intact/Normal Left Lower Extremity Sensation: Intact/Normal Balance - Sitting Balance and Reactions Static Sitting Balance: Poor Dynamic Sitting Balance: Poor Sitting Equilibrium Reactions: Delayed Left, Delayed Right Sitting Protective Reactions: Delayed Left, Delayed Right - Standing Balance and Reactions Static Standing Balance: Poor Dynamic Standing Balance: Poor Standing Equilibrium Reactions: Delayed Left, Delayed Right Standing Protective Reactions: Delayed Left, Delayed Right - Comments Balance Assessment Comments: pt able to sit at side of bed after PT places pt in correct position, unable to maintain balance against resistance. pt requires mod assist to maintain standing Functional Mobility - Bed Mobility Rolling R/L: Max Assist Scooting: Max Assist, 2 person assist Supine to Sit: Max Assist, 2 person assist - Transfers Sit to Stand: Max Assist, 2 person assist Stand to Sit: Mod Assist, Max Assist, 2 person assist - Safety Awareness Safety Awareness: Poor CHRISTINE INDEX SCORE: n/a Ambulation - Ambulation Assistive Device Used: Rolling Walker Orthotic/Prosthetic Device: No Distance: 3-4 steps Assistance needed with Ambulation: Mod Assist, Max Assist, 2 person assist Gait Deviations: Narrow Based gait, Shuffling gait, Forward posture, Short stride, Deviates from path Ambulation Comments: pt required assist for walker placement, required cues to increase JORDAN, posture. Factors Affecting Ambulation: Decreased Balance, Breathing/O2 Saturation, Weakness, Decreased ROM (pt appeared fatigued after taking a few steps to the chair.), Decreased Safety, Cognitive Status, Limited Endurance Treatment time - Time with patient Length of Evaluation: 26 Total treatment time: 39 Patient Education - Education Patient Education: Activity Modification, Education of Plan of Care Teaching Recipient: Patient Teaching Methods: Discussion, Demonstration Assessment - Assessment Problem List:: Decreased level of function, Requires training/education, Decreased safety/Risk of falls, Weakness, Cognitive status limits abilities Rehab Potential: Fair Further Therapy Indicated?: Yes Candidate for Swing Bed for Therapy Services?: Feel pt may require half-way care for rehab due to low endurance may limit ability to make progress. Evaluation Complexity: HISTORY: Medium, EXAM OF BODY SYSTEMS: Medium, CLINICAL PRESENTATION: Medium, CLINICAL DECISION MAKING: Medium Patient's Goal(s): Go home Short Term Goals GOAL #1: pt demonstrate rolling with bed rails mod x 1 Goal to be met by: 11/14/20 GOAL #2: Sup to/from sit mod x 2 Goal to be met by: 11/14/20 GOAL #3: sit to/from stand mod x 2 Goal to be met by: 11/14/20 GOAL #4: pt amb 25ft with rwx min to mod x 2 Goal to be met by: 11/14/20 GOAL #5: Improve B LE strength to 06/05 Goal to be met by: 11/14/20 [facility] Goals GOAL #1: sup to/from sit to/from stand min x 1 Goal to be met by: 11/17/20 GOAL #2: pt transfer bed to/from chair min x 1 Goal to be met by: 11/17/20 GOAL #3: pt amb with rwx 75ft with min x 1 to 2 Goal to be met by: 11/17/20 Plan Plan of Care: Therapeutic EX, Therapeutic Activity Other:: gait training Frequency of Treatment: 1-2 X day, as tolerated Duration of Treatment: 1 Week Anticipated Discharge Destination: undetermined Treatment Diagnosis (ICD 10 Codes): impaired balance R 26.81. difficulty walking R 26.2. weakness M62.81. parkinsons disease Has the Physician been added for Co-signature?: Yes
[2020-11-10] MEDS: FLOMAX PO SCH (21:09)
[2020-11-11] MEDS: VENTOLIN HFA (PER PUFF-WITH SPACER) IH SCH ×3 (04:40→20:00)
[2020-11-11] MEDS: LASIX TAB PO SCH (05:46)
[2020-11-11] MEDS: PEPCID PO SCH ×2 (05:46→17:09)
[2020-11-11 05:50] LABS: BASOPHILS % (AUTO) 0.2 % (0.0-3.0); HEMATOCRIT 38.5 % (42.0-52.0); HEMOGLOBIN 12.7 g/dl (14.0-18.0); IMMATURE GRANULOCYTE # (AUTO) 0.2 (0.0-1.0); IMMATURE GRANULOCYTE % (AUTO) 1.6 % (0.0-5.0); LYMPHOCYTES # (AUTO) 1.3 K/uL (0.60-3.4); LYMPHOCYTES % (AUTO) 11.8 (10.0-50.0); MEAN CORPUSCULAR HEMOGLOBIN 27.4 pg (27.0-31.0); MEAN CORPUSCULAR VOLUME 83.2 fl (80.0-94.0); MONOCYTES # (AUTO) 0.5 K/uL (0.4-2.0); MONOCYTES % (AUTO) 4.6 (0-10); NEUTROPHILS # (AUTO) 9.1 K/ul (2.0-6.9); NEUTROPHILS % (AUTO) 81.8 % (42.2-75.2); PLATELET COUNT 512 10^3/uL (140-440); RDW COEFFICIENT OF VARIATION 15.1 % (11.6-14.8); RED BLOOD COUNT 4.63 10^6/ul (4.70-6.10); WHITE BLOOD COUNT 11.13 K/ul (4.2-10.2)
[2020-11-11 06:06] LABS: ALANINE AMINOTRANSFERASE 6.6 U/L (0-50); ALBUMIN 3.83 g/dL (3.5-5.0); ALKALINE PHOSPHATASE 138.1 U/L (56-119); ASPARTATE AMINO TRANSFERASE 22.7 U/L (17-59); BILIRUBIN,TOTAL 0.48 mg/dL (0.2-1.3); BLOOD UREA NITROGEN 19.2 mg/dL (9-20); CALCIUM 9.3 mg/dL (8.4-10.2); CARBON DIOXIDE 29.3 mmol/L (22-30.0); CHLORIDE 96.3 mmol/L (98-107); CREATININE 0.54 mg/dL (0.60-1.10); GLUCOSE 159.3 mg/dL (74-106); POTASSIUM 4.4 mmol/L (3.5-5.1); SODIUM 133.6 mmol/L (134.5-145); TOTAL PROTEIN 6.43 g/dL (6.3-8.2)
[2020-11-11 06:55] LABS: ABG O2 HGB 94.5 % (95-100); BEecf 6.4 (-2.0-3.0); HCO3 29.6 (21-28); MetHb 1.2 (0-1.5); TCO2 30.8 (19-24); sO2 97.6 % (94-98); tHb 13.3 g/dl (11.7-17.4)
[2020-11-11] MEDS: K-DUR PO SCH ×2 (09:18→17:10)
[2020-11-11] MEDS: ZINC-220 PO SCH (09:18)
[2020-11-11] MEDS: VITAMIN D PO SCH (09:18)
[2020-11-11] MEDS: GLUCOPHAGE PO SCH (09:18)
[2020-11-11] MEDS: PREDNISONE PO SCH ×2 (09:18→17:10)
[2020-11-11] MEDS: ZOCOR PO SCH (09:18)
[2020-11-11] MEDS: ALDACTONE PO SCH (09:18)
[2020-11-11] MEDS: NORCO 5-325 PO SCH ×2 (09:18→20:48)
[2020-11-11] MEDS: [UNRECOGNIZED DRUG - OTHER] PO SCH ×3 (09:19→20:48)
[2020-11-11] MEDS: CALMOSEPTINE OINTMENT TP SCH ×2 (09:19→20:48)
[2020-11-11] MEDS: NYSTOP POWDER TP SCH ×3 (09:19→20:47)
[2020-11-11] MEDS: CARBIDOPA PO SCH ×3 (09:19→20:48)
[2020-11-11] MEDS: LEVODOPA PO SCH ×3 (09:19→20:48)
[2020-11-11] MEDS: SYMBICORT 160-4.5 MCG INHALER IH SCH ×2 (09:20→20:47)
[2020-11-11] MEDS: LOVENOX SUBCUT SCH (09:25)
[2020-11-11] MEDS: ULTRAM PO PRN (16:02)
[2020-11-11] MEDS: FLOMAX PO SCH (20:48)
[2020-11-11] MEDS ORDERED: COLACE PO PRN (20:54)
[2020-11-11] MEDS ORDERED: MILK OF MAGNESIA PO STA (20:54)
[2020-11-12] MEDS: VENTOLIN HFA (PER PUFF-WITH SPACER) IH SCH ×3 (04:25→19:30)
[2020-11-12 05:21] LABS: BASOPHILS % (AUTO) 0.2 % (0.0-3.0); HEMATOCRIT 40.7 % (42.0-52.0); HEMOGLOBIN 13.2 g/dl (14.0-18.0); IMMATURE GRANULOCYTE # (AUTO) 0.2 (0.0-1.0); IMMATURE GRANULOCYTE % (AUTO) 1.1 % (0.0-5.0); LYMPHOCYTES # (AUTO) 1.3 K/uL (0.60-3.4); LYMPHOCYTES % (AUTO) 9.6 (10.0-50.0); MEAN CORPUSCULAR HEMOGLOBIN 27.3 pg (27.0-31.0); MEAN CORPUSCULAR HGB CONC 32.4 (31.8-35.4); MEAN CORPUSCULAR VOLUME 84.1 fl (80.0-94.0); MONOCYTES # (AUTO) 0.8 K/uL (0.4-2.0); MONOCYTES % (AUTO) 5.8 (0-10); NEUTROPHILS # (AUTO) 10.9 K/ul (2.0-6.9); NEUTROPHILS % (AUTO) 83.3 % (42.2-75.2); PLATELET COUNT 503 10^3/uL (140-440); RDW COEFFICIENT OF VARIATION 15.4 % (11.6-14.8); RED BLOOD COUNT 4.84 10^6/ul (4.70-6.10); WHITE BLOOD COUNT 13.12 K/ul (4.2-10.2)
[2020-11-12] MEDS: PEPCID PO SCH ×2 (05:36→17:16)
[2020-11-12] MEDS: LASIX TAB PO SCH (05:36)
[2020-11-12 05:39] LABS: ALANINE AMINOTRANSFERASE 11.4 U/L (0-50); ALBUMIN 3.99 g/dL (3.5-5.0); ALKALINE PHOSPHATASE 167.9 U/L (56-119); ASPARTATE AMINO TRANSFERASE 40.7 U/L (17-59); BILIRUBIN,TOTAL 0.48 mg/dL (0.2-1.3); BLOOD UREA NITROGEN 22.4 mg/dL (9-20); CALCIUM 9.24 mg/dL (8.4-10.2); CARBON DIOXIDE 35.9 mmol/L (22-30.0); CREATININE 0.61 mg/dL (0.60-1.10); GLUCOSE 154.1 mg/dL (74-106); POTASSIUM 4.53 mmol/L (3.5-5.1); SODIUM 135.2 mmol/L (134.5-145); TOTAL PROTEIN 6.72 g/dL (6.3-8.2)
[2020-11-12] MEDS: VITAMIN D PO SCH (08:19)
[2020-11-12] MEDS: K-DUR PO SCH ×2 (08:20→17:16)
[2020-11-12] MEDS: NORCO 5-325 PO SCH ×2 (08:20→20:57)
[2020-11-12] MEDS: ZINC-220 PO SCH (08:20)
[2020-11-12] MEDS: PREDNISONE PO SCH ×2 (08:20→17:16)
[2020-11-12] MEDS: LEVODOPA PO SCH ×3 (08:21→20:57)
[2020-11-12] MEDS: GLUCOPHAGE PO SCH (08:21)
[2020-11-12] MEDS: CARBIDOPA PO SCH ×3 (08:21→20:57)
[2020-11-12] MEDS: ALDACTONE PO SCH (08:21)
[2020-11-12] MEDS: CALMOSEPTINE OINTMENT TP SCH ×2 (08:21→20:56)
[2020-11-12] MEDS: ZOCOR PO SCH (08:21)
[2020-11-12] MEDS: NYSTOP POWDER TP SCH ×3 (08:21→20:57)
[2020-11-12] MEDS: [UNRECOGNIZED DRUG - OTHER] PO SCH ×3 (08:21→20:57)
[2020-11-12] MEDS: SYMBICORT 160-4.5 MCG INHALER IH SCH ×2 (08:22→20:57)
[2020-11-12] MEDS: LOVENOX SUBCUT SCH (08:26)
[2020-11-12] MEDS: FLOMAX PO SCH (20:58)
[2020-11-13] MEDS: VENTOLIN HFA (PER PUFF-WITH SPACER) IH SCH ×2 (04:25→14:26)
[2020-11-13 04:50] LABS: BASOPHILS % (AUTO) 0.2 % (0.0-3.0); HEMATOCRIT 40.3 % (42.0-52.0); HEMOGLOBIN 12.6 g/dl (14.0-18.0); IMMATURE GRANULOCYTE # (AUTO) 0.1 (0.0-1.0); IMMATURE GRANULOCYTE % (AUTO) 1.3 % (0.0-5.0); LYMPHOCYTES # (AUTO) 1.2 K/uL (0.60-3.4); LYMPHOCYTES % (AUTO) 11.2 (10.0-50.0); MEAN CORPUSCULAR HEMOGLOBIN 26.6 pg (27.0-31.0); MEAN CORPUSCULAR HGB CONC 31.3 (31.8-35.4); MONOCYTES # (AUTO) 0.6 K/uL (0.4-2.0); MONOCYTES % (AUTO) 5.9 (0-10); NEUTROPHILS # (AUTO) 8.9 K/ul (2.0-6.9); NEUTROPHILS % (AUTO) 81.4 % (42.2-75.2); PLATELET COUNT 460 10^3/uL (140-440); RDW COEFFICIENT OF VARIATION 15.5 % (11.6-14.8); RED BLOOD COUNT 4.74 10^6/ul (4.70-6.10); WHITE BLOOD COUNT 10.87 K/ul (4.2-10.2)
[2020-11-13 05:07] LABS: ALANINE AMINOTRANSFERASE 11.5 U/L (0-50); ALBUMIN 3.81 g/dL (3.5-5.0); ALKALINE PHOSPHATASE 167.5 U/L (56-119); ASPARTATE AMINO TRANSFERASE 44.4 U/L (17-59); BILIRUBIN,TOTAL 0.5 mg/dL (0.2-1.3); BLOOD UREA NITROGEN 20.3 mg/dL (9-20); CALCIUM 9.22 mg/dL (8.4-10.2); CARBON DIOXIDE 35.5 mmol/L (22-30.0); CHLORIDE 93.5 mmol/L (98-107); CREATININE 0.54 mg/dL (0.60-1.10); GLUCOSE 141.9 mg/dL (74-106); POTASSIUM 4.66 mmol/L (3.5-5.1); SODIUM 133.7 mmol/L (134.5-145); TOTAL PROTEIN 6.42 g/dL (6.3-8.2)
[2020-11-13] MEDS: PEPCID PO SCH (06:02)
[2020-11-13] MEDS: LASIX TAB PO SCH (06:03)
[2020-11-13] MEDS: ULTRAM PO PRN ×2 (06:29→13:19)
[2020-11-13] MEDS ORDERED: PROTONIX PO SCH (09:00)
[2020-11-13] MEDS ORDERED: ASPIRIN CHEWABLE PO SCH (09:00)
--- NOTE | 2020-11-13 09:32 | PCM.PROG ---
Attending Provider: ATTENDING PROVIDER: Dr. SUN DE LA FUENTE This patient is seen with Tiera Vaz, Nurse Practitioner. DATE OF SERVICE: 11/13/20 SUBJECTIVE: This 80 year old /WHITE M was hospitalized 10/28/20. The patient is resting comfortably. The patient is complaining of pain as usual this morning. He is doing remarkably well. Down to 2 liters of nasal cannula. Feeding himself. He is alert and oriented. Ready for discharge to detention today. REVIEW OF SYSTEMS: CONSTITUTIONAL: No night sweats. No fatigue, malaise, lethargy. No fever or chills. Weakness. HEENT: Eyes: No visual changes. No eye pain. No eye discharge. ENT: No runny nose. No epistaxis. No sinus pain. No odynophagia. No congestion. RESPIRATORY: No cough, no congestion. No hemoptysis. No shortness of breath. CARDIOVASCULAR: No angina symptoms. No CHF symptoms. No atypical chest pain for CAD. No palpitations. No orthopnea.. GASTROINTESTINAL: No abdominal pain. No nausea or vomiting. No diarrhea or constipation. No hematemesis. No hematochezia. GENITOURINARY: No urgency. No frequency. No dysuria. No hematuria. No obstructive symptoms. No discharge. No pain. No significant abnormal bleeding. MUSCULOSKELETAL: No musculoskeletal pain; no joint swelling. NEUROLOGICAL: Awake, alert, oriented to time, place and person. No headache. No neck pain. No syncope. No seizures. No dizziness. PSYCHIATRIC: Not anxious. No depression. No suicidal thoughts. No homicidal thoughts. SKIN: No rash. No lesions. No wounds. ENDOCRINE: No unexplained weight loss. No weight gain. HEMATOLOGIC/LYMPHATIC: No anemia. No purpura. No petechiae. No prolonged or excessive bleeding. No palpable lymph nodes. PHYSICAL EXAMINATION: GENERAL: The patient is awake, alert and oriented, lying in bed in no distress. VITAL SIGNS: Temperature 97.0 F, Pulse 98, Respiratory Rate 18, BP 163/81, Pulse Ox 96% HEENT: Head normocephalic, atraumatic. Eyes: Extraocular muscles are intact. Pupils are equal, round and reactive to light and accommodation. Ears: No lesions. Nose appeared normal. Throat: No exudate or erythema. NECK: Supple. No JVD, no carotid bruit. No lymphadenopathy or thyromegaly. LUNGS: Diminished breath sounds. Clear to auscultation. Percussion note normal. Chest symmetrical. HEART: S1, S2, no S3. No murmurs. No cyanosis or clubbing. No ascites. Pulses: Dorsalis pedis and posterior tibial pulses +1 to +2 both sides. ABDOMEN: Soft. Non-tender. Bowel sounds active. No CVA tenderness. No mass felt. EXTREMITIES: No edema. Full range of motion of all extremities, equal. NEUROLOGIC: No focal deficit. Cranial nerves II through XII are grossly intact. No headache. No double vision. SKIN: Not dry. Intact. Turgor-normal. LYMPHATIC: No palpable lymph nodes/no lymphedema. MUSCULOSKELETAL: Normal joints with no swelling. Muscle tone is normal. LAB REVIEW: 11/13/20 04:05 11/13/20 04:05 11/13/20 04:05: Sodium 133.7 L, Potassium 4.66, Chloride 93.5 L, Carbon Dioxide 35.5 H, Anion Gap 9.36, BUN 20.3 H, Creatinine 0.54 L, Estimated GFR (MDRD) 147.00, BUN/Creatinine Ratio 37.59, Glucose 141.9 H, Calcium 9.22, Total Bilirubin 0.50, AST 44.4, ALT 11.5, Alkaline Phosphatase 167.5 H, Total Protein 6.42, Albumin 3.81, Globulin 2.61, Albumin/Globulin Ratio 1.45 11/13/20 04:05: WBC 10.87 H, RBC 4.74, Hgb 12.6 L, Hct 40.3 L, MCV 85.0, MCH 26.6 L, MCHC 31.3 L, RDW Coeff of Leda 15.5 H, Plt Count 460 H, Immature Gran % (Auto) 1.3, Neut % (Auto) 81.4 H, Lymph % (Auto) 11.2, [place] % (Auto) 5.9, Eos % (Auto) 0.0, Baso % (Auto) 0.2, Neut # (Auto) 8.9 H, Lymph # (Auto) 1.2, [place] # (Auto) 0.6, Eos # (Auto) 0.0, Baso # (Auto) 0.0, Immature Gran # (Auto) 0.1 ASSESSMENT: Please see below. 1. COVID 19 pneumonia with acute respiratory failure, resolved 2. Generalized weakness 3. Parkinson's disease 4. Chronic anemia 5. [place] COPD, oxygen dependent 6. Chronic pain 7. Chronic kidney disease stage 2 PLAN: 1. Discharge to [place] 2. The patient needs to have CBC and CMP in one week 3. Needs to remain on oxygen on 2-3 liters via nasal cannula 4. Will schedule pain medication [place] 5mg TID 5. Continue Vitamin D and Zinc for two more weeks 6. Prednisone 20mg BID times three days then daily for 4 days 7. Other medications have resumed 8. We will continue to follow him as Cardiology 9. Discontinue Moses Catheter 10.The patient must void before discharge 11.The patient needs PT/OT Plan and coordination of the patient's care discussed in the presence of Production Control Supervisor and nurse. SCRIBED BY: Tom ROBERTS scribed while in presence of service performed by Dr. De La Fuente/Tiera Vaz APRN on 11/13/20 ([id number])
[2020-11-13] MEDS: VITAMIN D PO SCH (09:42)
[2020-11-13] MEDS: ZINC-220 PO SCH (09:43)
[2020-11-13] MEDS: ZOCOR PO SCH (09:43)
[2020-11-13] MEDS: NORCO 5-325 PO SCH ×2 (09:43→14:48)
[2020-11-13] MEDS: GLUCOPHAGE PO SCH (09:43)
[2020-11-13] MEDS: K-DUR PO SCH ×2 (09:43→17:28)
[2020-11-13] MEDS: CARBIDOPA PO SCH ×2 (09:44→14:49)
[2020-11-13] MEDS: PREDNISONE PO SCH ×2 (09:44→17:28)
[2020-11-13] MEDS: SYMBICORT 160-4.5 MCG INHALER IH SCH (09:44)
[2020-11-13] MEDS: LEVODOPA PO SCH ×2 (09:44→14:49)
[2020-11-13] MEDS: NYSTOP POWDER TP SCH ×2 (09:44→16:41)
[2020-11-13] MEDS: ALDACTONE PO SCH (09:44)
[2020-11-13] MEDS: [UNRECOGNIZED DRUG - OTHER] PO SCH ×2 (09:44→14:49)
[2020-11-13] MEDS: CALMOSEPTINE OINTMENT TP SCH (09:45)
--- NOTE | 2020-11-13 12:06 | CM.DICTOOL ---
ADMISSION: 10/28/20 01:51 DISCHARGE: NOV 13, 2020 DATE OF SERVICE: 11/13/20 FINAL DIAGNOSIS COVID 19 (10/28/2020) PNEUMONIA WITH ACUTE RESPIRATORY FAILURE, RESOLVED GENERALIZED WEAKNESS PARKINSON'S DISEASE DR. HAWKINS CHRONIC ANEMIA UNDERLYING COPD, OXYGEN DEPENDENT CHRONIC PAIN CHRONIC KIDNEY DISEASE STAGE 2 DEMENTIA RELATED TO THE PATIENTS MEDICATIONS AND PARKINSON'S HX RIGHT HIP PAIN-MILD DEGENERATIVE CHANGES PER X-RAY CAD WITH STENTS - DR. MADDEN, 2012 CAROTID STENOSIS LESS THAN 50% - DR. CHACKO, 2018 CHRONIC BILATERAL LEG EDEMA DIZZINESS, RELATED TO PARKINSON'S DISEASE HYPERTENSION DYSLIPIDEMIA BPH GERD UPPER EXTREMITY WEAKNESS - FROM CERVICAL RADICULOPATHY CHRONIC BACK PAIN MILD LVH HYPERGLYCEMIA DECUBITIS ULCER TO COCCYX WITH POSITIVE FOR STAPH HEMOLYTICUS ON THE LAST HOSPITAL ADMISSION, STAGE 2 LUMBAR FUSION 06/2017 LAST VITALS Temp Pulse Resp BP Pulse Ox 97.0 F L 98 H 18 163/81 H 98 11/13/20 05:02 11/13/20 05:02 11/13/20 05:02 11/13/20 05:02 11/13/20 09:43 TAKE THESE MEDICATIONS AT HOME Hydrocodone Bitart/Acetaminophen (Hydrocodone Bit/Acetaminophen 5/325 Mg Tablet) 1 tab PO TID [facility] -- ([facility]) Last Admin: 11/13/20 09:43 Dose: 1 tab Albuterol Sulfate (Albuterol Sulfate (Ventolin Hfa) 18 Gm 1 Puff With Spacer) 2 puff IH RTTID [facility] -- ( [facility]) Last Admin: 11/13/20 04:25 Dose: 2 puff Aspirin (Aspirin 81 Mg Tab.Chew) 81 mg PO DAILYWM [facility] Last Admin: 11/13/20 09:43 Dose: 81 mg Budesonide/Formoterol Fumarate (Budesonide/Formoterol Fumarate 160/4.5 Mcg Inhaler) 2 puff IH BID [facility] -- ([facility]) Last Admin: 11/13/20 09:44 Dose: 2 puff Calamine/Phenol (Menthol/Zinc Oxide 113 Gm Ointment) 1 applic TP BID [facility] Last Admin: 11/13/20 09:45 Dose: 1 applic Cholecalciferol (Cholecalciferol (Vitamin D3) 1,000 Unit (25 Mcg) Tablet) 5,000 unit PO DAILY [facility] X 2 MORE WEEKS -- (NEW) Last Admin: 11/13/20 09:42 Dose: 5,000 unit Docusate Sodium (Docusate Sodium 100 Mg Capsule) 100 mg PO BID PRN -- ( NEW) PRN Reason: Constipation Furosemide (Furosemide 40 Mg Tablet) 40 mg PO QDAC [facility] Last Admin: 11/13/20 06:03 Dose: 40 mg Metformin HCl (Metformin Hcl 500 Mg Tablet) 500 mg PO DAILYWM [facility] Last Admin: 11/13/20 09:43 Dose: 500 mg Non-Formulary Medication (Carbidopa-Levodopa [Rytary]) 3 cap PO TID [facility] Last Admin: 11/13/20 09:44 Dose: 3 cap Nystatin (Nystatin 15 Gm Powder) 1 applic TP TID [facility] Last Admin: 11/13/20 09:44 Dose: 1 applic Pantoprazole Sodium (Pantoprazole Sodium 40 Mg Tablet.Dr) 40 mg PO QDAC [facility] Last Admin: 11/13/20 09:43 Dose: 40 mg Potassium Chloride (Potassium Chloride 20 Meq Tab) 20 meq PO BIDWM [facility] Last Admin: 11/13/20 09:43 Dose: 20 meq Prednisone (Prednisone 20 Mg Tablet) 20 mg PO BIDWM [facility] X 2 MORE DAYS THEN DAILY X 5 DAYS THEN STOP -- (NEW) Last Admin: 11/13/20 09:44 Dose: 20 mg Simvastatin (Simvastatin 40 Mg Tablet) 40 mg PO DAILY [facility] Last Admin: 11/13/20 09:43 Dose: 40 mg Spironolactone (Spironolactone 25 Mg Tablet) 25 mg PO DAILY [facility] Last Admin: 11/13/20 09:44 Dose: 25 mg Tamsulosin HCl (Tamsulosin Hcl 0.4 Mg Cap.Er.24h) 0.4 mg PO BEDTIME [facility] Last Admin: 11/12/20 20:58 Dose: 0.4 mg Tramadol HCl (Tramadol Hcl 50 Mg Tablet) 50 mg PO TID PRN PRN Reason: Pain Last Admin: 11/13/20 06:29 Dose: 50 mg Zinc Sulfate (Zinc Sulfate 220 Mg Capsule) 220 mg PO DAILY [facility] X 2 MORE WEEKS -- (NEW) Last Admin: 11/13/20 09:43 Dose: 220 mg ALLERGIES celecoxib [From Celebrex] Adverse Reaction (Verified 09/12/20 13:48) meloxicam [From Mobic] Adverse Reaction (Verified 09/12/20 13:48) Penicillins Adverse Reaction (Verified 09/12/20 13:48) Rash DISCONTINUED MEDICATIONS 1). TYLENOL NEW PRESCRIPTIONS: 1). NORCO 5/ 325 MG PO TID SCHEDULED # 45 TABS , NO REFILLS 2). VENTOLIN MDI 2 PUFFS TID WITH SPACER 3). SYMBICORT MDI 2 PUFFS BID WITH SPACER 4). VIT D 5000 UNIT TABLET PO DAILY FOR 2 MORE WEEKS ( START 11/14/2020) 5). ZINC 220 MG PO DAILY FOR 2 MORE WEEKS( START 11/14/2020) 6). PREDNISONE 20 MG PO BID X 2 DAYS THEN DAILY FOR 5 DAYS ( START 11/14/2020) 7). DOCUSATE SODIUM 100 MG PO BID PRN SMOKING: N/A DISEASE SPECIFIC EDUCATION: OXYGEN PNEUMONIA COVID PARKINSONS ACTIVITY PRECAUTIONS LAB REVIEW: 11/13/20 04:05 11/13/20 04:05 11/13/20 04:05: Sodium 133.7 L, Potassium 4.66, Chloride 93.5 L, Carbon Dioxide 35.5 H, Anion Gap 9.36, BUN 20.3 H, Creatinine 0.54 L, Estimated GFR (MDRD) 147.00, BUN/Creatinine Ratio 37.59, Glucose 141.9 H, Calcium 9.22, Total Bilirubin 0.50, AST 44.4, ALT 11.5, Alkaline Phosphatase 167.5 H, Total Protein 6.42, Albumin 3.81, Globulin 2.61, Albumin/Globulin Ratio 1.45 11/13/20 04:05: WBC 10.87 H, RBC 4.74, Hgb 12.6 L, Hct 40.3 L, MCV 85.0, MCH 26.6 L, MCHC 31.3 L, RDW Coeff of Leda 15.5 H, Plt Count 460 H, Immature Gran % (Auto) 1.3, Neut % (Auto) 81.4 H, Lymph % (Auto) 11.2, [place] % (Auto) 5.9, Eos % (Auto) 0.0, Baso % (Auto) 0.2, Neut # (Auto) 8.9 H, Lymph # (Auto) 1.2, [place] # (Auto) 0.6, Eos # (Auto) 0.0, Baso # (Auto) 0.0, Immature Gran # (Auto) 0.1 PLAN: DISCHARGE TO [facility] TODAY 2020 ACTIVITY: USE WALKER WITH ASSIST OF 2 PT, OT AND DITCHING MACHINE OPERATING ENGINEER EVAL AND TREAT APPROPRIATE DIET: PUREED CONSISTENT CARBOHYDRATE WITH BEDTIME SNACK. ARTIFICIAL STONE APPLICATOR CONSULT THIS LIQUIDS FOR NOW MD FOLLOW UP: FACILITY PHYSICIAN TO SEE ON ROUNDS DR. NAGEL , FOLLOW UP CARDIAC APPOINTMENT IN THE OFFICE ON 2020 @ 1115 AM. LABS: FACILITY TO DRAW CBC AND CMP IN A WEEK AND SEND RESULTS TO DR. NAGEL OXYGEN: 2-3 L/M PER N/C CONTINUOS TO KEEP PULSE OX SATURATIONS ABOVE 90% CODE STATUS: DO NOT RESUSCITATE MR. ROWE IS ALERT AND ORIENTED X 3 WITH SLIGHT CONFUSION AND FORGETFULNESS REGARDING CERTAIN DETAILS. HE CONTINUES TO HAVE A FLAT AFFECT AND WEAK VOICE. LUNGS DIMINISHED. NO COUGH. REQUIRING OXYGEN AT 2 L/M PER N/C TO KEEP SATS UP ABOVE 90%. ANTOINE CATHETER WAS REMOVED TODAY AND HE DID VOID. LBM WAS 11/12/2020. HE HAS BEEN CONSUMING 100 % OF HIS MEALS AND NEEDS ASSIST WITH BEING SPOON FED AT TIMES. FLUID INTAKE IS FAIR TO GOOD. HAS SCATTERED ECCHYMOSIS AND BRUISING TO BILATERAL ARMS, LIGHT REDNESS TO GROINS AND LIGHT REDNESS TO SACRUM/COCCYX. HAS WALKED A SHORT DISTANCE WITH A SHUFFLED GAIT, RWX, VERBAL CUES AND MOD TO MAX ASSIST OF 2. PLAN TO DISCHARGE TO [facility] DUE TO SKILLED NURSING ASSISTANCE NEED ED. MD TAMERA DÍAZ, ARIANE LIZARRAGA APRN
[2020-11-13 13:52] VITALS: BP 107/61; TEMP 96.8
--- NOTE | 2020-11-14 10:25 | DS ---
DATE OF SERVICE: 11/13/20 CODE STATUS: DO NOT RESUSCITATE FINAL DIAGNOSIS: 1. COVID 19 (10/28/2020) PNEUMONIA WITH ACUTE RESPIRATORY FAILURE, RESOLVED 2. GENERALIZED WEAKNESS 3. PARKINSON'S DISEASE DR. HAWKINS 4. CHRONIC ANEMIA 5. UNDERLYING COPD, OXYGEN DEPENDENT 6. CHRONIC PAIN 7. CHRONIC KIDNEY DISEASE STAGE 2 8. DEMENTIA RELATED TO THE PATIENTS MEDICATIONS AND PARKINSON'S HX 9. RIGHT HIP PAIN-MILD DEGENERATIVE CHANGES PER X-RAY 10. CAD WITH STENTS - DR. MADDEN, 2012 11. CAROTID STENOSIS LESS THAN 50% - DR. CHACKO, 2018 12. CHRONIC BILATERAL LEG EDEMA 13. DIZZINESS, RELATED TO PARKINSON'S DISEASE 14. HYPERTENSION 15. DYSLIPIDEMIA 16. BPH 17. GERD 18. UPPER EXTREMITY WEAKNESS - FROM CERVICAL RADICULOPATHY 19. CHRONIC BACK PAIN MILD LVH 20. HYPERGLYCEMIA 21. DECUBITUS ULCER TO COCCYX WITH POSITIVE FOR STAPH HEMOLYTICUS ON THE LAST HOSPITAL ADMISSION, STAGE 2 22. LUMBAR FUSION 06/2017 LAST VITALS Temp Pulse Resp BP Pulse Ox 97.0 F L 98 H 18 163/81 H 98 11/13/20 05:02 11/13/20 05:02 11/13/20 05:02 11/13/20 05:02 11/13/20 09:43 DISCHARGE INSTRUCTIONS: 1. DISCHARGE TO [facility] TODAY 2020. 2. MD FOLLOW UP: FACILITY PHYSICIAN TO SEE ON ROUNDS, DR. NAGEL, FOLLOW UP CARDIAC APPOINTMENT IN THE OFFICE ON 2020 @ 1115 AM. 3. LABS: FACILITY TO DRAW CBC AND CMP IN A WEEK AND SEND RESULTS TO DR. NAGEL. 4. OXYGEN: 2-3 L/M PER N/C CONTINUOUS TO KEEP PULSE OX SATURATIONS ABOVE 90%. MEDICATIONS AT DISCHARGE: Hydrocodone Bitart/Acetaminophen (Hydrocodone Bit/Acetaminophen 5/325 Mg Tablet) 1 tab PO TID [facility] -- (NEW) Last Admin: 11/13/20 09:43 Dose: 1 tab Albuterol Sulfate (Albuterol Sulfate (Ventolin Hfa) 18 Gm 1 Puff With Spacer) 2 puff IH RTTID [facility] -- ( NEW) Last Admin: 11/13/20 04:25 Dose: 2 puff Aspirin (Aspirin 81 Mg Tab.Chew) 81 mg PO DAILYWM [facility] Last Admin: 11/13/20 09:43 Dose: 81 mg Budesonide/Formoterol Fumarate (Budesonide/Formoterol Fumarate 160/4.5 Mcg Inhaler) 2 puff IH BID [facility] -- (NEW) Last Admin: 11/13/20 09:44 Dose: 2 puff Calamine/Phenol (Menthol/Zinc Oxide 113 Gm Ointment) 1 applic TP BID [facility] Last Admin: 11/13/20 09:45 Dose: 1 applic Cholecalciferol (Cholecalciferol (Vitamin D3) 1,000 Unit (25 Mcg) Tablet) 5,000 unit PO DAILY [facility] X 2 MORE WEEKS -- (NEW) Last Admin: 11/13/20 09:42 Dose: 5,000 unit Docusate Sodium (Docusate Sodium 100 Mg Capsule) 100 mg PO BID PRN -- ( NEW) PRN Reason: Constipation Furosemide (Furosemide 40 Mg Tablet) 40 mg PO QDAC [facility] Last Admin: 11/13/20 06:03 Dose: 40 mg Metformin HCl (Metformin Hcl 500 Mg Tablet) 500 mg PO DAILYWM [facility] Last Admin: 11/13/20 09:43 Dose: 500 mg Non-Formulary Medication (Carbidopa-Levodopa ) 3 cap PO TID [facility] Last Admin: 11/13/20 09:44 Dose: 3 cap Nystatin (Nystatin 15 Gm Powder) 1 applic TP TID [facility] Last Admin: 11/13/20 09:44 Dose: 1 applic Pantoprazole Sodium (Pantoprazole Sodium 40 Mg Tablet.Dr) 40 mg PO QDAC [facility] Last Admin: 11/13/20 09:43 Dose: 40 mg Potassium Chloride (Potassium Chloride 20 Meq Tab) 20 meq PO BIDWM [facility] Last Admin: 11/13/20 09:43 Dose: 20 meq Prednisone (Prednisone 20 Mg Tablet) 20 mg PO BIDWM [facility] X 2 MORE DAYS THEN DAILY X 5 DAYS THEN STOP -- (NEW) Last Admin: 11/13/20 09:44 Dose: 20 mg Simvastatin (Simvastatin 40 Mg Tablet) 40 mg PO DAILY [facility] Last Admin: 11/13/20 09:43 Dose: 40 mg Spironolactone (Spironolactone 25 Mg Tablet) 25 mg PO DAILY [facility] Last Admin: 11/13/20 09:44 Dose: 25 mg Tamsulosin HCl (Tamsulosin Hcl 0.4 Mg Cap.Er.24h) 0.4 mg PO BEDTIME [facility] Last Admin: 11/12/20 20:58 Dose: 0.4 mg Tramadol HCl (Tramadol Hcl 50 Mg Tablet) 50 mg PO TID PRN PRN Reason: Pain Last Admin: 11/13/20 06:29 Dose: 50 mg Zinc Sulfate (Zinc Sulfate 220 Mg Capsule) 220 mg PO DAILY [facility] X 2 MORE WEEKS -- (NEW) Last Admin: 11/13/20 09:43 Dose: 220 mg NEW PRESCRIPTIONS: NORCO 5/325 MG PO TID SCHEDULED #45 TABS, NO REFILLS VENTOLIN MDI 2 PUFFS TID WITH SPACER SYMBICORT MDI 2 PUFFS BID WITH SPACER VIT D 5000 UNIT TABLET PO DAILY FOR 2 MORE WEEKS ( START 11/14/2020) ZINC 220 MG PO DAILY FOR 2 MORE WEEKS( START 11/14/2020) PREDNISONE 20 MG PO BID X 2 DAYS THEN DAILY FOR 5 DAYS ( START 11/14/2020) DOCUSATE SODIUM 100 MG PO BID PRN DISCONTINUED MEDICATIONS: TYLENOL DIET INSTRUCTIONS: PUREED CONSISTENT CARBOHYDRATE WITH BEDTIME SNACK. WATERPROOFING MIXER CONSULT THIS LIQUIDS FOR NOW ACTIVITY: USE WALKER WITH ASSIST OF 2, PT, OT AND SHINGLE CATCHER EVAL AND TREAT APPROPRIATE SMOKING: N/A DISEASE SPECIFIC EDUCATION: OXYGEN PNEUMONIA COVID [facility]ARKINSON'S [employer] [employer] HOSPITAL COURSE: This is a 80-year-old white male who presented to the emergency room with low grade fever, shortness of breath, was Covid positive. Initial chest x-ray did not show any pneumonia. He was already oxygen dependent due to underlying COPD. His oxygen saturation was normal on 2L. He was weak, confused, anemic, had elevated renal function indicating dehydration. He was admitted to our Covid unit, started on Normal Saline at 50 cc/hr. He was started on Remdesivir IV for the treatment of the Covid. Blood cultures were done and those were negative. UA was normal. He was started on Vitamin D 5000 units daily along with Zinc 220 mg p.o. daily, Pepcid 40 mg b.i.d., Lovenox 40 mg subcutaneous daily as prophylactic. Also started on Zithromax 500 mg daily for three days along with Rocephin and also Dexamethasone 6 mg IV daily. Over the course of the next several days, his condition slowly declined. He became more confused. He had some days where he was combative, refused to take his oral medication. UA was repeated and was normal. On about the fifth day his respiratory status deteriorated. ABGs on 2L showed a p02 of 50. He was increased to 4L. He never required any more oxygen. He tolerated the Remdesivir and completed his five day course. Repeat chest x-ray did show that he did have bilateral Covid pneumonia. Again he maintained at 4L. For the past two days he has tolerated 2L. Recent ABGs showed p02 into the 80's. There was a point where his renal function worsened however with IV fluids this resolved. Liver enzymes temporarily were elevated but this has since resolved. He has done remarkably and surprisingly well. He completed 14 days of antibiotics. He was started on Symbicort and Albuterol. Today at time of discharge he is on 2L via nasal cannula. His confusion has resolved. He is feeding himself. He is eating relatively well. His labs are all stable. BUN 20, creatinine 0.54, hemoglobin at 12.6. He will go home on the Albuterol inhaler, Symbicort inhaler. He is to continue the Vitamin D and Zinc for the next two weeks. He again completed 14 days of antibiotics. He has still been on oral Prednisone as we do not have oral Decadron available. He tolerated the transition to this. He has been on 20 mg p.o. b.i.d. Will continue this for two more days and then he will go to daily for 5 days. His biggest complaint was pain while he was in the hospital. He has known degenerative disk disease with multiple back surgeries however his complaint was from leg. His legs which again can be radiation from his back pain and also just to his immobility in the bed. This was controlled with Grant. It was given three times a day. He had previously been on Tramadol. We will continue this. He is not able to care for himself at home. He has been living at home with his son however his son is not there 24 hours a day and at this point he needs 24 hour treatment so he will go to [facility]. All of his medications will continue. I have written a prescription for the Grant for him to have there and then he is going to continue to follow with us from a cardiac standpoint and will followup with us in the office. He is to have a CBC and CMP repeated in one week. Oxygen at 2L to continue and will follow him closely. TIME SPENT: More than 60 minutes. MTDD
--- NOTE | 2020-11-14 13:04 | PN ---
DATE OF SERVICE: 11/07/2020 SUBJECTIVE: The patient was seen and examined with the Nurse Practitioner. The patient's condition is improving. He has respiratory failure with positive COVID status with bronchitis. Parkinson's disease created a problem with dementia which has been stable. Mental status has improved. TIME SPENT: More than 30 minutes. Plan and coordination of the patient's care discussed in the presence of nurse. MARTHA
--- NOTE | 2020-11-14 13:13 | PN ---
DATE OF SERVICE: 11/09/2020 SUBJECTIVE: The patient was seen and examined with the Nurse Practitioner. The patient's condition has improved remarkably from where he was before. He is oriented to time, place and person. The patient's appetite is improving. He is going to be moved out of the unit, 14 days post COVID. The patient's is improving. The patient was seen and examined with the Nurse Practitioner. TIME SPENT: More than 30 minutes. Plan and coordination of the patient's care discussed in the presence of nurse. MARTHA
--- NOTE | 2020-11-14 13:27 | PN ---
DATE OF SERVICE: 11/11/2020 SUBJECTIVE: The patient was seen and examined today. 80 year old white male hospitalized with acute respiratory failure with COVID bronchitis. The patient's condition has improved. He has been in the hospital since 10/08/20 almost 14 days. He went through critical phase where he had severe hypoxemia with COVID pneumonia with dementia with aggressive behavior after all that he is now on the regular floor. he is oriented to time, place and person answering questions. REVIEW OF SYSTEMS: CONSTITUTIONAL: No night sweats. No fatigue, malaise, lethargy. No fever or chills. HEENT: Eyes: No visual changes. No eye pain. No eye discharge. ENT: No runny nose. No epistaxis. No sinus pain. No sore throat. No odynophagia. No congestion. RESPIRATORY: No cough, no congestion. No hemoptysis. No shortness of breath. CARDIOVASCULAR: No angina symptoms. No CHF symptoms. No atypical chest pain for CAD. No palpitations. No PND. No orthopnea. GASTROINTESTINAL: No abdominal pain. No nausea or vomiting. No diarrhea or constipation. No hematemesis. No hematochezia. GENITOURINARY: No urgency. No frequency. No dysuria. No hematuria. No obstructive symptoms. No discharge. No pain. No significant abnormal bleeding. MUSCULOSKELETAL: No musculoskeletal pain; no joint swelling. NEUROLOGICAL: No headache. No neck pain. No syncope. No seizures. No dizziness. PSYCHIATRIC: Not anxious. No depression. No suicidal thoughts. No homicidal thoughts. SKIN: No rash. No lesions. No wounds. ENDOCRINE: No unexplained weight loss. No weight gain. HEMATOLOGIC/LYMPHATIC: No anemia. No purpura. No petechiae. No prolonged or excessive bleeding. No palpable lymph nodes. PHYSICAL EXAMINATION: VITAL SIGNS: Temperature 97.1, pulse 70, respiratory rate 20, blood pressure 116/64 and pulse ox 98%. HEENT: Head normocephalic, atraumatic. Eyes: Extraocular muscles are intact. Pupils are equal, round and reactive to light and accommodation. Ears: No lesions. Nose appeared normal. Throat: No exudate or erythema. NECK: Supple. No JVD, no carotid bruit. No lymphadenopathy or thyromegaly. LUNGS: Decreased breath sounds but clear to auscultation. Percussion note normal. Chest symmetrical. HEART: S1, S2, no S3. No murmurs. No cyanosis or clubbing. No ascites. Pulses: Dorsalis pedis and posterior tibial pulses +1 to +2 bilaterally. ABDOMEN: Soft. Nontender. Bowel sounds active. No CVA tenderness. No mass felt. EXTREMITIES: No edema. Full range of motion of all extremities, equal. NEUROLOGIC: No focal deficit. Cranial nerves II through XII are grossly intact. No headache. No double vision. SKIN: Not dry. Intact. Turgor - normal. LYMPHATIC: No palpable lymph nodes/no lymphedema. MUSCULOSKELETAL: Normal joints with no swelling. Muscle tone is normal. ASSESSMENT: 1. COVID pneumonia, resolved 2. Parkinson's disease under control 3. Dementia, under control PLAN: 1. Advised to continue Oxygen 2. Continue steroids and NEBS 3. Continue all anti-Parkinson's medications. TIME SPENT: More than 30 minutes. Plan and coordination of the patient's care discussed in the presence of nurse. MARTHA
--- NOTE | 2020-11-14 13:47 | PN ---
DATE OF SERVICE: 11/12/20 SUBJECTIVE: 80 year old white male hospitalized with acute respiratory failure with positive COVID status with bronchitis. Went through critical phase where he was very hypoxic with respiratory failure with aggressive behavioral for several days he didn't take his medication making his Parkinson's disease worse. In any case after going through really rough period he has recovered. He is oriented to time, place and person. Appetite has improved. REVIEW OF SYSTEMS: CONSTITUTIONAL: No night sweats. No fatigue, malaise, lethargy. No fever or chills. HEENT: Eyes: No visual changes. No eye pain. No eye discharge. ENT: No runny nose. No epistaxis. No sinus pain. No sore throat. No odynophagia. No congestion. RESPIRATORY: No cough, no congestion. No hemoptysis. No shortness of breath. CARDIOVASCULAR: No angina symptoms. No CHF symptoms. No atypical chest pain for CAD. No palpitations. No PND. No orthopnea. GASTROINTESTINAL: No abdominal pain. No nausea or vomiting. No diarrhea or constipation. No hematemesis. No hematochezia. GENITOURINARY: No urgency. No frequency. No dysuria. No hematuria. No obstructive symptoms. No discharge. No pain. No significant abnormal bleeding. MUSCULOSKELETAL: No musculoskeletal pain; no joint swelling. NEUROLOGICAL: No headache. No neck pain. No syncope. No seizures. No dizziness. PSYCHIATRIC: Not anxious. No depression. No suicidal thoughts. No homicidal thoughts. SKIN: No rash. No lesions. No wounds. ENDOCRINE: No unexplained weight loss. No weight gain. HEMATOLOGIC/LYMPHATIC: No anemia. No purpura. No petechiae. No prolonged or excessive bleeding. No palpable lymph nodes. PHYSICAL EXAMINATION: VITAL SIGNS: Temperature 97.7, pulse 93, respiratory rate 18, blood pressure 107/70 and pulse ox 98% on 2 liters. HEENT: Head normocephalic, atraumatic. Eyes: Extraocular muscles are intact. Pupils are equal, round and reactive to light and accommodation. Ears: No lesions. Nose appeared normal. Throat: No exudate or erythema. NECK: Supple. No JVD, no carotid bruit. No lymphadenopathy or thyromegaly. LUNGS: Decreased breath sounds but clear to auscultation. Percussion note normal. Chest symmetrical. HEART: S1, S2, no S3. No murmurs. No cyanosis or clubbing. No ascites. Pulses: Dorsalis pedis and posterior tibial pulses +1 to +2 bilaterally. ABDOMEN: Soft. Nontender. Bowel sounds active. No CVA tenderness. No mass felt. EXTREMITIES: No edema. Full range of motion of all extremities, equal. NEUROLOGIC: No focal deficit. Cranial nerves II through XII are grossly intact. No headache. No double vision. SKIN: Not dry. Intact. Turgor - normal. LYMPHATIC: No palpable lymph nodes/no lymphedema. MUSCULOSKELETAL: Normal joints with no swelling. Muscle tone is normal. LABS: hgb 13.2, hct 40, WBC 13,000 normal differential, creatinine 0.6, BUN 22, potassium 4.5 ASSESSMENT: 1. COVID bronchitis/pneumonia seems to be resolving 2. Respiratory failure has resolved 3. Parkinson's disease under control 4. Dementia, stable practically absent at present time. CONDITION: Improved. TIME SPENT: More than 30 minutes. Plan and coordination of the patient's care discussed in the presence of nurse. MARTHA
--- NOTE | 2020-11-14 13:51 | PN ---
DATE OF SERVICE: 11/13/2020 SUBJECTIVE: The patient was seen and examined with the Nurse Practitioner. The patient's condition is stable. He has more or less fully recovered from COVID pneumonia, Parkinson's disease is stable. [facility] At [facility] both the family and the patient have agreed [facility]. CONDITION: Stable. TIME SPENT: More than 30 minutes. Plan and coordination of the patient's care discussed in the presence of nurse. MARTHA
--- NOTE | 2020-11-14 13:52 | PN ---
ADMISSION DAY: Level 5 Several days in between extensive otherwise intermediate FINAL DAY: D as in discharge MTDD
== END 2020-11-13 19:30 | DRG 189 ==
LOC: ED 00:08 → SCU 01:51 → MEDSURG B 11-08 14:30 → MEDSURG A 11-10 11:15
PROVIDERS: ADMIT Internal Medicine; ATTEND Internal Medicine
DX: R53.1 Weakness; R05 Cough; G89.29 Other chronic pain; F03.90 Unspecified dementia, unspecified severity, without behavioral disturbance, psychotic disturbance, mood disturbance, and anxiety; I25.10 Atherosclerotic heart disease of native coronary artery without angina pectoris; E78.5 Hyperlipidemia, unspecified; Z20.822 Contact with and (suspected) exposure to COVID-19; J96.00 Acute respiratory failure, unspecified whether with hypoxia or hypercapnia; J20.9 Acute bronchitis, unspecified; D64.9 Anemia, unspecified; G20 Parkinson's disease; N18.2 Chronic kidney disease, stage 2 (mild); Z99.81 Dependence on supplemental oxygen; J44.9 Chronic obstructive pulmonary disease, unspecified

== ENCOUNTER 2022-06-01 10:47 | Inpatient (IN) ==
[2022-06-01] MEDS ORDERED: LASIX IVP ONE (11:01)
[2022-06-01] MEDS ORDERED: SOLU-MEDROL 125 MG IVP ONE (11:04)
[2022-06-01] MEDS ORDERED: DUONEB NEB ONE (11:04)
--- NOTE | 2022-06-01 11:04 | ED.PDOC ---
General ED Provider: Dr. ALLEGRA TRAMMELL MD Chief Complaint: Respiratory Complaint Stated Complaint: mild to mod short of breath at MO today, no fever, congested cough, no pain, hx dnr, parkinsons and dm, not on home oxygen, nonambulatory Time Seen by Provider: 06/01/22 10:54 Mode of Arrival: Ambulance Information Source: Patient and Family Primary Care Provider: SUN NAGEL MD Nursing and Triage Documentation Reviewed and Agree: Yes Does patient meet sepsis criteria?: No System Inflammatory Response Syndrome: Not Applicable Sepsis Protocol: For patient's 13 years and over: Temp is 96.8 and below OR 101 and greater Pulse >90 BPM Resp >20/minute Acutely Altered Mental Status Are patient's symptoms suggestive of a new infection, such as: -Pneumonia -Skin, Soft Tissue -Endocarditis -UTI -Bone, Joint Infection -Implantable Device -Acute Abdominal Infection -Wound Infection -Meningitis -Blood Stream Catheter Infection -Unknown Review of Systems Review Of Systems Constitutional: Denies Fever Eyes: Denies Drainage Ears, Nose, Mouth, Throat: Denies Throat pain Respiratory: Reports Cough, Short of air and Wheezing Cardiac: Denies Chest pain GI: Denies Abdominal pain or Vomiting : Denies Frequency Musculoskeletal: Denies Neck pain Skin: Denies Cyanosis Neurological: Denies Headache All Other Systems: Other [facility] Medical History Anemia BPH (benign prostatic hyperplasia) CAD (coronary artery disease) Cervical radiculopathy Chronic arthritis Dementia Diabetes mellitus Disc narrowing Gastroesophageal reflux disease Hyperlipidemia Hypertension Left ventricular hypertrophy Oropharyngeal dysphagia Parkinson disease Family History FATHER Heart attack BROTHER Diabetes Social History Smoking and tobacco status: Former smoker Tobacco: How many years used: 30 Alcohol intake: former History of recent travel: No Seatbelt use: always Surgical History History of cholecystectomy History of heart artery stent History of lumbar fusion Physical Exam Physical Exam Appearance: Reports Obese Ill-appearing: Mild Pain Distress: None Eyes: Reports Conjunctiva clear ENT: Reports Oropharynx normal Neck: Supple Respiratory: Reports Airway patent, Crackles and Wheezes Cardiovascular: Reports RRR GI/: Reports Soft and Nontender Musculoskeletal: Reports Limited ROM Skin: Reports Warm and Dry Neurological: Reports Alert Psychiatric: Reports Affect appropriate Interpretation Radiology Interpretation Radiology Interpretation By: Radiologist Exam Interpreted: CXR Xray Comments: left base infil EKG Interpretation Time of EKG #1: 13:14 Rate: Normal Rhythm: Sinus Interpretation: no stemi Critical Care Note Critical Care Note Total Critical Care Time (mins): 0 Course Course Hematology/Chemistry: 06/01/22 10:49 06/01/22 10:49 Orders, Labs, Meds: Lab Review 06/01/22 06/01/22 06/01/22 10:49 10:49 10:49 WBC 6.42 RBC 4.45 L Hgb 12.6 L Hct 40.0 L MCV 89.9 MCH 28.3 MCHC 31.5 L RDW Coeff of Leda 14.9 H Plt Count 318 Immature Gran % (Auto) 0.3 Neut % (Auto) 61.8 Lymph % (Auto) 27.3 Gila % (Auto) 10.1 H Eos % (Auto) 0.2 Baso % (Auto) 0.3 Neut # (Auto) 4.0 Lymph # (Auto) 1.8 Gila # (Auto) 0.7 Eos # (Auto) 0.0 Baso # (Auto) 0.0 Immature Gran # (Auto) 0.0 Puncture Site Base Excess O2 Saturation ABG pH ABG pCO2 ABG pO2 ABG HCO3 ABG Total CO2 Zaki Test Hemoglobin Oxyhemoglobin Carboxyhemoglobin Total Hemoglobin FiO2 % Sodium 141.9 Potassium 3.73 Chloride 102.2 Carbon Dioxide 31.8 H Anion Gap 11.63 BUN 10.3 Creatinine 0.71 Estimated GFR (MDRD) 107.00 BUN/Creatinine Ratio 14.50 Glucose 101.2 Lactic Acid 0.96 Calcium 9.10 Total Bilirubin 0.81 AST 21.8 ALT 5.7 Alkaline Phosphatase 140.9 H Troponin I < 0.012 NT-Pro-B Natriuret Pep Total Protein 7.52 Albumin 4.15 Globulin 3.37 Albumin/Globulin Ratio 1.23 06/01/22 06/01/22 10:49 11:15 WBC RBC Hgb Hct MCV MCH MCHC RDW Coeff of Leda Plt Count Immature Gran % (Auto) Neut % (Auto) Lymph % (Auto) Gila % (Auto) Eos % (Auto) Baso % (Auto) Neut # (Auto) Lymph # (Auto) Gila # (Auto) Eos # (Auto) Baso # (Auto) Immature Gran # (Auto) Puncture Site Rrd Base Excess 8.7 H O2 Saturation 88.1 L ABG pH 7.45 ABG pCO2 47.0 H ABG pO2 52.0 L* ABG HCO3 32.7 H ABG Total CO2 34.1 H Zaki Test Pos Hemoglobin 1.3 Oxyhemoglobin 88.7 L Carboxyhemoglobin 2.3 H Total Hemoglobin 12.4 FiO2 % 21.0 Sodium Potassium Chloride Carbon Dioxide Anion Gap BUN Creatinine Estimated GFR (MDRD) BUN/Creatinine Ratio Glucose Lactic Acid Calcium Total Bilirubin AST ALT Alkaline Phosphatase Troponin I NT-Pro-B Natriuret Pep 254 Total Protein Albumin Globulin Albumin/Globulin Ratio Orders Category Date Time Status ABG DRAW REQUEST Stat CARDIO 06/01/22 11:01 Completed EKG-(ED ONLY) Stat CARDIO 06/01/22 11:01 Completed OXYGEN [ED APPLY O2] .ONCE EMERGENCY 06/01/22 11:01 Active ABG COOX Stat LAB 06/01/22 11:15 Completed CBC W/ AUTO DIFF Stat LAB 06/01/22 10:49 Completed CMP [COMPREHENSIVE METABOLIC PANEL] Stat LAB 06/01/22 10:49 Completed LACTIC ACID Stat LAB 06/01/22 10:49 Completed NT-PROBNP(ED) Stat LAB 06/01/22 10:49 Completed SARS COV-2 RNA RAPID ZACHARIAH Stat LAB 06/01/22 Ordered TROPONIN I Stat LAB 06/01/22 10:49 Completed Furosemide [Lasix] MEDS 06/01/22 11:01 Discontinued 20 mg IVP ONCE ONE Ipratropium/Albuterol Neb [Duoneb] MEDS 06/01/22 11:04 Discontinued 3 ml NEB ONCE ONE Methylprednisolone Sod Succ/Pf [Solu-Medrol 125 mg] MEDS 06/01/22 11:04 Discontinued 125 mg IVP ONCE ONE CHEST, 1V AP ONLY Stat RADS 06/01/22 12:52 Completed Medications Discontinued Medications Generic Name Dose Route Start Last Admin Trade Name Freq PRN Reason Stop Dose Admin Albuterol/Ipratropium 3 ml 06/01/22 11:04 06/01/22 11:45 Ipratropium/Albuterol Vial.Neb NEB 06/01/22 11:05 3 ml ONCE ONE Administration Furosemide 20 mg 06/01/22 11:01 06/01/22 11:28 Furosemide Inj 20 Mg/2 Ml Vial IVP 06/01/22 11:02 20 mg ONCE ONE Administration Methylprednisolone Sodium Succinate 125 mg 06/01/22 11:04 06/01/22 11:28 Methylprednisolone Sod Succ/Pf 125 Mg/2 Ml Vial IVP 06/01/22 11:05 125 mg ONCE ONE Administration Vital Signs: Temp Pulse Resp BP Pulse Ox 06/01/22 10:48 98.0 F 89 18 109/54 L 94 L Discharge Plan Discharge Patient Disposition: ADMITTED INPATIENT Discharge Problem: Pneumonia Prescriptions: No Action aspirin [Aspir-81] 81 MG tablet,delayed release (DR/EC) 81 mg PO DAILY pantoprazole [Protonix] 40 MG tablet,delayed release (DR/EC) 40 mg PO DAILY metformin 500 mg Tablet 500 mg PO DAILY Rytary 23.75-95 mg Capsule, Extended Release 3 cap PO TID potassium chloride 20 mEq Tablet Extended Release 20 meq PO BID Qty: 60 1RF Rx Instructions: WITH FOOD, START TOMORROW hydrocodone-acetaminophen 5-325 mg Tablet 1 tab PO TID Qty: 45 0RF albuterol sulfate [Ventolin HFA] 90 mcg/actuation Hfa Aerosol Inhaler 2 puff INHALATION TID Qty: 18 2RF Rx Instructions: with spacer budesonide-formoterol [Symbicort] 160-4.5 mcg/actuation Hfa Aerosol Inhaler 2 puff INHALATION BID Qty: 18 2RF Rx Instructions: with spacer docusate sodium [Stool Softener] 100 mg Capsule 100 mg PO BID PRN (Reason: Constipation) Qty: 60 2RF Rx Instructions: to prevent constipation acetaminophen 325 mg Tablet 325 mg PO Q4H ipratropium-albuterol 0.5 mg-3 mg(2.5 mg base)/3 mL Solution For Nebulization 3 ml INHALATION Q8H PRN (Reason: Shortness Of Breath Or Wheezing) scopolamine base 1 mg over 3 days Patch 3 Day 1 patch TRANSDERMAL Q3D bisacodyl 5 mg Tablet 5 mg PO DAILY PRN (Reason: Constipation) cholecalciferol (vitamin D3) 25 mcg (1,000 unit) Tablet 25 mcg PO BID furosemide [Lasix] 40 mg tablet 20 mg PO BID Rx Instructions: TAKE IN THE AM 30 MINS BEFORE BREAKFAST Did you review [place] [employer] for ALL controlled substances?: Not Applicable ED Provider: ALLEGRA TRAMMELL Condition: Stable Physician Progress Note: full tele admit d/w Dr Nagel []
[2022-06-01 11:05] LABS: BASOPHILS % (AUTO) 0.3 % (0.0-3.0); EOSINOPHILS % (AUTO) 0.2 % (0.0-7.0); HEMOGLOBIN 12.6 g/dl (14.0-18.0); IMMATURE GRANULOCYTE % (AUTO) 0.3 % (0.0-5.0); LYMPHOCYTES # (AUTO) 1.8 K/uL (0.60-3.4); LYMPHOCYTES % (AUTO) 27.3 (10.0-50.0); MEAN CORPUSCULAR HEMOGLOBIN 28.3 pg (27.0-31.0); MEAN CORPUSCULAR HGB CONC 31.5 (31.8-35.4); MEAN CORPUSCULAR VOLUME 89.9 fl (80.0-94.0); MONOCYTES # (AUTO) 0.7 K/uL (0.4-2.0); MONOCYTES % (AUTO) 10.1 (0-10); NEUTROPHILS % (AUTO) 61.8 % (42.2-75.2); PLATELET COUNT 318 10^3/uL (140-440); RDW COEFFICIENT OF VARIATION 14.9 % (11.6-14.8); RED BLOOD COUNT 4.45 10^6/ul (4.70-6.10); WHITE BLOOD COUNT 6.42 K/ul (4.2-10.2)
[2022-06-01 11:08] LABS: ALANINE AMINOTRANSFERASE 5.7 U/L (0-50); ALBUMIN 4.15 g/dL (3.5-5.0); ALKALINE PHOSPHATASE 140.9 U/L (56-119); ASPARTATE AMINO TRANSFERASE 21.8 U/L (17-59); BILIRUBIN,TOTAL 0.81 mg/dL (0.2-1.3); BLOOD UREA NITROGEN 10.3 mg/dL (9-20); CARBON DIOXIDE 31.8 mmol/L (22-30.0); CHLORIDE 102.2 mmol/L (98-107); CREATININE 0.71 mg/dL (0.60-1.10); GLUCOSE 101.2 mg/dL (74-106); POTASSIUM 3.73 mmol/L (3.5-5.1); SODIUM 141.9 mmol/L (134.5-145); TOTAL PROTEIN 7.52 g/dL (6.3-8.2)
[2022-06-01 11:22] LABS: ABG O2 HGB 88.7 % (95-100); ABG PH 7.45 (7.35-7.45); BEecf 8.7 (-2.0-3.0); COHb 2.3 (0.5-1.5); HCO3 32.7 (21-28); MetHb 1.3 (0-1.5); TCO2 34.1 (19-24); sO2 88.1 % (94-98); tHb 12.4 g/dl (11.7-17.4)
[2022-06-01 11:29] LABS: TROPONIN I < 0.012 ng/ml (0.0000-0.120)
--- NOTE | 2022-06-01 13:10 | DI ---
EXAM: CHEST ONE VIEW, FRONTAL VIEW ONLY. HISTORY: Shortness of breath. COMPARISON: 10/28/2020. FINDINGS: Heart size at the upper limits of normal. Band-like opacities along the left diaphragm. Mild peribronchial thickening present which is stable from prior imaging. No pleural effusion or pne umothorax. No acute osseous abnormality. Clips in the right upper quadrant. IMPRESSION: B left basilar subsegmental atelectasis or pneumonia.
[2022-06-01] MEDS ORDERED: TYLENOL PO PRN (13:15)
[2022-06-01 14:07] LABS: SARS COV-2 RNA RAPID NAAT NEGATIVE (NEGATIVE)
[2022-06-01] MEDS: LEVAQUIN 750 MG/150 ML D5W 750 MG/150 ML BAG IV SCH (15:28)
[2022-06-01 16:25] VITALS: BMI 21.4
[2022-06-01] MEDS: TRANSDERM-SCOP 1.5 MG PATCH TD SCH (16:28)
[2022-06-01] MEDS: SOLU-MEDROL 40 MG IVP SCH ×2 (16:29→20:31)
[2022-06-01] MEDS: NORCO 5-325 PO SCH ×2 (16:30→20:32)
[2022-06-01] MEDS: SODIUM CHLORIDE 1,000 ML IV SCH (16:32)
[2022-06-01] MEDS ORDERED: ALBUTEROL 0.083% NEB NEB SCH (17:00)
[2022-06-01] MEDS ORDERED: NITROSTAT SL PRN (17:16)
[2022-06-01] MEDS ORDERED: ATROPINE SULFATE PFS IVP PRN (17:16)
[2022-06-01] MEDS ORDERED: COLACE PO PRN (17:20)
[2022-06-01] MEDS: CARBIDOPA PO SCH ×2 (18:17→20:38)
[2022-06-01] MEDS: LEVODOPA PO SCH ×2 (18:17→20:38)
[2022-06-01] MEDS: [UNRECOGNIZED DRUG - OTHER] PO SCH ×2 (18:17→20:38)
[2022-06-01] MEDS: K-DUR PO SCH (18:26)
[2022-06-01] MEDS: LASIX TAB PO SCH (18:27)
[2022-06-01] MEDS: ALBUTEROL 0.083% NEB NEB SCH (19:25)
[2022-06-01] MEDS: SYMBICORT 160-4.5 MCG INHALER IH SCH (20:31)
[2022-06-01] MEDS: VITAMIN D PO SCH (20:32)
[2022-06-01] MEDS ORDERED: LASIX TAB PO SCH (21:00)
[2022-06-01 21:47] LABS: BILIRUBIN,URINE Negative (NEGATIVE); CLARITY,URINE Clear (CLEAR); COLOR,URINE Yellow (YELLOW); GLUCOSE, URINE (UA) Negative (NEGATIVE); KETONES,URINE Trace (NEGATIVE); LEUKOCYTE ESTERASE ,URINE Negative (NEGATIVE); NITRITE,URINE Negative (NEGATIVE); PH,URINE 5.5 (5-9); PROTEIN,URINE Negative (NEGATIVE); URINE, BLOOD 2+ (NEGATIVE); UROBILINOGEN,URINE 0.2 (0.2)
[2022-06-01 21:55] LABS: HYALINE CASTS, URINE 0-2 (NOT PRESENT); SQUAMOUS EPITHELIAL CELL,UR 0-2 (0-5)
[2022-06-02 04:06] LABS: BASOPHILS % (AUTO) 0.1 % (0.0-3.0); HEMATOCRIT 36.3 % (42.0-52.0); HEMOGLOBIN 11.8 g/dl (14.0-18.0); IMMATURE GRANULOCYTE % (AUTO) 0.4 % (0.0-5.0); LYMPHOCYTES # (AUTO) 0.8 K/uL (0.60-3.4); LYMPHOCYTES % (AUTO) 11.5 (10.0-50.0); MEAN CORPUSCULAR HEMOGLOBIN 28.4 pg (27.0-31.0); MEAN CORPUSCULAR HGB CONC 32.5 (31.8-35.4); MEAN CORPUSCULAR VOLUME 87.5 fl (80.0-94.0); MONOCYTES # (AUTO) 0.3 K/uL (0.4-2.0); MONOCYTES % (AUTO) 4.6 (0-10); NEUTROPHILS # (AUTO) 5.7 K/ul (2.0-6.9); NEUTROPHILS % (AUTO) 83.4 % (42.2-75.2); PLATELET COUNT 329 10^3/uL (140-440); RDW COEFFICIENT OF VARIATION 14.7 % (11.6-14.8); RED BLOOD COUNT 4.15 10^6/ul (4.70-6.10); WHITE BLOOD COUNT 6.78 K/ul (4.2-10.2)
[2022-06-02 04:19] LABS: ALANINE AMINOTRANSFERASE 9.3 U/L (0-50); ALBUMIN 3.77 g/dL (3.5-5.0); ALKALINE PHOSPHATASE 126.5 U/L (56-119); ASPARTATE AMINO TRANSFERASE 22.9 U/L (17-59); BILIRUBIN,TOTAL 0.48 mg/dL (0.2-1.3); BLOOD UREA NITROGEN 12.1 mg/dL (9-20); CALCIUM 8.78 mg/dL (8.4-10.2); CARBON DIOXIDE 31.1 mmol/L (22-30.0); CHLORIDE 103.8 mmol/L (98-107); CREATININE 0.62 mg/dL (0.60-1.10); GLUCOSE 142.8 mg/dL (74-106); SODIUM 140.3 mmol/L (134.5-145); TOTAL PROTEIN 6.89 g/dL (6.3-8.2)
[2022-06-02 04:30] LABS: TROPONIN I < 0.012 ng/ml (0.0000-0.120)
[2022-06-02] MEDS: ALBUTEROL 0.083% NEB NEB SCH ×4 (04:50→19:12)
[2022-06-02] MEDS: PROTONIX PO SCH (05:41)
[2022-06-02] MEDS: LASIX TAB PO SCH ×2 (05:41→17:31)
[2022-06-02] MEDS: SODIUM CHLORIDE 1,000 ML IV SCH ×2 (05:42→20:50)
[2022-06-02] MEDS: SOLU-MEDROL 40 MG IVP SCH ×3 (08:56→20:57)
[2022-06-02] MEDS: VITAMIN D PO SCH ×2 (08:56→20:40)
[2022-06-02] MEDS: ASPIRIN EC PO SCH (08:56)
[2022-06-02] MEDS: NORCO 5-325 PO SCH ×3 (08:57→20:40)
[2022-06-02] MEDS: K-DUR PO SCH ×2 (08:57→17:31)
[2022-06-02] MEDS: LEVAQUIN 750 MG/150 ML D5W 750 MG/150 ML BAG IV SCH (08:57)
[2022-06-02] MEDS: GLUCOPHAGE PO SCH (08:57)
[2022-06-02] MEDS: SYMBICORT 160-4.5 MCG INHALER IH SCH ×2 (08:58→20:39)
[2022-06-02] MEDS: [UNRECOGNIZED DRUG - OTHER] PO SCH ×3 (09:04→20:41)
[2022-06-02] MEDS: LEVODOPA PO SCH ×3 (09:04→20:41)
[2022-06-02] MEDS: CARBIDOPA PO SCH ×3 (09:04→20:41)
[2022-06-03 04:25] LABS: ABG O2 HGB 91.4 % (95-100); ABG PH 7.45 (7.35-7.45); BEecf 8.7 (-2.0-3.0); COHb 2.2 (0.5-1.5); HCO3 32.7 (21-28); MetHb 0.8 (0-1.5); TCO2 34.1 (19-24); sO2 92.5 % (94-98); tHb 11.3 g/dl (11.7-17.4)
[2022-06-03] MEDS: ALBUTEROL 0.083% NEB NEB SCH ×4 (04:40→20:00)
[2022-06-03 05:18] LABS: BASOPHILS % (AUTO) 0.1 % (0.0-3.0); HEMATOCRIT 36.3 % (42.0-52.0); HEMOGLOBIN 11.4 g/dl (14.0-18.0); IMMATURE GRANULOCYTE % (AUTO) 0.5 % (0.0-5.0); LYMPHOCYTES % (AUTO) 13.7 (10.0-50.0); MEAN CORPUSCULAR HEMOGLOBIN 27.9 pg (27.0-31.0); MEAN CORPUSCULAR HGB CONC 31.4 (31.8-35.4); MEAN CORPUSCULAR VOLUME 88.8 fl (80.0-94.0); MONOCYTES # (AUTO) 0.4 K/uL (0.4-2.0); MONOCYTES % (AUTO) 5.1 (0-10); NEUTROPHILS # (AUTO) 5.9 K/ul (2.0-6.9); NEUTROPHILS % (AUTO) 80.6 % (42.2-75.2); PLATELET COUNT 351 10^3/uL (140-440); RED BLOOD COUNT 4.09 10^6/ul (4.70-6.10); WHITE BLOOD COUNT 7.29 K/ul (4.2-10.2)
[2022-06-03 05:34] LABS: ALANINE AMINOTRANSFERASE 4.8 U/L (0-50); ALBUMIN 3.53 g/dL (3.5-5.0); ASPARTATE AMINO TRANSFERASE 16.7 U/L (17-59); BILIRUBIN,TOTAL 0.28 mg/dL (0.2-1.3); BLOOD UREA NITROGEN 11.9 mg/dL (9-20); CALCIUM 8.53 mg/dL (8.4-10.2); CARBON DIOXIDE 30.9 mmol/L (22-30.0); CHLORIDE 105.1 mmol/L (98-107); CREATININE 0.62 mg/dL (0.60-1.10); GLUCOSE 164.7 mg/dL (74-106); POTASSIUM 3.77 mmol/L (3.5-5.1); SODIUM 139.5 mmol/L (134.5-145); TOTAL PROTEIN 6.61 g/dL (6.3-8.2)
[2022-06-03] MEDS: PROTONIX PO SCH (05:55)
[2022-06-03] MEDS: LASIX TAB PO SCH (05:55)
[2022-06-03] MEDS ORDERED: LASIX IVP ONE (08:34)
[2022-06-03] MEDS: ASPIRIN EC PO SCH (08:44)
[2022-06-03] MEDS: K-DUR PO SCH ×2 (08:44→16:28)
[2022-06-03] MEDS: VITAMIN D PO SCH ×2 (08:44→20:01)
[2022-06-03] MEDS: NORCO 5-325 PO SCH ×3 (08:44→20:01)
[2022-06-03] MEDS: SYMBICORT 160-4.5 MCG INHALER IH SCH ×2 (08:44→20:01)
[2022-06-03] MEDS: GLUCOPHAGE PO SCH (08:44)
[2022-06-03] MEDS: [UNRECOGNIZED DRUG - OTHER] PO SCH ×3 (08:45→20:01)
[2022-06-03] MEDS: LEVODOPA PO SCH ×3 (08:45→20:01)
[2022-06-03] MEDS: LEVAQUIN 750 MG/150 ML D5W 750 MG/150 ML BAG IV SCH (08:45)
[2022-06-03] MEDS: CARBIDOPA PO SCH ×3 (08:45→20:01)
[2022-06-03] MEDS: SODIUM CHLORIDE 1,000 ML IV SCH (08:45)
[2022-06-03] MEDS: SOLU-MEDROL 40 MG IVP SCH ×3 (08:52→20:14)
--- NOTE | 2022-06-03 09:06 | PCM.PROG ---
Attending Provider: ATTENDING PROVIDER: Dr. SUN NAGEL MD This patient is seen with Tiera Vaz, Nurse Practitioner. DATE OF SERVICE: 06/03/22 SUBJECTIVE: This 81 year old /WHITE M was hospitalized 06/01/22. ABG this morning was on room air. Does have some wet lung sounds. Discontinue IV fluids. 40mg IV Lasix now, hold PO Lasix. Monitor output. REVIEW OF SYSTEMS: CONSTITUTIONAL: No night sweats. No fatigue, malaise, lethargy. No fever or chills. Weakness. HEENT: Eyes: No visual changes. No eye pain. No eye discharge. ENT: No runny nose. No epistaxis. No sinus pain. No odynophagia. No congestion. RESPIRATORY: Cough, Congestion. No hemoptysis. Shortness of breath. CARDIOVASCULAR: No angina symptoms. No CHF symptoms. No atypical chest pain for CAD. No palpitations. No orthopnea.. GASTROINTESTINAL: No abdominal pain. No nausea or vomiting. No diarrhea or constipation. No hematemesis. No hematochezia. GENITOURINARY: No urgency. No frequency. No dysuria. No hematuria. No obstructive symptoms. No discharge. No pain. No significant abnormal bleeding. MUSCULOSKELETAL: No musculoskeletal pain; no joint swelling. NEUROLOGICAL: Awake, alert, oriented to time, place and person. No headache. No neck pain. No syncope. No seizures. No dizziness. PSYCHIATRIC: Not anxious. No depression. No suicidal thoughts. No homicidal thoughts. SKIN: No rash. No lesions. No wounds. ENDOCRINE: No unexplained weight loss. No weight gain. HEMATOLOGIC/LYMPHATIC: No anemia. No purpura. No petechiae. No prolonged or excessive bleeding. No palpable lymph nodes. PHYSICAL EXAMINATION: GENERAL: The patient is awake, alert and oriented, lying in bed in no distress. VITAL SIGNS: Temperature 97.3 F, Pulse 73, Respiratory Rate 18, BP 147/82, Pul se Ox 96% HEENT: Head normocephalic, atraumatic. Eyes: Extraocular muscles are intact. Pupils are equal, round and reactive to light and accommodation. Ears: No lesions. Nose appeared normal. Throat: No exudate or erythema. NECK: Supple. No JVD, no carotid bruit. No lymphadenopathy or thyromegaly. LUNGS: Severely diminished breath sounds. Bilateral upper rhonchi. clear to auscultation. Percussion note normal. Chest symmetrical. HEART: S1, S2, no S3. No murmurs. No cyanosis or clubbing. No ascites. Pulses: Dorsalis pedis and posterior tibial pulses +1 to +2 both sides. ABDOMEN: Soft. Non-tender. Bowel sounds active. No CVA tenderness. No mass felt. EXTREMITIES: Trace leg edema. Bilateral hand edema. Full range of motion of all extremities, equal. NEUROLOGIC: No focal deficit. Cranial nerves II through XII are grossly intact. No headache. No double vision. SKIN: Not dry. Intact. Turgor-normal. LYMPHATIC: No palpable lymph nodes/no lymphedema. MUSCULOSKELETAL: Normal joints with no swelling. Muscle tone is normal. LAB REVIEW: 06/03/22 05:00 06/03/22 05:00 06/03/22 05:00: Sodium 139.5, Potassium 3.77, Chloride 105.1, Carbon Dioxide 3 0.9 H, Anion Gap 7.27, BUN 11.9, Creatinine 0.62, Estimated GFR (MDRD) 125.00, BUN/Creatinine Ratio 19.19, Glucose 164.7 H, Calcium 8.53, Total Bilirubin 0.28, AST 16.7 L, ALT 4.8, Alkaline Phosphatase 118.0, Total Protein 6.61, Albumin 3 .53, Globulin 3.08, Albumin/Globulin Ratio 1.14 06/03/22 05:00: WBC 7.29, RBC 4.09 L, Hgb 11.4 L, Hct 36.3 L, MCV 88.8, MCH 27.9, MCHC 31.4 L, RDW Coeff of Leda 15.0 H, Plt Count 351, Immature Gran % (Auto) 0.5, Neut % (Auto) 80.6 H, Lymph % (Auto) 13.7, [place] % (Auto) 5.1, Eos % (Auto) 0.0, Baso % (Auto) 0.1, Neut # (Auto) 5.9, Lymph # (Auto) 1.0, [place] # (Auto) 0.4, Eos # (Auto) 0.0, Baso # (Auto) 0.0, Immature Gran # (Auto) 0.0 06/03/22 04:15: Puncture Site Lrad, Base Excess 8.7 H, O2 Saturation 92.5 L, ABG pH 7.45, ABG pCO2 47.0 H, ABG pO2 62.0 L, ABG HCO3 32.7 H, ABG Total CO2 34.1 H, Zaki Test +, Hemoglobin 0.8, Oxyhemoglobin 91.4 L, Carboxyhemoglobin 2.2 H, Total Hemoglobin 11.3 L, FiO2 % 21.0 ASSESSMENT: Please see below. 1. Acute respiratory failure 2. Lobar pneumonia 3. COPD 4. Parkinson's disease 5. Hypertension PLAN: 1. Discontinue IV fluids 2. 40mg IV Lasix 3. Hold PO Lasix Plan and coordination of the patient's care discussed in the presence of Senior Research Manager and nurse. SCRIBED BY: Tom ROBERTS scribed while in presence of service performed by Tiera Vaz APRN on 06/03/22 ([id number])
--- NOTE | 2022-06-03 10:56 | RS.BEDDYS ---
Subjective Date of Evaluation: 06/03/22 Date of Onset/Injury/Change in Status: 06/01/22 Diagnosis: Pneumonia; Advanced Parkinson's disease Current Level of Function: This is a 81 year old male whom resides in a long- term care facility. He was brought to hospital due to SOB and congested breath sounds. The patient has a non-productive cough and has been receiving suctions to control mucous production. The patient has a hx of Parkinson's disease with oropharyngeal dysphagia. A clinical bedside swallow evaluation will be completed to determine safer and least restrictive diet. Current Diet: Minced and moist; thin liquids; meds crushed Current Subjective/complaints:: The patient was in bed resting comfortably upon BULK PIGMENT REDUCER entry. The RN was in the room and assisted BULK PIGMENT REDUCER with meal set-up and feeding. The patient denied any pain in his mouth or chest. The patient requested his bottom dentures prior to feeding. The BULK PIGMENT REDUCER asked the patient to cough and he demonstrated unproductive low pressure cough. The patient was agreeable to participate in skilled SPT evaluation to determine safe PO intake. Medical History Comments:: COPD, Parkinson's disease, anemia, oropharyngeal dysphagia, CAD (coronary artery disease); Cervical radiculopathy ;Chronic arthritis; Dementia; Diabetes mellitus; Disc narrowing,Gastroesophageal reflux disease,Hyperlipidemia,Hypertension Hx Home Medications: Refer to medications for complete list. Patient's Goals: To consume safer and least restrictive PO diet and maintain adequate hydration and nutrition. General Information - General Denture Type: Full- Upper & Lower (loose bottom; uppers with adhesive) Patient Orientation: Person, Place, Situation (given prompts ) Ability to Follow Directions: Good Is Patient able to Repeat Directions?: Yes Oral Expression Ability: Moderate Impairment - Voice Voice Quality: Breathy, Hoarse, Weak Voice Pitch: Mildly High Voice Loudness: Mildly Soft/Quiet Oral-Facial Assessment - Face Facial Symmetry: Symmetrical Facial Movement: Controlled Face Comment: Stoic facial expressions - Dental/Labial Mouth Occlusion: Normal Lip Protrusion: Normal Lip Retraction: Normal Lips Comment: Slow movements - Lingual Protrusion: Reduced ROM Retraction: Reduced ROM Tip Lateralization: Discoordination Repeated Tip Lateralization: Discoordination Tip Elevation: Reduced ROM Repeated Tip Elevation: Reduced ROM Comments: Lingual surface was moist. Lingual movements were discoordinated upon command, but more functional with food bolus and liquid containment. The BULK PIGMENT REDUCER has suspicion with pt's BOT sensory awareness. Food Presentation - Solids Food Presented: Chopped (1/2 tsp presentations via BULK PIGMENT REDUCER) Behaviors/Comments: The BULK PIGMENT REDUCER presented bites midline. The patient demonstrated minimal mastication with munch pattern. 2-3 bites, pt required a liquid wash. After 6-7 bites, pt had multiple swallows with bolus stasis on BOT. With verbal cues to clear BOT, pt cleared with multiple swallows and a liquid wash. Pt has risks for stasis on BOT which can be aspirated if his lingual sensation is decreased. Pt has risks for aspiration and penetration. He had no overt s/s of aspiration with minced texture. Food Presented: Pureed (spoon) Behaviors/Comments: Pt consumed a few bites with RN. He became fatigued quickly. he had no overt s/s of aspiration with puree diet texture. - Liquids Liquid Presented: Thin (via open cup and straw) Behaviors/Comments: The BULK PIGMENT REDUCER presented open cup to pt. He consumed thin H20 without overt s/s of aspiration. Straw was presented and he consumed three consecutive sips; demonstrating pacing and adequate timing with breath support between sips of thin H20. His swallow response was within functional limits of 1-2 seconds with all thin liquids. He had audible swallow and decreased LE for airway protection. He had no delayed coughs or throat clears. His vocal quality is moist pre and post drinks due to mucus production that requires suctioning. At this time, at the bedside, he does not present with overt aspiration with thin liquids. However, BULK PIGMENT REDUCER will continue to monitor lung sounds pre-post PO intake, due to his wet lung sounds to rule out silent aspiration. - Recommendations: Dysphagia Evaluation Dietary Recommendations: Minced and Moist (extra condiments and sauces for cohesive bolus), Thin Comments:: Pt ok for thin liquids via straw or small open cup sips. Do not use large straw cup. 1/2 tsp size bites presented with monitoring for stasis on lingual surface post 2-3 bites. Use liquids between bites of food to keep mouth moist, wash mucous, and clear any residuals. Pt has a high risk for aspiration due to his unproductive cough and potential for decreased sensation. Dysphagia Swallow Precautions/Strategies: Sitting Upright (90 deg), Double Swallow, Liquids from Straw, Small Bites and Sips, Alternate Liquids/Solids Comments:: NO DAIRY PRODUCTS AT THIS TIME. Supervision with small snacks. 1:1 feeding with meals. Monitor for fatigue. Start with hardest textures on meal tray and move to easiest textures as mechanism fatigue occurs. Check on back of the tongue post 2-3 bites for food and encourage a swallow or drink to clear residuals. Allow pacing between bites and monitor breath support with feeding. LISTEN TO LUNG SOUNDS PRE AND POST PO INTAKE TO ASSIST WITH R/O SILENT ASPIRATION. - Summary Dysphagia Evaluation Summary: The patient has a hx of oropharyngeal dysphagia and is currently on a modified diet texture. He is consuming thin liquids and his medications crushed in pudding/applesauce. At this time, the patient has a non-productive cough placing him at risk for aspiration episodes. He has moderately decreased lingual strength and coordination and LE for airway protection. However, his swallow initiation is timely and he can complete multiple swallows to clear residuals. With minced and moist, after multiple bites, he began to need more swallows and liquids to clear food from back of ton zachary; which places him at risk for aspiration on residuals on lingual surface. At this time, he demonstrates timely swallow and multiple swallows with his thin liquid sips via open cup and straw. However, due to wet lung sounds and current pneumonia status, BULK PIGMENT REDUCER cannot rule out silent aspiration at this time. BULK PIGMENT REDUCER recommends continue current modified diet of minced and moist with thin liquids via straw. Supervision with snacks and 1:1 assistance with meal trays. Lung sounds to be closely monitored pre-post PO intake. If lung sounds do not improve, BULK PIGMENT REDUCER will recommend a MBSS and may need to downgrade liquid consistency. However, due to thick secretions and non-productive coughing, thickened liquids may not improve his safety with swallowing. The BULK PIGMENT REDUCER also has concerns for adequate nutrition intake at this time. The patient demonstrates mechanism fatigue within 25-40% of meal tray. BULK PIGMENT REDUCER will follow this case closely to determine best route for PO intake and reduce risks for aspiration. Further Therapy Indicated?: Yes Comments: Continue to complete treatment to determine risks for aspiration. Rehab Potential: Fair Functional Reporting G Codes: n/a Severity Impairment Rationale: n/a Short Term Goals Problem: Oral phase Goal #1: Pt complete OMEs on 100% of opportunities Goal to be met by: 06/10/22 Problem: Oral phase Goal #2: Pt demo bolus clearance 100% of PO Goal to be met by: 06/10/22 Problem: PO intake Goal #3: Tolerate M&M diet w/ thin liquids w/ min to no overt s/s of asp Goal to be met by: 06/10/22 Problem: SOB Goal #4: Complete diaphragmatic breathing tasks to improve breath support for speech Goal to be met by: 06/10/22 Problem: Pharyngeal phase Goal #5: Pt complete LE exercises to improve airway protection 100% of opp. Goal to be met by: 06/10/22 Problem: Aspiration risks Goal #6: Pt verbalize/demon safe swallow/aspiration precautions 100% of PO intake. Goal to be met by: 06/10/22 Enforcement Officer Goals Goal #1: Tolerate safer and least restrictive diet w/ min to no overt s/s of asp. Goal to be met by: 06/10/22 Goal #2: Maintain adequate hydration and nutrition status with PO intake Goal to be met by: 06/10/22 Goal #3: Potential MBSS Goal to be met by: 06/05/22 Goal #4: Monitor speech/language/cognition Goal to be met by: 06/10/22 Plan Duration of Treatment: 1 Week Frequency of Treatment: 3x/week Anticipated Discharge Destination: Enforcement Officer [facility] Facility Comments: Plan to continue current diet modifications; closely monitor lung sounds pre/post PO intake; determine if nutritional needs can be met via PO; rule out silent aspiration with potential for MBSS; trial exercise and compensatory swallow strategies to continue PO intake. - Treatment Code (1) Oropharyngeal dysphagia Code(s): R13.12 - Dysphagia, oropharyngeal phase (2) Pneumonia Code(s): J18.9 - Pneumonia, unspecified organism (3) Parkinson disease Code(s): G20 - Parkinson's disease
[2022-06-03] MEDS: HUMULIN R SUBCUT PRN ×3 (11:16→20:34)
--- NOTE | 2022-06-03 14:35 | RS.DYSPHTX ---
Dysphagia Treatment Note Date of Note: 06/03/22 Visit #: 1 Time of Treatment: 12:00 Subjective: The patient was upright in bed upon BUILDING PERFORMANCE CONSULTANT entry. He was reaching for his meal tray. When asked about his appetite, he reported he was hungry and thirsty. RN listened to lung sounds pre-feeding and reported primarily rubs; but no worsening lung sounds. She listened post meal and reported same lung sounds. The patient was cooperative and participated with feeding therapy and BUILDING PERFORMANCE CONSULTANT recommendations. Total treatment time: 30 - Short Term Goals Goal #1: Pt complete OMEs on 100% of opportunities Goal #2: Pt demo bolus clearance 100% of PO Activity/Accuracy: Pt cleared bolus 50% of trials. BUILDING PERFORMANCE CONSULTANT monitored oral cavity post all bites. He demonstrated lingual residuals 50% of bites, which was cleared with additional swallow and/or liquid wash 80% of trials. Without use of strategies, he could have residue build-up on lingual surface that places him at higher risk for aspiration episodes. 1x, pt had residuals in sulcus Goal #3: Tolerate M&M diet w/ thin liquids w/ min to no overt s/s of asp Activity/Accuracy: BUILDING PERFORMANCE CONSULTANT presented minced and moist diet trials in 1/2 bite size. Pt consumed 15 bites without overt s/s of aspiration. BUILDING PERFORMANCE CONSULTANT requested he complete a throat clear 1x post thin liquid trials and no wet vocal quality was audible. Pt's audible crackles are suspected from bronchial tube. Pt consumed consecutive straw sips and small individual sips of thin liquids without overt s/s of aspiration. No changes in lung sounds post thin liquids. Goal #4: Complete diaphragmatic breathing tasks to improve breath support for speech Activity/Accuracy: Encouraged deep breaths and throat clears post PO intake. Will continue to educate and train pt. Goal #5: Pt complete LE exercises to improve airway protection 100% of opp. Activity/Accuracy: Initiated training with throat clears and effortful swallows. Will complete more exercises when pt is not seen with meal tray. Goal #6: Pt verbalize/demon safe swallow/aspiration precautions 100% of PO intake. Activity/Accuracy: Reviewed strategies with pt. Given verbal cues during meal, he demonstrated use of strategies 100%. Independently, he did not utilize strategies. Will continue to educate pt on compensatory strategies and aspiration risks. Pt requested milk at lunch time and BUILDING PERFORMANCE CONSULTANT verbalized no dairy this date due to increased mucous production and risks with dairy products; pt verbalized ok for this date. BUILDING PERFORMANCE CONSULTANT will determine tomorrow this date if appropriate for dairy products yet. - Mcc Goals Goal #1: Tolerate safer and least restrictive diet w/ min to no overt s/s of asp. Goal #2: Maintain adequate hydration and nutrition status with PO intake Goal #3: Potential MBSS Goal #4: Monitor speech/language/cognition Assessment: At the bedside, the patient has audible breath sounds that are primarily in bronchial tube vs pharynx. The BUILDING PERFORMANCE CONSULTANT still suspects decreased sensation on lingual surface. The patient also has risks for aspiration on secretions due to his thick secretions without productive coughing. The patient tolerated 15 bites of his meal within 25 minutes and then demonstrated no changes in lung sounds. At this time, he presents as a high risk for aspiration, but can tolerate current PO recommendations of minced and moist diet texture with thin liquids. Continue his meds crushed in puree. Continue to monitor lung sounds for audible changes. When pt wants to lay down HOB, please complete oral care routine and/or remove dentures. The BUILDING PERFORMANCE CONSULTANT will continue to provide treatment to pursue PO route. BUILDING PERFORMANCE CONSULTANT recommends MD to monitor nutritional status to determine if needs are met via PO only. - Units Charged Swallowing Therapy: 2 - Plan Frequency of Treatment: 3x/week Duration of Treatment: 1 Week Comments: Check meal trays to ensure minced and moist diet. Please do not provide any bread as this is not considered minced and moist diet texture.
[2022-06-04] MEDS: ALBUTEROL 0.083% NEB NEB SCH ×4 (04:45→19:25)
[2022-06-04 04:58] LABS: BASOPHILS % (AUTO) 0.1 % (0.0-3.0); HEMOGLOBIN 12.1 g/dl (14.0-18.0); IMMATURE GRANULOCYTE # (AUTO) 0.1 (0.0-1.0); IMMATURE GRANULOCYTE % (AUTO) 0.9 % (0.0-5.0); LYMPHOCYTES # (AUTO) 1.1 K/uL (0.60-3.4); MEAN CORPUSCULAR HEMOGLOBIN 28.1 pg (27.0-31.0); MEAN CORPUSCULAR HGB CONC 31.8 (31.8-35.4); MEAN CORPUSCULAR VOLUME 88.4 fl (80.0-94.0); MONOCYTES # (AUTO) 0.4 K/uL (0.4-2.0); MONOCYTES % (AUTO) 4.8 (0-10); NEUTROPHILS # (AUTO) 7.2 K/ul (2.0-6.9); NEUTROPHILS % (AUTO) 82.2 % (42.2-75.2); PLATELET COUNT 415 10^3/uL (140-440); RDW COEFFICIENT OF VARIATION 14.9 % (11.6-14.8); WHITE BLOOD COUNT 8.81 K/ul (4.2-10.2)
[2022-06-04 05:09] LABS: ALANINE AMINOTRANSFERASE 9.3 U/L (0-50); ALBUMIN 3.77 g/dL (3.5-5.0); ALKALINE PHOSPHATASE 106.3 U/L (56-119); ASPARTATE AMINO TRANSFERASE 20.2 U/L (17-59); BILIRUBIN,TOTAL 0.27 mg/dL (0.2-1.3); BLOOD UREA NITROGEN 14.9 mg/dL (9-20); CALCIUM 9.23 mg/dL (8.4-10.2); CARBON DIOXIDE 32.9 mmol/L (22-30.0); CHLORIDE 102.1 mmol/L (98-107); CREATININE 0.66 mg/dL (0.60-1.10); GLUCOSE 159.4 mg/dL (74-106); POTASSIUM 3.96 mmol/L (3.5-5.1); SODIUM 139.7 mmol/L (134.5-145); TOTAL PROTEIN 6.81 g/dL (6.3-8.2)
[2022-06-04] MEDS: HUMULIN R SUBCUT PRN ×3 (05:29→20:17)
[2022-06-04] MEDS: PROTONIX PO SCH (05:30)
[2022-06-04] MEDS: LASIX TAB PO SCH ×2 (05:30→15:59)
--- NOTE | 2022-06-04 08:55 | PCM.PROG ---
Attending Provider: ATTENDING PROVIDER: Dr. SUN NAGEL MD This patient is seen with Tiera Vaz, Nurse Practitioner. DATE OF SERVICE: 06/04/22 SUBJECTIVE: This 81 year old /WHITE M was hospitalized 06/01/22. The patient is resting comfortably. Swelling significantly improved today in hands. Lung sounds improved, had over 3000 out yesterday. Labs are stable. He is eating slightly better. He had speech consult yesterday, no dietary changes made. REVIEW OF SYSTEMS: CONSTITUTIONAL: Weakness. No night sweats. No fatigue, malaise, lethargy. No fever or chills. HEENT: Eyes: No visual changes. No eye pain. No eye discharge. ENT: No runny nose. No epistaxis. No sinus pain. No odynophagia. No congestion. RESPIRATORY: Cough. No hemoptysis. Shortness of breath. CARDIOVASCULAR: No angina symptoms. No CHF symptoms. No atypical chest pain for CAD. No palpitations. No orthopnea.. GASTROINTESTINAL: No abdominal pain. No nausea or vomiting. No diarrhea or constipation. No hematemesis. No hematochezia. GENITOURINARY: No urgency. No frequency. No dysuria. No hematuria. No obstructive symptoms. No discharge. No pain. No significant abnormal bleeding. MUSCULOSKELETAL: No musculoskeletal pain; no joint swelling. NEUROLOGICAL: Awake, alert, oriented to time, place and person. No headache. No neck pain. No syncope. No seizures. No dizziness. PSYCHIATRIC: Not anxious. No depression. No suicidal thoughts. No homicidal thoughts. SKIN: No rash. No lesions. No wounds. ENDOCRINE: No unexplained weight loss. No weight gain. HEMATOLOGIC/LYMPHATIC: No anemia. No purpura. No petechiae. No prolonged or excessive bleeding. No palpable lymph nodes. PHYSICAL EXAMINATION: GENERAL: The patient is awake, alert and oriented, lying/sitting in bed in no distress. VITAL SIGNS: Temperature 97.6 F, Pulse 77, Respiratory Rate 18, BP 131/65, Pul se Ox 98% HEENT: Head normocephalic, atraumatic. Eyes: Extraocular muscles are intact. Pupils are equal, round and reactive to light and accommodation. Ears: No lesions. Nose appeared normal. Throat: No exudate or erythema. NECK: Supple. No JVD, no carotid bruit. No lymphadenopathy or thyromegaly. LUNGS: Diminished breath sounds. Bilateral upper rhonchi. Right-sided inspiratory and expiratory wheezing. Percussion note normal. Chest symmetrical. HEART: S1, S2, no S3. No murmurs. No cyanosis or clubbing. No ascites. Pulses: Dorsalis pedis and posterior tibial pulses +1 to +2 both sides. ABDOMEN: Soft. Non-tender. Bowel sounds active. No CVA tenderness. No mass felt. EXTREMITIES: No edema. Full range of motion of all extremities, equal. NEUROLOGIC: No focal deficit. Cranial nerves II through XII are grossly intact. No headache. No double vision. SKIN: Not dry. Intact. Turgor-normal. LYMPHATIC: No palpable lymph nodes/no lymphedema. MUSCULOSKELETAL: Normal joints with no swelling. Muscle tone is normal. LAB REVIEW: 06/04/22 04:46 06/04/22 04:46 06/04/22 04:46: Sodium 139.7, Potassium 3.96, Chloride 102.1, Carbon Dioxide 32.9 H, Anion Gap 8.66, BUN 14.9, Creatinine 0.66, Estimated GFR (MDRD) 116.00, BUN/Creatinine Ratio 22.57, Glucose 159.4 H, Calcium 9.23, Total Bilirubin 0.27, AST 20.2, ALT 9.3, Alkaline Phosphatase 106.3, Total Protein 6.81, Albumin 3.77, Globulin 3.04, Albumin/Globulin Ratio 1.24 06/04/22 04:46: WBC 8.81, RBC 4.30 L, Hgb 12.1 L, Hct 38.0 L, MCV 88.4, MCH 28.1, MCHC 31.8, RDW Coeff of Leda 14.9 H, Plt Count 415, Immature Gran % (Auto) 0.9, Neut % (Auto) 82.2 H, Lymph % (Auto) 12.0, [place] % (Auto) 4.8, Eos % (Auto) 0.0, Baso % (Auto) 0.1, Neut # (Auto) 7.2 H, Lymph # (Auto) 1.1, [place] # (Auto) 0.4, Eos # (Auto) 0.0, Baso # (Auto) 0.0, Immature Gran # (Auto) 0.1 ASSESSMENT: Please see below. 1. Acute respiratory failure 2. Lobar pneumonia 3. COPD 4. Parkinson's disease 5. Hypertension PLAN: 1. Hold Budesonide inhaler. 2. Budesonide nebulizer b.i.d. 3. Mucinex b.i.d. 4. Repeat chest x-ray. 5. Increase Solu-Medrol 80 6. Increase Solu-Medrol 80 t.i.d. Plan and coordination of the patient's care discussed in the presence of Medical Laboratory Manager and nurse. CONDITION: Stable TIME SPENT: 35 MINUTES SCRIBED BY: Tom ALEMAN scribed while in presence of service performed by Tiera Vaz APRN on 06/04/22 ([id number])
[2022-06-04] MEDS ORDERED: SOLU-MEDROL 40 MG IVP SCH (09:00)
[2022-06-04] MEDS: ASPIRIN EC PO SCH (09:03)
[2022-06-04] MEDS: SOLU-MEDROL 125 MG IVP SCH ×3 (09:03→20:31)
[2022-06-04] MEDS: LEVAQUIN 750 MG/150 ML D5W 750 MG/150 ML BAG IV SCH (09:04)
[2022-06-04] MEDS: [UNRECOGNIZED DRUG - OTHER] PO SCH ×3 (09:04→20:15)
[2022-06-04] MEDS: MUCINEX PO SCH ×2 (09:04→20:15)
[2022-06-04] MEDS: CARBIDOPA PO SCH ×3 (09:04→20:15)
[2022-06-04] MEDS: NORCO 5-325 PO SCH ×3 (09:04→20:15)
[2022-06-04] MEDS: LEVODOPA PO SCH ×3 (09:04→20:15)
[2022-06-04] MEDS: K-DUR PO SCH ×2 (09:04→16:02)
[2022-06-04] MEDS: GLUCOPHAGE PO SCH (09:04)
[2022-06-04] MEDS: VITAMIN D PO SCH ×2 (09:04→20:15)
--- NOTE | 2022-06-04 10:22 | DI ---
EXAM: CHEST ONE VIEW, FRONTAL VIEW ONLY. HISTORY: Pneumonia follow-up. COMPARISON: 06/01/2022. FINDINGS: Heart size is stable. Atherosclerotic calcifications present. No vascular congestion. B and-like opacity along the left diaphragm again noted, slightly improved. Mild persistent bronchial thickening. No new opacity. No pleural effusion or pneumothorax. Clips in the upper abdomen. Lumb ar spine fusion hardware partially imaged. No acute osseous abnormality identified. Nonspecific gas eous distension of upper abdominal bowel loops. IMPRESSION: 1. Slight improvement in left basilar consolidation. 2. Stable bronchial thickening.
--- NOTE | 2022-06-04 10:48 | RS.DYSPHTX ---
Dysphagia Treatment Note Date of Note: 06/04/22 Visit #: 2 Time of Treatment: 08:30 Subjective: The patient was upright in bed upon BUSINESS QUALITY ASSURANCE ANALYST entry. The patient reported feeling slightly better. Coughing was improved with harder and deeper coughing episodes followed by throat clears; but still no productive coughs this date. Lung sounds pre-meal indicated prominent crackles on right side and coarse and rhonchi. post meal, crackles had diminished, but other lung sounds were audible. Pt was cooperative for treatment and participated with all tasks. He increased his PO intake with BUSINESS QUALITY ASSURANCE ANALYST this date. Total treatment time: 60 - Short Term Goals Goal #1: Pt complete OMEs on 100% of opportunities Activity/Accuracy: Lingual protrusion completed several trials and improved rate of movement was observed. Goal #2: Pt demo bolus clearance 100% of PO Activity/Accuracy: Initial part of meal pt cleared bolus 95-100%. Last 5-10 bites, BUSINESS QUALITY ASSURANCE ANALYST had to encourage him to clear bolus as it was on lingual surface or in right sulcus. Pt followed strategies and cleared bolus with additional swallow or liquid wash. Goal #3: Tolerate M&M diet w/ thin liquids w/ min to no overt s/s of asp Activity/Accuracy: BUSINESS QUALITY ASSURANCE ANALYST presented 1/2 spoonful bite sized minced and moist texture to pt. He reported that he [facility] himself in the [facility]. BUSINESS QUALITY ASSURANCE ANALYST provided training throughout session with appropriate bite size and pacing to decrease risks for aspiration. The patient required 45 minutes to finish 75% of his meal tray. He had intermittent coughs during PO intake that did not present as immediate or delayed coughs with potential penetration/aspiration. With thin liquids, he demonstrated no immediate or delayed coughs, but does have audible swallow and minimal swallow delay with larger consecutive sips. At this time, BUSINESS QUALITY ASSURANCE ANALYST still cannot rule out potential silent aspiration. Goal #4: Complete diaphragmatic breathing tasks to improve breath support for speech Activity/Accuracy: BUSINESS QUALITY ASSURANCE ANALYST provided breath training to patient with deep breaths in nose/out of pursed lips. Pt demonstrated a few diaphragmatic breaths and then began to cough. BUSINESS QUALITY ASSURANCE ANALYST provided verbal cues to increase pressure with cough and continue to cough for production of mucous. Goal #5: Pt complete LE exercises to improve airway protection 100% of opp. Activity/Accuracy: LE assessed during PO intake and without bites of food. He continues to demonstrate mildly decreased LE for airway protection. No exercises trialed. Goal #6: Pt verbalize/demon safe swallow/aspiration precautions 100% of PO intake. Activity/Accuracy: BUSINESS QUALITY ASSURANCE ANALYST reviewed compensatory swallow strategies including bolus manipulation, liquid wash, additional swallows, and throat clears. Given moderate verbal cues, pt completed all strategies with meal tray. Throughotu meal tray, bite size was discussed and various sizes were trialed. However, he required 1/2 spoonful to successful clear bolus without more than 50% residuals. Pt required a liquid wash post 3-4 bites of food and given verbal instructions he could 'swish' the liquid to clear the sulci. BUSINESS QUALITY ASSURANCE ANALYST then provided continued education on his aspiration risks with food in mouth and discussed his oral care routine. Oral care routine was completed post meal. The patient was also given verbal instructions to continue without dairy products this date d/t thick mucous. Pt demonstrated use of strategies with cues, verbalized awareness to aspiration risks when BUSINESS QUALITY ASSURANCE ANALYST verbalized risks/precautions. Pt continues to demonstrate mild-moderate deficits with residue and needs continued cues to use strategies before placing more food in mouth. - Construction Technology Instructor Goals Goal #1: Tolerate safer and least restrictive diet w/ min to no overt s/s of asp. Goal #2: Maintain adequate hydration and nutrition status with PO intake Goal #3: Potential MBSS Goal #4: Monitor speech/language/cognition Assessment: At this time, BUSINESS QUALITY ASSURANCE ANALYST cannot r/o potential for silent aspiration as his lungs have improved, but continue to have audible crackles. The patient has been fed by the BUSINESS QUALITY ASSURANCE ANALYST and is receiving training with bite size and compensatory swallow strategies. He reports that in the [facility] setting, he feeds himself. BUSINESS QUALITY ASSURANCE ANALYST will monitor his self-feeding with his use of strategies at next session and continue to closely monitor this case. The patient was given verbal instructions to continue with deep coughing and throat clears often to improve his overall b reath support and lung sounds. At this time, BUSINESS QUALITY ASSURANCE ANALYST recommends continuation of modified diet and thin liquids with meds crushed. Oral care routine and dentures out of mouth when laying flat in bed. Continue with current goals and increase his independence with demonstration of safe swallowing with his meal tray. - Units Charged Swallowing Therapy: 4 - Plan Frequency of Treatment: 3x/week Duration of Treatment: 1 Week
[2022-06-04] MEDS: TRANSDERM-SCOP 1.5 MG PATCH TD SCH (15:56)
[2022-06-04] MEDS: PULMICORT 0.5 MG/2 ML NEB SCH (19:25)
[2022-06-05 05:01] LABS: BASOPHILS % (AUTO) 0.2 % (0.0-3.0); HEMATOCRIT 38.3 % (42.0-52.0); HEMOGLOBIN 12.3 g/dl (14.0-18.0); IMMATURE GRANULOCYTE # (AUTO) 0.2 (0.0-1.0); IMMATURE GRANULOCYTE % (AUTO) 1.9 % (0.0-5.0); LYMPHOCYTES % (AUTO) 9.8 (10.0-50.0); MEAN CORPUSCULAR HEMOGLOBIN 28.3 pg (27.0-31.0); MEAN CORPUSCULAR HGB CONC 32.1 (31.8-35.4); MONOCYTES # (AUTO) 0.4 K/uL (0.4-2.0); MONOCYTES % (AUTO) 3.9 (0-10); NEUTROPHILS # (AUTO) 8.7 K/ul (2.0-6.9); NEUTROPHILS % (AUTO) 84.2 % (42.2-75.2); PLATELET COUNT 442 10^3/uL (140-440); RDW COEFFICIENT OF VARIATION 14.7 % (11.6-14.8); RED BLOOD COUNT 4.35 10^6/ul (4.70-6.10); WHITE BLOOD COUNT 10.38 K/ul (4.2-10.2)
[2022-06-05 05:12] LABS: ALANINE AMINOTRANSFERASE 13.1 U/L (0-50); ALBUMIN 3.81 g/dL (3.5-5.0); ALKALINE PHOSPHATASE 116.8 U/L (56-119); ASPARTATE AMINO TRANSFERASE 44.6 U/L (17-59); BILIRUBIN,TOTAL 0.28 mg/dL (0.2-1.3); BLOOD UREA NITROGEN 18.5 mg/dL (9-20); CALCIUM 9.36 mg/dL (8.4-10.2); CARBON DIOXIDE 34.3 mmol/L (22-30.0); CHLORIDE 101.3 mmol/L (98-107); CREATININE 0.7 mg/dL (0.60-1.10); GLUCOSE 155.4 mg/dL (74-106); POTASSIUM 4.14 mmol/L (3.5-5.1); SODIUM 139.1 mmol/L (134.5-145); TOTAL PROTEIN 6.75 g/dL (6.3-8.2)
[2022-06-05] MEDS: PROTONIX PO SCH (05:31)
[2022-06-05] MEDS: LASIX TAB PO SCH ×2 (05:31→17:14)
[2022-06-05] MEDS: HUMULIN R SUBCUT PRN ×2 (05:35→17:14)
[2022-06-05] MEDS: ALBUTEROL 0.083% NEB NEB SCH ×4 (06:00→19:12)
[2022-06-05] MEDS: PULMICORT 0.5 MG/2 ML NEB SCH ×2 (06:00→19:12)
[2022-06-05] MEDS: NORCO 5-325 PO SCH ×3 (08:12→20:13)
[2022-06-05] MEDS: [UNRECOGNIZED DRUG - OTHER] PO SCH ×3 (08:34→20:13)
[2022-06-05] MEDS: LEVODOPA PO SCH ×3 (08:34→20:13)
[2022-06-05] MEDS: CARBIDOPA PO SCH ×3 (08:34→20:13)
[2022-06-05] MEDS: ASPIRIN EC PO SCH (08:36)
[2022-06-05] MEDS: VITAMIN D PO SCH ×2 (08:36→20:13)
[2022-06-05] MEDS: MUCINEX PO SCH ×2 (08:36→20:13)
[2022-06-05] MEDS: K-DUR PO SCH ×2 (08:36→17:14)
[2022-06-05] MEDS: SOLU-MEDROL 125 MG IVP SCH ×3 (08:37→20:13)
[2022-06-05] MEDS: GLUCOPHAGE PO SCH (08:37)
[2022-06-05] MEDS: LEVAQUIN 750 MG/150 ML D5W 750 MG/150 ML BAG IV SCH (08:38)
[2022-06-06 04:34] LABS: ABG O2 HGB 86.7 % (95-100); ABG PH 7.49 (7.35-7.45); BEecf 12.5 (-2.0-3.0); COHb 2.2 (0.5-1.5); HCO3 35.8 (21-28); MetHb 1.8 (0-1.5); TCO2 37.2 (19-24); sO2 89.8 % (94-98); tHb 14.3 g/dl (11.7-17.4)
[2022-06-06] MEDS: ALBUTEROL 0.083% NEB NEB SCH ×4 (04:47→20:04)
[2022-06-06] MEDS: PULMICORT 0.5 MG/2 ML NEB SCH ×2 (04:47→20:04)
[2022-06-06 04:51] LABS: BASOPHILS # (AUTO) 0.1 K/uL (0-0.2); BASOPHILS % (AUTO) 0.2 % (0.0-3.0); HEMATOCRIT 39.4 % (42.0-52.0); HEMOGLOBIN 12.8 g/dl (14.0-18.0); IMMATURE GRANULOCYTE # (AUTO) 0.2 (0.0-1.0); IMMATURE GRANULOCYTE % (AUTO) 0.8 % (0.0-5.0); LYMPHOCYTES # (AUTO) 1.2 K/uL (0.60-3.4); LYMPHOCYTES % (AUTO) 4.3 (10.0-50.0); MEAN CORPUSCULAR HEMOGLOBIN 28.7 pg (27.0-31.0); MEAN CORPUSCULAR HGB CONC 32.5 (31.8-35.4); MEAN CORPUSCULAR VOLUME 88.3 fl (80.0-94.0); MONOCYTES # (AUTO) 1.1 K/uL (0.4-2.0); NEUTROPHILS # (AUTO) 24.4 K/ul (2.0-6.9); NEUTROPHILS % (AUTO) 90.7 % (42.2-75.2); PLATELET COUNT 448 10^3/uL (140-440); RDW COEFFICIENT OF VARIATION 14.9 % (11.6-14.8); RED BLOOD COUNT 4.46 10^6/ul (4.70-6.10); WHITE BLOOD COUNT 26.96 K/ul (4.2-10.2)
[2022-06-06 05:03] LABS: ALBUMIN 3.92 g/dL (3.5-5.0); ALKALINE PHOSPHATASE 131.3 U/L (56-119); BILIRUBIN,TOTAL 0.31 mg/dL (0.2-1.3); BLOOD UREA NITROGEN 26.8 mg/dL (9-20); CALCIUM 9.67 mg/dL (8.4-10.2); CARBON DIOXIDE 34.2 mmol/L (22-30.0); CHLORIDE 102.7 mmol/L (98-107); CREATININE 0.71 mg/dL (0.60-1.10); GLUCOSE 160.9 mg/dL (74-106); POTASSIUM 4.07 mmol/L (3.5-5.1); SODIUM 143.3 mmol/L (134.5-145); TOTAL PROTEIN 6.8 g/dL (6.3-8.2)
[2022-06-06] MEDS: PROTONIX PO SCH (05:36)
[2022-06-06] MEDS: LASIX TAB PO SCH ×2 (05:36→17:03)
[2022-06-06] MEDS: HUMULIN R SUBCUT PRN ×3 (06:04→20:37)
[2022-06-06] MEDS ORDERED: LASIX TAB PO ONE (08:18)
[2022-06-06] MEDS ORDERED: PREDNISONE PO SCH (08:30)
--- NOTE | 2022-06-06 08:37 | PCM.PROG ---
Attending Provider: ATTENDING PROVIDER: Dr. SUN NAGEL MD This patient is seen with Tiera Vaz, Nurse Practitioner. DATE OF SERVICE: 06/06/22 SUBJECTIVE: This 81 year old /WHITE M was hospitalized 06/01/22. The patient is resting comfortably. She had ABGs this morning without much improvement, [id number] on room air. He still has some difficulty swallowing and clearing secretions. No fever. White count more than doubled from yesterday. REVIEW OF SYSTEMS: CONSTITUTIONAL: Weakness. No night sweats. No fatigue, malaise, lethargy. No fever or chills. HEENT: Eyes: No visual changes. No eye pain. No eye discharge. ENT: No runny nose. No epistaxis. No sinus pain. No odynophagia. No congestion. RESPIRATORY: Cough. No hemoptysis. Shortness of breath. CARDIOVASCULAR: No angina symptoms. No CHF symptoms. No atypical chest pain for CAD. No palpitations. No orthopnea.. GASTROINTESTINAL: No abdominal pain. No nausea or vomiting. No diarrhea or constipation. No hematemesis. No hematochezia. GENITOURINARY: No urgency. No frequency. No dysuria. No hematuria. No obs tructive symptoms. No discharge. No pain. No significant abnormal bleeding. MUSCULOSKELETAL: No musculoskeletal pain; no joint swelling. NEUROLOGICAL: Awake, alert, oriented to time, place and person. No headache. No neck pain. No syncope. No seizures. No dizziness. PSYCHIATRIC: Not anxious. No depression. No suicidal thoughts. No homicidal thoughts. SKIN: No rash. No lesions. No wounds. ENDOCRINE: No unexplained weight loss. No weight gain. HEMATOLOGIC/LYMPHATIC: No anemia. No purpura. No petechiae. No prolonged or excessive bleeding. No palpable lymph nodes. PHYSICAL EXAMINATION: GENERAL: The patient is awake, alert and oriented, lying/sitting in bed in no distress. VITAL SIGNS: Temperature 96.6 F, Pulse 80, Respiratory Rate 16, BP 119/59, Pulse Ox 94% HEENT: Head normocephalic, atraumatic. Eyes: Extraocular muscles are intact. Pupils are equal, round and reactive to light and accommodation. Ears: No lesions. Nose appeared normal. Throat: No exudate or erythema. NECK: Supple. No JVD, no carotid bruit. No lymphadenopathy or thyromegaly. LUNGS: Severely diminished breath sounds with upper airway rhonchi. Percussion note normal. Chest symmetrical. HEART: S1, S2, no S3. No murmurs. No cyanosis or clubbing. No ascites. Pulses: Dorsalis pedis and posterior tibial pulses +1 to +2 both sides. ABDOMEN: Soft. Non-tender. Bowel sounds active. No CVA tenderness. No mass felt. EXTREMITIES: No edema. Full range of motion of all extremities, equal. NEUROLOGIC: No focal deficit. Cranial nerves II through XII are grossly intact. No headache. No double vision. SKIN: Not dry. Intact. Turgor-normal. LYMPHATIC: No palpable lymph nodes/no lymphedema. MUSCULOSKELETAL: Normal joints with no swelling. Muscle tone is normal. LAB REVIEW: 06/06/22 04:47 06/06/22 04:47 06/06/22 04:47: Sodium 143.3, Potassium 4.07, Chloride 102.7, Carbon Dioxide 34.2 H, Anion Gap 10.47, BUN 26.8 H, Creatinine 0.71, Estimated GFR (MDRD) 107.00, BUN/Creatinine Ratio 37.74, Glucose 160.9 H, Calcium 9.67, Total Bilirubin 0.31, AST 132.0 H D, ALT 35.0, Alkaline Phosphatase 131.3 H, Total Protein 6.80, Albumin 3.92, Globulin 2.88, Albumin/Globulin Ratio 1.36 06/06/22 04:47: WBC 26.96 H D, RBC 4.46 L, Hgb 12.8 L, Hct 39.4 L, MCV 88.3, MCH 28.7, MCHC 32.5, RDW Coeff of Leda 14.9 H, Plt Count 448 H, Immature Gran % (Auto) 0.8, Neut % (Auto) 90.7 H, Lymph % (Auto) 4.3 L, [place] % (Auto) 4.0, Eos % (Auto) 0.0, Baso % (Auto) 0.2, Neut # (Auto) 24.4 H, Lymph # (Auto) 1.2, [place] # (Auto) 1.1, Eos # (Auto) 0.0, Baso # (Auto) 0.1, Immature Gran # (Auto) 0.2 06/06/22 04:19: Puncture Site Rb, Base Excess 12.5 H, O2 Saturation 89.8 L, ABG pH 7.49 H, ABG pCO2 47.0 H, ABG pO2 53.0 L*, ABG HCO3 35.8 H, ABG Total CO2 37.2 H, Zaki Test +, Hemoglobin 1.8 H, Oxyhemoglobin 86.7 L, Carboxyhemoglobin 2.2 H , Total Hemoglobin 14.3, FiO2 % 21.0 ASSESSMENT: Please see below. 1. Left lobar pneumonia 2. Acute respiratory failure 3. Underlying COPD 4. Leukocytosis 5. Parkinson's disease PLAN: 1. Continue IV antibiotics 2, Lasix 40 mg p.o. in a.m. - start tomorrow. 3. Prednisone 10 mg b.i.d. - start tomorrow. 4. Mucomyst 200 mg b.i.d. Plan and coordination of the patient's care discussed in the presence of Software Sales Consultant and nurse. CONDITION: Stable TIME SPENT: 35 MINUTES SCRIBED BY: Tom ALEMAN scribed while in presence of service performed by Tiera Vaz APRN on 06/06/22 ([id number])
[2022-06-06] MEDS: [UNRECOGNIZED DRUG - OTHER] PO SCH ×3 (09:40→20:38)
[2022-06-06] MEDS: LEVODOPA PO SCH ×3 (09:40→20:38)
[2022-06-06] MEDS: CARBIDOPA PO SCH ×3 (09:40→20:38)
[2022-06-06] MEDS: LEVAQUIN 750 MG/150 ML D5W 750 MG/150 ML BAG IV SCH (09:41)
[2022-06-06] MEDS: SOLU-MEDROL 125 MG IVP SCH ×3 (09:44→20:36)
[2022-06-06] MEDS: NORCO 5-325 PO SCH ×3 (09:44→20:35)
[2022-06-06] MEDS: GLUCOPHAGE PO SCH (12:45)
--- NOTE | 2022-06-06 13:17 | CT ---
EXAM: CHEST CT WITH CONTRAST HISTORY: Pneumonia. Shortness of breath. TECHNIQUE: CT acquisition of the chest from the thoracic inlet to the upper abdomen following IV cont rast administration. COMPARISON: Chest radiograph 06/04/2022. FINDINGS: Moderate motion artifact. Lines, Tubes, Devices: None. Lung Parenchyma, Pleura and Airways: Dependently layering secretions in the trachea. Patchy ground-gl ass and consolidative opacities in the lower lobes bilaterally. Thickening of the small airways and mucus plugging in the lower lobes as well. No suspicious pulmonary nodule. No pleural effusion. Thoracic Inlet, Mediastinum, and Adele: Thyroid gland is unremarkable. No lymphadenopathy. Heart, Vessels, and Pericardium: Multifocal atherosclerotic calcifications. Heavy Tri-vessel coronary calcifications. No central pulmonary embolus. No cardiomegaly. No pericardial effusion. Bones and Soft Tissues: No acute osseous finding. Upper Abdomen: Post cholecystectomy. IMPRESSION: Bilateral lower lobe pneumonia could be secondary to airway infection or aspiration. All CT scans are performed using dose optimization techniques as appropriate to the performed exam an d include at least one of the following: Automated exposure control, adjustment of the mA and/or kV according t o size, and the use of iterative reconstruction technique.
--- NOTE | 2022-06-06 13:25 | CT ---
CT ABDOMEN AND PELVIS WITH CONTRAST HISTORY: Generalized abdominal pain. TECHNIQUE: Contiguous axial tomographic sections were obtained from the dome of the diaphragm throug h the ischial tuberosities following the administration of intravenous contrast. Coronal and sagitta l reformats were then performed. Automatic exposure control was utilized for dose reduction techniqu e. COMPARISON: None. FINDINGS: LOWER CHEST: Dense patchy bilateral lower lobe infiltrates are present. Faint ground-glass tree-in-b ud infiltrates noted posterior aspect right middle lobe. There are coronary artery calcifications not ed suggesting coronary artery disease. LIVER: There is diffuse hepatic steatosis. No focal lesion is identified. GALLBLADDER: Cholecystectomy BILIARY: No intrahepatic or extrahepatic biliary ductal dilatation. PANCREAS: Normal contour and attenuation without focal lesion. Normal caliber main pancreatic duct. SPLEEN: Normal size and contour. ADRENALS: Normal size and shape without nodularity. KIDNEYS: The kidneys are unremarkable. PERITONEUM/MESENTERY: No free fluid, free air or mesenteric inflammatory change. No loculated fluid c ollection. VASCULATURE: There are heavy atheromatous calcifications of the abdominal aorta and branch vessels. Significant stenosis of the SMA is not excluded. There is a focal saccular aneurysm arising from the anterior margin of the distal abdominal aorta and proximal right common iliac artery measuring 2 x 1.5 cm and is non thrombosed LYMPH NODES: No pathologically enlarged lymph nodes by CT size criteria. BOWEL: The gastric lumen is moderately distended with fluid. The duodenum is mildly to moderately di lated as is the proximal jejunum , but there are several the jejunal loops that are normal in caliber follow by multiple loops of distal jejunal and ileal small bowel which appear moderately dilated and fluid-filled there are moderately to severely dilated loops of mid to distal small bowel in the ante rior abdomen measuring up to five centimeters in diameter.. The terminal ileum is decompressed but t here is small bowel dilatation noted to the distal ileum with relative transition noted series 4 imag e 21 with a narrowed length of the distal ileum measuring approximately 4.5 cm on the same image. Sc attered areas of small bowel mural hyperenhancement and wall thickening. The appendix is not seen and therefore not evaluated. No inflammatory changes are seen in the right lower quadrant to suggest acute appendicitis. There is a moderate to large stool burden present spari ng the sigmoid colon which is mostly decompressed. Moderate sized stool in the rectum. URINARY BLADDER: Moses catheter is present decompressing the urinary bladder. The urinary bladder wa ll appears thickened severely and diffusely despite decompression. REPRODUCTIVE: Prostatic calcifications noted centrally. MUSCULOSKELETAL: Small fat containing bilateral inguinal hernias. Fusion hardware noted at L4-5. No acute bony abnormalities. IMPRESSION: 1. Positive for small bowel obstruction with transition point in the distal ileum consisting of a 4.5 cm segment of decompressed and possibly narrowed/strictured small bowel segment beyond which the sma ll bowel is nondilated. 2. Recommend NG tube placement. 3. Markedly thickened urinary bladder wall may suggest cystitis. Moses catheter present. 4. 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 Vascular surgical referral for further assessment RECOMMENDED. 5. Posterior bibasilar pulmonary infiltrates concerning for infectious or inflammatory etiology. 6. Moderate to large burden colonic constipation. All CT scans are performed using dose optimization techniques as appropriate to the performed exam an d include at least one of the following: Automated exposure control, adjustment of the mA and/or kV according t o size, and the use of iterative reconstruction technique.
[2022-06-06] MEDS: K-DUR PO SCH ×2 (13:42→17:03)
[2022-06-06] MEDS: ASPIRIN EC PO SCH (13:42)
[2022-06-06] MEDS: MUCINEX PO SCH ×2 (13:43→20:35)
[2022-06-06] MEDS: VITAMIN D PO SCH ×2 (13:43→20:36)
[2022-06-06] MEDS: MIRALAX PO SCH (15:06)
[2022-06-06] MEDS: DULCOLAX RC PRN (15:06)
--- NOTE | 2022-06-06 15:08 | PN ---
DATE OF SERVICE: 06/05/22 SUBJECTIVE: 81 year old white male hospitalized with pneumonia and fluid overload with COPD exacerbation. He has been feeling a lot better. He has no congested sounds and is more alert. REVIEW OF SYSTEMS: CONSTITUTIONAL: No night sweats. No fatigue, malaise, lethargy. No fever or chills. HEENT: Eyes: No visual changes. No eye pain. No eye discharge. ENT: No runny nose. No epistaxis. No sinus pain. No sore throat. No odynophagia. No congestion. RESPIRATORY: No cough, no congestion. No hemoptysis. No shortness of breath. CARDIOVASCULAR: No angina symptoms. No CHF symptoms. No atypical chest pain for CAD. No palpitations. No PND. No orthopnea. GASTROINTESTINAL: No abdominal pain. No nausea or vomiting. No diarrhea or constipation. No hematemesis. No hematochezia. GENITOURINARY: No urgency. No frequency. No dysuria. No hematuria. No obstructive symptoms. No discharge. No pain. No significant abnormal bleeding. MUSCULOSKELETAL: No musculoskeletal pain; no joint swelling. NEUROLOGICAL: No headache. No neck pain. No syncope. No seizures. No dizziness. PSYCHIATRIC: Not anxious. No depression. No suicidal thoughts. No homicidal thoughts. SKIN: No rash. No lesions. No wounds. ENDOCRINE: No unexplained weight loss. No weight gain. HEMATOLOGIC/LYMPHATIC: No anemia. No purpura. No petechiae. No prolonged or excessive bleeding. No palpable lymph nodes. PHYSICAL EXAMINATION: GENERAL: The patient is oriented to person. VITAL SIGNS: Temperature 98.1, pulse 84, respiratory rate 20, blood pressure 127/71, pulse ox 95% HEENT: Head normocephalic, atraumatic. Eyes: Extraocular muscles are intact. Pupils are equal, round and reactive to light and accommodation. Ears: No lesions. Nose appeared normal. Throat: No exudate or erythema. NECK: Supple. LUNGS: Decreased breath sounds, better air entry than yesterday. HEART: S1, S2, no S3. . ABDOMEN: Soft. Bowel sounds active. . EXTREMITIES: 1+ edema. NEUROLOGIC: No focal deficit. Cranial nerves II through XII are grossly intact. No headache. No double vision. SKIN: Not dry. Intact. Turgor - normal. LYMPHATIC: No palpable lymph nodes/no lymphedema. MUSCULOSKELETAL: Normal joints with no swelling. Muscle tone is normal. LABS: Hemoglobin 12.3, hematocrit 38, WBC 10,000, normal differential, creatinine 0.7, BUN 18, potassium 4.7 ASSESSMENT: 1. ACUTE RESPIRATORY FAILURE, SEEMS TO BE GETTING A LOT BETTER 2. FLUID RETENTION, PATIENT HAD 2,500 CC OUT WITH IV LASIX AND HAS LESS EDEMA 3. PARKINSON'S DISEASE 4. CHRONIC OBSTRUCTIVE LUNG DISEASE PLAN: 1. Continue on steroids and nebs. 2. Lasix as needed. Condition: Improving Code Status: DNR . TIME SPENT: More than 35 minutes. Plan and coordination of the patient's care discussed in the presence of nurse. MARTHA
--- NOTE | 2022-06-06 15:11 | PN ---
DATE OF SERVICE: 06/03/22 SUBJECTIVE: Patient was seen and examined with the nurse practitioner. Patient's condition seems to be stabilizing. He has small fluid overload. He was given IV Lasix. REVIEW OF SYSTEMS: CONSTITUTIONAL: No night sweats. No fatigue, malaise, lethargy. No fever or chills. HEENT: Eyes: No visual changes. No eye pain. No eye discharge. ENT: No runny nose. No epistaxis. No sinus pain. No sore throat. No odynophagia. No congestion. RESPIRATORY: No cough, no congestion. No hemoptysis. No shortness of breath. CARDIOVASCULAR: No angina symptoms. No CHF symptoms. No atypical chest pain for CAD. No palpitations. No PND. No orthopnea. GASTROINTESTINAL: No abdominal pain. No nausea or vomiting. No diarrhea or constipation. No hematemesis. No hematochezia. GENITOURINARY: No urgency. No frequency. No dysuria. No hematuria. No obstructive symptoms. No discharge. No pain. No significant abnormal bleeding. MUSCULOSKELETAL: No musculoskeletal pain; no joint swelling. NEUROLOGICAL: No headache. No neck pain. No syncope. No seizures. No dizziness. PSYCHIATRIC: Not anxious. No depression. No suicidal thoughts. No homicidal thoughts. SKIN: No rash. No lesions. No wounds. ENDOCRINE: No unexplained weight loss. No weight gain. HEMATOLOGIC/LYMPHATIC: No anemia. No purpura. No petechiae. No prolonged or excessive bleeding. No palpable lymph nodes. PHYSICAL EXAMINATION: GENERAL: The patient is in no distress. HEENT: Head normocephalic, atraumatic. Eyes: Extraocular muscles are intact. Pupils are equal, round and reactive to light and accommodation. Ears: No lesions. Nose appeared normal. Throat: No exudate or erythema. NECK: Supple. No JVD, no carotid bruit. No lymphadenopathy or thyromegaly. LUNGS: Clear to auscultation. Percussion note normal. Chest symmetrical. HEART: S1, S2, no S3. No murmurs. No cyanosis or clubbing. No ascites. Pulses: Dorsalis pedis and posterior tibial pulses +1 to +2 bilaterally. ABDOMEN: Soft. Nontender. Bowel sounds active. No CVA tenderness. No mass felt. EXTREMITIES: No edema. Full range of motion of all extremities, equal. NEUROLOGIC: No focal deficit. Cranial nerves II through XII are grossly intact. No headache. No double vision. SKIN: Not dry. Intact. Turgor - normal. LYMPHATIC: No palpable lymph nodes/no lymphedema. MUSCULOSKELETAL: Normal joints with no swelling. Muscle tone is normal. TIME SPENT: More than 35 minutes. Plan and coordination of the patient's care discussed in the presence of nurse. MARTHA
--- NOTE | 2022-06-06 15:14 | PN ---
DATE OF SERVICE: 06/04/22 SUBJECTIVE: Patient was seen and examined with the nurse practitioner. Patient has more than 2,000 cc urine out put. He is a lot better. His condition is improving. His respiratory failure seems to be resolving. REVIEW OF SYSTEMS: CONSTITUTIONAL: No night sweats. No fatigue, malaise, lethargy. No fever or chills. HEENT: Eyes: No visual changes. No eye pain. No eye discharge. ENT: No runny nose. No epistaxis. No sinus pain. No sore throat. No odynophagia. No congestion. RESPIRATORY: No cough, no congestion. No hemoptysis. No shortness of breath. CARDIOVASCULAR: No angina symptoms. No CHF symptoms. No atypical chest pain for CAD. No palpitations. No PND. No orthopnea. GASTROINTESTINAL: No abdominal pain. No nausea or vomiting. No diarrhea or constipation. No hematemesis. No hematochezia. GENITOURINARY: No urgency. No frequency. No dysuria. No hematuria. No obstructive symptoms. No discharge. No pain. No significant abnormal bleeding. MUSCULOSKELETAL: No musculoskeletal pain; no joint swelling. NEUROLOGICAL: No headache. No neck pain. No syncope. No seizures. No dizziness. PSYCHIATRIC: Not anxious. No depression. No suicidal thoughts. No homicidal thoughts. SKIN: No rash. No lesions. No wounds. ENDOCRINE: No unexplained weight loss. No weight gain. HEMATOLOGIC/LYMPHATIC: No anemia. No purpura. No petechiae. No prolonged or excessive bleeding. No palpable lymph nodes. PHYSICAL EXAMINATION: GENERAL: The patient is in no distress. HEENT: Head normocephalic, atraumatic. Eyes: Extraocular muscles are intact. Pupils are equal, round and reactive to light and accommodation. Ears: No lesions. Nose appeared normal. Throat: No exudate or erythema. NECK: Supple. No JVD, no carotid bruit. No lymphadenopathy or thyromegaly. LUNGS: Decreased breath sounds with good air entry. HEART: S1, S2, no S3. No murmurs. No cyanosis or clubbing. No ascites. Pulses: Dorsalis pedis and posterior tibial pulses +1 to +2 bilaterally. ABDOMEN: Soft. Nontender. Bowel sounds active. No CVA tenderness. No mass felt. EXTREMITIES: No edema. Full range of motion of all extremities, equal. NEUROLOGIC: No focal deficit. Cranial nerves II through XII are grossly intact. No headache. No double vision. SKIN: Not dry. Intact. Turgor - normal. LYMPHATIC: No palpable lymph nodes/no lymphedema. MUSCULOSKELETAL: Normal joints with no swelling. Muscle tone is normal. TIME SPENT: More than 35 minutes. Plan and coordination of the patient's care discussed in the presence of nurse. MARTHA
[2022-06-06] MEDS ORDERED: MUCOMYST 20% NEB NEB SCH (18:00)
[2022-06-06] MEDS: MUCOMYST 20% NEB NEB SCH (20:04)
[2022-06-07] MEDS: PULMICORT 0.5 MG/2 ML NEB SCH ×2 (04:45→21:00)
[2022-06-07] MEDS: ALBUTEROL 0.083% NEB NEB SCH ×4 (04:45→21:00)
[2022-06-07] MEDS: MUCOMYST 20% NEB NEB SCH ×2 (04:45→21:00)
[2022-06-07 05:10] LABS: BASOPHILS % (AUTO) 0.2 % (0.0-3.0); HEMATOCRIT 35.8 % (42.0-52.0); HEMOGLOBIN 11.6 g/dl (14.0-18.0); IMMATURE GRANULOCYTE # (AUTO) 0.3 (0.0-1.0); IMMATURE GRANULOCYTE % (AUTO) 1.7 % (0.0-5.0); LYMPHOCYTES # (AUTO) 0.9 K/uL (0.60-3.4); LYMPHOCYTES % (AUTO) 5.5 (10.0-50.0); MEAN CORPUSCULAR HEMOGLOBIN 28.4 pg (27.0-31.0); MEAN CORPUSCULAR HGB CONC 32.4 (31.8-35.4); MEAN CORPUSCULAR VOLUME 87.7 fl (80.0-94.0); MONOCYTES # (AUTO) 0.4 K/uL (0.4-2.0); MONOCYTES % (AUTO) 2.2 (0-10); NEUTROPHILS # (AUTO) 15.4 K/ul (2.0-6.9); NEUTROPHILS % (AUTO) 90.4 % (42.2-75.2); PLATELET COUNT 395 10^3/uL (140-440); RED BLOOD COUNT 4.08 10^6/ul (4.70-6.10); WHITE BLOOD COUNT 17.03 K/ul (4.2-10.2)
[2022-06-07 05:15] LABS: ALANINE AMINOTRANSFERASE 20.1 U/L (0-50); ALBUMIN 3.35 g/dL (3.5-5.0); ALKALINE PHOSPHATASE 131.5 U/L (56-119); ASPARTATE AMINO TRANSFERASE 57.6 U/L (17-59); BILIRUBIN,TOTAL 0.31 mg/dL (0.2-1.3); BLOOD UREA NITROGEN 21.9 mg/dL (9-20); CALCIUM 9.02 mg/dL (8.4-10.2); CARBON DIOXIDE 34.7 mmol/L (22-30.0); CHLORIDE 98.8 mmol/L (98-107); CREATININE 0.7 mg/dL (0.60-1.10); GLUCOSE 175.6 mg/dL (74-106); POTASSIUM 4.24 mmol/L (3.5-5.1); TOTAL PROTEIN 6.12 g/dL (6.3-8.2)
[2022-06-07 05:17] LABS: SODIUM 137.6 mmol/L (134.5-145)
[2022-06-07] MEDS: PROTONIX PO SCH (05:46)
[2022-06-07] MEDS: LASIX TAB PO SCH ×2 (05:46→16:56)
[2022-06-07] MEDS: HUMULIN R SUBCUT PRN ×4 (05:53→20:01)
[2022-06-07] MEDS ORDERED: LASIX TAB PO SCH (06:30)
[2022-06-07] MEDS: CARBIDOPA PO SCH ×3 (08:46→20:23)
[2022-06-07] MEDS: LEVODOPA PO SCH ×3 (08:46→20:23)
[2022-06-07] MEDS: [UNRECOGNIZED DRUG - OTHER] PO SCH ×3 (08:46→20:23)
[2022-06-07] MEDS: MIRALAX PO SCH (08:46)
[2022-06-07] MEDS: NORCO 5-325 PO SCH ×3 (08:47→20:24)
[2022-06-07] MEDS: MUCINEX PO SCH ×2 (08:47→20:24)
[2022-06-07] MEDS: PREDNISONE PO SCH ×2 (08:47→16:57)
[2022-06-07] MEDS: K-DUR PO SCH ×2 (08:47→16:56)
[2022-06-07] MEDS: ASPIRIN EC PO SCH (08:47)
[2022-06-07] MEDS: VITAMIN D PO SCH ×2 (08:47→20:24)
[2022-06-07] MEDS: LEVAQUIN 750 MG/150 ML D5W 750 MG/150 ML BAG IV SCH (08:48)
[2022-06-07 10:26] LABS: HBsAgSCREEN Negative (Negative); HEP A AB, IgM Negative (Negative); HEP B CORE Ab, IgM Negative (Negative)
[2022-06-07] MEDS: TRANSDERM-SCOP 1.5 MG PATCH TD SCH (12:41)
[2022-06-07 13:27] LABS: ALKALINE PHOSPHATASE, S 142 IU/L (44-121); BONE FRACTION: 37 % (12-68); INTESTINAL FRAC.: 7 % (0-18); LIVER FRACTION: 55 % (13-88)
--- NOTE | 2022-06-07 15:48 | PN ---
DATE OF SERVICE: 06/06/22 SUBJECTIVE: Patient was seen and examined with the nurse practitioner. Patient's condition is respiratory-stewart stable with no practical wheezing. He has a problem eating. CT scan of the abdomen showed possibility of a bowel obstruction, possible stricture on the lateral part of the small intestine. Patient has stool in the colon. Will give Dulcolax suppository. Patient will be put on liquid diet. Patient is not a candidate for surgical intervention. Will treat patient conservatively. The family was explained about the findings. The son is agreeable and do comfort measures for now. REVIEW OF SYSTEMS: CONSTITUTIONAL: No night sweats. No fatigue, malaise, lethargy. No fever or chills. HEENT: Eyes: No visual changes. No eye pain. No eye discharge. ENT: No runny nose. No epistaxis. No sinus pain. No sore throat. No odynophagia. No congestion. RESPIRATORY: No cough, no congestion. No hemoptysis. No shortness of breath. CARDIOVASCULAR: No angina symptoms. No CHF symptoms. No atypical chest pain for CAD. No palpitations. No PND. No orthopnea. GASTROINTESTINAL: No abdominal pain. No nausea or vomiting. No diarrhea or constipation. No hematemesis. No hematochezia. GENITOURINARY: No urgency. No frequency. No dysuria. No hematuria. No obstructive symptoms. No discharge. No pain. No significant abnormal bleeding. MUSCULOSKELETAL: No musculoskeletal pain; no joint swelling. NEUROLOGICAL: No headache. No neck pain. No syncope. No seizures. No dizziness. PSYCHIATRIC: Not anxious. No depression. No suicidal thoughts. No homicidal thoughts. SKIN: No rash. No lesions. No wounds. ENDOCRINE: No unexplained weight loss. No weight gain. HEMATOLOGIC/LYMPHATIC: No anemia. No purpura. No petechiae. No prolonged or excessive bleeding. No palpable lymph nodes. PHYSICAL EXAMINATION: GENERAL: The patient is in no distress. HEENT: Head normocephalic, atraumatic. Eyes: Extraocular muscles are intact. Pupils are equal, round and reactive to light and accommodation. Ears: No lesions. Nose appeared normal. Throat: No exudate or erythema. NECK: Supple. No JVD, no carotid bruit. No lymphadenopathy or thyromegaly. LUNGS: Clear to auscultation. Percussion note normal. Chest symmetrical. HEART: S1, S2, no S3. No murmurs. No cyanosis or clubbing. No ascites. Pulses: Dorsalis pedis and posterior tibial pulses +1 to +2 bilaterally. ABDOMEN: Soft. Nontender. Bowel sounds active. No CVA tenderness. No mass felt. EXTREMITIES: No edema. Full range of motion of all extremities, equal. NEUROLOGIC: No focal deficit. Cranial nerves II through XII are grossly intact. No headache. No double vision. SKIN: Not dry. Intact. Turgor - normal. LYMPHATIC: No palpable lymph nodes/no lymphedema. MUSCULOSKELETAL: Normal joints with no swelling. Muscle tone is normal. TIME SPENT: More than 35 minutes. Plan and coordination of the patient's care discussed in the presence of nurse. MARTHA
[2022-06-08] MEDS: MUCOMYST 20% NEB NEB SCH ×2 (04:50→20:55)
[2022-06-08] MEDS: ALBUTEROL 0.083% NEB NEB SCH ×4 (04:50→20:55)
[2022-06-08] MEDS: PULMICORT 0.5 MG/2 ML NEB SCH ×2 (04:50→20:55)
[2022-06-08 04:56] LABS: BASOPHILS % (AUTO) 0.2 % (0.0-3.0); EOSINOPHILS % (AUTO) 0.1 % (0.0-7.0); HEMATOCRIT 36.3 % (42.0-52.0); HEMOGLOBIN 11.7 g/dl (14.0-18.0); IMMATURE GRANULOCYTE # (AUTO) 0.3 (0.0-1.0); IMMATURE GRANULOCYTE % (AUTO) 2.2 % (0.0-5.0); LYMPHOCYTES # (AUTO) 1.3 K/uL (0.60-3.4); LYMPHOCYTES % (AUTO) 9.5 (10.0-50.0); MEAN CORPUSCULAR HEMOGLOBIN 28.3 pg (27.0-31.0); MEAN CORPUSCULAR HGB CONC 32.2 (31.8-35.4); MEAN CORPUSCULAR VOLUME 87.7 fl (80.0-94.0); MONOCYTES # (AUTO) 0.6 K/uL (0.4-2.0); MONOCYTES % (AUTO) 4.6 (0-10); NEUTROPHILS # (AUTO) 11.3 K/ul (2.0-6.9); NEUTROPHILS % (AUTO) 83.4 % (42.2-75.2); PLATELET COUNT 361 10^3/uL (140-440); RDW COEFFICIENT OF VARIATION 15.3 % (11.6-14.8); RED BLOOD COUNT 4.14 10^6/ul (4.70-6.10)
[2022-06-08 05:08] LABS: ALANINE AMINOTRANSFERASE 14.3 U/L (0-50); ALBUMIN 3.37 g/dL (3.5-5.0); ALKALINE PHOSPHATASE 118.5 U/L (56-119); BILIRUBIN,TOTAL 0.38 mg/dL (0.2-1.3); BLOOD UREA NITROGEN 26.8 mg/dL (9-20); CALCIUM 8.79 mg/dL (8.4-10.2); CARBON DIOXIDE 36.5 mmol/L (22-30.0); CHLORIDE 97.4 mmol/L (98-107); CREATININE 0.62 mg/dL (0.60-1.10); GLUCOSE 158.7 mg/dL (74-106); POTASSIUM 4.18 mmol/L (3.5-5.1); SODIUM 136.9 mmol/L (134.5-145); TOTAL PROTEIN 6.09 g/dL (6.3-8.2)
[2022-06-08] MEDS: HUMULIN R SUBCUT PRN ×4 (05:31→20:26)
[2022-06-08] MEDS: PROTONIX PO SCH (05:51)
[2022-06-08] MEDS: LASIX TAB PO SCH ×2 (05:51→16:55)
[2022-06-08] MEDS: LEVAQUIN 750 MG/150 ML D5W 750 MG/150 ML BAG IV SCH (08:15)
[2022-06-08] MEDS: MIRALAX PO SCH (08:20)
[2022-06-08] MEDS: CARBIDOPA PO SCH ×3 (08:23→20:29)
[2022-06-08] MEDS: LEVODOPA PO SCH ×3 (08:23→20:29)
[2022-06-08] MEDS: [UNRECOGNIZED DRUG - OTHER] PO SCH ×3 (08:23→20:29)
[2022-06-08] MEDS: NORCO 5-325 PO SCH ×3 (08:25→20:27)
[2022-06-08] MEDS: MUCINEX PO SCH ×2 (08:27→20:27)
[2022-06-08] MEDS: PREDNISONE PO SCH ×2 (08:27→16:55)
[2022-06-08] MEDS: VITAMIN D PO SCH ×2 (08:27→20:27)
[2022-06-08] MEDS: ASPIRIN EC PO SCH (08:28)
[2022-06-08] MEDS: K-DUR PO SCH ×2 (08:35→16:55)
[2022-06-08] MEDS: DULCOLAX RC PRN (09:37)
[2022-06-08] MEDS ORDERED: DULCOLAX RC ONE (20:00)
[2022-06-09] MEDS: ALBUTEROL 0.083% NEB NEB SCH ×4 (04:50→20:55)
[2022-06-09] MEDS: PULMICORT 0.5 MG/2 ML NEB SCH ×2 (04:50→20:55)
[2022-06-09] MEDS: MUCOMYST 20% NEB NEB SCH ×2 (04:50→20:55)
[2022-06-09 04:55] LABS: BASOPHILS % (AUTO) 0.1 % (0.0-3.0); EOSINOPHILS % (AUTO) 0.2 % (0.0-7.0); HEMATOCRIT 37.4 % (42.0-52.0); IMMATURE GRANULOCYTE # (AUTO) 0.2 (0.0-1.0); IMMATURE GRANULOCYTE % (AUTO) 1.7 % (0.0-5.0); LYMPHOCYTES # (AUTO) 1.2 K/uL (0.60-3.4); LYMPHOCYTES % (AUTO) 9.6 (10.0-50.0); MEAN CORPUSCULAR HEMOGLOBIN 28.1 pg (27.0-31.0); MEAN CORPUSCULAR HGB CONC 32.1 (31.8-35.4); MEAN CORPUSCULAR VOLUME 87.6 fl (80.0-94.0); MONOCYTES # (AUTO) 0.5 K/uL (0.4-2.0); MONOCYTES % (AUTO) 3.9 (0-10); NEUTROPHILS # (AUTO) 10.8 K/ul (2.0-6.9); NEUTROPHILS % (AUTO) 84.5 % (42.2-75.2); PLATELET COUNT 366 10^3/uL (140-440); RDW COEFFICIENT OF VARIATION 15.1 % (11.6-14.8); RED BLOOD COUNT 4.27 10^6/ul (4.70-6.10); WHITE BLOOD COUNT 12.76 K/ul (4.2-10.2)
[2022-06-09 05:06] LABS: ALANINE AMINOTRANSFERASE 12.7 U/L (0-50); ALBUMIN 3.39 g/dL (3.5-5.0); ALKALINE PHOSPHATASE 109.4 U/L (56-119); ASPARTATE AMINO TRANSFERASE 20.8 U/L (17-59); BILIRUBIN,TOTAL 0.47 mg/dL (0.2-1.3); BLOOD UREA NITROGEN 23.7 mg/dL (9-20); CALCIUM 8.76 mg/dL (8.4-10.2); CARBON DIOXIDE 36.7 mmol/L (22-30.0); CHLORIDE 97.2 mmol/L (98-107); CREATININE 0.57 mg/dL (0.60-1.10); GLUCOSE 136.5 mg/dL (74-106); POTASSIUM 4.07 mmol/L (3.5-5.1); SODIUM 136.9 mmol/L (134.5-145); TOTAL PROTEIN 6.1 g/dL (6.3-8.2)
[2022-06-09] MEDS: PROTONIX PO SCH (05:40)
[2022-06-09] MEDS: LASIX TAB PO SCH ×2 (05:40→17:04)
[2022-06-09] MEDS: LEVAQUIN 750 MG/150 ML D5W 750 MG/150 ML BAG IV SCH (08:23)
[2022-06-09] MEDS: MIRALAX PO SCH (08:26)
[2022-06-09] MEDS: VITAMIN D PO SCH ×2 (08:28→21:14)
[2022-06-09] MEDS: ASPIRIN EC PO SCH (08:28)
[2022-06-09] MEDS: PREDNISONE PO SCH ×2 (08:28→17:04)
[2022-06-09] MEDS: K-DUR PO SCH ×2 (08:29→17:04)
[2022-06-09] MEDS: NORCO 5-325 PO SCH ×3 (08:30→21:12)
[2022-06-09] MEDS: MUCINEX PO SCH ×2 (08:30→21:12)
[2022-06-09] MEDS: [UNRECOGNIZED DRUG - OTHER] PO SCH ×3 (12:22→21:44)
[2022-06-09] MEDS: CARBIDOPA PO SCH ×3 (12:22→21:44)
[2022-06-09] MEDS: LEVODOPA PO SCH ×3 (12:22→21:44)
[2022-06-09] MEDS: HUMULIN R SUBCUT PRN ×2 (17:05→21:42)
[2022-06-10] MEDS: PULMICORT 0.5 MG/2 ML NEB SCH ×2 (04:40→21:00)
[2022-06-10] MEDS: MUCOMYST 20% NEB NEB SCH ×2 (04:40→21:00)
[2022-06-10] MEDS: ALBUTEROL 0.083% NEB NEB SCH ×4 (04:40→21:00)
[2022-06-10 05:23] LABS: BEecf 12.7 (-2.0-3.0)
[2022-06-10 05:24] LABS: ABG O2 HGB 94.6 % (95-100); COHb 3.8 (0.5-1.5); HCO3 35.9 (21-28); MetHb 1.2 (0-1.5); TCO2 37.3 (19-24); sO2 97.9 % (94-98); tHb 12.4 g/dl (11.7-17.4)
[2022-06-10 05:27] LABS: BASOPHILS % (AUTO) 0.2 % (0.0-3.0); EOSINOPHILS % (AUTO) 0.2 % (0.0-7.0); HEMATOCRIT 37.9 % (42.0-52.0); HEMOGLOBIN 12.2 g/dl (14.0-18.0); IMMATURE GRANULOCYTE # (AUTO) 0.3 (0.0-1.0); IMMATURE GRANULOCYTE % (AUTO) 2.1 % (0.0-5.0); LYMPHOCYTES # (AUTO) 1.2 K/uL (0.60-3.4); LYMPHOCYTES % (AUTO) 7.9 (10.0-50.0); MEAN CORPUSCULAR HEMOGLOBIN 28.2 pg (27.0-31.0); MEAN CORPUSCULAR HGB CONC 32.2 (31.8-35.4); MEAN CORPUSCULAR VOLUME 87.7 fl (80.0-94.0); MONOCYTES # (AUTO) 0.6 K/uL (0.4-2.0); MONOCYTES % (AUTO) 3.8 (0-10); NEUTROPHILS # (AUTO) 12.7 K/ul (2.0-6.9); NEUTROPHILS % (AUTO) 85.8 % (42.2-75.2); PLATELET COUNT 388 10^3/uL (140-440); RDW COEFFICIENT OF VARIATION 15.1 % (11.6-14.8); RED BLOOD COUNT 4.32 10^6/ul (4.70-6.10); WHITE BLOOD COUNT 14.82 K/ul (4.2-10.2)
[2022-06-10 05:45] LABS: ALANINE AMINOTRANSFERASE 12.3 U/L (0-50); ALBUMIN 3.55 g/dL (3.5-5.0); ALKALINE PHOSPHATASE 109.9 U/L (56-119); ASPARTATE AMINO TRANSFERASE 18.7 U/L (17-59); BILIRUBIN,TOTAL 0.5 mg/dL (0.2-1.3); BLOOD UREA NITROGEN 25.3 mg/dL (9-20); CALCIUM 8.95 mg/dL (8.4-10.2); CHLORIDE 98.9 mmol/L (98-107); CREATININE 0.57 mg/dL (0.60-1.10); GLUCOSE 145.4 mg/dL (74-106); POTASSIUM 4.22 mmol/L (3.5-5.1); SODIUM 138.5 mmol/L (134.5-145); TOTAL PROTEIN 6.34 g/dL (6.3-8.2)
[2022-06-10] MEDS: LASIX TAB PO SCH ×2 (05:45→17:01)
[2022-06-10] MEDS: PROTONIX PO SCH (05:45)
[2022-06-10] MEDS: MUCINEX PO SCH ×2 (10:01→20:25)
[2022-06-10] MEDS: GLUCOPHAGE PO SCH (10:01)
[2022-06-10] MEDS: PREDNISONE PO SCH ×2 (10:02→17:01)
[2022-06-10] MEDS: NORCO 5-325 PO SCH ×3 (10:02→20:26)
[2022-06-10] MEDS: MIRALAX PO SCH (10:02)
[2022-06-10] MEDS: K-DUR PO SCH ×2 (10:02→17:01)
[2022-06-10] MEDS: VITAMIN D PO SCH ×2 (10:03→20:25)
[2022-06-10] MEDS: LEVAQUIN 750 MG/150 ML D5W 750 MG/150 ML BAG IV SCH (10:03)
[2022-06-10] MEDS: ASPIRIN EC PO SCH (10:03)
[2022-06-10] MEDS: LEVODOPA PO SCH ×3 (10:04→20:26)
[2022-06-10] MEDS: CARBIDOPA PO SCH ×3 (10:04→20:26)
[2022-06-10] MEDS: [UNRECOGNIZED DRUG - OTHER] PO SCH ×3 (10:04→20:26)
[2022-06-10] MEDS: DIFLUCAN PO SCH (12:52)
[2022-06-10] MEDS: HUMULIN R SUBCUT PRN ×3 (12:53→20:42)
[2022-06-10] MEDS: TRANSDERM-SCOP 1.5 MG PATCH TD SCH (14:52)
[2022-06-11 10:40] LABS: ALANINE AMINOTRANSFERASE 11.3 U/L (0-50); ALBUMIN 3.51 g/dL (3.5-5.0); ALKALINE PHOSPHATASE 109.8 U/L (56-119); ASPARTATE AMINO TRANSFERASE 22.2 U/L (17-59); BILIRUBIN,TOTAL 0.44 mg/dL (0.2-1.3); BLOOD UREA NITROGEN 23.8 mg/dL (9-20); CALCIUM 8.9 mg/dL (8.4-10.2); CARBON DIOXIDE 35.3 mmol/L (22-30.0); CHLORIDE 98.2 mmol/L (98-107); CREATININE 0.51 mg/dL (0.60-1.10); GLUCOSE 143.2 mg/dL (74-106); POTASSIUM 4.03 mmol/L (3.5-5.1); SODIUM 137.1 mmol/L (134.5-145); TOTAL PROTEIN 6.29 g/dL (6.3-8.2)
[2022-06-11 10:55] LABS: BASOPHILS % (AUTO) 0.2 % (0.0-3.0); EOSINOPHILS % (AUTO) 0.3 % (0.0-7.0); HEMATOCRIT 36.6 % (42.0-52.0); HEMOGLOBIN 11.8 g/dl (14.0-18.0); IMMATURE GRANULOCYTE # (AUTO) 0.3 (0.0-1.0); IMMATURE GRANULOCYTE % (AUTO) 2.6 % (0.0-5.0); LYMPHOCYTES # (AUTO) 1.4 K/uL (0.60-3.4); LYMPHOCYTES % (AUTO) 12.6 (10.0-50.0); MEAN CORPUSCULAR HGB CONC 32.2 (31.8-35.4); MEAN CORPUSCULAR VOLUME 86.7 fl (80.0-94.0); MONOCYTES # (AUTO) 0.6 K/uL (0.4-2.0); MONOCYTES % (AUTO) 5.1 (0-10); NEUTROPHILS # (AUTO) 8.5 K/ul (2.0-6.9); NEUTROPHILS % (AUTO) 79.2 % (42.2-75.2); PLATELET COUNT 409 10^3/uL (140-440); RED BLOOD COUNT 4.22 10^6/ul (4.70-6.10)
--- NOTE | 2022-06-11 11:25 | PN ---
DATE OF SERVICE: 06/07/22 SUBJECTIVE: 81-year-old white male hospitalized with pneumonia and then fluid overload. The patient has Parkinson's with restrictive obstructive lung disease, chronic aspiration. Condition improving. His CT scan of the abdomen showed possibility of bowel obstruction and a lot of things were recommended. Really the patient wasn't that bad. In any case, the family did not want any nasogastric tube or any further evaluation by surgical services tech. The patient has been treated with a full liquid diet. He has been cleaning up his plate, feeling better, passing gas. Tried Dulcolax suppository. PHYSICAL EXAMINATION: GENERAL: The patient is alert, trying to say things with a few sentences here and they are much better than when he came in. VITAL SIGNS: Temperature 98.1, pulse 80, respiratory rate 18, blood pressure 120/60, pulse ox 96% with 2L. HEENT: Head normocephalic, atraumatic. Eyes: Extraocular muscles are intact. Pupils are equal, round and reactive to light and accommodation. Ears: No lesions. Nose appeared normal. Throat: No exudate or erythema. NECK: Supple. No JVD, no carotid bruit. No lymphadenopathy or thyromegaly. LUNGS: Decreased breath sounds with mild expiratory wheeze. Percussion note normal. Chest symmetrical. HEART: S1, S2, no S3. No murmurs. No cyanosis or clubbing. No ascites. Pulses: Dorsalis pedis and posterior tibial pulses +1 to +2 bilaterally. ABDOMEN: Soft. Mildly distended. Bowel sounds active. No CVA tenderness. No mass felt. EXTREMITIES: Trace edema. Full range of motion of all extremities, equal. NEUROLOGIC: No focal deficit. Cranial nerves II through XII are grossly intact. No headache. No double vision. SKIN: Not dry. Intact. Turgor - normal. LYMPHATIC: No palpable lymph nodes/no lymphedema. MUSCULOSKELETAL: Normal joints with no swelling. Muscle tone is normal. LABS: Hemoglobin 11.6, hematocrit 35, WBC 17,000, normal differential. Creatinine 0.7, BUN 21, potassium 4.2. The patient's WBC count is high because of steroids. ASSESSMENT/PLAN: 1. Pneumomia clinically seems to be a lot better. Congestion is much less. Oxygen saturation much better with 2L. 2. The patient's appetite seems to have improved. The small bowel obstruction that seems to be the problem clinically patient has constipation with stool in the colon. Will try to do soap suds enemas and Dulcolax suppository and see how the patient does. The patient is stable. TIME SPENT: More than 35 minutes. Plan and coordination of the patient's care discussed in the presence of nurse. MARTHA
[2022-06-11] MEDS: HUMULIN R SUBCUT PRN ×3 (11:39→20:15)
--- NOTE | 2022-06-11 11:45 | PN ---
DATE OF SERVICE: 06/08/22 SUBJECTIVE: 81-year-old white male hospitalized with pneumonia. The patient underwent a little fluid retention which was corrected with IV Lasix. The patient's condition seems to have improved today, he looks a lot better. He cleaned his plate and had 100% breakfast. He is breathing a lot better, trying to talk. The son is present in the room. REVIEW OF SYSTEMS: CONSTITUTIONAL: No night sweats. No fatigue, malaise, lethargy. No fever or chills. HEENT: Eyes: No visual changes. No eye pain. No eye discharge. ENT: No runny nose. No epistaxis. No sinus pain. No sore throat. No odynophagia. No congestion. RESPIRATORY: No cough, no congestion. Congested breath sounds at times from chronic aspiration. No hemoptysis. No shortness of breath. CARDIOVASCULAR: No angina symptoms. No CHF symptoms. No atypical chest pain for CAD. No palpitations. No PND. No orthopnea. GASTROINTESTINAL: No abdominal pain. No nausea or vomiting. No diarrhea or constipation. No hematemesis. No hematochezia. GENITOURINARY: No urgency. No frequency. No dysuria. No hematuria. No obstructive symptoms. No discharge. No pain. No significant abnormal bleeding. MUSCULOSKELETAL: No musculoskeletal pain; no joint swelling. NEUROLOGICAL: No headache. No neck pain. No syncope. No seizures. No dizziness. PSYCHIATRIC: Not anxious. No depression. No suicidal thoughts. No homicidal thoughts. SKIN: No rash. No lesions. No wounds. ENDOCRINE: No unexplained weight loss. No weight gain. HEMATOLOGIC/LYMPHATIC: No anemia. No purpura. No petechiae. No prolonged or excessive bleeding. No palpable lymph nodes. PHYSICAL EXAMINATION: VITAL SIGNS: Temperature 97.4, pulse 70, respiratory rate 18, blood pressure 113/60, pulse ox 94%. HEENT: Head normocephalic, atraumatic. Eyes: Extraocular muscles are intact. Pupils are equal, round and reactive to light and accommodation. Ears: No lesions. Nose appeared normal. Throat: No exudate or erythema. NECK: Supple. No JVD, no carotid bruit. No lymphadenopathy or thyromegaly. LUNGS: Decreased breath sounds. Clear to auscultation. Percussion note normal. Chest symmetrical. HEART: S1, S2, no S3. No murmurs. No cyanosis or clubbing. No ascites. Pulses: Dorsalis pedis and posterior tibial pulses +1 to +2 bilaterally. ABDOMEN: Soft. Nontender. Bowel sounds active. No CVA tenderness. No mass felt. EXTREMITIES: No edema. Full range of motion of all extremities, equal. NEUROLOGIC: No focal deficit. Cranial nerves II through XII are grossly intact. No headache. No double vision. SKIN: Not dry. Intact. Turgor - normal. LYMPHATIC: No palpable lymph nodes/no lymphedema. MUSCULOSKELETAL: Normal joints with no swelling. Muscle tone is normal. LABS: Hemoglobin 11.7, hematocrit 36, WBC 13,000, normal differential. Creatinine 0.6, BUN 26, potassium 4.1. Pneumonia clinically seems to be resolving. Small bowel obstruction by CT scan 2 to 3 days ago, doesn't seem to be clinically relevant. Good appetite. ASSESSMENT: 1. Parkinson's disease stable with some improvement with improvement in his appetite. The patient had a small bowel movement, will give Ducolax suppository and soap suds enema. CONDITION: Improving. TIME SPENT: More than 35 minutes. Plan and coordination of the patient's care discussed in the presence of nurse. MARTHA
[2022-06-11] MEDS: CARBIDOPA PO SCH (11:57)
[2022-06-11] MEDS: LEVODOPA PO SCH (11:57)
[2022-06-11] MEDS: DIFLUCAN PO SCH (11:57)
[2022-06-11] MEDS: GLUCOPHAGE PO SCH (11:57)
[2022-06-11] MEDS: ASPIRIN EC PO SCH (11:57)
[2022-06-11] MEDS: ALBUTEROL 0.083% NEB NEB SCH ×3 (11:57→19:50)
[2022-06-11] MEDS: [UNRECOGNIZED DRUG - OTHER] PO SCH (11:57)
[2022-06-11] MEDS: LASIX TAB PO SCH ×2 (11:58→17:25)
[2022-06-11] MEDS: K-DUR PO SCH ×2 (11:58→17:25)
[2022-06-11] MEDS: LEVAQUIN PO SCH (11:58)
[2022-06-11] MEDS: NORCO 5-325 PO SCH ×3 (11:59→20:17)
[2022-06-11] MEDS: PREDNISONE PO SCH ×2 (11:59→17:25)
[2022-06-11] MEDS: MIRALAX PO SCH (11:59)
[2022-06-11] MEDS: MUCOMYST 20% NEB NEB SCH ×2 (11:59→19:50)
[2022-06-11] MEDS: MUCINEX PO SCH ×2 (11:59→20:16)
[2022-06-11] MEDS: PULMICORT 0.5 MG/2 ML NEB SCH ×2 (12:00→19:50)
[2022-06-11] MEDS: PROTONIX PO SCH (12:00)
[2022-06-11] MEDS: VITAMIN D PO SCH ×2 (12:00→20:16)
--- NOTE | 2022-06-11 13:33 | PN ---
DATE OF SERVICE: 06/01/22 SUBJECTIVE: The patient is seen and examined in the emergency room and then on the floor. The patient is brought to the emergency room with shortness of breath, cough and congestion. The patient has practically normal BNP but has congested breath sounds with mucus in the throat. REVIEW OF SYSTEMS: CONSTITUTIONAL: No night sweats. No fatigue, malaise, lethargy. No fever or chills. HEENT: Eyes: No visual changes. No eye pain. No eye discharge. ENT: No runny nose. No epistaxis. No sinus pain. No sore throat. No odynophagia. No congestion. RESPIRATORY: No hemoptysis. No shortness of breath. CARDIOVASCULAR: No angina symptoms. No CHF symptoms. No atypical chest pain for CAD. No palpitations. No PND. No orthopnea. GASTROINTESTINAL: No abdominal pain. No nausea or vomiting. No diarrhea or constipation. No hematemesis. No hematochezia. GENITOURINARY: No urgency. No frequency. No dysuria. No hematuria. No obstructive symptoms. No discharge. No pain. No significant abnormal bleeding. MUSCULOSKELETAL: No musculoskeletal pain; no joint swelling. NEUROLOGICAL: No headache. No neck pain. No syncope. No seizures. No dizziness. PSYCHIATRIC: Not anxious. No depression. No suicidal thoughts. No homicidal thoughts. SKIN: No rash. No lesions. No wounds. ENDOCRINE: No unexplained weight loss. No weight gain. HEMATOLOGIC/LYMPHATIC: No anemia. No purpura. No petechiae. No prolonged or excessive bleeding. No palpable lymph nodes. PHYSICAL EXAMINATION: GENERAL: The patient is able to mumble. He was sleepy but called his name and he opened his eyes and able to recognize me. The son is present in the room. HEENT: Head normocephalic, atraumatic. Eyes: Extraocular muscles are intact. Pupils are equal, round and reactive to light and accommodation. Ears: No lesions. Nose appeared normal. Throat: No exudate or erythema. NECK: Supple. No JVD, no carotid bruit. No lymphadenopathy or thyromegaly. LUNGS: Congested breath sounds with mucus in the throat. Good air entry but still crepiations, dry and wet in the bases. Percussion note normal. Chest symmetrical. HEART: S1, S2, no S3. No murmurs. No cyanosis or clubbing. No ascites. Pulses: Dorsalis pedis and posterior tibial pulses +1 to +2 bilaterally. ABDOMEN: Soft. Nontender. Bowel sounds active. No CVA tenderness. No mass felt. EXTREMITIES: No edema. Full range of motion of all extremities, equal. NEUROLOGIC: No focal deficit. Cranial nerves II through XII are grossly intact. No headache. No double vision. SKIN: Not dry. Intact. Turgor - normal. LYMPHATIC: No palpable lymph nodes/no lymphedema. MUSCULOSKELETAL: Normal joints with no swelling. Muscle tone is normal. LABS: P02 52, pc02 46 with pH of 7.5. Saturation 88%. The rest of the labs are acceptable. Chest x-ray report pending. ASSESSMENT: 1. Acute respiratory failure likely from COPD exacerbation. He has COPD and restrictive lung disease on the basis of Parkinson's. 2. The patient has dementia which is a combination of Parkinson's and other factors. PLAN: 1. The patient is DNR. The patient's son wants more or less comfort measures. Will also start antibiotics, nebs, steroids and suction the patient. Discussed with pulmonary tech. Condition is stabilizing. Prognosis is guarded. TIME SPENT: More than 35 minutes. Plan and coordination of the patient's care discussed in the presence of nurse. MARTHA
--- NOTE | 2022-06-11 13:43 | PN ---
DATE OF SERVICE: 06/02/22 SUBJECTIVE: 81-year-old white male hospitalized with pneumonia, left-sided along with COPD exacerbation with hypoxemia with respiratory failure. The patient's condition seems to have improved some but he is unable to get any voice out. He is trying to focus. He recognized my presence and smiled at me otherwise he seems to be confused to place and time. REVIEW OF SYSTEMS: CONSTITUTIONAL: No night sweats. No fatigue, malaise, lethargy. No fever or chills. HEENT: Eyes: No visual changes. No eye pain. No eye discharge. ENT: No runny nose. No epistaxis. No sinus pain. No sore throat. No odynophagia. No congestion. RESPIRATORY: No cough, no congestion. No hemoptysis. No shortness of breath. CARDIOVASCULAR: No angina symptoms. No CHF symptoms. No atypical chest pain for CAD. No palpitations. No PND. No orthopnea. Congested breath sounds noted. GASTROINTESTINAL: Appetite hasn't been that good but has improved a little bit. No abdominal pain. No nausea or vomiting. No diarrhea or constipation. No hematemesis. No hematochezia. GENITOURINARY: No urgency. No frequency. No dysuria. No hematuria. No obstructive symptoms. No discharge. No pain. No significant abnormal bleeding. MUSCULOSKELETAL: No musculoskeletal pain; no joint swelling. NEUROLOGICAL: No headache. No neck pain. No syncope. No seizures. No dizziness. PSYCHIATRIC: Not anxious. No depression. No suicidal thoughts. No homicidal thoughts. SKIN: No rash. No lesions. No wounds. ENDOCRINE: No unexplained weight loss. No weight gain. HEMATOLOGIC/LYMPHATIC: No anemia. No purpura. No petechiae. No prolonged or excessive bleeding. No palpable lymph nodes. PHYSICAL EXAMINATION: VITAL SIGNS: Temperature 98, pulse 93, respiratory rate 16, blood pressure 100/58, pulse ox 95%. HEENT: Head normocephalic, atraumatic. Eyes: Extraocular muscles are intact. Pupils are equal, round and reactive to light and accommodation. Ears: No lesions. Nose appeared normal. Throat: No exudate or erythema. NECK: Supple. No JVD, no carotid bruit. No lymphadenopathy or thyromegaly. LUNGS: Decreased breath sounds with mild wheeze. Percussion note normal. Chest symmetrical. HEART: S1, S2, no S3. No murmurs. No cyanosis or clubbing. No ascites. Pulses: Dorsalis pedis and posterior tibial pulses +1 to +2 bilaterally. ABDOMEN: Soft. Nontender. Bowel sounds active. No CVA tenderness. No mass felt. EXTREMITIES: No edema. Full range of motion of all extremities, equal. NEUROLOGIC: No focal deficit. Cranial nerves II through XII are grossly intact. No headache. No double vision. SKIN: Not dry. Intact. Turgor - normal. LYMPHATIC: No palpable lymph nodes/no lymphedema. MUSCULOSKELETAL: Normal joints with no swelling. Muscle tone is normal. LABS: Hemogloblin 11.8, hematocrit 36, WBC 6,700, normal differential. Creatinine 0.6, BUN 12, potassium 3.7. ASSESSMENT: 1. ACUTE RESPIRATORY FAILURE WITH COPD EXACERBATION WITH POSSIBILITY OF LEFT- SIDED PNEUMONIA. 2. PARKINSON'S DISEASE WHICH IS WORSENING. 3. DEMENTIA, MULTIFACTORIAL. PLAN: 1. Continue IV fluids. 2. Levaquin 750 mg q.24. 3. Steroids as ordered. 4. Albuterol nebs q.6hr p.r.n. 5. Please suction the patient frequently. 6. Please encourage the patient to eat. 7. Continue the rest of the medication as before. TIME SPENT: More than 35 minutes. Plan and coordination of the patient's care discussed in the presence of nurse. MARTHA
--- NOTE | 2022-06-11 14:22 | HP ---
DATE OF SERVICE: 06/01/22 REASON FOR HOSPITALIZATION: Respiratory distress. HISTORY OF PRESENT ILLNESS: 81-year-old white male who is a resident of the longterm was brought by the longterm because of increasing shortness of breath, congested breath sounds and cough. The patient has poor appetite for the past couple of days. The patient was seen and examined in the ER by ER attending and was noted to be in acute respiratory failure, p02 of 52, pc02 47, pH 7.45 with 88% saturation on room air. When I examined in the ER he had mild expiratory wheeze audible without stethoscope and he was in mild distress. His eyes were watery and he was unable to even talk. PAST MEDICAL/SURGICAL HISTORY: Hypertension Dyslipidemia Diabetes mellitus Parkinson's Coronary artery disease Severe DJD spine REVIEW OF SYSTEMS: CONSTITUTIONAL: Weakness and fatigue. No night sweats. No malaise, lethargy. No fever or chills. HEENT: Eyes: No visual changes. No eye pain. No eye discharge. ENT: No runny nose. No epistaxis. No sinus pain. No sore throat. No odynophagia. No ear pain. No congestion. RESPIRATORY: Cough and congestion. No hemoptysis. CARDIOVASCULAR: Shortness of breath on exertion. No angina symptoms. No CHF symptoms. No atypical chest pain for CAD. No palpitations. No PND. No orthopnea. GASTROINTESTINAL: Poor appetite for the past couple of days. No abdominal pain. No nausea or vomiting. No diarrhea or constipation. No hematemesis. No hematochezia. GENITOURINARY: No urgency. No frequency. No dysuria. No hematuria. No obstructive symptoms. No discharge. No pain. No significant abnormal bleeding. MUSCULOSKELETAL: Weakness of extremities. No musculoskeletal pain. No joint swelling. No arthritis. NEUROLOGICAL: No headache. No neck pain. No syncope. No seizures. No dizziness. PSYCHIATRIC: Not anxious. No depression. No suicidal thoughts. No homicidal thoughts. SKIN: No rash. No lesions. No wounds. ENDOCRINE: No unexplained weight loss. No weight gain. HEMATOLOGIC/LYMPHATIC: No anemia. No purpura. No petechiae. No prolonged or excessive bleeding. No palpable lymph nodes. PERSONAL/FAMILY/SOCIAL HISTORY: The patient lives by himself in the longterm. Nonsmoker. No alcohol abuse. Unable to do any activity of daily living, requires help for every ADL also. MEDICATIONS: Pantoprazole Aspirin Carbidopa Levodopa Metformin Potassium Albuterol Busdesonide Hydrocodone Cholecalciferol Furosemide Scopolamine patch ALLERGIES: CELEBREX, MELOXICAM, PENICILLIN PHYSICAL EXAMINATION: GENERAL: The patient is confused, distressed. VITAL SIGNS: Temperature 98, pulse 90/min, respiratory rate 20/min, BP 110/50, pulse ox 94% on 3L. HEENT: Looks somewhat pale. Head normocephalic, atraumatic. Eyes: Extraocular muscles are intact. Pupils are equal, round and reactive to light and accommodation. Ears: No lesions. Nose appeared normal. Throat: No exudate or erythema. NECK: Supple. No JVD, no carotid bruit. No lymphadenopathy or thyromegaly. LUNGS: Decreased breath sounds, expiratory wheeze noted. Percussion note normal. Chest symmetrical. HEART: S1, S2, no S3. No murmur. No cyanosis or clubbing. No ascites. Pulses: Dorsalis pedis and posterior tibial pulses +1 to +2 bilaterally. ABDOMEN: Soft. No ascites. Nontender. Bowel sounds active. No CVA tenderness. No mass felt. EXTREMITIES: Pulses +1 bilaterally. Trace edema. Full range of motion of all extremities, equal. NEUROLOGIC: No focal deficit. Cranial nerves II through XII are grossly intact. No headache, no double vision or headache. SKIN: Dry. Intact. Turgor - normal. LYMPHATIC: No palpable lymph nodes/no lymphedema. MUSCULOSKELETAL: Normal joints with no swelling. Muscle tone is normal. LABS: ABG p02 52 with c02 of 47, pH 7.45 with 88% saturation. Creatinine 0.7, BUN 10, potassium 3.7, lactic acid .96, troponin negative. Hemoglobin 12, hematocrit 42, WBC 6,400, normal differential. Chest x-ray pneumonia. EKG sinus rhythm. No acute changes. ASSESSMENT: 1. Acute respiratory failure with pneumonia and exacerbation of COPD. 2. The patient has restrictive lung disease with Parkinson's. 3. Parkinson's disease. 4. Dementia, multifactorial. 5. History of hypertension. 6. Coronary artery disease with history of stent. 7. Osteomyelitis. 8. Hypertension. 9. Cervical radiculopathy. PLAN: 1. Levaquin 750 mg q.d 2. IV Solu-Medrol q.8. 3. Nebs treatment with Albuterol. 4. Suctioning the mucus from the mouth. 5. Monitoring oximetry. 6. Monitor telemetry. 7. Daily CBC, CMP. 8. The patient is DNR, discussed with the son. PROGNOSIS: Guarded considering the patient's pneumonia along with severe hypoxemia with multiple other medical problems. TIME SPENT: More than 75 minutes. MTDD
--- NOTE | 2022-06-11 14:36 | PN ---
DATE OF SERVICE: 06/09/22 SUBJECTIVE: 81-year-old white male hospitalized with left-sided pneumonia. The patient had respiratory failure, has chronic obstructive restrictive lung disease from Parkinson's disease, has coronary artery disease with stent. The patient's condition has improved. CT scan of the abdomen three days ago showed ileal stricture with small bowel obstruction seems to have bowel movements now and no bowel distention noted, that is practically normal. REVIEW OF SYSTEMS: CONSTITUTIONAL: No night sweats. No fatigue, malaise, lethargy. No fever or chills. HEENT: Eyes: No visual changes. No eye pain. No eye discharge. ENT: No runny nose. No epistaxis. No sinus pain. No sore throat. No odynophagia. No congestion. RESPIRATORY: No cough, no congestion. No hemoptysis. No shortness of breath. CARDIOVASCULAR: No angina symptoms. No CHF symptoms. No atypical chest pain for CAD. No palpitations. No PND. No orthopnea. GASTROINTESTINAL: No abdominal pain. No nausea or vomiting. No diarrhea or constipation. No hematemesis. No hematochezia. GENITOURINARY: No urgency. No frequency. No dysuria. No hematuria. No obstructive symptoms. No discharge. No pain. No significant abnormal bleeding. MUSCULOSKELETAL: No musculoskeletal pain; no joint swelling. NEUROLOGICAL: No headache. No neck pain. No syncope. No seizures. No dizziness. PSYCHIATRIC: Not anxious. No depression. No suicidal thoughts. No homicidal thoughts. SKIN: No rash. No lesions. No wounds. ENDOCRINE: No unexplained weight loss. No weight gain. HEMATOLOGIC/LYMPHATIC: No anemia. No purpura. No petechiae. No prolonged or excessive bleeding. No palpable lymph nodes. PHYSICAL EXAMINATION: VITAL SIGNS: Temperature 97.4, pulse 63, respiratory rate 18, Blood Pressure 95, pulse ox 98%. HEENT: Head normocephalic, atraumatic. Eyes: Extraocular muscles are intact. Pupils are equal, round and reactive to light and accommodation. Ears: No lesions. Nose appeared normal. Throat: No exudate or erythema. NECK: Supple. No JVD, no carotid bruit. No lymphadenopathy or thyromegaly. LUNGS: Decreased breath sounds, better air entry than when he came into the hospital. Percussion note normal. Chest symmetrical. HEART: S1, S2, no S3. No murmurs. No cyanosis or clubbing. No ascites. Pulses: Dorsalis pedis and posterior tibial pulses +1 to +2 bilaterally. ABDOMEN: Soft. Nontender. Bowel sounds active. No CVA tenderness. No mass felt. EXTREMITIES: No edema. Full range of motion of all extremities, equal. NEUROLOGIC: No focal deficit. Cranial nerves II through XII are grossly intact. No headache. No double vision. SKIN: Not dry. Intact. Turgor - normal. LYMPHATIC: No palpable lymph nodes/no lymphedema. MUSCULOSKELETAL: Normal joints with no swelling. Muscle tone is normal. LABS: Hemoglobin 12, hematocrit 37, WBC 10,000, normal differential. Creatinine 0.5, BUN 23, potassium 4. ASSESSMENT: 1. Pneumonia seems to have resolved clinically. Saturation is 98% on 1 to 2L. 2. COPD seems to be under control. 3. Parkinson's is a little bit better. 4. The patient's small bowel obstruction type of pattern that was seen on CT scan seemed to match with the clinical findings. He has good appetite and BM seems to be regular. TIME SPENT: More than 35 minutes. Plan and coordination of the patient's care discussed in the presence of nurse. MARTHA
[2022-06-11] MEDS: SINEMET 25-100 PO SCH ×2 (15:06→20:17)
--- NOTE | 2022-06-11 15:55 | PN ---
DATE OF SERVICE: 06/10/22 SUBJECTIVE: 81 year old white male hospitalized with left sided pneumonia. Patient has chronic obstructive lung disease from Parkinson's. Patient's condition has improved. His appetite has improved. He is eating a lot better. The bowel movement seems to be getting out satisfactorily. Patient is going to be on Miralax. REVIEW OF SYSTEMS: CONSTITUTIONAL: No night sweats. No fatigue, malaise, lethargy. No fever or chills. HEENT: Eyes: No visual changes. No eye pain. No eye discharge. ENT: No runny nose. No epistaxis. No sinus pain. No sore throat. No odynophagia. No congestion. RESPIRATORY: No cough, no congestion. No hemoptysis. No shortness of breath. CARDIOVASCULAR: No chest pain. No palpitations. No PND. No orthopnea. GASTROINTESTINAL: No abdominal pain. No nausea or vomiting. No diarrhea or constipation. No hematemesis. No hematochezia. GENITOURINARY: No urgency. No frequency. No dysuria. No hematuria. No obstructive symptoms. No discharge. No pain. No significant abnormal bleeding. MUSCULOSKELETAL: No musculoskeletal pain; no joint swelling. NEUROLOGICAL: No headache. No neck pain. No syncope. No seizures. No dizziness. PSYCHIATRIC: Not anxious. No depression. No suicidal thoughts. No homicidal thoughts. SKIN: No rash. No lesions. No wounds. ENDOCRINE: No unexplained weight loss. No weight gain. HEMATOLOGIC/LYMPHATIC: No anemia. No purpura. No petechiae. No prolonged or excessive bleeding. No palpable lymph nodes. PHYSICAL EXAMINATION: GENERAL: The patient is in no distress. VITAL SIGNS: Temperature 96.4, pulse 78, respiratory rate 18, blood pressure 121/60, pulse ox 98% HEENT: Head normocephalic, atraumatic. Eyes: Extraocular muscles are intact. Pupils are equal, round and reactive to light and accommodation. Ears: No lesions. Nose appeared normal. Throat: No exudate or erythema. NECK: Supple. LUNGS: Decreased breath sounds but clear. HEART: S1, S2, no S3. No murmurs. No cyanosis or clubbing. No ascites. Pulses: Dorsalis pedis and posterior tibial pulses +1 to +2 bilaterally. ABDOMEN: Soft. Bowel sounds active. EXTREMITIES: No edema. Full range of motion of all extremities, equal. NEUROLOGIC: No focal deficit. Cranial nerves II through XII are grossly intact. No headache. No double vision. SKIN: Not dry. Intact. Turgor - normal. LYMPHATIC: No palpable lymph nodes/no lymphedema. MUSCULOSKELETAL: Normal joints with no swelling. Muscle tone is normal. LABS: Hemoglobin 12, hematocrit 37, WBC 14,000, normal differential, creatinine 0.3, BUN 25, potassium 4.2 ASSESSMENT: 1. LEFT SIDED PNEUMONIA SEEMS TO BE RESOLVING 2. BOWEL OBSTRUCTION SEEN ON CT SCAN WITH SOME PROBLEMS. HIS DISCOMFORT SEEMS TO HAVE RESOLVED WITH BOWEL MOVEMENT, SEEMS TO BE GETTING REGULAR APPETITE. 3. RESPIRATORY FAILURE SEEMS TO HAVE RESOLVED 4. PARKINSON'S DISEASE SEEMS TO BE IMPROVING SOMEWHAT WITH GOOD NUTRITION PLAN: Discharge patient home tomorrow. TIME SPENT: More than 35 minutes. Plan and coordination of the patient's care discussed in the presence of nurse. MARTHA
[2022-06-12] MEDS: MUCOMYST 20% NEB NEB SCH ×2 (04:45→20:25)
[2022-06-12] MEDS: PULMICORT 0.5 MG/2 ML NEB SCH ×2 (04:45→20:25)
[2022-06-12] MEDS: ALBUTEROL 0.083% NEB NEB SCH ×4 (04:45→20:25)
[2022-06-12 05:20] LABS: BASOPHILS % (AUTO) 0.3 % (0.0-3.0); EOSINOPHILS % (AUTO) 0.2 % (0.0-7.0); HEMATOCRIT 39.3 % (42.0-52.0); HEMOGLOBIN 12.5 g/dl (14.0-18.0); IMMATURE GRANULOCYTE # (AUTO) 0.3 (0.0-1.0); IMMATURE GRANULOCYTE % (AUTO) 2.2 % (0.0-5.0); LYMPHOCYTES # (AUTO) 1.7 K/uL (0.60-3.4); LYMPHOCYTES % (AUTO) 12.7 (10.0-50.0); MEAN CORPUSCULAR HGB CONC 31.8 (31.8-35.4); MEAN CORPUSCULAR VOLUME 87.9 fl (80.0-94.0); MONOCYTES # (AUTO) 0.8 K/uL (0.4-2.0); MONOCYTES % (AUTO) 5.7 (0-10); NEUTROPHILS # (AUTO) 10.6 K/ul (2.0-6.9); NEUTROPHILS % (AUTO) 78.9 % (42.2-75.2); PLATELET COUNT 440 10^3/uL (140-440); RDW COEFFICIENT OF VARIATION 15.2 % (11.6-14.8); RED BLOOD COUNT 4.47 10^6/ul (4.70-6.10)
[2022-06-12 05:32] LABS: ALANINE AMINOTRANSFERASE 15.1 U/L (0-50); ALBUMIN 3.7 g/dL (3.5-5.0); ALKALINE PHOSPHATASE 118.1 U/L (56-119); ASPARTATE AMINO TRANSFERASE 21.4 U/L (17-59); BILIRUBIN,TOTAL 0.48 mg/dL (0.2-1.3); BLOOD UREA NITROGEN 25.5 mg/dL (9-20); CALCIUM 9.16 mg/dL (8.4-10.2); CARBON DIOXIDE 33.7 mmol/L (22-30.0); CHLORIDE 98.2 mmol/L (98-107); CREATININE 0.65 mg/dL (0.60-1.10); GLUCOSE 125.2 mg/dL (74-106); POTASSIUM 4.04 mmol/L (3.5-5.1); SODIUM 138.9 mmol/L (134.5-145); TOTAL PROTEIN 6.5 g/dL (6.3-8.2)
[2022-06-12] MEDS: PROTONIX PO SCH (05:33)
[2022-06-12] MEDS: LASIX TAB PO SCH ×2 (05:33→16:42)
[2022-06-12] MEDS: LEVAQUIN PO SCH (05:34)
[2022-06-12] MEDS: MIRALAX PO SCH (08:11)
[2022-06-12] MEDS: DIFLUCAN PO SCH (08:13)
[2022-06-12] MEDS: ASPIRIN EC PO SCH (08:13)
[2022-06-12] MEDS: MUCINEX PO SCH ×2 (08:14→20:05)
[2022-06-12] MEDS: SINEMET 25-100 PO SCH ×4 (08:14→20:05)
[2022-06-12] MEDS: NORCO 5-325 PO SCH ×3 (08:14→20:05)
[2022-06-12] MEDS: K-DUR PO SCH ×2 (08:14→16:42)
[2022-06-12] MEDS: VITAMIN D PO SCH ×2 (08:15→20:05)
[2022-06-12] MEDS: PREDNISONE PO SCH ×2 (08:15→16:42)
[2022-06-12] MEDS: GLUCOPHAGE PO SCH (08:15)
--- NOTE | 2022-06-12 09:03 | RS.DYSPHDC ---
Subjective Date of Discharge: 06/12/22 Date of Evaluation: 06/03/22 Duration of Therapy: 2 weeks Number of sessions: 4 Functional Reporting G Codes: n/a Severity Impairment Rationale: n/a Short Term Goals Problem: Oral phase Goal #1: Tolerate minced and moist diet w/ thin liquids w/ min to no overt s/s asp. Goal to be met by: 06/17/22 (NEW GOAL DATE) Progress Towards Goal: No Change Comments:: Pt/family wish to pursue PO diet Problem: Oral phase Goal #2: Demo bolus clearance 100% of PO trials Goal to be met by: 06/17/22 (NEW GOAL DATE) Progress Towards Goal: Partially Met (has to use strategies mid meal to clear bolus) Comments:: Pt needs liquids every 2 bites to clear lingual residuals Problem: PO intake Goal #3: Demo safe swallow/aspiration precautions 100% of PO intake Goal to be met by: 06/17/22 (NEW GOAL DATE) Progress Towards Goal: Partially Met (Minimal coughing with thin liquids at this time.) Comments:: Demo's with assistance from staff/family Problem: SOB Goal #4: Complete diaphragmatic breathing tasks to improve breath support for speech Goal to be met by: 06/17/22 (NEW GOAL DATE) Progress Towards Goal: No Change Comments:: POT ROOM TAPPER and RT encourage deep breaths, coughs, and TC to improve speech Problem: Pharyngeal phase Goal #5: Pt complete LE exercises to improve airway protection 100% of opp. Goal to be met by: 06/17/22 (NEW GOAL DATE) Progress Towards Goal: No Change Problem: Aspiration risks Goal #6: Pt verbalize/demon safe swallow/aspiration precautions 100% of PO intake. Goal to be met by: 06/17/22 (NEW GOAL DATE) Progress Towards Goal: Progressing (With POT ROOM TAPPER present, pt will demo safe swallow and comp swallow strategies) Prison Goals Goal #1: Tolerate safer and least restrictive diet w/ min to no overt s/s of asp Goal to be met by: 06/17/22 (NEW GOAL DATE) Comments:: Cannot R/O silent aspiration. Pt wants to pursue PO route Goal #2: Maintain adequate hydration and nutrition status with PO intake Goal to be met by: 06/17/22 (NEW GOAL DATE) Progress towards goal: Partially Met Comments:: DEMONSTRATES WANTS FOR FOOD/DRINK WHEN OFFERED 100% Goal #3: Potential MBSS Goal to be met by: 06/17/22 (NEW GOAL DATE) Progress towards goal: Not Met Comments:: No MBSS Goal #4: Monitor speech/language/cognition Goal to be met by: 06/17/22 (NEW GOAL DATE) Progress towards goal: Not Met Comments:: SPEECH LESS INTELLIGIBLE Reason for Discharge Comments: Pt is ready to discharge from the hospital setting this date. [facility]. Reason for Discharge/Current Status:: The patient currently demonstrates minimal improvements with lung sounds demonstrating high risk for aspiratio n/penetration. POT ROOM TAPPER has discussed NPO status with pt and staff. Pt/family want to pursue PO route at this time. P[employer] ROOM TAPPER recommended minced and moist diet with extra gravy/sauces/condiments on all food. Pt to continue thin liquids via straw with potential aspiration/penetration episodes. The patient has unproductive coughing, that also places high aspiration risk. However, pt wants to continue quality of life with PO intake at this time. POT ROOM TAPPER recommends close monitoring and 1:1 supervision with feeding. Pt to discharge to [facility] facility and POT ROOM TAPPER recommends SPT to continue to assist with decision making for pursuing PO intake.
[2022-06-12] MEDS: HUMULIN R SUBCUT PRN ×3 (11:10→20:04)
[2022-06-13] MEDS: MUCOMYST 20% NEB NEB SCH (04:50)
[2022-06-13] MEDS: PULMICORT 0.5 MG/2 ML NEB SCH (04:50)
[2022-06-13] MEDS: ALBUTEROL 0.083% NEB NEB SCH ×2 (04:50→09:59)
[2022-06-13 05:07] VITALS: BP 118/64; TEMP 96.5
[2022-06-13] MEDS: PROTONIX PO SCH (05:35)
[2022-06-13] MEDS: LASIX TAB PO SCH (05:35)
[2022-06-13] MEDS: LEVAQUIN PO SCH (05:36)
[2022-06-13] MEDS: VITAMIN D PO SCH (08:55)
[2022-06-13] MEDS: MIRALAX PO SCH (08:55)
[2022-06-13] MEDS: PREDNISONE PO SCH (08:56)
[2022-06-13] MEDS: ASPIRIN EC PO SCH (08:56)
[2022-06-13] MEDS: MUCINEX PO SCH (08:57)
[2022-06-13] MEDS: GLUCOPHAGE PO SCH (08:58)
[2022-06-13] MEDS: SINEMET 25-100 PO SCH (08:58)
[2022-06-13] MEDS: NORCO 5-325 PO SCH (08:59)
[2022-06-13] MEDS: K-DUR PO SCH (08:59)
[2022-06-13] MEDS: DIFLUCAN PO SCH (08:59)
--- NOTE | 2022-06-13 10:22 | DS ---
DATE OF SERVICE: 06/12/22 FINAL DIAGNOSIS: 1. Pneumonia likely aspiration with respiratory failure 2. 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 Parkinson's disease, Advanced 4. Dementia 5. Coronary artery disease with history of stent 6. History of fluid retention with leg edema. 7. Diabetes mellitus 8. Hypertension 9. Constipation related to Parkinson's problem DISCHARGE INSTRUCTIONS: Discharge the patient. Elevate the legs. The patient is DNR. The patient is to be followed by MD that takes care [facility] the [facility]. Continue all medications. MEDICATIONS AT DISCHARGE: Lasix 20mg PO BID Narco 5-325mg TID PRN for pain DUO NEB nebulizer BID PRN Metformin 500mg PO daily Protonix 40mg PO QAM K-TAB 20meq twice a day extended release Rytary 23.75/95mg capsule three capsules oral three times daily Scopolamine base 1mg over three days patch. Tylenol 325mg PRN TID Ventolin HFA PRN Aspirin 81mg PO daily Bisacodyl 5mg orally as needed Symbicort two puffs QAM Vitamin D3 25microgram 1000 units daily Stool softener Docusate Sodium 100mg Prednisone 10mg PO daily for 10 days. ACTIVITY TOLERATED DIET: MINCED AND MOIST WITH THIN LIQUIDS. HOSPITAL COURSE: 81 year old white male hospitalized with pneumonia. The patient was in respiratory failure. The patient's condition improved with treatment with antibiotics Levaquin, steroids treatment. The patient become more alert, his appetite improved partly because of steroid therapy. The patient also developed obstructive by CT scan of the abdomen which resolved with conservative management. At the time of discharge the patient's appetite had improved remarkably along with bowel movements. The patient's hydration status improved. His mental status also seemed to have improved. The patient developed some fluid retention which was treated with IV Lasix. The patient echo during the stay in the hospital showed normal LV contractility and LV size, enlarged RV cavity unchanged from 2020. The patient is DNR. Prognosis is not good. Cardiovascular status throughout the stay in the hospital was stable. TIME SPENT: 70 minutes MTDD
--- NOTE | 2022-06-13 10:22 | PN ---
ADMISSION DAY: Level 5 REST OF THEM: Intermediate FINAL DAY: D as in discharge MTDD
--- NOTE | 2022-06-13 10:41 | PN ---
DATE OF SERVICE: 06/11/22 SUBJECTIVE: 81 year old white male hospitalized with left sided pneumonia. The patient has restrictive obstructive chronic lung disease based on his Parkinson's disease, he has chronic aspiration and respiratory failure. The patient's blood gasses done on 06/10/22 pO2 93, pCo2 48 with pH 7.5 with 98% saturation on 2 liters. The patient's condition is improving and his abdomen is soft, bowel sounds are active. He has CT scan which showed possibility of small bowel obstructive and nasogastric tube was recommended. The patient was treated conservatively from which he has recovered. REVIEW OF SYSTEMS: CONSTITUTIONAL: No night sweats. No fatigue, malaise, lethargy. No fever or chills. HEENT: Eyes: No visual changes. No eye pain. No eye discharge. ENT: No runny nose. No epistaxis. No sinus pain. No sore throat. No odynophagia. No congestion. RESPIRATORY: No cough, no congestion. No hemoptysis. No shortness of breath. CARDIOVASCULAR: No angina symptoms. No CHF symptoms. No atypical chest pain for CAD. No palpitations. No PND. No orthopnea. GASTROINTESTINAL: No abdominal pain. No nausea or vomiting. No diarrhea or constipation. No hematemesis. No hematochezia. GENITOURINARY: No urgency. No frequency. No dysuria. No hematuria. No obstructive symptoms. No discharge. No pain. No significant abnormal bleeding. MUSCULOSKELETAL: No musculoskeletal pain; no joint swelling. NEUROLOGICAL: No headache. No neck pain. No syncope. No seizures. No dizziness. PSYCHIATRIC: Not anxious. No depression. No suicidal thoughts. No homicidal thoughts. SKIN: No rash. No lesions. No wounds. ENDOCRINE: No unexplained weight loss. No weight gain. HEMATOLOGIC/LYMPHATIC: No anemia. No purpura. No petechiae. No prolonged or excessive bleeding. No palpable lymph nodes. PHYSICAL EXAMINATION: GENERAL: The patient seems to be alert, oriented to person. VITAL SIGNS: Temperature 97.2, pulse 84, respiratory rate 16, blood pressure 110/64 and pulse 93%. HEENT: Head normocephalic, atraumatic. Eyes: Extraocular muscles are intact. Pupils are equal, round and reactive to light and accommodation. Ears: No lesions. Nose appeared normal. Throat: No exudate or erythema. NECK: Supple. No JVD, no carotid bruit. No lymphadenopathy or thyromegaly. LUNGS:Decreased breath sounds bilaterally with mild expiratory wheeze. Clear to auscultation. Percussion note normal. Chest symmetrical. HEART: S1, S2, no S3. No murmurs. No cyanosis or clubbing. No ascites. Pulses: Dorsalis pedis and posterior tibial pulses +1 to +2 bilaterally. ABDOMEN: Soft. Nontender. Bowel sounds active. No CVA tenderness. No mass felt. EXTREMITIES: No edema. Full range of motion of all extremities, equal. NEUROLOGIC: No focal deficit. Cranial nerves II through XII are grossly intact. No headache. No double vision. SKIN: Not dry. Intact. Turgor - normal. LYMPHATIC: No palpable lymph nodes/no lymphedema. MUSCULOSKELETAL: Normal joints with no swelling. Muscle tone is normal. LABS: Hgb 11, hct 36, WBC 10,000 normal differential, creatinine 0.5, BUN 23, potassium 4. ASSESSMENT: 1. Pneumonia seems to be clinically improved practically resolved, Continue Levaquin and continue steroids 2. Hypoxemia seems to have resolved, ABG showed quite a bit of improvement yesterday 3. Appetite seems to have improved, bowel sounds are active and patient has bowel movements on his own now with Miralax PLAN: 1. Discharge the patient home tomorrow. 2. Had enough antibiotics so may not need antibiotics. 3. Prednisone will be given for 7-10 days. 4. The rest of the medication is going to be continued TIME SPENT: More than 35 minutes. Plan and coordination of the patient's care discussed in the presence of nurse. MARTHA
--- NOTE | 2022-06-13 11:04 | PN ---
DATE OF SERVICE: 06/12/22 SUBJECTIVE: 81 year old white male hospitalized with pneumonia, left sided and hypoxemia. The patient's condition has improved. Kidney functions are a lot better, his dehydration has resolved. He is more alert. Appetite has improved. Bowel movement seems to be regular now. REVIEW OF SYSTEMS: CONSTITUTIONAL: No night sweats. No fatigue, malaise, lethargy. No fever or chills. HEENT: Eyes: No visual changes. No eye pain. No eye discharge. ENT: No runny nose. No epistaxis. No sinus pain. No sore throat. No odynophagia. No congestion. RESPIRATORY: No cough, no congestion. No hemoptysis. No shortness of breath. CARDIOVASCULAR: No angina symptoms. No CHF symptoms. No atypical chest pain for CAD. No palpitations. No PND. No orthopnea. GASTROINTESTINAL: No abdominal pain. No nausea or vomiting. No diarrhea or constipation. No hematemesis. No hematochezia. GENITOURINARY: No urgency. No frequency. No dysuria. No hematuria. No obstructive symptoms. No discharge. No pain. No significant abnormal bleeding. MUSCULOSKELETAL: No musculoskeletal pain; no joint swelling. NEUROLOGICAL: No headache. No neck pain. No syncope. No seizures. No dizziness. PSYCHIATRIC: Not anxious. No depression. No suicidal thoughts. No homicidal thoughts. SKIN: No rash. No lesions. No wounds. ENDOCRINE: No unexplained weight loss. No weight gain. HEMATOLOGIC/LYMPHATIC: No anemia. No purpura. No petechiae. No prolonged or excessive bleeding. No palpable lymph nodes. PHYSICAL EXAMINATION: VITAL SIGNS: Temperature 97.4, pulse 75, respiratory rate 18, blood pressure 120/60 and pulse ox 94% on two liters HEENT: Head normocephalic, atraumatic. Eyes: Extraocular muscles are intact. Pupils are equal, round and reactive to light and accommodation. Ears: No lesions. Nose appeared normal. Throat: No exudate or erythema. NECK: Supple. No JVD, no carotid bruit. No lymphadenopathy or thyromegaly. LUNGS: Decreased breath sounds, mild expiratory wheeze. Clear to auscultation. Percussion note normal. Chest symmetrical. HEART: S1, S2, no S3. No murmurs. No cyanosis or clubbing. No ascites. Pulses: Dorsalis pedis and posterior tibial pulses +1 to +2 bilaterally. ABDOMEN: Soft. Nontender. Bowel sounds active. No CVA tenderness. No mass felt. EXTREMITIES: No edema. Full range of motion of all extremities, equal. NEUROLOGIC: No focal deficit. Cranial nerves II through XII are grossly intact. No headache. No double vision. SKIN: Not dry. Intact. Turgor - normal. LYMPHATIC: No palpable lymph nodes/no lymphedema. MUSCULOSKELETAL: Normal joints with no swelling. Muscle tone is normal. LABS: Echo was done today which showed same echo findings as 2020 with borderline LVH and enlarged cavity, normal LV size and LV contracitilty noted. All the valves are normal. ASSESSMENT: 1. Pneumonia, clinically resolved 2. Abdominal discomfort and bowel obstruction resolved 3. Parkinson's disease seems to have improved to some extent with good appetite and strength has improved. 4. Aspiration pneumonitis problems swallowing, that is going to be a problem with the family they don't want anything else done PLAN: 1. The [facility]. 2. He is going to be discharged on steroids and the rest of the medication will be the same. 3. The patient was on antibiotics for 8-9 days. PROGNOSIS: POOR The patient is DNR. TIME SPENT: More than 35 minutes. Plan and coordination of the patient's care discussed in the presence of nurse. MARTHA
--- NOTE | 2022-06-14 14:15 | PN ---
DATE OF SERVICE: 06/13/22 SUBJECTIVE: 81 year old white male hospitalized with pneumonia, COPD exacerbation with aspirations, he was dehydrated and his Parkinson's symptoms had worsened but now patient's condition has improved. Pneumonia clinically resolved. Parkinson's is a lot better, able to swallow and appetite has improved. The patient was discharged yesterday but couldn't discharge him because the [facility] didn't have [facility]. REVIEW OF SYSTEMS: CONSTITUTIONAL: No night sweats. No fatigue, malaise, lethargy. No fever or chills. HEENT: Eyes: No visual changes. No eye pain. No eye discharge. ENT: No runny nose. No epistaxis. No sinus pain. No sore throat. No odynophagia. No congestion. RESPIRATORY: No cough, no congestion. No hemoptysis. No shortness of breath. CARDIOVASCULAR: No angina symptoms. No CHF symptoms. No atypical chest pain for CAD. No palpitations. No PND. No orthopnea. GASTROINTESTINAL: No abdominal pain. No nausea or vomiting. No diarrhea or constipation. No hematemesis. No hematochezia. GENITOURINARY: No urgency. No frequency. No dysuria. No hematuria. No obstructive symptoms. No discharge. No pain. No significant abnormal bleeding. MUSCULOSKELETAL: No musculoskeletal pain; no joint swelling. NEUROLOGICAL: No headache. No neck pain. No syncope. No seizures. No dizziness. PSYCHIATRIC: Not anxious. No depression. No suicidal thoughts. No homicidal thoughts. SKIN: No rash. No lesions. No wounds. ENDOCRINE: No unexplained weight loss. No weight gain. HEMATOLOGIC/LYMPHATIC: No anemia. No purpura. No petechiae. No prolonged or excessive bleeding. No palpable lymph nodes. PHYSICAL EXAMINATION: VITAL SIGNS: Temperature 96.5, pulse 72, respiratory rate 18, blood pressure 118/64 and pulse 97%. HEENT: Head normocephalic, atraumatic. Eyes: Extraocular muscles are intact. Pupils are equal, round and reactive to light and accommodation. Ears: No lesions. Nose appeared normal. Throat: No exudate or erythema. NECK: Supple. No JVD, no carotid bruit. No lymphadenopathy or thyromegaly. LUNGS: Decreased breath sounds, good air entry. Clear to auscultation. Percussion note normal. Chest symmetrical. HEART: S1, S2, no S3. No murmurs. No cyanosis or clubbing. No ascites. Pulses: Dorsalis pedis and posterior tibial pulses +1 to +2 bilaterally. ABDOMEN: Soft. Nontender. Bowel sounds active. No CVA tenderness. No mass felt. EXTREMITIES: No edema. Full range of motion of all extremities, equal. NEUROLOGIC: No focal deficit. Cranial nerves II through XII are grossly intact. No headache. No double vision. SKIN: Not dry. Intact. Turgor - normal. LYMPHATIC: No palpable lymph nodes/no lymphedema. MUSCULOSKELETAL: Normal joints with no swelling. Muscle tone is normal. LABS: done yesterday Hgb 12.5, hct 39, WBC 13,000 normal differential, creatinine 0.6, BUN 25, potassium 4. ASSESSMENT: 1. Pneumonia clinically has resolved 2. Parkinson's disease seems to have improved some 3. No evidence of any small bowel obstruction, the patient's appetite has improved. Bowel seems to be more or less regular. PLAN: 1. The patient was discharged yesterday but couldn't because the [facility] didn't have [facility]. He will be discharged today. CODE: D: For discharge Extensive as usual. TIME SPENT: More than 35 minutes. Plan and coordination of the patient's care discussed in the presence of nurse. MARTHA
--- NOTE | 2022-06-17 10:18 | ECHO2D ---
Date of Exam: 06/12/2022 Ordering Physician: DR. SUN NAGEL Room #: 102 Reason for Echo: CAD WITH STENT/ PARKINSON'S / SOB M-Mode Normal Adult Results LV Dimensions Normal Adult Results AoV Opening excursions >1.6 >1.6 LVEDD-base- 3.5-5.8 4.8 Ao root dimensions 2.0-3.7 3.4 LVESD-base- 3.1-4.6 L. Atrium dimensions 1.9-3.8 3.7 Post. Wall thickness 0.8-1.1 1.1 IV septum (thickness) 0.7-1.2 1.2 Post. Wall excursion 0.72-1.3 NORMAL Septal motion NORMAL Systolic motion R. Ventricular cavity 1.5-2.0 4.0 LVEF 60% 60% Paradoxical septal wall motion NORMAL 2-D : 2-D M Mode Echocardiogram was performed using apical four chamber and left parasternal long and short axis views. Mitral, tricuspid and aortic valves appear to be normal. Contractility of the left ventricle seems to be normal, so is the cavity size. Left atrial cavity size and aortic root appear to be normal. There is no pericardial effusion. There is no thrombus noted in the left ventricle or left atrial cavity. ENLARGED RIGHT VENTICLE CAVITY M-MODE: MV: NORMAL AV: NORMAL TV: NORMAL PV: CHAMBER SIZE: ENLARGED RIGHT VENTRICLE CAVITY WALL MOTION: NORMAL PERICARDIUM: NORMAL INTERPRETATION: 1. BORDERLINE LEFT VENTRICLE HYPERTROPHY 2. ENLARGED RIGHT VENTRICLE CAVITY 3. NORMAL VALVES 4. NORMAL LEFT VENTRICLE CONTRACTILITY AND LEFT VENTRICLE SIZE MTDD
== END 2022-06-13 10:30 | DRG 193 ==
LOC: ED 10:47 → MEDSURG A 14:18
PROVIDERS: ADMIT Internal Medicine; ATTEND Internal Medicine
DX: J96.01 Acute respiratory failure with hypoxia; Z51.81 Encounter for therapeutic drug level monitoring; I10 Essential (primary) hypertension; D64.9 Anemia, unspecified; Z20.822 Contact with and (suspected) exposure to COVID-19; R06.02 Shortness of breath; G20 Parkinson's disease; J98.4 Other disorders of lung; J44.1 Chronic obstructive pulmonary disease with (acute) exacerbation; E78.5 Hyperlipidemia, unspecified; E11.9 Type 2 diabetes mellitus without complications; J18.9 Pneumonia, unspecified organism; M13.80 Other specified arthritis, unspecified site; M54.12 Radiculopathy, cervical region; K59.00 Constipation, unspecified; M86.9 Osteomyelitis, unspecified; Z79.899 Other long term (current) drug therapy; Z66 Do not resuscitate; R13.10 Dysphagia, unspecified; I51.7 Cardiomegaly; Z74.1 Need for assistance with personal care; E87.70 Fluid overload, unspecified; K21.9 Gastro-esophageal reflux disease without esophagitis; Z79.82 Long term (current) use of aspirin; Z79.84 Long term (current) use of oral hypoglycemic drugs; Z95.5 Presence of coronary angioplasty implant and graft; Z87.891 Personal history of nicotine dependence; F02.80 Dementia in other diseases classified elsewhere, unspecified severity, without behavioral disturbance, psychotic disturbance, mood disturbance, and anxiety; I25.10 Atherosclerotic heart disease of native coronary artery without angina pectoris; N40.0 Benign prostatic hyperplasia without lower urinary tract symptoms

== ENCOUNTER 2022-07-28 09:08 | Inpatient (IN) ==
[2022-07-28] MEDS ORDERED: SODIUM CHLORIDE 1,000 ML IV STA (09:25)
[2022-07-28] MEDS ORDERED: ALBUTEROL 0.083% NEB NEB ONE (09:27)
--- NOTE | 2022-07-28 09:39 | ED.PDOC ---
General ED Provider: Dr. DAMIEN YEH MD Chief Complaint: Weakness Stated Complaint: generalized weakness, trouble swallowing Time Seen by Provider: 07/28/22 09:22 Mode of Arrival: Ambulance Information Source: Shelter and EMT Primary Care Provider: SUN DE LA FUENTE MD Nursing and Triage Documentation Reviewed and Agree: Yes Does patient meet sepsis criteria?: No System Inflammatory Response Syndrome: Not Applicable Sepsis Protocol: For patient's 13 years and over: Temp is 96.8 and below OR 101 and greater Pulse >90 BPM Resp >20/minute Acutely Altered Mental Status Are patient's symptoms suggestive of a new infection, such as: -Pneumonia -Skin, Soft Tissue -Endocarditis -UTI -Bone, Joint Infection -Implantable Device -Acute Abdominal Infection -Wound Infection -Meningitis -Blood Stream Catheter Infection -Unknown Respiratory Complaint Exam Respiratory Complaint/Exam Onset/Duration: few days Symptoms Are: Still present Timing: Constant Initial Severity: Moderate Current Severity: Moderate Home Oxygen Use: No Respiratory Distress: None Dysphagia Present: Yes Differential Diagnoses: CHF, Pulmonary Edema, Pneumonia, Bronchitis and Bronchiolitis Review of Systems Review Of Systems Constitutional: Reports Weakness Eyes: Reports No symptoms Ears, Nose, Mouth, Throat: Reports No symptoms Respiratory: Reports Cough and Wheezing Cardiac: Reports No symptoms and Chest pain GI: Reports No symptoms : Reports No symptoms Musculoskeletal: Reports Muscle stiffness Endocrine: Reports No symptoms Hematologic/Lymphatic: Reports No symptoms All Other Systems: Reviewed and Negative FORMERLY [facility], 1928–1983 Medical History Anemia BPH (benign prostatic hyperplasia) CAD (coronary artery disease) Cervical radiculopathy Chronic arthritis Dementia Diabetes mellitus Disc narrowing Gastroesophageal reflux disease Hyperlipidemia Hypertension Left ventricular hypertrophy Oropharyngeal dysphagia Parkinson disease Family History FATHER Heart attack BROTHER Diabetes Social History Smoking and tobacco status: Former smoker Tobacco: How many years used: 30 Second hand smoke exposure: No Alcohol intake: former Substance use type: does not use History of recent travel: No Seatbelt use: always Surgical History History of cholecystectomy History of heart artery stent History of lumbar fusion Physical Exam Physical Exam Appearance: Reports Ill-appearing Ill-appearing: Moderate Pain Distress: None Eyes: Reports TRACY and EOMI ENT: Reports Ears normal, Nose normal and Dry mucosa Neck: Supple Respiratory: Reports Breath sounds diminished, Crackles, Rhonchi and Wheezes Cardiovascular: Reports RRR and No murmur GI/: Reports Soft, Nontender, No masses and Bowel sounds normal Musculoskeletal: Reports Other (muscle spasm, trace edeme BLE) and Not Examined Skin: Reports Warm and Dry Neurological: Reports Disoriented and Other (baseline dementia) Psychiatric: Reports Other (unable to assess) Interpretation EKG Interpretation Rate: Normal Rhythm: Sinus Ectopy: None [place]: NL ST Segment: Normal Interpretation: rate 95, old inferior infarct, no sings or acute ischemia EKG Interpretation By: ED Physician Critical Care Note Critical Care Note Total Critical Care Time (mins): 0 Course Course 07/28/22 09:45 07/28/22 09:45 Orders, Labs, Meds: Lab Review 07/28/22 07/28/22 07/28/22 09:35 09:45 09:47 WBC 12.76 H RBC 4.91 Hgb 14.1 Hct 43.9 MCV 89.4 MCH 28.7 MCHC 32.1 RDW Coeff of Leda 16.3 H Plt Count 314 Immature Gran % (Auto) 0.4 Neut % (Auto) 85.4 H Lymph % (Auto) 8.6 L Otoe % (Auto) 5.2 Eos % (Auto) 0.1 Baso % (Auto) 0.3 Neut # (Auto) 10.9 H Lymph # (Auto) 1.1 Otoe # (Auto) 0.7 Eos # (Auto) 0.0 Baso # (Auto) 0.0 Immature Gran # (Auto) 0.1 Puncture Site Rrad Base Excess 9.3 H O2 Saturation 90.9 L ABG pH 7.48 H ABG pCO2 44.0 ABG pO2 56.0 L* ABG HCO3 32.8 H ABG Total CO2 34.2 H Zaki Test Pos Hemoglobin 1.7 H Oxyhemoglobin 89.9 L Carboxyhemoglobin 2.2 H Total Hemoglobin 14.2 FiO2 % 21.0 Sodium 138.9 Potassium 3.75 Chloride 99.8 Carbon Dioxide 33.8 H Anion Gap 9.05 BUN 11.9 Creatinine 0.69 Estimated GFR (MDRD) 111.00 BUN/Creatinine Ratio 17.24 Glucose 109.1 H Lactic Acid 2.09 Calcium 9.14 Total Bilirubin 0.46 AST 22.7 ALT 8.9 Alkaline Phosphatase 113.8 Troponin I < 0.012 NT-Pro-B Natriuret Pep 106 Total Protein 7.28 Albumin 4.28 Globulin 3.00 Albumin/Globulin Ratio 1.42 Urine Color Urine Clarity Urine pH Ur Specific Hodges Urine Protein Urine Glucose (UA) Urine Ketones Urine Blood Urine Nitrite Urine Bilirubin Urine Urobilinogen Ur Leukocyte Esterase Influ A Molecular Assay Negative by naat Influ B Molecular Assay Negative by naat SARS CoV-2 RNA Rapid ZACHARIAH Positive H 07/28/22 10:55 WBC RBC Hgb Hct MCV MCH MCHC RDW Coeff of Leda Plt Count Immature Gran % (Auto) Neut % (Auto) Lymph % (Auto) Otoe % (Auto) Eos % (Auto) Baso % (Auto) Neut # (Auto) Lymph # (Auto) Otoe # (Auto) Eos # (Auto) Baso # (Auto) Immature Gran # (Auto) Puncture Site Base Excess O2 Saturation ABG pH ABG pCO2 ABG pO2 ABG HCO3 ABG Total CO2 Zaki Test Hemoglobin Oxyhemoglobin Carboxyhemoglobin Total Hemoglobin FiO2 % Sodium Potassium Chloride Carbon Dioxide Anion Gap BUN Creatinine Estimated GFR (MDRD) BUN/Creatinine Ratio Glucose Lactic Acid Calcium Total Bilirubin AST ALT Alkaline Phosphatase Troponin I NT-Pro-B Natriuret Pep Total Protein Albumin Globulin Albumin/Globulin Ratio Urine Color Yellow Urine Clarity Clear Urine pH 7.0 Ur Specific Hodges 1.015 Urine Protein Negative Urine Glucose (UA) Negative Urine Ketones Negative Urine Blood Negative Urine Nitrite Negative Urine Bilirubin Negative Urine Urobilinogen 0.2 Ur Leukocyte Esterase Negative Influ A Molecular Assay Influ B Molecular Assay SARS CoV-2 RNA Rapid ZACHARIAH Orders Category Date Time Status ADMIT PATIENT INPATIENT .TO [facility] (MONITORED BED) ADMISSION 07/28/22 11:21 Active ABG DRAW REQUEST Stat CARDIO 07/28/22 09:29 Completed EKG-(ED ONLY) Stat CARDIO 07/28/22 09:25 Completed NEBULIZER TREATMENT Routine CARDIO 07/28/22 09:28 Completed NEBULIZER TREATMENT Stat CARDIO 07/28/22 09:28 Completed ISOLATION ONCE CARE 07/28/22 10:41 Active STRAIGHT CATH INSERTION ONCE CARE 07/28/22 10:35 Active TELEMETRY MONITORING TELE CARE 07/28/22 11:21 Completed ED APPLY O2 .ONCE EMERGENCY 07/28/22 09:25 Active ED INSIGHTS MANAGER APPLIED .ONCE EMERGENCY 07/28/22 09:25 Active ED IV/MEDIPORT/POWERPORT .ONCE EMERGENCY 07/28/22 09:25 Active ABG COOX Stat LAB 07/28/22 09:35 Completed BLOOD CULTURE Stat LAB 07/28/22 11:35 Received CBC W/ AUTO DIFF Stat LAB 07/28/22 09:45 Completed COMPREHENSIVE METABOLIC PANEL Stat LAB 07/28/22 09:45 Completed COVID [SARS COV-2 RNA RAPID ZACHARIAH] Stat LAB 07/28/22 09:47 Completed FLU A & B MOLECULAR [FLU A/B MOLECULAR] Stat LAB 07/28/22 09:47 Completed LACTIC ACID Stat LAB 07/28/22 09:45 Completed NT-PROBNP(ED) Stat LAB 07/28/22 09:45 Completed TROPONIN I Stat LAB 07/28/22 09:45 Completed URINALYSIS C & S IF INDICATED Stat LAB 07/28/22 10:55 Completed 0.9 % Sodium Chloride [Saline Flush] Meds 07/28/22 09:25 Active 1 syr IVF PRN PRN Albuterol Sulfate 0.083% Neb [Albuterol 0.083% Neb] Meds 07/28/22 09:27 Discontinued 2.5 mg NEB ONCE ONE Dexamethasone Sod Phosphate [Decadron] Meds 07/28/22 11:02 Discontinued 6 mg IVP ONCE ONE Dexamethasone Sod Phosphate [Decadron] 6 mg Meds 07/28/22 10:49 Discontinued 0.9 % Sodium Chloride [Sodium Chloride] 50 ml IV ONCE Lidocaine HCl Jelly [Glydo] Meds 07/28/22 10:42 Discontinued 11 ml TRANSURETH ONCE ONE Piperacillin Sodium/Tazobactam [Zosyn 3.375 gm] 3.375 Meds 07/28/22 10:49 Discontinued gm 0.9 % Sodium Chloride [Sodium Chloride 100Ml] 100 ml IV ONCE Sodium Chloride 0.9% [Sodium Chloride] 1,000 ml Meds 07/28/22 09:25 Discontinued IV BOLUS CHEST, 1V AP ONLY Stat RADS 07/28/22 09:25 Completed Medications Generic Name Dose Route Start Last Admin Trade Name Freq PRN Reason Stop Dose Admin Acetaminophen 325 mg 07/28/22 14:08 Acetaminophen 325 Mg Tablet PO Q4H PRN Pain or fever Hydrocodone Bitart/Acetaminophen 1 tab 07/28/22 15:00 07/28/22 22:11 Hydrocodone Bit/Acetaminophen 5/325 Mg Tablet PO Not Given TID OSCAR Albuterol/Ipratropium 3 ml 07/28/22 18:00 07/28/22 23:11 Ipratropium/Albuterol Vial.Neb NEB 3 ml RTQ6H OSCAR Administration Aspirin 81 mg 07/29/22 09:00 Aspirin 81 Mg Tablet. PO DAILY OSCAR Atropine Sulfate 0.5 mg 07/28/22 12:51 Atropine Sulfate Inj 1 Mg/10 Ml Disp.Syrin IVP ONCE PRN Symptomatic Bradycardia Bisacodyl 5 mg 07/28/22 12:43 Bisacodyl 5 Mg Tablet. PO DAILY PRN Constipation Budesonide/Formoterol Fumarate 2 puff 07/28/22 21:00 07/28/22 20:33 Budesonide/Formoterol Fumarate 160/4.5 Mcg Inhaler IH 2 puff BID OSCAR Administration Carbidopa/Levodopa 1 tab 07/28/22 21:00 07/28/22 20:32 Carbidopa/Levodopa 25/100 Tablet PO 1 tab QID OSCAR Administration Cholecalciferol 1,000 unit 07/28/22 21:00 07/28/22 22:12 Cholecalciferol (Vitamin D3) 1,000 Unit (25 Mcg) Tablet PO Not Given BID [facility] Dexamethasone Sodium Phosphate 6 mg 07/29/22 09:00 Dexamethasone Sod Phos 10 Mg/Ml Inj IVP DAILY [facility] Dextrose 50 ml 07/28/22 12:51 Dextrose 50 % In Water 50 Ml Disp.Syrin IVP ONCE PRN Unconscious Hypoglycemia Protocol Docusate Sodium 100 mg 07/28/22 21:00 07/28/22 22:11 Docusate Sodium 100 Mg Capsule PO Not Given BID [facility] Furosemide 20 mg 07/28/22 21:00 07/28/22 20:32 Furosemide Inj 20 Mg/2 Ml Vial IVP 20 mg QDAC OSCAR Administration Guaifenesin 600 mg 07/28/22 21:00 07/28/22 22:11 Guaifenesin 600 Mg Tablet.Er PO Not Given BID [facility] Piperacillin Sod/Tazobactam 100 mls @ 100 mls/hr 07/28/22 16:00 07/29/22 00:23 Sod 3.375 gm/ Sodium Chloride IV 07/31/22 15:59 100 mls/hr Q6HR OSCAR Administration Loratadine 10 mg 07/29/22 09:00 Loratadine 10 Mg Tablet PO DAILY OSCAR Metformin HCl 500 mg 07/29/22 09:00 Metformin Hcl 500 Mg Tablet PO DAILY OSCAR Nitroglycerin 0.4 mg 07/28/22 12:51 Nitroglycerin 0.4 Mg Tab.Subl SL Q5MIN X 3 DOSES PRN Chest Pain Pantoprazole Sodium 40 mg 07/29/22 09:00 Pantoprazole Sodium 40 Mg Vial IVP DAILY OSCAR Potassium Chloride 20 meq 07/28/22 21:00 07/28/22 22:11 Potassium Chloride 20 Meq Tab PO Not Given BID OSCAR Scopolamine HBr 1 patch 07/30/22 09:00 Scopolamine Hydrobromide 1.5 Mg Patch.Td72 TD Q3D OSCAR Sodium Chloride 1 syr 07/28/22 09:25 0.9% Sodium Chloride 10 Ml Disp.Syrin IVF PRN PRN To flush IV Sodium Chloride 1 syr 07/28/22 13:00 07/28/22 21:00 0.9% Sodium Chloride 10 Ml Disp.Syrin IVF 1 syr Q8HR OSCAR Administration Discontinued Medications Generic Name Dose Route Start Last Admin Trade Name Freq PRN Reason Stop Dose Admin Acetaminophen 325 mg 07/28/22 13:00 07/28/22 14:09 Acetaminophen 325 Mg Tablet PO Not Given Q4H OSCAR Albuterol Sulfate 2.5 mg 07/28/22 09:27 07/28/22 09:54 Albuterol Sulfate 0.083% Vial.Ray LY 07/28/22 09:28 2.5 mg ONCE ONE Administration Albuterol Sulfate 2 puff 07/28/22 15:00 Albuterol Sulfate (Ventolin Hfa) 18 Gm 1 Puff With Spacer IH TID OSCAR Albuterol/Ipratropium 3 ml 07/28/22 12:36 Ipratropium/Albuterol Vial.Ray NEB Q8H PRN Wheezing Dexamethasone Sodium Phosphate 6 mg 07/28/22 11:02 07/28/22 11:34 Dexamethasone Sod Phos 10 Mg/Ml Inj IVP 07/28/22 11:03 6 mg ONCE ONE Administration Furosemide 20 mg 07/29/22 21:00 Furosemide Inj 20 Mg/2 Ml Vial IVP QDAC OSCAR Sodium Chloride 1,000 mls @ 1,000 mls/hr 07/28/22 09:25 07/28/22 09:36 Sodium Chloride IV 07/28/22 10:24 1,000 mls/hr BOLUS STA Administration Piperacillin Sod/Tazobactam 100 mls @ 100 mls/hr 07/28/22 10:49 07/28/22 11:35 Sod 3.375 gm/ Sodium Chloride IV 07/28/22 11:48 100 mls/hr ONCE STA Administration Dexamethasone Sodium Phosphate 50.6 mls @ 75 mls/hr 07/28/22 10:49 07/28/22 11:03 6 mg/ Sodium Chloride IV 07/28/22 11:29 Not Given ONCE ONE Lidocaine HCl 11 ml 07/28/22 10:42 07/28/22 10:47 Lidocaine Jelly 11 Ml Jel.Pf.Yoko (5ml Female/11ml Male) TRANSURETH 07/28/22 10:43 11 ml ONCE ONE Administration Non-Formulary Medication 3 cap 07/28/22 15:00 07/28/22 18:35 Carbidopa-Levodopa [Rytary] PO Not Given TID OSCAR Scopolamine HBr 1 patch 07/28/22 13:00 07/28/22 15:48 Scopolamine Hydrobromide 1.5 Mg Patch.Td72 TD Not Given Q3D OSCAR Vital Signs: Temp Pulse Resp BP Pulse Ox 07/28/22 09:09 98.7 F 103 H 24 H 125/73 90 L 81 years old male with past medical history of Parkinson's disease recurrent pneumonia who was brought into the ER by ambulance from detention for generalized weakness and low oxygen saturation. Staff noticed that the patient is weaker than usual and has been saturating in the low 90s on room air and sounds congested so he was sent to the emergency room for further evaluation. Patient had history of dysphagia so at risk of aspiration pneumonia.`CXR didn't show acute findings, patient tested positive for covid 19, He also has leucocytosis 12.76 with left shift,blood cultures drawn, he was given on dose of zosyn.Call Dr. De La Fuente and discussed the patient condition with him patient is likely have acute hypoxic respiratory failure secondary to aspiration pneumonia/COVID-19 patient will be admitted as inpatient under Dr. De La Fuente services he is DNR Discharge Plan Discharge Patient Disposition: ADMITTED INPATIENT Discharge Problem: Acute hypoxemic respiratory failure, Aspiration pneumonia, COVID-19 Did you review [place] [employer] for ALL controlled substances?: Not Applicable ED Provider: DAMIEN YEH Condition: Poor Physician Progress Note: []
[2022-07-28 09:48] LABS: ABG O2 HGB 89.9 % (95-100); ABG PH 7.48 (7.35-7.45); BEecf 9.3 (-2.0-3.0); COHb 2.2 (0.5-1.5); HCO3 32.8 (21-28); MetHb 1.7 (0-1.5); TCO2 34.2 (19-24); sO2 90.9 % (94-98); tHb 14.2 g/dl (11.7-17.4)
[2022-07-28 09:58] LABS: BASOPHILS % (AUTO) 0.3 % (0.0-3.0); EOSINOPHILS % (AUTO) 0.1 % (0.0-7.0); HEMATOCRIT 43.9 % (42.0-52.0); HEMOGLOBIN 14.1 g/dl (14.0-18.0); IMMATURE GRANULOCYTE # (AUTO) 0.1 (0.0-1.0); IMMATURE GRANULOCYTE % (AUTO) 0.4 % (0.0-5.0); LYMPHOCYTES # (AUTO) 1.1 K/uL (0.60-3.4); LYMPHOCYTES % (AUTO) 8.6 (10.0-50.0); MEAN CORPUSCULAR HEMOGLOBIN 28.7 pg (27.0-31.0); MEAN CORPUSCULAR HGB CONC 32.1 (31.8-35.4); MEAN CORPUSCULAR VOLUME 89.4 fl (80.0-94.0); MONOCYTES # (AUTO) 0.7 K/uL (0.4-2.0); MONOCYTES % (AUTO) 5.2 (0-10); NEUTROPHILS # (AUTO) 10.9 K/ul (2.0-6.9); NEUTROPHILS % (AUTO) 85.4 % (42.2-75.2); PLATELET COUNT 314 10^3/uL (140-440); RDW COEFFICIENT OF VARIATION 16.3 % (11.6-14.8); RED BLOOD COUNT 4.91 10^6/ul (4.70-6.10); WHITE BLOOD COUNT 12.76 K/ul (4.2-10.2)
[2022-07-28 10:09] LABS: ALANINE AMINOTRANSFERASE 8.9 U/L (0-50); ALBUMIN 4.28 g/dL (3.5-5.0); ALKALINE PHOSPHATASE 113.8 U/L (56-119); ASPARTATE AMINO TRANSFERASE 22.7 U/L (17-59); BILIRUBIN,TOTAL 0.46 mg/dL (0.2-1.3); BLOOD UREA NITROGEN 11.9 mg/dL (9-20); CALCIUM 9.14 mg/dL (8.4-10.2); CARBON DIOXIDE 33.8 mmol/L (22-30.0); CHLORIDE 99.8 mmol/L (98-107); CREATININE 0.69 mg/dL (0.60-1.10); GLUCOSE 109.1 mg/dL (74-106); POTASSIUM 3.75 mmol/L (3.5-5.1); SODIUM 138.9 mmol/L (134.5-145); TOTAL PROTEIN 7.28 g/dL (6.3-8.2)
[2022-07-28 10:14] LABS: MOLECULAR FLU A NEGATIVE BY NAAT (NEGATIVE); MOLECULAR FLU B NEGATIVE BY NAAT (NEGATIVE)
[2022-07-28 10:21] LABS: TROPONIN I < 0.012 ng/ml (0.0000-0.120)
--- NOTE | 2022-07-28 10:25 | DI ---
EXAMINATION: AP CHEST RADIOGRAPH. HISTORY: Shortness of breath, wheezing COMPARISON: 06/04/2022 FINDINGS: Calcified granulomas are again seen. A left basilar nodular opacity is identified measuring 0.8 cm.N o focal consolidation, pleural effusion or pneumothorax is identified. The cardiomediastinal silhouette is within normal limits. Aortic calcified atherosclerotic plaque is identified. There is a suspected coronary artery stent. IMPRESSION: No acute cardiopulmonary findings. 8 mm left basilar nodular opacity could represent a pulmonary nodule or nipple shadow. Follow-up is recommended.
[2022-07-28 10:30] LABS: SARS COV-2 RNA RAPID NAAT POSITIVE (NEGATIVE)
[2022-07-28] MEDS ORDERED: GLYDO TRANSURETH ONE (10:42)
[2022-07-28] MEDS ORDERED: ZOSYN 3.375 GM 3.375 GM in SODIUM CHLORIDE 100ML 100 ML IV STA (10:49)
[2022-07-28] MEDS ORDERED: DECADRON 6 MG in SODIUM CHLORIDE 50 ML IV ONE (10:49)
[2022-07-28 11:01] LABS: BILIRUBIN,URINE Negative (NEGATIVE); CLARITY,URINE Clear (CLEAR); COLOR,URINE Yellow (YELLOW); GLUCOSE, URINE (UA) Negative (NEGATIVE); KETONES,URINE Negative (NEGATIVE); LEUKOCYTE ESTERASE ,URINE Negative (NEGATIVE); NITRITE,URINE Negative (NEGATIVE); PROTEIN,URINE Negative (NEGATIVE); URINE, BLOOD Negative (NEGATIVE); UROBILINOGEN,URINE 0.2 (0.2)
[2022-07-28] MEDS ORDERED: DECADRON IVP ONE (11:02)
[2022-07-28 12:19] VITALS: BMI 23.5
[2022-07-28] MEDS ORDERED: DUONEB NEB PRN (12:36)
[2022-07-28] MEDS ORDERED: DULCOLAX PO PRN (12:43)
[2022-07-28] MEDS ORDERED: NITROSTAT SL PRN (12:51)
[2022-07-28] MEDS ORDERED: ATROPINE SULFATE PFS IVP PRN (12:51)
[2022-07-28] MEDS ORDERED: DEXTROSE 50%-WATER ABBOJECT IVP PRN (12:51)
[2022-07-28] MEDS ORDERED: TYLENOL PO SCH (13:00)
[2022-07-28] MEDS ORDERED: TRANSDERM-SCOP 1.5 MG PATCH TD SCH (13:00)
[2022-07-28] MEDS ORDERED: TYLENOL PO PRN (14:08)
[2022-07-28] MEDS ORDERED: [UNRECOGNIZED DRUG - OTHER] PO SCH (15:00)
[2022-07-28] MEDS: NORCO 5-325 PO SCH ×2 (15:00→22:11)
[2022-07-28] MEDS ORDERED: LEVODOPA PO SCH (15:00)
[2022-07-28] MEDS ORDERED: CARBIDOPA PO SCH (15:00)
[2022-07-28] MEDS ORDERED: VENTOLIN HFA (PER PUFF-WITH SPACER) IH SCH (15:00)
[2022-07-28] MEDS: DUONEB NEB SCH ×2 (17:19→23:11)
[2022-07-28] MEDS: ZOSYN 3.375 GM 3.375 GM in SODIUM CHLORIDE 100ML 100 ML IV SCH (17:51)
[2022-07-28] MEDS: LASIX IVP SCH (20:32)
[2022-07-28] MEDS: SINEMET 25-100 PO SCH (20:32)
[2022-07-28] MEDS: SYMBICORT 160-4.5 MCG INHALER IH SCH (20:33)
[2022-07-28] MEDS ORDERED: PROTONIX PO SCH (21:00)
[2022-07-28] MEDS ORDERED: LASIX TAB PO SCH (21:00)
[2022-07-28] MEDS: K-DUR PO SCH (22:11)
[2022-07-28] MEDS: MUCINEX PO SCH (22:11)
[2022-07-28] MEDS: COLACE PO SCH (22:11)
[2022-07-28] MEDS: VITAMIN D PO SCH (22:12)
[2022-07-29] MEDS: ZOSYN 3.375 GM 3.375 GM in SODIUM CHLORIDE 100ML 100 ML IV SCH ×2 (00:23→05:35)
[2022-07-29] MEDS: DUONEB NEB SCH ×3 (04:35→17:45)
[2022-07-29 05:26] LABS: BASOPHILS % (AUTO) 0.4 % (0.0-3.0); EOSINOPHILS % (AUTO) 0.1 % (0.0-7.0); HEMATOCRIT 39.5 % (42.0-52.0); HEMOGLOBIN 12.5 g/dl (14.0-18.0); IMMATURE GRANULOCYTE % (AUTO) 0.4 % (0.0-5.0); LYMPHOCYTES # (AUTO) 1.4 K/uL (0.60-3.4); LYMPHOCYTES % (AUTO) 16.5 (10.0-50.0); MEAN CORPUSCULAR HEMOGLOBIN 28.7 pg (27.0-31.0); MEAN CORPUSCULAR HGB CONC 31.6 (31.8-35.4); MEAN CORPUSCULAR VOLUME 90.6 fl (80.0-94.0); MONOCYTES # (AUTO) 0.7 K/uL (0.4-2.0); MONOCYTES % (AUTO) 7.7 (0-10); NEUTROPHILS # (AUTO) 6.3 K/ul (2.0-6.9); NEUTROPHILS % (AUTO) 74.9 % (42.2-75.2); PLATELET COUNT 268 10^3/uL (140-440); RDW COEFFICIENT OF VARIATION 16.2 % (11.6-14.8); RED BLOOD COUNT 4.36 10^6/ul (4.70-6.10); WHITE BLOOD COUNT 8.46 K/ul (4.2-10.2)
[2022-07-29 05:35] LABS: ALANINE AMINOTRANSFERASE 7.2 U/L (0-50); ALBUMIN 3.88 g/dL (3.5-5.0); ALKALINE PHOSPHATASE 92.9 U/L (56-119); ASPARTATE AMINO TRANSFERASE 22.1 U/L (17-59); BILIRUBIN,TOTAL 0.52 mg/dL (0.2-1.3); BLOOD UREA NITROGEN 13.2 mg/dL (9-20); CALCIUM 8.94 mg/dL (8.4-10.2); CARBON DIOXIDE 33.4 mmol/L (22-30.0); CHLORIDE 103.8 mmol/L (98-107); CREATININE 0.73 mg/dL (0.60-1.10); GLUCOSE 104.9 mg/dL (74-106); POTASSIUM 3.38 mmol/L (3.5-5.1); SODIUM 141.3 mmol/L (134.5-145); TOTAL PROTEIN 6.7 g/dL (6.3-8.2)
[2022-07-29] MEDS: LASIX IVP SCH (05:36)
[2022-07-29] MEDS: SYMBICORT 160-4.5 MCG INHALER IH SCH ×2 (09:19→20:37)
[2022-07-29] MEDS: DECADRON IVP SCH (09:19)
[2022-07-29] MEDS: SINEMET 25-100 PO SCH ×4 (09:19→20:35)
[2022-07-29] MEDS: ASPIRIN EC PO SCH (09:26)
[2022-07-29] MEDS: COLACE PO SCH ×2 (09:26→20:34)
[2022-07-29] MEDS: CLARITIN PO SCH (09:26)
[2022-07-29] MEDS: VITAMIN D PO SCH ×2 (09:27→20:36)
[2022-07-29] MEDS: MUCINEX PO SCH ×2 (09:27→20:35)
[2022-07-29] MEDS: GLUCOPHAGE PO SCH (09:27)
[2022-07-29] MEDS: NORCO 5-325 PO SCH ×3 (09:27→20:35)
[2022-07-29] MEDS: K-DUR PO SCH ×2 (09:27→20:35)
[2022-07-29] MEDS: PROTONIX IV IVP SCH (09:52)
[2022-07-29] MEDS: ZOSYN 4.5 GM 4.5 GM in SODIUM CHLORIDE 100ML 100 ML IV SCH ×2 (12:48→17:59)
[2022-07-29] MEDS ORDERED: LASIX IVP SCH (21:00)
[2022-07-30] MEDS: ZOSYN 4.5 GM 4.5 GM in SODIUM CHLORIDE 100ML 100 ML IV SCH ×4 (00:13→17:35)
[2022-07-30] MEDS: DUONEB NEB SCH ×5 (05:00→23:41)
[2022-07-30 05:01] LABS: BASOPHILS % (AUTO) 0.4 % (0.0-3.0); EOSINOPHILS % (AUTO) 0.1 % (0.0-7.0); HEMATOCRIT 44.3 % (42.0-52.0); HEMOGLOBIN 13.9 g/dl (14.0-18.0); IMMATURE GRANULOCYTE % (AUTO) 0.3 % (0.0-5.0); LYMPHOCYTES # (AUTO) 1.3 K/uL (0.60-3.4); LYMPHOCYTES % (AUTO) 12.2 (10.0-50.0); MEAN CORPUSCULAR HEMOGLOBIN 28.5 pg (27.0-31.0); MEAN CORPUSCULAR HGB CONC 31.4 (31.8-35.4); MONOCYTES # (AUTO) 0.7 K/uL (0.4-2.0); MONOCYTES % (AUTO) 6.1 (0-10); NEUTROPHILS # (AUTO) 8.8 K/ul (2.0-6.9); NEUTROPHILS % (AUTO) 80.9 % (42.2-75.2); PLATELET COUNT 339 10^3/uL (140-440); RDW COEFFICIENT OF VARIATION 16.3 % (11.6-14.8); RED BLOOD COUNT 4.87 10^6/ul (4.70-6.10); WHITE BLOOD COUNT 10.92 K/ul (4.2-10.2)
[2022-07-30 05:14] LABS: ALANINE AMINOTRANSFERASE 10.9 U/L (0-50); ALBUMIN 4.36 g/dL (3.5-5.0); ASPARTATE AMINO TRANSFERASE 26.7 U/L (17-59); BILIRUBIN,TOTAL 0.68 mg/dL (0.2-1.3); BLOOD UREA NITROGEN 16.1 mg/dL (9-20); CALCIUM 9.33 mg/dL (8.4-10.2); CARBON DIOXIDE 32.7 mmol/L (22-30.0); CHLORIDE 101.6 mmol/L (98-107); CREATININE 0.79 mg/dL (0.60-1.10); GLUCOSE 91.5 mg/dL (74-106); POTASSIUM 3.06 mmol/L (3.5-5.1); SODIUM 144.4 mmol/L (134.5-145); TOTAL PROTEIN 7.71 g/dL (6.3-8.2)
[2022-07-30] MEDS: LASIX IVP SCH (06:14)
[2022-07-30] MEDS ORDERED: POTASSIUM CHLORIDE 40 MEQ VIAL-ADDITIVE ONLY 30 MEQ in SODIUM CHLORIDE 1,000 ML IV SCH ×2 (09:00→16:50)
--- NOTE | 2022-07-30 09:47 | PCM.PROG ---
Attending Provider: ATTENDING PROVIDER: Dr. SUN NAGEL MD This patient is seen with Tiera Vaz, Nurse Practitioner. DATE OF SERVICE: 07/30/22 SUBJECTIVE: This 81 year old /WHITE M was hospitalized 07/28/22. The patient has been unable to swallow and has been NPO. The patient is requiring suctioning. He is able to answer yes or no to questions. Still difficulty speaking, he is on 2 liters of oxygen. REVIEW OF SYSTEMS: CONSTITUTIONAL: No night sweats. No fatigue, malaise, lethargy. No fever or chills. Weakness. HEENT: Eyes: No visual changes. No eye pain. No eye discharge. ENT: No runny nose. No epistaxis. No sinus pain. No odynophagia. No congestion. RESPIRATORY: Cough, no congestion. No hemoptysis. Shortness of breath. Dysphasia CARDIOVASCULAR: No angina symptoms. No CHF symptoms. No atypical chest pain for CAD. No palpitations. No orthopnea.. GASTROINTESTINAL: No abdominal pain. No nausea or vomiting. No diarrhea or constipation. No hematemesis. No hematochezia. GENITOURINARY: No urgency. No frequency. No dysuria. No hematuria. No o bstructive symptoms. No discharge. No pain. No significant abnormal bleeding. MUSCULOSKELETAL: No musculoskeletal pain; no joint swelling. NEUROLOGICAL: Awake, alert, oriented to time, place and person. No headache. No neck pain. No syncope. No seizures. No dizziness. PSYCHIATRIC: Not anxious. No depression. No suicidal thoughts. No homicidal thoughts. SKIN: No rash. No lesions. No wounds. ENDOCRINE: No unexplained weight loss. No weight gain. HEMATOLOGIC/LYMPHATIC: No anemia. No purpura. No petechiae. No prolonged or excessive bleeding. No palpable lymph nodes. PHYSICAL EXAMINATION: GENERAL: The patient is awake, alert and oriented to person, lying in bed in no distress. VITAL SIGNS: Temperature 97.4 F, Pulse 92, Respiratory Rate 22, BP 131/69, Pulse Ox 93% HEENT: Head normocephalic, atraumatic. Eyes: Extraocular muscles are intact. Pupils are equal, round and reactive to light and accommodation. Ears: No lesions. Nose appeared normal. Throat: No exudate or erythema. NECK: Supple. No JVD, no carotid bruit. No lymphadenopathy or thyromegaly. LUNGS: Severely diminished breath sounds. Clear to auscultation. Percussion note normal. Chest symmetrical. HEART: S1, S2, no S3. No murmurs. No cyanosis or clubbing. No ascites. Pulses: Dorsalis pedis and posterior tibial pulses +1 to +2 both sides. ABDOMEN: Soft. Non-tender. Bowel sounds active. No CVA tenderness. No mass felt. EXTREMITIES: No edema. Full range of motion of all extremities, equal. NEUROLOGIC: No focal deficit. Cranial nerves II through XII are grossly intact. No headache. No double vision. SKIN: Not dry. Intact. Turgor-normal. LYMPHATIC: No palpable lymph nodes/no lymphedema. MUSCULOSKELETAL: Normal joints with no swelling. Muscle tone is normal. LAB REVIEW: 07/30/22 04:55 07/30/22 04:55 07/30/22 04:55: WBC 10.92 H, RBC 4.87, Hgb 13.9 L, Hct 44.3, MCV 91.0, MCH 28.5, MCHC 31.4 L, RDW Coeff of Leda 16.3 H, Plt Count 339, Immature Gran % (Auto) 0.3, Neut % (Auto) 80.9 H, Lymph % (Auto) 12.2, Cobb % (Auto) 6.1, Eos % (Auto) 0.1, Baso % (Auto) 0.4, Neut # (Auto) 8.8 H, Lymph # (Auto) 1.3, Cobb # (Auto) 0.7, Eos # (Auto) 0.0, Baso # (Auto) 0.0, Immature Gran # (Auto) 0.0, Sodium 144.4, Potassium 3.06 L, Chloride 101.6, Carbon Dioxide 32.7 H, Anion Gap 13.16, BUN 1 6.1, Creatinine 0.79, Estimated GFR (MDRD) 95.00, BUN/Creatinine Ratio 20.37, Glucose 91.5, Calcium 9.33, Total Bilirubin 0.68, AST 26.7, ALT 10.9, Alkaline Phosphatase 100.0, Total Protein 7.71, Albumin 4.36, Globulin 3.35, Albumin/Globulin Ratio 1.30 ASSESSMENT: Please see below. 1. Acute respiratory failure 2. History of COVID unclear if been testing positive since June at [facility] or new onset 3. Dysphasia 4. Hypokalemia PLAN: 1. Speech consult and evaluation 2. Normal saline with potassium 30meq at 75 3. Rapid antigen COVID 4. Get records from [place] Plan and coordination of the patient's care discussed in the presence of Granite [employer]ter and nurse. SCRIBED BY: Tom ROBERTS scribed while in presence of service performed by Tiera Vaz APRN on 07/30/22 ([id number])
[2022-07-30] MEDS: K-DUR PO SCH ×2 (10:47→20:27)
[2022-07-30] MEDS: CLARITIN PO SCH (10:47)
[2022-07-30] MEDS: ASPIRIN EC PO SCH (10:47)
[2022-07-30] MEDS: COLACE PO SCH ×2 (10:47→20:24)
[2022-07-30] MEDS: GLUCOPHAGE PO SCH (10:47)
[2022-07-30] MEDS: NORCO 5-325 PO SCH ×3 (10:48→20:27)
[2022-07-30] MEDS: SYMBICORT 160-4.5 MCG INHALER IH SCH ×2 (10:48→20:29)
[2022-07-30] MEDS: MUCINEX PO SCH ×2 (10:48→20:22)
[2022-07-30] MEDS: VITAMIN D PO SCH ×2 (10:49→20:24)
[2022-07-30] MEDS: TRANSDERM-SCOP 1.5 MG PATCH TD SCH (11:03)
[2022-07-30] MEDS: DECADRON IVP SCH (11:03)
[2022-07-30] MEDS: PROTONIX IV IVP SCH (11:04)
[2022-07-30] MEDS: SINEMET 25-100 PO SCH ×5 (11:04→20:22)
--- NOTE | 2022-07-30 12:05 | RS.BEDDYS ---
Subjective Date of Evaluation: 07/30/22 Diagnosis: Pneumonia; Advanced Parkinson's disease Current Level of Function: This is a 81 year old male whom has recurring pneumonia and advanced Parkinson's disease. He has a hx with swallowing difficulty, but wishes to pursue PO intake. The ANALYTICS DEVELOPER will complete a bedside evaluation to determine safer and least restrictive diet. Current Diet: NPO Current Subjective/complaints:: The patient was upright in bed upon ANALYTICS DEVELOPER entry. Respiratory wheezes and chest congestion were audible with expiration and speech expression. The patient answered y/n questions regarding wants and needs with PO intake. The ANALYTICS DEVELOPER provided choices for pt to pursue PO intake or go NPO. Pt verbalized want for continuation of PO status with continued risks for recurring pneumonia. At this time, the ANALYTICS DEVELOPER completed the bedside evaluation with RN at bedside and [place] suction as needed. Medical History Comments:: dysphagia; PD; COVID; Hx Home Medications: Refer to medications for complete list; pt is receiving IV medications except one pill by mouth. Patient's Goals: To continue PO intake with modifications; does not want to go NPO or have feeding tube placement. General Information General Patient Orientation: Person, Place and Situation Ability to Follow Directions: Good Is Patient able to Repeat Directions?: Yes Oral Expression Ability: Moderate Impairment (Speech intelligibility is affected by decreased vocal volume and audible chest congestion in laryngeal carriage due to non-productive coughing.) Voice Voice Quality: Breathy and Weak Voice Pitch: Mildly High Voice Loudness: Moderately Soft/Quiet Oral-Facial Assessment Face Facial Symmetry: Symmetrical Facial Movement: Controlled (Stoic appearance; moderate difficulty with movement in cheeks) Dental/Labial Teeth Characteristics: Missing (Edentulous) Lip Protrusion: Weak (Slow to coordinate) Lip Retraction: Reduced ROM (Slow to coordinate) Puff Cheeks: Reduced Strength Lips Comment: Coordinated to maintain labial seal and pull liquids via straw. Lingual Protrusion: Weak (Prolonged duration to move tongue) Retraction: Weak (Prolonged duration to move tongue) Tip Lateralization: Reduced ROM (Did not approximate) Tip Elevation: Weak (Did not approximate) Comments: Lingual surface was clean and did not present with active thrush. The patient demonstrated moderate difficulty with strength and coordination for bolus formation; and movement of bolus to BOT for swallow initiation was severely prolonged. Palate and Pharynx Gag Reflex Response: Normal (Active with suctioning.) Velopharyngeal Movement: Normal Food Presentation Solids Food Presented: Pureed (1/4, 1/2, 1 tsp via ANALYTICS DEVELOPER) Behaviors/Comments: The ANALYTICS DEVELOPER presented food midline. He demonstrated minimal jaw rotation; lingual movement was moderately delayed within 5-6 seconds. Pt had lingual pumping 1-3x with each trial prior to swallow initiation. Swallow initiation completed with moderately decreased LE with anterior movement for airway protection. Pt had 1x additional swallow. Suctioned pt post trials and minimal puree residue was suctioned from posterior pharyngeal wall. Pt had no overt coughing or s/s of aspiration. Congested vocal quality was maintained throughout all trials. Food Presented: Chopped (1/2 tsp soaked tayo cracker via ANALYTICS DEVELOPER) Behaviors/Comments: ANALYTICS DEVELOPER provided to pt midline. He had minimal to no lingual movement for bolus manipulation. ANALYTICS DEVELOPER cued pt to move bolus to BOT. He required prompts and tactile cues to move bolus and initiate swallow. ANALYTICS DEVELOPER provided liquid wash. He had 1x additional swallow. Suction was utilized post swallow and minimal to no bolus was suctioned from posterior pharyngeal wall. Pt had no overt s/s of aspiration; he maintained congested vocal quality. Food Presented: Mechanical Soft (1/2 tayo cracker presented to pts mouth and he took a bite. ) Behaviors/Comments: Pt had no oral phase movements post 10 seconds of bolus presentation. ANALYTICS DEVELOPER cued pt to open oral cavity and tayo was on mid tongue without any mastication. ANALYTICS DEVELOPER removed the bolus; pt stated he could not chew it. Trials discontinued for soft and bite-sized. Liquids Liquid Presented: Thin (Ice chips 2/3 tsp full (approximately 3-5)) Behaviors/Comments: No deficits with ice chips. Pt allowed ice chips to melt in oral cavity. 1-3 swallows per trial of ice chip was observed. Pt had decreased LE for airway protection with anterior laryngeal movements. pt had no overt s/s of aspiration. Congested vocal quality was observed during all trials. Pt's intelligibility improved with continuous ice chip trials. Liquid Presented: Thin (Open cup controlled by ANALYTICS DEVELOPER; straw via pt and via ANALYTICS DEVELOPER) Behaviors/Comments: Pt took long consecutive drinks via straw. No overt s/s of aspiration with 2-3 second delay in swallow initiation. Pt had congested vocal quality with all trials presented. Via open cup; swallow delay was observed without overt coughing. Summary Dysphagia Evaluation Summary: The patient presented with severe oral and pharyngeal phase dysphagia as characterized by mastication process, lingual coordination/strength/ROM, residuals in pharynx and suspected larynx, decreased LE with anterior movements, and multiple swallow attempts with each trial of PO. The patient wants to pursue PO intake. At this time, the ANALYTICS DEVELOPER cannot rule out potential for silent aspiration as he had no overt coughing during PO presentations. The patient does not want to purse any alternative means of nutrition at this time. However, his caloric intake via PO does not seem adequate for his energy and effort to perform a swallow and clear all food from oral cavity, pharynx, and potentially around larynx. At this time, ANALYTICS DEVELOPER recommends the pt trial minced and moist diet with thin liquids via straw. The pt also needs to consume ice chips frequently between meals to thin his thick secretions, and break up secretions in pharynx/larynx. The patient has risks for aspiration with PO intake, but cannot determine level of aspiration without swallow study. The ANALYTICS DEVELOPER recommends that medications should be administered via alternative route or IV; one medication may be placed in 3/4 tsp jello and then provide a liquid wash. Continue good oral care routine; safe swallow/aspiration precautions with all PO intake; offer small portions of meals on 2/3 tsp presentation; watch for additional swallows and provide liquid wash post bites; suction pre and post meals to reduce thick secretions; monitor for increased chest congestion. At this time, due to pt's wish for continuation of PO intake ANALYTICS DEVELOPER recommends family and MD have discussion regarding his nutritional intake PO and his current level of health with recurring pneumonia and PD. Further Therapy Indicated?: Yes Rehab Potential: Fair Functional Reporting G Codes: n/a Severity Impairment Rationale: n/a Short Term Goals Problem: Oral phase Goal #1: Tolerate minced and moist diet w/ thin liquids w/ min to no overt s/s asp. Goal to be met by: 08/02/22 Comments:: Pt/family wish to pursue PO diet Problem: Oral phase Goal #2: Demo bolus clearance 100% of PO trials Goal to be met by: 08/02/22 Comments:: Pt needs liquids every bite to clear lingual residuals Problem: PO intake Goal #3: Demo safe swallow/aspiration precautions 100% of PO intake Goal to be met by: 08/02/22 Comments:: Demo's with assistance from staff/family Problem: SOB Goal #4: Complete diaphragmatic breathing tasks to improve breath support for speech Goal to be met by: 08/02/22 Comments:: ANALYTICS DEVELOPER and RT encourage deep breaths, coughs, and TC to improve speech Health And Wellness Advisor Goals Goal #1: Tolerate safer and least restrictive diet w/ min to no overt s/s of asp Goal to be met by: 08/02/22 Comments:: Cannot R/O silent aspiration. Pt wants to pursue PO route Goal #2: Maintain adequate hydration and nutrition status with PO intake Goal to be met by: 08/02/22 Comments:: DEMONSTRATES WANTS FOR FOOD/DRINK WHEN OFFERED 100% Goal #3: Potential MBSS Goal to be met by: 08/02/22 Goal #4: Monitor speech/language/cognition Goal to be met by: 08/02/22 Comments:: SPEECH LESS INTELLIGIBLE Plan Duration of Treatment: 1 Week Frequency of Treatment: 1-2x/week Comments: ANALYTICS DEVELOPER will assist as needed with his case; but family and MD need to discuss his current health and determine PO vs NPO Treatment Code (1) Oropharyngeal dysphagia: Code(s): R13.12 - Dysphagia, oropharyngeal phase (2) Parkinson disease: Code(s): G20 - Parkinson's disease (3) Aspiration pneumonia: Code(s): J69.0 - Pneumonitis due to inhalation of food and vomit (4) COVID-19: Code(s): U07.1 - COVID-19
[2022-07-31] MEDS: ZOSYN 4.5 GM 4.5 GM in SODIUM CHLORIDE 100ML 100 ML IV SCH ×5 (00:16→23:42)
[2022-07-31] MEDS: DUONEB NEB SCH ×4 (04:50→23:16)
[2022-07-31] MEDS: LASIX IVP SCH (06:18)
[2022-07-31 07:48] LABS: BASOPHILS % (AUTO) 0.4 % (0.0-3.0); EOSINOPHILS % (AUTO) 0.2 % (0.0-7.0); HEMATOCRIT 38.1 % (42.0-52.0); HEMOGLOBIN 12.1 g/dl (14.0-18.0); IMMATURE GRANULOCYTE % (AUTO) 0.4 % (0.0-5.0); LYMPHOCYTES # (AUTO) 1.1 K/uL (0.60-3.4); LYMPHOCYTES % (AUTO) 18.7 (10.0-50.0); MEAN CORPUSCULAR HEMOGLOBIN 28.7 pg (27.0-31.0); MEAN CORPUSCULAR HGB CONC 31.8 (31.8-35.4); MEAN CORPUSCULAR VOLUME 90.3 fl (80.0-94.0); MONOCYTES # (AUTO) 0.4 K/uL (0.4-2.0); MONOCYTES % (AUTO) 7.2 (0-10); NEUTROPHILS # (AUTO) 4.2 K/ul (2.0-6.9); NEUTROPHILS % (AUTO) 73.1 % (42.2-75.2); PLATELET COUNT 248 10^3/uL (140-440); RDW COEFFICIENT OF VARIATION 16.1 % (11.6-14.8); RED BLOOD COUNT 4.22 10^6/ul (4.70-6.10); WHITE BLOOD COUNT 5.67 K/ul (4.2-10.2)
[2022-07-31 08:01] LABS: ALBUMIN 3.63 g/dL (3.5-5.0); ALKALINE PHOSPHATASE 73.4 U/L (56-119); ASPARTATE AMINO TRANSFERASE 24.5 U/L (17-59); BILIRUBIN,TOTAL 0.62 mg/dL (0.2-1.3); BLOOD UREA NITROGEN 13.8 mg/dL (9-20); CALCIUM 8.25 mg/dL (8.4-10.2); CARBON DIOXIDE 32.6 mmol/L (22-30.0); CHLORIDE 104.1 mmol/L (98-107); CREATININE 0.72 mg/dL (0.60-1.10); GLUCOSE 133.9 mg/dL (74-106); POTASSIUM 2.93 mmol/L (3.5-5.1); SODIUM 140.9 mmol/L (134.5-145); TOTAL PROTEIN 6.5 g/dL (6.3-8.2)
[2022-07-31] MEDS: SYMBICORT 160-4.5 MCG INHALER IH SCH ×2 (09:15→20:54)
[2022-07-31] MEDS: PROTONIX IV IVP SCH (09:15)
[2022-07-31] MEDS: DECADRON IVP SCH (09:15)
[2022-07-31] MEDS: SINEMET 25-100 PO SCH ×4 (09:16→20:53)
[2022-07-31] MEDS: ASPIRIN EC PO SCH (09:16)
[2022-07-31] MEDS: NORCO 5-325 PO SCH ×3 (09:16→20:54)
[2022-07-31] MEDS: COLACE PO SCH ×2 (09:16→20:53)
[2022-07-31] MEDS: CLARITIN PO SCH (09:16)
[2022-07-31] MEDS: GLUCOPHAGE PO SCH (09:16)
[2022-07-31] MEDS: MUCINEX PO SCH ×2 (09:17→20:53)
[2022-07-31] MEDS: VITAMIN D PO SCH ×2 (09:17→20:53)
[2022-07-31] MEDS: K-DUR PO SCH ×4 (09:17→20:53)
--- NOTE | 2022-07-31 09:58 | PN ---
DATE OF SERVICE: 07/29/22 SUBJECTIVE: 81 year old white male hospitalized with acute respiratory failure with COVID 19 positive status with aspiration pneumonitis. Condition seems to be stable but he is unable to swallow or eat. The patient's haven't been able to swallow or eat for the past several days prior to hospitalization. Unable to take his Parkinson's medication. The patient has problem with dysphagia even prior to this for last couple of years getting worse. Both sons are present in the room and discussed his medical condition. REVIEW OF SYSTEMS: Unable to say anything but unable to even talk, no distress. CONSTITUTIONAL: No night sweats. No fatigue, malaise, lethargy. No fever or chills. HEENT: Eyes: No visual changes. No eye pain. No eye discharge. ENT: No runny nose. No epistaxis. No sinus pain. No sore throat. No odynophagia. No congestion. RESPIRATORY: No cough, no congestion. No hemoptysis. No shortness of breath. CARDIOVASCULAR: No angina symptoms. No CHF symptoms. No atypical chest pain for CAD. No palpitations. No PND. No orthopnea. GASTROINTESTINAL: No abdominal pain. No nausea or vomiting. No diarrhea or constipation. No hematemesis. No hematochezia. GENITOURINARY: No urgency. No frequency. No dysuria. No hematuria. No obstructive symptoms. No discharge. No pain. No significant abnormal bleeding. MUSCULOSKELETAL: No musculoskeletal pain; no joint swelling. NEUROLOGICAL: No headache. No neck pain. No syncope. No seizures. No dizziness. PSYCHIATRIC: Not anxious. No depression. No suicidal thoughts. No homicidal thoughts. SKIN: No rash. No lesions. No wounds. ENDOCRINE: No unexplained weight loss. No weight gain. HEMATOLOGIC/LYMPHATIC: No anemia. No purpura. No petechiae. No prolonged or excessive bleeding. No palpable lymph nodes. PHYSICAL EXAMINATION: VITAL SIGNS: Temperature 97.3, pulse 80, respiratory rate 18, blood pressure 118/69 and pulse ox 98% on 2 liters. HEENT: Head normocephalic, atraumatic. Eyes: Extraocular muscles are intact. Pupils are equal, round and reactive to light and accommodation. Ears: No lesions. Nose appeared normal. Throat: No exudate or erythema. NECK: Supple. No JVD, no carotid bruit. No lymphadenopathy or thyromegaly. LUNGS: Decreased breath sounds but clear to auscultation. Percussion note normal. Chest symmetrical. HEART: S1, S2, no S3. No murmurs. No cyanosis or clubbing. No ascites. Pulses: Dorsalis pedis and posterior tibial pulses +1 to +2 bilaterally. ABDOMEN: Soft. Nontender. Bowel sounds active. No CVA tenderness. No mass felt. EXTREMITIES: No edema. Full range of motion of all extremities, equal. NEUROLOGIC: No focal deficit. Cranial nerves II through XII are grossly intact. No headache. No double vision. SKIN: Not dry. Intact. Turgor - normal. LYMPHATIC: No palpable lymph nodes/no lymphedema. MUSCULOSKELETAL: Normal joints with no swelling. Muscle tone is normal. LABS: Hgb 12, hct 39, WBC 8,400 normal differential, creatinine 1.7, BUN 13, potassium 3.3 ASSESSMENT: 1. Respiratory failure 2. Pneumonitis likely aspiration 3. Parkinson's disease 4. Dementia 5. Swallowing Dysphagia from Parkinson's disease 6. History of coronary artery disease 7. History of chronic lung disease from chronic aspiration. PLAN: 1. Continue all the medications as before 2. Continue steroids 3. Antibiotic Zosyn, piperacillin and Tazobactam every 6 hourly 4. Encourage nursing staff to give him Carbidopa Levodopa if possible. They didn't have much luck with it. TIME SPENT: More than 35 minutes. Plan and coordination of the patient's care discussed in the presence of nurse. MARTHA
[2022-07-31] MEDS: SODIUM CHLORIDE 0.9%-KCL 40MEQ 1,000 ML IV SCH (11:31)
--- NOTE | 2022-07-31 12:52 | PN ---
DATE OF SERVICE: 07/28/22 SUBJECTIVE: The patient was seen and examined today. He was hospitalized today with complaint of having cough, congestion and low oxygen saturation. The patient was seen and examined in the emergency room by ER attending and was noted to have aspiration pneumonitis. He is still positive for COVID been positive since June for 4-5 weeks. Ground glass that was present during last hospitalization has resolved, Atelectasis and possibility of infiltrate. The patient's appetite has been poor. His Parkinson's seems to be worsening. REVIEW OF SYSTEMS: CONSTITUTIONAL: No night sweats. No fatigue, malaise, lethargy. No fever or chills. HEENT: Eyes: No visual changes. No eye pain. No eye discharge. ENT: No runny nose. No epistaxis. No sinus pain. No sore throat. No odynophagia. No congestion. RESPIRATORY: No cough, no congestion. No hemoptysis. No shortness of breath. CARDIOVASCULAR: No angina symptoms. No CHF symptoms. No atypical chest pain for CAD. No palpitations. No PND. No orthopnea. GASTROINTESTINAL: No abdominal pain. No nausea or vomiting. No diarrhea or constipation. No hematemesis. No hematochezia. GENITOURINARY: No urgency. No frequency. No dysuria. No hematuria. No obstructive symptoms. No discharge. No pain. No significant abnormal bleeding. MUSCULOSKELETAL: No musculoskeletal pain; no joint swelling. NEUROLOGICAL: No headache. No neck pain. No syncope. No seizures. No dizziness. PSYCHIATRIC: Not anxious. No depression. No suicidal thoughts. No homicidal thoughts. SKIN: No rash. No lesions. No wounds. ENDOCRINE: No unexplained weight loss. No weight gain. HEMATOLOGIC/LYMPHATIC: No anemia. No purpura. No petechiae. No prolonged or excessive bleeding. No palpable lymph nodes. PHYSICAL EXAMINATION: GENERAL: Seems to be alert but not oriented to time. Seems to be oriented to person HEENT: Head normocephalic, atraumatic. Eyes: Extraocular muscles are intact. Pupils are equal, round and reactive to light and accommodation. Ears: No lesions. Nose appeared normal. Throat: No exudate or erythema. NECK: Supple. No JVD, no carotid bruit. No lymphadenopathy or thyromegaly. LUNGS: Bilateral expiratory wheeze. Clear to auscultation. Percussion note normal. Chest symmetrical. HEART: S1, S2, no S3. No murmurs. No cyanosis or clubbing. No ascites. Pulses: Dorsalis pedis and posterior tibial pulses +1 to +2 bilaterally. ABDOMEN: Soft. Nontender. Bowel sounds active. No CVA tenderness. No mass felt. EXTREMITIES: Trace edema. Full range of motion of all extremities, equal. NEUROLOGIC: No focal deficit. Cranial nerves II through XII are grossly intact. No headache. No double vision. SKIN: Not dry. Intact. Turgor - normal. LYMPHATIC: No palpable lymph nodes/no lymphedema. MUSCULOSKELETAL: Normal joints with no swelling. Muscle tone is normal. ASSESSMENT: 1. Aspiration pneumonitis with respiratory failure with pO2 of 56.. PLAN: 1. Hospitalize the patient with starting Zosyn for aspiration 2. Steroids 6mg IV Decadron daily 3. Encourage the patient to eat 4. Aspiration precautions 5. Continue the rest of the medications as before TIME SPENT: More than 35 minutes. Plan and coordination of the patient's care discussed in the presence of nurse. MARTHA
[2022-08-01] MEDS: DUONEB NEB SCH ×4 (04:40→23:04)
[2022-08-01] MEDS: ZOSYN 4.5 GM 4.5 GM in SODIUM CHLORIDE 100ML 100 ML IV SCH ×3 (05:37→17:59)
[2022-08-01] MEDS: LASIX IVP SCH (05:37)
[2022-08-01 06:38] LABS: BASOPHILS % (AUTO) 0.2 % (0.0-3.0); EOSINOPHILS % (AUTO) 0.6 % (0.0-7.0); HEMATOCRIT 38.1 % (42.0-52.0); HEMOGLOBIN 12.1 g/dl (14.0-18.0); IMMATURE GRANULOCYTE % (AUTO) 0.4 % (0.0-5.0); LYMPHOCYTES # (AUTO) 1.4 K/uL (0.60-3.4); MEAN CORPUSCULAR HEMOGLOBIN 28.5 pg (27.0-31.0); MEAN CORPUSCULAR HGB CONC 31.8 (31.8-35.4); MEAN CORPUSCULAR VOLUME 89.9 fl (80.0-94.0); MONOCYTES # (AUTO) 0.4 K/uL (0.4-2.0); MONOCYTES % (AUTO) 7.6 (0-10); NEUTROPHILS # (AUTO) 3.2 K/ul (2.0-6.9); NEUTROPHILS % (AUTO) 63.2 % (42.2-75.2); PLATELET COUNT 253 10^3/uL (140-440); RED BLOOD COUNT 4.24 10^6/ul (4.70-6.10)
[2022-08-01 06:49] LABS: ALANINE AMINOTRANSFERASE 5.9 U/L (0-50); ALBUMIN 3.6 g/dL (3.5-5.0); ALKALINE PHOSPHATASE 79.1 U/L (56-119); ASPARTATE AMINO TRANSFERASE 27.6 U/L (17-59); BILIRUBIN,TOTAL 0.44 mg/dL (0.2-1.3); BLOOD UREA NITROGEN 10.6 mg/dL (9-20); CALCIUM 8.57 mg/dL (8.4-10.2); CARBON DIOXIDE 32.1 mmol/L (22-30.0); CHLORIDE 105.1 mmol/L (98-107); CREATININE 0.58 mg/dL (0.60-1.10); GLUCOSE 103.6 mg/dL (74-106); POTASSIUM 3.71 mmol/L (3.5-5.1); SODIUM 140.1 mmol/L (134.5-145); TOTAL PROTEIN 6.52 g/dL (6.3-8.2)
[2022-08-01] MEDS: SINEMET 25-100 PO SCH ×4 (08:39→20:16)
[2022-08-01] MEDS: K-DUR PO SCH ×4 (08:40→20:15)
[2022-08-01] MEDS: VITAMIN D PO SCH ×2 (08:40→20:16)
[2022-08-01] MEDS: CLARITIN PO SCH (08:40)
[2022-08-01] MEDS: GLUCOPHAGE PO SCH (08:40)
[2022-08-01] MEDS: COLACE PO SCH ×2 (08:41→20:15)
[2022-08-01] MEDS: MUCINEX PO SCH ×2 (08:41→20:16)
[2022-08-01] MEDS: DECADRON IVP SCH (08:41)
[2022-08-01] MEDS: ASPIRIN EC PO SCH (08:41)
[2022-08-01] MEDS: NORCO 5-325 PO SCH ×3 (08:41→20:15)
[2022-08-01] MEDS: SYMBICORT 160-4.5 MCG INHALER IH SCH ×2 (08:42→20:15)
[2022-08-01] MEDS: PROTONIX IV IVP SCH (08:42)
--- NOTE | 2022-08-01 09:02 | PCM.PROG ---
Attending Provider: ATTENDING PROVIDER: Dr. SUN NAGEL MD This patient is seen with Tiera Vaz, Nurse Practitioner. DATE OF SERVICE: 08/01/22 SUBJECTIVE: This 81 year old /WHITE M was hospitalized 07/28/22. The patient has been tolerating minced and moist diet somewhat able to take medication in jello. Lung sounds still very course. Saturation is 95% on 2 liters. Potassium has improved today. REVIEW OF SYSTEMS: CONSTITUTIONAL: No night sweats. No fatigue, malaise, lethargy. No fever or chills. weakness. HEENT: Eyes: No visual changes. No eye pain. No eye discharge. ENT: No runny nose. No epistaxis. No sinus pain. No odynophagia. No congestion. RESPIRATORY: Cough, no congestion. No hemoptysis. Shortness of breath. CARDIOVASCULAR: No angina symptoms. No CHF symptoms. No atypical chest pain for CAD. No palpitations. No orthopnea.. GASTROINTESTINAL: No abdominal pain. No nausea or vomiting. No diarrhea or constipation. No hematemesis. No hematochezia. GENITOURINARY: No urgency. No frequency. No dysuria. No hematuria. No obstructive symptoms. No discharge. No pain. No significant abnormal bleeding. MUSCULOSKELETAL: No musculoskeletal pain; no joint swelling. NEUROLOGICAL: Awake, alert, oriented to time, place and person. No headache. No neck pain. No syncope. No seizures. No dizziness. PSYCHIATRIC: Not anxious. No depression. No suicidal thoughts. No homicidal thoughts. SKIN: No rash. No lesions. No wounds. Trace leg edema. ENDOCRINE: No unexplained weight loss. No weight gain. HEMATOLOGIC/LYMPHATIC: No anemia. No purpura. No petechiae. No prolonged or excessive bleeding. No palpable lymph nodes. PHYSICAL EXAMINATION: GENERAL: The patient is awake, alert and oriented, lying in bed in no distress. VITAL SIGNS: Temperature 97.0 F, Pulse 92, Respiratory Rate 21, BP 106/71, Pulse Ox 93% HEENT: Head normocephalic, atraumatic. Eyes: Extraocular muscles are intact. Pupils are equal, round and reactive to light and accommodation. Ears: No lesions. Nose appeared normal. Throat: No exudate or erythema. NECK: Supple. No JVD, no carotid bruit. No lymphadenopathy or thyromegaly. LUNGS: Bilateral rhonchi. Clear to auscultation. Percussion note normal. Chest symmetrical. HEART: S1, S2, no S3. No murmurs. No cyanosis or clubbing. No ascites. Pulses: Dorsalis pedis and posterior tibial pulses +1 to +2 both sides. ABDOMEN: Soft. Non-tender. Bowel sounds active. No CVA tenderness. No mass felt. EXTREMITIES: Trace bilateral leg edema. Full range of motion of all extremities, equal. NEUROLOGIC: No focal deficit. Cranial nerves II through XII are grossly intact. No headache. No double vision. SKIN: Not dry. Intact. Turgor-normal. LYMPHATIC: No palpable lymph nodes/no lymphedema. MUSCULOSKELETAL: Normal joints with no swelling. Muscle tone is normal. LAB REVIEW: 08/01/22 06:33 08/01/22 06:33 08/01/22 06:33: WBC 5.10, RBC 4.24 L, Hgb 12.1 L, Hct 38.1 L, MCV 89.9, MCH 28.5, MCHC 31.8, RDW Coeff of Leda 16.0 H, Plt Count 253, Immature Gran % (Auto) 0.4, Neut % (Auto) 63.2, Lymph % (Auto) 28.0, [place] % (Auto) 7.6, Eos % (Auto) 0.6, Baso % (Auto) 0.2, Neut # (Auto) 3.2, Lymph # (Auto) 1.4, [place] # (Auto) 0.4, Eos # (Auto) 0.0, Baso # (Auto) 0.0, Immature Gran # (Auto) 0.0, Sodium 140.1, Potassium 3.71, Chloride 105.1, Carbon Dioxide 32.1 H, Anion Gap 6.61, BUN 10.6, Creatinine 0.58 L, Estimated GFR (MDRD) 135.00, BUN/Creatinine Ratio 18.27, Glucose 103.6, Calcium 8.57, Total Bilirubin 0.44, AST 27.6, ALT 5.9, Alkaline Phosphatase 79.1, Total Protein 6.52, Albumin 3.60, Globulin 2.92, Albumin/Globulin Ratio 1.23 ASSESSMENT: Please see below. 1. Acute respiratory failure 2. Possible aspiration pneumonia 3. Dysphagia 4. Parkinson's disease 5. Hypokalemia, resolved PLAN: 1. Discontinue IV fluids 2. Continue IV antibiotics 3. Will discuss with family plans for future care as this is going to be an ongoing problem PROGNOSIS: POOR SCRIBED BY: CRIS [place] Outside Sales Manager scribed while in presence of service performed by Tiera Vaz APRN on 08/01/22 ([id number]) Coding (1) Oropharyngeal dysphagia: Status: Acute Code(s): R13.12 - Dysphagia, oropharyngeal phase SNOMED Code(s): 50481504 (2) Parkinson disease: Status: Acute Code(s): G20 - Parkinson's disease SNOMED Code(s): 00189288 (3) Aspiration pneumonia: Status: Acute Code(s): J69.0 - Pneumonitis due to inhalation of food and vomit SNOMED Code(s): 552744272 (4) COVID-19: Status: Acute Code(s): U07.1 - COVID-19 SNOMED Code(s): 776032178
--- NOTE | 2022-08-01 15:19 | PN ---
DATE OF SERVICE: 07/30/22 SUBJECTIVE: 89 year old white male was hospitalized with respiratory failure and aspiration pneumonitis. Patient was seen and examined with the nurse practitioner. Patient is to continue Zosyn. Patient is able to swallow some. He is going to be on IV fluids. REVIEW OF SYSTEMS: CONSTITUTIONAL: No night sweats. No fatigue, malaise, lethargy. No fever or chills. HEENT: Eyes: No visual changes. No eye pain. No eye discharge. ENT: No runny nose. No epistaxis. No sinus pain. No sore throat. No odynophagia. No congestion. RESPIRATORY: No cough, no congestion. No hemoptysis. No shortness of breath. CARDIOVASCULAR: No angina symptoms. No CHF symptoms. No atypical chest pain for CAD. No palpitations. No PND. No orthopnea. GASTROINTESTINAL: No abdominal pain. No nausea or vomiting. No diarrhea or constipation. No hematemesis. No hematochezia. GENITOURINARY: No urgency. No frequency. No dysuria. No hematuria. No obstructive symptoms. No discharge. No pain. No significant abnormal bleeding. MUSCULOSKELETAL: No musculoskeletal pain; no joint swelling. NEUROLOGICAL: No headache. No neck pain. No syncope. No seizures. No dizziness. PSYCHIATRIC: Not anxious. No depression. No suicidal thoughts. No homicidal thoughts. SKIN: No rash. No lesions. No wounds. ENDOCRINE: No unexplained weight loss. No weight gain. HEMATOLOGIC/LYMPHATIC: No anemia. No purpura. No petechiae. No prolonged or excessive bleeding. No palpable lymph nodes. PHYSICAL EXAMINATION: GENERAL: The patient is in no distress. HEENT: Head normocephalic, atraumatic. Eyes: Extraocular muscles are intact. Pupils are equal, round and reactive to light and accommodation. Ears: No lesions. Nose appeared normal. Throat: No exudate or erythema. NECK: Supple. No JVD, no carotid bruit. No lymphadenopathy or thyromegaly. LUNGS: Clear to auscultation. Percussion note normal. Chest symmetrical. HEART: S1, S2, no S3. No murmurs. No cyanosis or clubbing. No ascites. Pulses: Dorsalis pedis and posterior tibial pulses +1 to +2 bilaterally. ABDOMEN: Soft. Nontender. Bowel sounds active. No CVA tenderness. No mass felt. EXTREMITIES: No edema. Full range of motion of all extremities, equal. NEUROLOGIC: No focal deficit. Cranial nerves II through XII are grossly intact. No headache. No double vision. SKIN: Not dry. Intact. Turgor - normal. LYMPHATIC: No palpable lymph nodes/no lymphedema. MUSCULOSKELETAL: Normal joints with no swelling. Muscle tone is normal. TIME SPENT: More than 35 minutes. Plan and coordination of the patient's care discussed in the presence of nurse. MARTHA
--- NOTE | 2022-08-01 16:09 | HP ---
DATE OF SERVICE: 07/28/22 REASON FOR HOSPITALIZATION: Respiratory distress Patient is unable to swallow eat HISTORY OF PRESENT ILLNESS: 81 year old white male was brought to the emergency room with above complaints. Patient's work up had PO2 of 56 and evidence of bilateral pneumonitis. Besides that patient has stopped swallowing and intake is very poor. REVIEW OF SYSTEMS: CONSTITUTIONAL: Fatigue and weakness. HEENT: Eyes: No visual changes. No eye pain. No eye discharge. ENT: No runny nose. No epistaxis. No sinus pain. No sore throat. No odynophagia. No ear pain. No congestion. RESPIRATORY: Mild cough with congestion. CARDIOVASCULAR: Shortness breath. No chest pain. No PND. No orthopnea. GASTROINTESTINAL: Difficulty swallowing. Difficulty talking. No hemoptysis. GENITOURINARY: No urgency. No frequency. No dysuria. No hematuria. No obstructive symptoms. No discharge. No pain. No significant abnormal bleeding. MUSCULOSKELETAL: Weakness, unable to to get up. NEUROLOGICAL: No headache. No neck pain. No syncope. No seizures. No dizziness. PSYCHIATRIC: Not anxious. No depression. No suicidal thoughts. No homicidal thoughts. SKIN: No rash. No lesions. No wounds. ENDOCRINE: No unexplained weight loss. No weight gain. HEMATOLOGIC/LYMPHATIC: No anemia. No purpura. No petechiae. No prolonged or excessive bleeding. No palpable lymph nodes. ALLERGIES: CELEBREX, MELOXICAM, PENICILLIN MEDICAL PROBLEMS: Anemia BPH Coronary artery disease with stent Generalized osteoarthritis Cervical radiculopathy Diabetes mellitus, type 2 GERD Dyslipidemia Hypertension LVH Dysphagia Parkinson's disease SURGICAL HISTORY: Cholecystectomy Lumbar fusion FAMILY/SOCIAL HISTORY: Patient is with the help of sons. No alcohol abuse. PHYSICAL EXAMINATION: GENERAL: The patient seems to be alert. Oriented to time, place and person. Looks sleepy. VITAL SIGNS: Temperature 98, pulse 90, respiratory rate 20, blood pressure 110/70. HEENT: Head normocephalic, atraumatic. Eyes: Extraocular muscles are intact. Pupils are equal, round and reactive to light and accommodation. Ears: No lesions. Nose appeared normal. Throat: No exudate or erythema. NECK: Supple. No JVD, no carotid bruit. No lymphadenopathy or thyromegaly. LUNGS: Decreased breath sounds bilaterally with dry cracks on entry. . HEART: S1, S2, no S3. No murmur. ABDOMEN: Soft. Bowel sounds active. EXTREMITIES: No trace edema. NEUROLOGIC: No focal deficit. Cranial nerves II through XII are grossly intact. No headache, no double vision or headache. SKIN: Somewhat pale. LYMPHATIC: No palpable lymph nodes/no lymphedema. MUSCULOSKELETAL: Normal joints with no swelling. Muscle tone is normal. Chest x-ray showed bilateral pneumonitis. LABS: Hemoglobin 14, hematocrit 43, WBC 12,000. ABG showed PO2 of 56, PCO2 44, PH 7.48 with 90% saturation on room air. Creatinine 0.7, BUN 16, potassium 3. ASSESSMENT: 1. ACUTE RESPIRATORY FAILURE FROM BILATERAL PNEUMONITIS, LIKELY ASPIRATION. 2. DYSPHAGIA WITH INABILITY TO SWALLOW, LIKELY COMING FROM WORSENING OF HIS OVERALL MEDICAL CONDITION WITH PARKINSON'S DISEASE WITH INABILITY TO TAKE MEDICINES, SWALLOWING IT, MIX IT. 3. DEHYDRATION 4. CHRONIC ANEMIA 5. CORONARY HEART DISEASE WITH STENT 6. HYPERTENSION 7. DYSLIPIDEMIA 8. HYPOKALEMIA PLAN: 1. Try to get his medicine down 2. IV fluids 3. IV antibiotics - Zosyn 4. Continue all the rest of the medications as before 5. Potassium supplements to be given Condition: Stable Code Status: DNR This was discussed with the son. TIME SPENT: More than 75 minutes. MARTHA
[2022-08-01] MEDS: SODIUM CHLORIDE 0.9%-KCL 40MEQ 1,000 ML IV SCH (19:43)
[2022-08-02] MEDS: ZOSYN 4.5 GM 4.5 GM in SODIUM CHLORIDE 100ML 100 ML IV SCH ×5 (00:04→23:13)
[2022-08-02 05:03] LABS: BASOPHILS % (AUTO) 0.3 % (0.0-3.0); EOSINOPHILS % (AUTO) 0.4 % (0.0-7.0); HEMATOCRIT 37.2 % (42.0-52.0); HEMOGLOBIN 11.8 g/dl (14.0-18.0); IMMATURE GRANULOCYTE % (AUTO) 0.3 % (0.0-5.0); LYMPHOCYTES # (AUTO) 1.9 K/uL (0.60-3.4); LYMPHOCYTES % (AUTO) 27.2 (10.0-50.0); MEAN CORPUSCULAR HEMOGLOBIN 28.6 pg (27.0-31.0); MEAN CORPUSCULAR HGB CONC 31.7 (31.8-35.4); MEAN CORPUSCULAR VOLUME 90.3 fl (80.0-94.0); MONOCYTES # (AUTO) 0.4 K/uL (0.4-2.0); MONOCYTES % (AUTO) 6.2 (0-10); NEUTROPHILS # (AUTO) 4.5 K/ul (2.0-6.9); NEUTROPHILS % (AUTO) 65.6 % (42.2-75.2); PLATELET COUNT 235 10^3/uL (140-440); RED BLOOD COUNT 4.12 10^6/ul (4.70-6.10)
[2022-08-02] MEDS: DUONEB NEB SCH ×3 (05:04→20:40)
[2022-08-02 05:18] LABS: ALANINE AMINOTRANSFERASE 8.1 U/L (0-50); ALBUMIN 3.51 g/dL (3.5-5.0); ALKALINE PHOSPHATASE 80.4 U/L (56-119); BILIRUBIN,TOTAL 0.4 mg/dL (0.2-1.3); CALCIUM 8.65 mg/dL (8.4-10.2); CARBON DIOXIDE 34.6 mmol/L (22-30.0); CHLORIDE 104.1 mmol/L (98-107); CREATININE 0.64 mg/dL (0.60-1.10); GLUCOSE 105.8 mg/dL (74-106); POTASSIUM 4.22 mmol/L (3.5-5.1); SODIUM 139.5 mmol/L (134.5-145); TOTAL PROTEIN 6.3 g/dL (6.3-8.2)
[2022-08-02] MEDS: LASIX IVP SCH (06:22)
[2022-08-02] MEDS: DECADRON IVP SCH (08:35)
[2022-08-02] MEDS: PROTONIX IV IVP SCH (08:35)
[2022-08-02] MEDS: MUCINEX PO SCH ×2 (08:36→20:30)
[2022-08-02] MEDS: NORCO 5-325 PO SCH ×3 (08:36→20:30)
[2022-08-02] MEDS: CLARITIN PO SCH (08:36)
[2022-08-02] MEDS: TRANSDERM-SCOP 1.5 MG PATCH TD SCH (08:36)
[2022-08-02] MEDS: COLACE PO SCH ×2 (08:36→20:30)
[2022-08-02] MEDS: ASPIRIN EC PO SCH (08:36)
[2022-08-02] MEDS: GLUCOPHAGE PO SCH (08:37)
[2022-08-02] MEDS: K-DUR PO SCH ×2 (08:37→17:18)
[2022-08-02] MEDS: SINEMET 25-100 PO SCH ×4 (08:37→20:29)
[2022-08-02] MEDS: VITAMIN D PO SCH ×2 (08:37→20:30)
[2022-08-02] MEDS: SYMBICORT 160-4.5 MCG INHALER IH SCH ×2 (08:38→20:29)
--- NOTE | 2022-08-02 15:10 | PN ---
DATE OF SERVICE: 08/01/22 SUBJECTIVE: Patient was seen and examined with the nurse practitioner. Patient was hospitalized with respiratory failure likely has pneumonitis. Patient's other problem is hypokalemia seems to have resolved. The potassium level is normal. Patient has started swallowing now and started eating some. He takes his medicine. Will continue to give Sinemet on the clock plus improve his swallowing. Prognosis: Poor The sons have been aware of the fact that overall condition has been deteriorating with his Parkinson's disease. Hospice has been recommended. TIME SPENT: More than 35 minutes. Plan and coordination of the patient's care discussed in the presence of nurse. MARTHA
[2022-08-03] MEDS: ZOSYN 4.5 GM 4.5 GM in SODIUM CHLORIDE 100ML 100 ML IV SCH ×4 (05:14→23:20)
[2022-08-03] MEDS: DUONEB NEB SCH ×4 (05:17→19:38)
[2022-08-03] MEDS: LASIX IVP SCH (05:30)
[2022-08-03 05:33] LABS: BASOPHILS % (AUTO) 0.2 % (0.0-3.0); EOSINOPHILS # (AUTO) 0.1 K/ul (0.0-0.7); EOSINOPHILS % (AUTO) 0.9 % (0.0-7.0); HEMATOCRIT 38.9 % (42.0-52.0); HEMOGLOBIN 12.3 g/dl (14.0-18.0); IMMATURE GRANULOCYTE % (AUTO) 0.4 % (0.0-5.0); LYMPHOCYTES # (AUTO) 2.5 K/uL (0.60-3.4); LYMPHOCYTES % (AUTO) 27.5 (10.0-50.0); MEAN CORPUSCULAR HEMOGLOBIN 28.3 pg (27.0-31.0); MEAN CORPUSCULAR HGB CONC 31.6 (31.8-35.4); MEAN CORPUSCULAR VOLUME 89.4 fl (80.0-94.0); MONOCYTES # (AUTO) 0.6 K/uL (0.4-2.0); NEUTROPHILS # (AUTO) 5.9 K/ul (2.0-6.9); PLATELET COUNT 310 10^3/uL (140-440); RDW COEFFICIENT OF VARIATION 15.8 % (11.6-14.8); RED BLOOD COUNT 4.35 10^6/ul (4.70-6.10); WHITE BLOOD COUNT 9.15 K/ul (4.2-10.2)
[2022-08-03 05:48] LABS: ALANINE AMINOTRANSFERASE 6.3 U/L (0-50); ALBUMIN 3.73 g/dL (3.5-5.0); ALKALINE PHOSPHATASE 85.7 U/L (56-119); ASPARTATE AMINO TRANSFERASE 40.5 U/L (17-59); BILIRUBIN,TOTAL 0.56 mg/dL (0.2-1.3); BLOOD UREA NITROGEN 12.8 mg/dL (9-20); CALCIUM 9.23 mg/dL (8.4-10.2); CARBON DIOXIDE 33.7 mmol/L (22-30.0); CHLORIDE 104.4 mmol/L (98-107); CREATININE 0.68 mg/dL (0.60-1.10); GLUCOSE 92.1 mg/dL (74-106); POTASSIUM 3.95 mmol/L (3.5-5.1); SODIUM 140.5 mmol/L (134.5-145); TOTAL PROTEIN 6.75 g/dL (6.3-8.2)
[2022-08-03] MEDS: COLACE PO SCH ×2 (08:29→20:23)
[2022-08-03] MEDS: GLUCOPHAGE PO SCH (08:29)
[2022-08-03] MEDS: VITAMIN D PO SCH ×2 (08:29→20:24)
[2022-08-03] MEDS: CLARITIN PO SCH (08:30)
[2022-08-03] MEDS: DECADRON IVP SCH (08:30)
[2022-08-03] MEDS: PROTONIX IV IVP SCH (08:30)
[2022-08-03] MEDS: SINEMET 25-100 PO SCH ×4 (08:30→20:24)
[2022-08-03] MEDS: ASPIRIN EC PO SCH (08:30)
[2022-08-03] MEDS: MUCINEX PO SCH ×2 (08:30→20:24)
[2022-08-03] MEDS: NORCO 5-325 PO SCH ×3 (08:30→20:24)
[2022-08-03] MEDS: K-DUR PO SCH ×2 (08:30→17:56)
[2022-08-03] MEDS: SYMBICORT 160-4.5 MCG INHALER IH SCH ×2 (08:49→20:23)
[2022-08-04] MEDS: DUONEB NEB SCH ×4 (04:30→20:00)
[2022-08-04] MEDS: ZOSYN 4.5 GM 4.5 GM in SODIUM CHLORIDE 100ML 100 ML IV SCH ×4 (05:40→23:07)
[2022-08-04] MEDS: LASIX IVP SCH (05:46)
[2022-08-04] MEDS: ASPIRIN EC PO SCH (09:52)
[2022-08-04] MEDS: DECADRON IVP SCH (09:52)
[2022-08-04] MEDS: PROTONIX IV IVP SCH (09:52)
[2022-08-04] MEDS: GLUCOPHAGE PO SCH (09:53)
[2022-08-04] MEDS: SYMBICORT 160-4.5 MCG INHALER IH SCH ×2 (09:53→20:27)
[2022-08-04] MEDS: CLARITIN PO SCH ×2 (09:53→09:54)
[2022-08-04] MEDS: SINEMET 25-100 PO SCH ×4 (09:53→20:26)
[2022-08-04] MEDS: MUCINEX PO SCH ×2 (09:54→20:26)
[2022-08-04] MEDS: K-DUR PO SCH ×2 (09:54→17:31)
[2022-08-04] MEDS: COLACE PO SCH ×2 (09:54→20:26)
[2022-08-04] MEDS: VITAMIN D PO SCH ×2 (09:55→20:27)
[2022-08-04] MEDS: NORCO 5-325 PO SCH ×3 (09:55→20:26)
[2022-08-05] MEDS: DUONEB NEB SCH ×4 (04:40→20:30)
[2022-08-05 05:19] LABS: BASOPHILS % (AUTO) 0.1 % (0.0-3.0); EOSINOPHILS # (AUTO) 0.2 K/ul (0.0-0.7); EOSINOPHILS % (AUTO) 2.9 % (0.0-7.0); HEMATOCRIT 37.2 % (42.0-52.0); HEMOGLOBIN 11.8 g/dl (14.0-18.0); IMMATURE GRANULOCYTE % (AUTO) 0.6 % (0.0-5.0); LYMPHOCYTES # (AUTO) 2.3 K/uL (0.60-3.4); LYMPHOCYTES % (AUTO) 31.6 (10.0-50.0); MEAN CORPUSCULAR HEMOGLOBIN 28.6 pg (27.0-31.0); MEAN CORPUSCULAR HGB CONC 31.7 (31.8-35.4); MEAN CORPUSCULAR VOLUME 90.1 fl (80.0-94.0); MONOCYTES # (AUTO) 0.4 K/uL (0.4-2.0); MONOCYTES % (AUTO) 4.9 (0-10); NEUTROPHILS # (AUTO) 4.3 K/ul (2.0-6.9); NEUTROPHILS % (AUTO) 59.9 % (42.2-75.2); PLATELET COUNT 303 10^3/uL (140-440); RDW COEFFICIENT OF VARIATION 15.9 % (11.6-14.8); RED BLOOD COUNT 4.13 10^6/ul (4.70-6.10); WHITE BLOOD COUNT 7.18 K/ul (4.2-10.2)
[2022-08-05] MEDS: ZOSYN 4.5 GM 4.5 GM in SODIUM CHLORIDE 100ML 100 ML IV SCH ×2 (05:25→18:12)
[2022-08-05 05:35] LABS: ALANINE AMINOTRANSFERASE 17.8 U/L (0-50); ALBUMIN 3.71 g/dL (3.5-5.0); ALKALINE PHOSPHATASE 97.2 U/L (56-119); ASPARTATE AMINO TRANSFERASE 56.1 U/L (17-59); BILIRUBIN,TOTAL 0.34 mg/dL (0.2-1.3); CALCIUM 8.99 mg/dL (8.4-10.2); CHLORIDE 102.3 mmol/L (98-107); CREATININE 0.64 mg/dL (0.60-1.10); GLUCOSE 115.9 mg/dL (74-106); POTASSIUM 3.46 mmol/L (3.5-5.1); SODIUM 140.7 mmol/L (134.5-145); TOTAL PROTEIN 6.71 g/dL (6.3-8.2)
[2022-08-05] MEDS: LASIX IVP SCH (06:09)
[2022-08-05] MEDS: CLARITIN PO SCH (08:51)
[2022-08-05] MEDS: NORCO 5-325 PO SCH ×3 (08:51→20:56)
[2022-08-05] MEDS: MUCINEX PO SCH ×2 (08:52→20:56)
[2022-08-05] MEDS: VITAMIN D PO SCH ×2 (08:52→20:56)
[2022-08-05] MEDS: SINEMET 25-100 PO SCH ×4 (08:52→20:56)
[2022-08-05] MEDS: GLUCOPHAGE PO SCH (08:52)
[2022-08-05] MEDS: PREDNISONE PO SCH (08:53)
[2022-08-05] MEDS: ASPIRIN EC PO SCH (08:54)
[2022-08-05] MEDS: K-DUR PO SCH ×2 (08:54→16:38)
[2022-08-05] MEDS: COLACE PO SCH ×2 (08:54→20:56)
[2022-08-05] MEDS: MIRALAX PO SCH ×2 (09:00→20:55)
[2022-08-05] MEDS: PROTONIX IV IVP SCH (09:02)
[2022-08-05] MEDS: SYMBICORT 160-4.5 MCG INHALER IH SCH ×2 (09:02→20:57)
[2022-08-05] MEDS: TRANSDERM-SCOP 1.5 MG PATCH TD SCH (09:17)
--- NOTE | 2022-08-05 09:57 | PCM.PROG ---
Attending Provider: ATTENDING PROVIDER: Dr. SUN NAGEL MD This patient is seen with Tiera Vaz, Nurse Practitioner. DATE OF SERVICE: 08/05/22 SUBJECTIVE: This 81 year old /WHITE M was hospitalized 07/28/22. Respiratory status about the same. Potassium slightly lower today. The patient has minimal room for improvement. Son, Roderick, is working on getting POA. The patient is still able to communicate and is of sound mind. REVIEW OF SYSTEMS: CONSTITUTIONAL: No night sweats. No fatigue, malaise, lethargy. No fever or chills. Weakness. HEENT: Eyes: No visual changes. No eye pain. No eye discharge. ENT: No runny nose. No epistaxis. No sinus pain. No odynophagia. No congestion. RESPIRATORY: No cough, no congestion. No hemoptysis. Shortness of breath. Wheezing. CARDIOVASCULAR: No angina symptoms. No CHF symptoms. No atypical chest pain for CAD. No palpitations. No orthopnea.. GASTROINTESTINAL: No abdominal pain. No nausea or vomiting. No diarrhea or constipation. No hematemesis. No hematochezia. Dysphagia. GENITOURINARY: No urgency. No frequency. No dysuria. No hematuria. No obstructive symptoms. No discharge. No pain. No significant abnormal bleeding. MUSCULOSKELETAL: No musculoskeletal pain; no joint swelling. NEUROLOGICAL: Awake, alert, oriented to time, place and person. No headache. No neck pain. No syncope. No seizures. No dizziness. PSYCHIATRIC: Not anxious. No depression. No suicidal thoughts. No homicidal thoughts. SKIN: No rash. No lesions. No wounds. ENDOCRINE: No unexplained weight loss. No weight gain. HEMATOLOGIC/LYMPHATIC: No anemia. No purpura. No petechiae. No prolonged or excessive bleeding. No palpable lymph nodes. PHYSICAL EXAMINATION: GENERAL: The patient is awake, alert and oriented, lying in bed in no distress. VITAL SIGNS: Temperature 96.9 F, Pulse 85, Respiratory Rate 21, BP 124/60, Pulse Ox 96% HEENT: Head normocephalic, atraumatic. Eyes: Extraocular muscles are intact. Pupils are equal, round and reactive to light and accommodation. Ears: No lesions. Nose appeared normal. Throat: No exudate or erythema. NECK: Supple. No JVD, no carotid bruit. No lymphadenopathy or thyromegaly. LUNGS: Bilateral rhonchi and wheezing. Clear to auscultation. Percussion note normal. Chest symmetrical. HEART: S1, S2, no S3. No murmurs. No cyanosis or clubbing. No ascites. Pulses: Dorsalis pedis and posterior tibial pulses +1 to +2 both sides. ABDOMEN: Soft. Non-tender. Bowel sounds active. No CVA tenderness. No mass felt. EXTREMITIES: No edema. Full range of motion of all extremities, equal. NEUROLOGIC: No focal deficit. Cranial nerves II through XII are grossly intact. No headache. No double vision. SKIN: Not dry. Intact. Turgor-normal. LYMPHATIC: No palpable lymph nodes/no lymphedema. MUSCULOSKELETAL: Normal joints with no swelling. Muscle tone is normal. LAB REVIEW: 08/05/22 05:08 08/05/22 05:08 08/05/22 05:08: WBC 7.18, RBC 4.13 L, Hgb 11.8 L, Hct 37.2 L, MCV 90.1, MCH 28.6, MCHC 31.7 L, RDW Coeff of Leda 15.9 H, Plt Count 303, Immature Gran % (Auto) 0.6, Neut % (Auto) 59.9, Lymph % (Auto) 31.6, [place] % (Auto) 4.9, Eos % (Auto) 2.9, Baso % (Auto) 0.1, Neut # (Auto) 4.3, Lymph # (Auto) 2.3, [place] # ( Auto) 0.4, Eos # (Auto) 0.2, Baso # (Auto) 0.0, Immature Gran # (Auto) 0.0, Sodium 140.7, Potassium 3.46 L, Chloride 102.3, Carbon Dioxide 33.0 H, Anion Gap 8.86, BUN 16.0, Creatinine 0.64, Estimated GFR (MDRD) 121.00, BUN/Creatinine Ratio 25.00, Glucose 115.9 H, Calcium 8.99, Total Bilirubin 0.34, AST 56.1, ALT 17.8, Alkaline Phosphatase 97.2, Total Protein 6.71, Albumin 3.71, Globulin 3.00, Albumin/Globulin Ratio 1.23 ASSESSMENT: Please see below. 1. Acute respiratory failure 2. Extreme weakness related to advancing Parkinson's 3. Aspiration pneumonia 4. Recent COVID 19 5. Hypokalemia 6. Constipation PLAN: 1. Discontinue Decadron 2. Prednisone 20mg PO daily 3. Miralax 4. Long discussion with the patient regarding prognosis and progress of this disease at this point he does not wish to continue returning to the hospital and he does not want any intervention to help with nutrition. He has agreed to Hospice at this time. We will refer him to [facility]. Plan and coordination of the patient's care discussed in the presence of Time Study Analyst and nurse. SCRIBED BY: Tom ROBERTS scribed while in presence of service performed by Tiera Vaz APRN on 08/05/22 ([id number]) Coding (1) Oropharyngeal dysphagia: Status: Acute Code(s): R13.12 - Dysphagia, oropharyngeal phase SNOMED Code(s): 51051953 (2) Parkinson disease: Status: Acute Code(s): G20 - Parkinson's disease SNOMED Code(s): 58178399 (3) Aspiration pneumonia: Status: Acute Code(s): J69.0 - Pneumonitis due to inhalation of food and vomit SNOMED Code(s): 683833576 (4) COVID-19: Status: Acute Code(s): U07.1 - COVID-19 SNOMED Code(s): 749720505
--- NOTE | 2022-08-05 15:50 | PN ---
DATE OF SERVICE: 08/03/22 SUBJECTIVE: 81 year old white male with acute respiratory failure. Patient is status post Covid 19 positive status diagnosed June 25, 2022. Possibility patient has aspiration pneumonitis and unable to swallow food. He hasn't been taking his medicine for the past few days. He has Parkinson's disease that has made his condition worse. Patient has improved remarkably. He is able to eat, swallow and take his medicine now. He is still unable to talk. REVIEW OF SYSTEMS: CONSTITUTIONAL: No nausea, no vomiting. No fever or chills. HEENT: Eyes: No visual changes. No eye pain. No eye discharge. ENT: No runny nose. No epistaxis. No sinus pain. No sore throat. No odynophagia. No congestion. RESPIRATORY: No cough, no congestion. No hemoptysis. No shortness of breath. CARDIOVASCULAR: No angina symptoms. No CHF symptoms. No atypical chest pain for CAD. No palpitations. No PND. No orthopnea. GASTROINTESTINAL: No abdominal pain. No nausea or vomiting. No diarrhea or constipation. No hematemesis. No hematochezia. GENITOURINARY: No urgency. No frequency. No dysuria. No hematuria. No obstructive symptoms. No discharge. No pain. No significant abnormal bleeding. MUSCULOSKELETAL: No musculoskeletal pain; no joint swelling. NEUROLOGICAL: No headache. No neck pain. No syncope. No seizures. No dizziness. PSYCHIATRIC: Not anxious. No depression. No suicidal thoughts. No homicidal thoughts. SKIN: No rash. No lesions. No wounds. ENDOCRINE: No unexplained weight loss. No weight gain. HEMATOLOGIC/LYMPHATIC: No anemia. No purpura. No petechiae. No prolonged or excessive bleeding. No palpable lymph nodes. PHYSICAL EXAMINATION: GENERAL: The patient is in no distress. VITAL SIGNS: Temperature 97.8, pulse 90, respiratory rate 24, blood pressure 124/70, pulse ox 93%. HEENT: Head normocephalic, atraumatic. Eyes: Extraocular muscles are intact. Pupils are equal, round and reactive to light and accommodation. Ears: No lesions. Nose appeared normal. Throat: No exudate or erythema. NECK: Supple. LUNGS: Decreased breath sounds but clear. HEART: S1, S2, no S3. ABDOMEN: Soft. EXTREMITIES: Trace edema. NEUROLOGIC: No focal deficit. Cranial nerves II through XII are grossly intact. No headache. No double vision. SKIN: Not dry. Intact. Turgor - normal. LYMPHATIC: No palpable lymph nodes/no lymphedema. MUSCULOSKELETAL: Normal joints with no swelling. Muscle tone is normal. LABS: Hemoglobin 12, hematocrit 38, WBC 9,000, normal differential, creatinine 0.6, BUN 12, potassium 3.9. ASSESSMENT: 1. Respiratory failure 2. Pneumonia seems to be resolving 3. Swallowing seems to be somewhat better as patient has been able to take his Parkinson's medicine and swallowing food intake has improved. PLAN: 1. Continue same treatment. 2. Continue Zosyn and steroids. TIME SPENT: More than 35 minutes. Plan and coordination of the patient's care discussed in the presence of nurse. MARTHA
--- NOTE | 2022-08-05 15:59 | PN ---
DATE OF SERVICE: 08/04/22 SUBJECTIVE: 81 year old white male hospitalized with respiratory failure and hypoxemia. Patient is Covid 19 status positive since June 25, 2022. He also has strong possibility of having aspiration pneumonitis. Patient's condition seems to have improved and has been eating an acceptable amount of breakfast in the morning. REVIEW OF SYSTEMS: CONSTITUTIONAL: No cough. No fever or chills. HEENT: Eyes: No visual changes. No eye pain. No eye discharge. ENT: No runny nose. No epistaxis. No sinus pain. No sore throat. No odynophagia. No congestion. RESPIRATORY: No cough, no congestion. No hemoptysis. No shortness of breath. CARDIOVASCULAR: No angina symptoms. No CHF symptoms. No atypical chest pain for CAD. No palpitations. No PND. No orthopnea. GASTROINTESTINAL: No abdominal pain. No nausea or vomiting. No diarrhea or constipation. No hematemesis. No hematochezia. GENITOURINARY: No urgency. No frequency. No dysuria. No hematuria. No obstructive symptoms. No discharge. No pain. No significant abnormal bleeding. MUSCULOSKELETAL: No musculoskeletal pain; no joint swelling. NEUROLOGICAL: No headache. No neck pain. No syncope. No seizures. No dizziness. PSYCHIATRIC: Not anxious. No depression. No suicidal thoughts. No homicidal thoughts. SKIN: No rash. No lesions. No wounds. ENDOCRINE: No unexplained weight loss. No weight gain. HEMATOLOGIC/LYMPHATIC: No anemia. No purpura. No petechiae. No prolonged or excessive bleeding. No palpable lymph nodes. PHYSICAL EXAMINATION: GENERAL: The patient is in no distress. VITAL SIGNS: Temperature 98.7, pulse 85, respiratory rate 16, blood pressure 107/64, pulse ox 95% witih two liters. HEENT: Head normocephalic, atraumatic. Eyes: Extraocular muscles are intact. Pupils are equal, round and reactive to light and accommodation. Ears: No lesions. Nose appeared normal. Throat: No exudate or erythema. NECK: Supple. LUNGS: Decreased breath sounds. HEART: S1, S2, no S3. ABDOMEN: Soft. EXTREMITIES: Trace edema. NEUROLOGIC: No focal deficit. Cranial nerves II through XII are grossly intact. No headache. No double vision. SKIN: Not dry. Intact. Turgor - normal. LYMPHATIC: No palpable lymph nodes/no lymphedema. MUSCULOSKELETAL: Normal joints with no swelling. Muscle tone is normal. LABS: Hemoglobin 12.3, hematocrit 38, WBC 9,100, normal differential. His labs were just like yesterday. ASSESSMENT: Pneumonitis seems to be resolving. Swallowing seems to be better. PLAN: Encourage patient to take his medication by mouth as that will help a lot and eventually he may be able to talk. Patient's overall condition has been deteriorating and they are thinking about patient being on hospice. TIME SPENT: More than 35 minutes. Plan and coordination of the patient's care discussed in the presence of nurse. MARTHA
--- NOTE | 2022-08-05 16:02 | PN ---
DATE OF SERVICE: 08/05/22 SUBJECTIVE: Patient was seen and examined today with the nurse practitioner. Patient's condition is steadily improving but he is unable to talk. His swallowing problems still exist but his appetite has gotten better. His respiratory status has improved. TIME SPENT: More than 35 minutes. Plan and coordination of the patient's care discussed in the presence of nurse. MARTHA
[2022-08-05] MEDS: ZOFRAN 4 MG/2 ML IVP PRN (22:30)
[2022-08-06] MEDS: ZOSYN 4.5 GM 4.5 GM in SODIUM CHLORIDE 100ML 100 ML IV SCH ×5 (00:27→23:28)
[2022-08-06] MEDS ORDERED: TYLENOL RC ONE (01:10)
[2022-08-06] MEDS: DUONEB NEB SCH ×4 (04:30→19:48)
[2022-08-06 05:39] LABS: BASOPHILS % (AUTO) 0.3 % (0.0-3.0); EOSINOPHILS # (AUTO) 0.3 K/ul (0.0-0.7); EOSINOPHILS % (AUTO) 2.4 % (0.0-7.0); HEMATOCRIT 37.9 % (42.0-52.0); HEMOGLOBIN 12.1 g/dl (14.0-18.0); IMMATURE GRANULOCYTE # (AUTO) 0.1 (0.0-1.0); IMMATURE GRANULOCYTE % (AUTO) 0.5 % (0.0-5.0); LYMPHOCYTES # (AUTO) 1.7 K/uL (0.60-3.4); LYMPHOCYTES % (AUTO) 15.8 (10.0-50.0); MEAN CORPUSCULAR HEMOGLOBIN 28.7 pg (27.0-31.0); MEAN CORPUSCULAR HGB CONC 31.9 (31.8-35.4); MEAN CORPUSCULAR VOLUME 89.8 fl (80.0-94.0); MONOCYTES # (AUTO) 0.5 K/uL (0.4-2.0); MONOCYTES % (AUTO) 4.9 (0-10); NEUTROPHILS # (AUTO) 8.3 K/ul (2.0-6.9); NEUTROPHILS % (AUTO) 76.1 % (42.2-75.2); PLATELET COUNT 348 10^3/uL (140-440); RDW COEFFICIENT OF VARIATION 15.9 % (11.6-14.8); RED BLOOD COUNT 4.22 10^6/ul (4.70-6.10); WHITE BLOOD COUNT 10.92 K/ul (4.2-10.2)
[2022-08-06 05:58] LABS: ALANINE AMINOTRANSFERASE 13.1 U/L (0-50); ALBUMIN 3.76 g/dL (3.5-5.0); ALKALINE PHOSPHATASE 120.4 U/L (56-119); ASPARTATE AMINO TRANSFERASE 60.1 U/L (17-59); BILIRUBIN,TOTAL 0.59 mg/dL (0.2-1.3); BLOOD UREA NITROGEN 17.7 mg/dL (9-20); CALCIUM 9.1 mg/dL (8.4-10.2); CARBON DIOXIDE 34.9 mmol/L (22-30.0); CHLORIDE 102.1 mmol/L (98-107); CREATININE 0.8 mg/dL (0.60-1.10); GLUCOSE 147.2 mg/dL (74-106); POTASSIUM 4.14 mmol/L (3.5-5.1); SODIUM 139.8 mmol/L (134.5-145); TOTAL PROTEIN 6.79 g/dL (6.3-8.2)
[2022-08-06] MEDS: LASIX IVP SCH (06:02)
[2022-08-06] MEDS ORDERED: ATIVAN IVP PRN (08:27)
[2022-08-06] MEDS: PROTONIX IV IVP SCH ×2 (08:55→20:33)
--- NOTE | 2022-08-06 09:12 | PCM.PROG ---
Attending Provider: ATTENDING PROVIDER: Dr. SUN NAGEL MD This patient is seen with Tiera Vaz, Nurse Practitioner. DATE OF SERVICE: 08/06/22 SUBJECTIVE: This 81 year old /WHITE M was hospitalized 07/28/22. Fever through the night with episodes of vomiting. He now having brown liquid when suctioning. Unable to take his medication this morning. Yesterday has was agreeable to Hos pice. Made referral to [facility] and they are willing to accept. due to change in condition we may begin palliative care here. REVIEW OF SYSTEMS: CONSTITUTIONAL: No night sweats. No fatigue, malaise, lethargy. Fever. Weakness. HEENT: Eyes: No visual changes. No eye pain. No eye discharge. ENT: No runny nose. No epistaxis. No sinus pain. No odynophagia. No congestion. RESPIRATORY: No cough, no congestion. No hemoptysis. No shortness of breath. CARDIOVASCULAR: No angina symptoms. No CHF symptoms. No atypical chest pain for CAD. No palpitations. No orthopnea.. GASTROINTESTINAL: No abdominal pain. No nausea or vomiting. No diarrhea or constipation. No hematemesis. No hematochezia. Dysphagia. GENITOURINARY: No urgency. No frequency. No dysuria. No hematuria. No obstr uctive symptoms. No discharge. No pain. No significant abnormal bleeding. MUSCULOSKELETAL: No musculoskeletal pain; no joint swelling. NEUROLOGICAL: Awake, alert, oriented to time, place and person. No headache. No neck pain. No syncope. No seizures. No dizziness. PSYCHIATRIC: Not anxious. No depression. No suicidal thoughts. No homicidal thoughts. SKIN: No rash. No lesions. No wounds. ENDOCRINE: No unexplained weight loss. No weight gain. HEMATOLOGIC/LYMPHATIC: No anemia. No purpura. No petechiae. No prolonged or excessive bleeding. No palpable lymph nodes. PHYSICAL EXAMINATION: GENERAL: The patient is awake, alert and oriented, lying in bed in no distress. VITAL SIGNS: Temperature 99.4 F, Pulse 92, Respiratory Rate 21, BP 107/50, Pulse Ox 91% HEENT: Head normocephalic, atraumatic. Eyes: Extraocular muscles are intact. Pupils are equal, round and reactive to light and accommodation. Ears: No lesions. Nose appeared normal. Throat: No exudate or erythema. Inabliity to swallow. NECK: Supple. No JVD, no carotid bruit. No lymphadenopathy or thyromegaly. LUNGS: Severely diminished breath sounds with bilateral rhonchi. Clear to auscultation. Percussion note normal. Chest symmetrical. HEART: S1, S2, no S3. No murmurs. No cyanosis or clubbing. No ascites. Pulses: Dorsalis pedis and posterior tibial pulses +1 to +2 both sides. ABDOMEN: Soft. Non-tender. Bowel sounds active. No CVA tenderness. No mass felt. EXTREMITIES: Trace leg edema. Full range of motion of all extremities, equal. NEUROLOGIC: No focal deficit. Cranial nerves II through XII are grossly intact. No headache. No double vision. SKIN: Not dry. Intact. Turgor-normal. LYMPHATIC: No palpable lymph nodes/no lymphedema. MUSCULOSKELETAL: Normal joints with no swelling. Muscle tone is normal. LAB REVIEW: 08/06/22 05:28 08/06/22 05:28 08/06/22 05:28: WBC 10.92 H, RBC 4.22 L, Hgb 12.1 L, Hct 37.9 L, MCV 89.8, MCH 28.7, MCHC 31.9, RDW Coeff of Leda 15.9 H, Plt Count 348, Immature Gran % (Auto) 0.5, Neut % (Auto) 76.1 H, Lymph % (Auto) 15.8, [place] % (Auto) 4.9, Eos % (Auto) 2.4, Baso % (Auto) 0.3, Neut # (Auto) 8.3 H, Lymph # (Auto) 1.7, [place] # (Auto) 0.5, Eos # (Auto) 0.3, Baso # (Auto) 0.0, Immature Gran # (Auto) 0.1, Sodium 139.8, Potassium 4.14, Chloride 102.1, Carbon Dioxide 34.9 H, Anion Gap 6.94, BUN 17.7, Creatinine 0.80, Estimated GFR (MDRD) 93.00, BUN/Creatinine Ratio 22.12, Glucose 147.2 H, Calcium 9.10, Total Bilirubin 0.59, AST 60.1 H, ALT 13.1, Alkaline Phosphatase 120.4 H, Total Protein 6.79, Albumin 3.76, Globulin 3.03, Albumin/Globulin Ratio 1.24 ASSESSMENT: Please see below. 1. Failure to thrive 2. Endstage Parkinson's 3. Fever 4. Dysphagia PLAN: 1. Continue Zofran IV PRN 2. Protonix 40mg IV Q 12 hours 3. Ativan 0.5mg Q 6 hours PRN 4. Goal to keep patient comfortable. Spoke with Roderick yesterday and they in agreement with this and may need to start Morphine if condition worsens. 5. Change Prednisone to BID 6. Vistaril 12.5mg IV Q 8 hours PRN Plan and coordination of the patient's care discussed in the presence of Truck Service Technician and nurse. SCRIBED BY: CRIS DEL ROSARIO Enrichment Teacher scribed while in presence of service performed by Tiera Vaz APRN on 08/06/22 ([id number]) Coding (1) Oropharyngeal dysphagia: Status: Acute Code(s): R13.12 - Dysphagia, oropharyngeal phase SNOMED Code(s): 06674823 (2) Parkinson disease: Status: Acute Code(s): G20 - Parkinson's disease SNOMED Code(s): 05682220 (3) Aspiration pneumonia: Status: Acute Code(s): J69.0 - Pneumonitis due to inhalation of food and vomit SNOMED Code(s): 870149502 (4) COVID-19: Status: Acute Code(s): U07.1 - COVID-19 SNOMED Code(s): 942602026
[2022-08-06] MEDS: MIRALAX PO SCH ×2 (09:15→20:12)
[2022-08-06] MEDS: ASPIRIN EC PO SCH (09:16)
[2022-08-06] MEDS: SINEMET 25-100 PO SCH ×4 (09:17→20:10)
[2022-08-06] MEDS: MUCINEX PO SCH ×2 (09:17→20:10)
[2022-08-06] MEDS: GLUCOPHAGE PO SCH (09:20)
[2022-08-06] MEDS: K-DUR PO SCH ×2 (09:20→16:51)
[2022-08-06] MEDS: NORCO 5-325 PO SCH ×3 (09:23→20:10)
[2022-08-06] MEDS: VITAMIN D PO SCH ×2 (09:23→20:10)
[2022-08-06] MEDS: PREDNISONE PO SCH ×3 (09:26→16:52)
[2022-08-06] MEDS: COLACE PO SCH ×2 (09:26→20:10)
[2022-08-06] MEDS: CLARITIN PO SCH (09:29)
[2022-08-06] MEDS: SYMBICORT 160-4.5 MCG INHALER IH SCH ×2 (09:33→20:11)
[2022-08-06] MEDS: ZOFRAN 4 MG/2 ML IVP PRN (11:05)
[2022-08-06] MEDS: VISTARIL INJ IM PRN (15:40)
[2022-08-07] MEDS: DUONEB NEB SCH ×3 (04:30→13:35)
[2022-08-07 05:33] VITALS: BP 114/67; RESP 19; TEMP 97.3
[2022-08-07] MEDS: ZOSYN 4.5 GM 4.5 GM in SODIUM CHLORIDE 100ML 100 ML IV SCH ×2 (05:36→12:46)
[2022-08-07] MEDS: LASIX IVP SCH (05:46)
[2022-08-07 06:25] LABS: BASOPHILS % (AUTO) 0.3 % (0.0-3.0); EOSINOPHILS # (AUTO) 0.1 K/ul (0.0-0.7); EOSINOPHILS % (AUTO) 1.1 % (0.0-7.0); HEMATOCRIT 37.4 % (42.0-52.0); HEMOGLOBIN 11.8 g/dl (14.0-18.0); IMMATURE GRANULOCYTE # (AUTO) 0.1 (0.0-1.0); IMMATURE GRANULOCYTE % (AUTO) 0.8 % (0.0-5.0); LYMPHOCYTES # (AUTO) 1.5 K/uL (0.60-3.4); LYMPHOCYTES % (AUTO) 15.5 (10.0-50.0); MEAN CORPUSCULAR HEMOGLOBIN 28.2 pg (27.0-31.0); MEAN CORPUSCULAR HGB CONC 31.6 (31.8-35.4); MEAN CORPUSCULAR VOLUME 89.5 fl (80.0-94.0); MONOCYTES # (AUTO) 0.5 K/uL (0.4-2.0); MONOCYTES % (AUTO) 4.9 (0-10); NEUTROPHILS # (AUTO) 7.5 K/ul (2.0-6.9); NEUTROPHILS % (AUTO) 77.4 % (42.2-75.2); PLATELET COUNT 339 10^3/uL (140-440); RDW COEFFICIENT OF VARIATION 15.9 % (11.6-14.8); RED BLOOD COUNT 4.18 10^6/ul (4.70-6.10); WHITE BLOOD COUNT 9.64 K/ul (4.2-10.2)
[2022-08-07 06:35] LABS: ALANINE AMINOTRANSFERASE 35.9 U/L (0-50); ALBUMIN 4.05 g/dL (3.5-5.0); ALKALINE PHOSPHATASE 122.6 U/L (56-119); ASPARTATE AMINO TRANSFERASE 64.7 U/L (17-59); BILIRUBIN,TOTAL 0.44 mg/dL (0.2-1.3); BLOOD UREA NITROGEN 14.5 mg/dL (9-20); CALCIUM 9.48 mg/dL (8.4-10.2); CARBON DIOXIDE 31.8 mmol/L (22-30.0); CHLORIDE 103.5 mmol/L (98-107); CREATININE 0.67 mg/dL (0.60-1.10); GLUCOSE 128.7 mg/dL (74-106); POTASSIUM 3.82 mmol/L (3.5-5.1); SODIUM 139.6 mmol/L (134.5-145); TOTAL PROTEIN 7.25 g/dL (6.3-8.2)
[2022-08-07] MEDS: K-DUR PO SCH (09:46)
[2022-08-07] MEDS: GLUCOPHAGE PO SCH (09:46)
[2022-08-07] MEDS: ASPIRIN EC PO SCH (09:46)
[2022-08-07] MEDS: PREDNISONE PO SCH (09:46)
[2022-08-07] MEDS: MIRALAX PO SCH (09:46)
[2022-08-07] MEDS: PROTONIX IV IVP SCH (09:46)
[2022-08-07] MEDS: VITAMIN D PO SCH (09:46)
[2022-08-07] MEDS: MUCINEX PO SCH (09:47)
[2022-08-07] MEDS: SINEMET 25-100 PO SCH (09:47)
[2022-08-07] MEDS: NORCO 5-325 PO SCH (09:47)
[2022-08-07] MEDS: SYMBICORT 160-4.5 MCG INHALER IH SCH (09:47)
[2022-08-07] MEDS: COLACE PO SCH (09:47)
[2022-08-07] MEDS: CLARITIN PO SCH (09:47)
[2022-08-07] MEDS: VISTARIL INJ IM PRN (10:07)
[2022-08-07] MEDS ORDERED: DECADRON IM ONE (11:09)
== END 2022-08-07 13:50 | disposition short-term general hospital (02) | DRG 177 ==
LOC: ED 09:08 → SCU 11:23
PROVIDERS: ADMIT Internal Medicine; ATTEND Internal Medicine
DX: I25.810 Atherosclerosis of coronary artery bypass graft(s) without angina pectoris; J69.0 Pneumonitis due to inhalation of food and vomit; U07.1 COVID-19; Z95.5 Presence of coronary angioplasty implant and graft; G20 Parkinson's disease; I10 Essential (primary) hypertension; J96.01 Acute respiratory failure with hypoxia; K59.00 Constipation, unspecified; R13.12 Dysphagia, oropharyngeal phase

== ENCOUNTER 2023-04-27 13:04 | Inpatient (IN) ==
[2023-04-27] MEDS: TRANSDERM-SCOP 1.5 MG PATCH TD ONE (13:40)
[2023-04-27] MEDS: SODIUM CHLORIDE 1,000 ML IV ONE (13:40)
[2023-04-27 13:44] LABS: HEMATOCRIT 40.4 % (42.0-52.0); HEMOGLOBIN 11.9 g/dl (14.0-18.0); MEAN CORPUSCULAR HEMOGLOBIN 26.7 pg (27.0-31.0); MEAN CORPUSCULAR HGB CONC 29.5 (31.8-35.4); MEAN CORPUSCULAR VOLUME 90.8 fl (80.0-94.0); PLATELET COUNT 262 10^3/uL (140-440); RDW COEFFICIENT OF VARIATION 17.6 % (11.6-14.8); RED BLOOD COUNT 4.45 10^6/ul (4.70-6.10); WHITE BLOOD COUNT 8.43 K/ul (4.2-10.2)
[2023-04-27 13:57] LABS: ALANINE AMINOTRANSFERASE 21.7 U/L (0-50); ALBUMIN 3.68 g/dL (3.5-5.0); ALKALINE PHOSPHATASE 134.6 U/L (56-119); ASPARTATE AMINO TRANSFERASE 74.4 U/L (17-59); BILIRUBIN,TOTAL 0.41 mg/dL (0.2-1.3); BLOOD UREA NITROGEN 43.4 mg/dL (9-20); CALCIUM 9.36 mg/dL (8.4-10.2); CARBON DIOXIDE 30.2 mmol/L (22-30.0); CREATININE 1.09 mg/dL (0.60-1.10); GLUCOSE 169.6 mg/dL (74-106); SODIUM 146.3 mmol/L (134.5-145); TOTAL PROTEIN 7.18 g/dL (6.3-8.2)
--- NOTE | 2023-04-27 13:59 | ED.PDOC ---
General ED Provider: Dr. NAA MCRAE DO Chief Complaint: Shortness of Air Stated Complaint: Patient is a 82 yo M here for sob Patient arrives afebrile and vitally stable on baseline 5 L NC Unfortuantely patient is in hospice for end stage parkinsons disease He has frequent events of aspiration pneumonia, and family thinks that has ocurred He is currently RSV positive patient is DNR DNI on hospice POA son Yann at bedside Family amenable to labs iamigng and work up, they would like to know "Well how sick is he, that is why we came in." Patient obtunded He is non verbal at baseline, but normally is awake and communcative with gestures and writing Time Seen by Provider: 04/27/23 13:09 Information Source: Family, Longterm and EMT Primary Care Provider: SUN DE LA FUENTE MD Nursing and Triage Documentation Reviewed and Agree: Yes What is Opioid Naive?: *Opioid Naive implies the patient is not already taking opioids or not chronically receiving opioids on a daily basis. *PRN dosing is not "usually" associated with tolerance. *Patients are at higher risk of over-sedation and aspiration. What is Opioid Tolerant?: *Opioid Tolerance implies less than the expected response to an opioid. *Acquired tolerance is defined by the patient taking 60mg of oral morphine daily (or equianalgesic dose of another opioid) for 1 week or more. *Often associated with chronic pain. *May take more than usual dose to achieve desired pain control. Review of Systems Review Of Systems Constitutional: Reports No symptoms (unable due to illness) [facility] Medical History Anemia BPH (benign prostatic hyperplasia) CAD (coronary artery disease) Cervical radiculopathy Chronic arthritis Dementia Diabetes mellitus Disc narrowing Gastroesophageal reflux disease Hyperlipidemia Hypertension Left ventricular hypertrophy Oropharyngeal dysphagia Parkinson disease Family History FATHER Heart attack BROTHER Diabetes Social History Smoking and tobacco status: Former smoker Tobacco: How many years used: 30 Second hand smoke exposure: No Alcohol intake: former Substance use type: does not use History of recent travel: No Seatbelt use: always Surgical History History of cholecystectomy History of heart artery stent History of lumbar fusion Physical Exam Physical Exam Appearance: Reports Ill-appearing and Thin Ill-appearing: Severe Pain Distress: Not Applicable Eyes: Reports TRACY, EOMI and Conjunctiva clear ENT: Reports Ears normal, Nose normal and Oropharynx normal Neck: Supple Respiratory: Reports Airway patent, Crackles and Rhonchi; Denies Airway obstructed or Retractions Cardiovascular: Reports RRR and Pulses normal GI/: Reports Soft, Nontender and Other (ferguson in place) Musculoskeletal: Denies No edema or Calf tenderness Skin: Reports Warm and Dry Neurological: Reports Other (watches the room, can try to follow commands but appears to want to sleep and close his eyes) Psychiatric: Reports Other (unable to assess) Interpretation EKG Interpretation EKG Interpretation By: ED Physician Time of EKG #1: 13:30 Interpretation: NSR rate 96 no stemi movement artifact Course Course 04/27/23 13:33 04/27/23 13:33 Orders, Labs, Meds: Lab Review 04/27/23 04/27/23 04/27/23 13:30 13:33 14:19 WBC 8.43 RBC 4.45 L Hgb 11.9 L Hct 40.4 L MCV 90.8 MCH 26.7 L MCHC 29.5 L RDW Coeff of Leda 17.6 H Plt Count 262 Neutrophils % (Manual) 82.0 H Lymphocytes % (Manual) 13.0 Monocytes % (Manual) 3.0 Eosinophils % (Manual) 2.0 Anisocytosis Not present Sodium 146.3 H Potassium 3.66 Chloride 109.0 H Carbon Dioxide 30.2 H Anion Gap 10.76 BUN 43.4 H Creatinine 1.09 Estimated GFR (MDRD) 65.00 BUN/Creatinine Ratio 39.81 Glucose 169.6 H Lactic Acid 2.64 H Calcium 9.36 Total Bilirubin 0.41 AST 74.4 H ALT 21.7 Alkaline Phosphatase 134.6 H Troponin I 0.031 Total Protein 7.18 Albumin 3.68 Globulin 3.50 Albumin/Globulin Ratio 1.05 Urine Color Yellow Urine Clarity Clear Urine pH >=9.0 Ur Specific Ione 1.015 Urine Protein 3+ H Urine Glucose (UA) Trace H Urine Ketones Trace H Urine Blood 3+ H Urine Nitrite Positive H Urine Bilirubin 1+ H Urine Urobilinogen 1.0 H Ur Leukocyte Esterase 3+ H Urine Microscopic RBC 10-20 Urine Microscopic WBC 10-20 Ur Squamous Epith Cells 2-5 Influ A Molecular Assay Negative by naat Influ B Molecular Assay Negative by naat SARS CoV-2 RNA Rapid ZACHARIAH Negative Orders Category Date Time Status EKG-(ED ONLY) Stat CARDIO 04/27/23 13:17 Completed NPO REMINDER: IMAGING ONCE CARE 04/27/23 13:18 Completed BLOOD CULTURE Stat LAB 04/27/23 13:43 Received CBC W/ AUTO DIFF Stat LAB 04/27/23 13:33 Completed COMPREHENSIVE METABOLIC PANEL Stat LAB 04/27/23 13:33 Completed FLU A & B MOLECULAR [FLU A/B MOLECULAR] Stat LAB 04/27/23 13:30 Completed LACTIC ACID Stat LAB 04/27/23 13:33 Completed MANUAL DIFFERENTIAL Stat LAB 04/27/23 13:33 Completed SARS COV-2 RNA RAPID ZACHARIAH Stat LAB 04/27/23 13:30 Completed TROPONIN I Stat LAB 04/27/23 13:33 Completed UA [URINALYSIS C & S IF INDICATED] Stat LAB 04/27/23 14:19 Completed URINE CULTURE Stat LAB 04/27/23 14:41 Received Ceftriaxone/D5w 1 gm Premix [Rocephin 1 gm/50 ml D5w] Meds 04/27/23 14:17 Discontinued 1 gm in 50 ml IV ONCE Metronidazole/Sodium Chloride [Flagyl 500 mg/100 ml] Meds 04/27/23 14:17 Discontinued 500 mg in 100 ml IV ONCE Scopolamine Hydrobromide [Transderm-Scop 1.5 mg Patch] Meds 04/27/23 13:38 Discontinued 1 patch TD ONCE ONE Sodium Chloride 0.9% [Sodium Chloride] 1,000 ml Meds 04/27/23 13:[address] CHEST PE PROTOCOL Stat RADS 04/27/23 13:17 Completed Medications Discontinued Medications Generic Name Dose Route Start Last Admin Trade Name Freq PRN Reason Stop Dose Admin Sodium Chloride 1,000 mls @ 1,000 mls/hr 04/27/23 13:20 04/27/23 16:29 Sodium Chloride IV 04/27/23 14:19 Infused BOLUS ONE Infusion CEFTRIAXONE/D5W 1 GM PREMIX 1 gm in 50 mls @ 100 mls/hr 04/27/23 14:17 04/27/23 14:34 Rocephin 1 Gm/50 Ml D5w IV 04/27/23 14:46 100 mls/hr ONCE ONE Administration Metronidazole 500 mg in 100 mls @ 100 mls/hr 04/27/23 14:17 04/27/23 16:00 Flagyl 500 Mg/100 Ml IV 04/27/23 15:16 100 mls/hr ONCE ONE Administration Scopolamine HBr 1 patch 04/27/23 13:38 04/27/23 13:40 Scopolamine Hydrobromide 1.5 Mg Patch.Td72 TD 04/27/23 13:39 Not Given ONCE ONE Vital Signs: Temp Pulse Resp BP Pulse Ox 04/27/23 13:06 98.2 F 91 18 104/56 L 97 MDM: Patient is a 82 yo M here for Family concern for pneumonia Patient arrives afebrile with low normal Blood pressure Exam concerning for aspiration pneumonia SON POA reports patient is RSV + and concerned for aspiration pneumonia Hx from son and EMS chart review by me 3+ labs and 1 image result reviewed by me I consulted Dr. De La Fuente who requests admission from Hospitalist UDAY Rodríguez I consulted Hospitalist, She contacted Patient's Hospice provider they have a plan to stop hospice and admit Son requests admission, we discussed poor prognosis, lab, imaging results. Son would like father admitted to hopefully improve pneumonia secretions and discomfort with IV antibiotics. He wants him to remain DNR and DNI. He declines vasopressors or central line placement, he declines bipap/cpap/intubation or chest compressions. He understands hospice will be revoked and may have to be restarted later if patient improves We discussed his father may with his specific requests, he is sick on hospice and has viral and bacterial pneumonia with low blood pressure - he is high risk for morbidity mortality Risks benefits and alternatives discussed. POA declines going back to SNF on hospice. He allows for admission, gentle fluids, analgesics and anxiolytics and IV antibiotics. WDX: RSV, Aspiration BL pneumonia, low blood pressure, elevated lactic acid level acute high complexity DDX: I considered septic shock, pneumothorax, covid 19 but these are less likely SDOH: Patient is very sick and we will support POA's wishes, but prognosis is guarded Patient admitted in serious condition DNR/DNI Discharge Plan Discharge Patient Disposition: PLACED OBSERVATION Discharge Problem: Aspiration pneumonia, RSV infection, Elevated lactic acid level, Low blood pressure Did you review [place] TOY CONSULTANT for ALL controlled substances?: Not Applicable ED Provider: NAA MCRAE Condition: Poor Physician Progress Note: []
[2023-04-27 14:00] LABS: ANISOCYTOSIS NOT PRESENT (NOT PRESENT)
[2023-04-27 14:08] LABS: TROPONIN I 0.031 ng/ml (0.0000-0.120)
[2023-04-27 14:16] LABS: MOLECULAR FLU A NEGATIVE BY NAAT (NEGATIVE); SARS COV-2 RNA RAPID NAAT NEGATIVE (NEGATIVE)
[2023-04-27 14:18] LABS: MOLECULAR FLU B NEGATIVE BY NAAT (NEGATIVE)
[2023-04-27] MEDS: ROCEPHIN 1 GM/50 ML D5W 1 GM/50 ML BAG IV ONE (14:34)
[2023-04-27 14:39] LABS: BILIRUBIN,URINE 1+ (NEGATIVE); CLARITY,URINE Clear (CLEAR); COLOR,URINE Yellow (YELLOW); GLUCOSE, URINE (UA) Trace (NEGATIVE); KETONES,URINE Trace (NEGATIVE); LEUKOCYTE ESTERASE ,URINE 3+ (NEGATIVE); NITRITE,URINE Positive (NEGATIVE); PH,URINE >=9.0 (5-9); PROTEIN,URINE 3+ (NEGATIVE); URINE, BLOOD 3+ (NEGATIVE)
--- NOTE | 2023-04-27 15:30 | CT ---
EXAM: CHEST CTA WITH CONTRAST (PULMONARY ARTERY) HISTORY: End-stage Parkinson's. RSV positive. Aspiration is suspected. TECHNIQUE: CTA acquisition of the chest from the thoracic inlet to the upper abdomen following IV con trast administration timed to filling of the pulmonary artery. IV Contrast: 100 mL of Omnipaque 350. 3D/MIP/VR images Yes. CT Dose Reduction Techniques Employed: Yes. COMPARISON: 06/06/2022 FINDINGS: Lines, Tubes, Devices: None. Pulmonary Embolism: - Diagnostic quality: There is some motion artifact. However the pulmonary vessels are well evaluate d.. - Central(Main/Lobar/Interlobar): No embolus. - Peripheral (Segmental/Subsegmental): No embolus. - Right ventricle/Left ventricle ratio (normal <0.9): Normal. Lung Parenchyma and Airways: Central airways are patent without endobronchial lesion. Dense bilateral lower lobe consolidation is seen. Diffuse reticular nodular opacities also seen thro ughout the lower lobes. No suspicious pulmonary nodule. Pleural Space: No pleural effusion. No pleural thickening. No pneumothorax. Thoracic Inlet, Mediastinum, and Adele: Thyroid gland is normal. There are multiple enlarged lymph no jennifer which not similar previous study. There are a AP window lymph nodes measuring 1.4 1.6 cm in the short axis. There is a subcarinal lymph node with a short axis measuring up to 1.1 cm. Left hilar l ymph nodes with a short axis measuring 1.0 cm.. Heart, Vessels, and Pericardium: -Aorta is normal in caliber with mild atherosclerotic calcifications. -Main pulmonary artery is normal in caliber. -Heart chambers are not enlarged. -No significant valvular calcifications. -Heavy tri-vessel coronary artery calcifications, however exam is not optimized for evaluation. -No pericardial effusion or thickening. Bones and Soft Tissues: Visualized bones are within normal limits. Chest wall soft tissues are withi n normal limits. Upper Abdomen: Within normal limits. IMPRESSION: 1. No pulmonary embolism. 2. Dense bilateral lower lobe consolidation consistent with pneumonia. Aspiration is not excluded. 3. Heavy coronary artery calcifications. 4. New nonspecific mediastinal and hilar adenopathy. Recommend follow-up. All CT scans are performed using dose optimization techniques as appropriate to the performed exam an d include at least one of the following: Automated exposure control, adjustment of the mA and/or kV according t o size, and the use of iterative reconstruction technique.
[2023-04-27 15:36] LABS: POTASSIUM 3.66 mmol/L (3.5-5.1)
[2023-04-27] MEDS: FLAGYL 500 MG/100 ML 500 MG/100 ML BAG IV ONE (16:00)
[2023-04-27] MEDS ORDERED: ZOFRAN 4 MG/2 ML IVP PRN (16:38)
[2023-04-27] MEDS ORDERED: TYLENOL PO PRN (16:38)
--- NOTE | 2023-04-27 16:38 | PCM.PROG ---
Spoke with Sarah Coker of [facility], she states that the typical protocol is for [facility] to notify hospice prior to patient going to ER. She does not see in her records where that had been done. Nonetheless, the patient's POA would like him to be admitted for antibiotics. Sarah states this will require the POA to sign a form revoking hospice care at this time. If they choose to go back on hospice, he will need a new referral following this hospitalization. I asked Dr. Ely to relay this information to the POA to make sure they are in agreement. Stephanie Hendrix from [facility] called stating she will fax the form over to be filled out by the POA revoking services.
[2023-04-27 17:25] VITALS: BMI 19.5
[2023-04-27] MEDS: SODIUM CHLORIDE 1,000 ML IV SCH ×2 (17:39→23:25)
[2023-04-27] MEDS ORDERED: DEXTROSE 50%-WATER ABBOJECT IVP PRN (17:52)
[2023-04-27] MEDS: DUONEB NEB SCH (17:55)
[2023-04-27] MEDS: SOLU-MEDROL 40 MG IVP SCH (20:45)
[2023-04-27] MEDS: LACTATED RINGERS 500 ML IV ONE (21:25)
[2023-04-27] MEDS: FLAGYL 500 MG/100 ML 500 MG/100 ML BAG IV SCH (22:22)
[2023-04-28] MEDS: TYLENOL RC ONE (05:17)
[2023-04-28 05:21] LABS: HEMOGLOBIN 9.9 g/dl (14.0-18.0); MEAN CORPUSCULAR HEMOGLOBIN 27.2 pg (27.0-31.0); MEAN CORPUSCULAR VOLUME 90.7 fl (80.0-94.0); PLATELET COUNT 209 10^3/uL (140-440); RDW COEFFICIENT OF VARIATION 17.6 % (11.6-14.8); RED BLOOD COUNT 3.64 10^6/ul (4.70-6.10); WHITE BLOOD COUNT 6.14 K/ul (4.2-10.2)
[2023-04-28 05:38] LABS: ALANINE AMINOTRANSFERASE 31.7 U/L (0-50); ALBUMIN 2.88 g/dL (3.5-5.0); ALKALINE PHOSPHATASE 106.6 U/L (56-119); ASPARTATE AMINO TRANSFERASE 53.8 U/L (17-59); BILIRUBIN,TOTAL 0.31 mg/dL (0.2-1.3); BLOOD UREA NITROGEN 31.1 mg/dL (9-20); CALCIUM 8.62 mg/dL (8.4-10.2); CARBON DIOXIDE 27.7 mmol/L (22-30.0); CHLORIDE 117.1 mmol/L (98-107); CREATININE 0.84 mg/dL (0.60-1.10); GLUCOSE 134.5 mg/dL (74-106); POTASSIUM 3.41 mmol/L (3.5-5.1); SODIUM 145.8 mmol/L (134.5-145); TOTAL PROTEIN 5.89 g/dL (6.3-8.2)
[2023-04-28 05:51] LABS: ANISOCYTOSIS NOT PRESENT (NOT PRESENT)
[2023-04-28] MEDS: LACTATED RINGERS 1,000 ML IV ONE (08:41)
[2023-04-28] MEDS: POTASSIUM CHLORIDE 20 MEQ/100 ML PREMIX 20 MEQ/100 ML BAG IV ONE (09:02)
[2023-04-28] MEDS: ROCEPHIN 1 GM/50 ML D5W 1 GM/50 ML BAG IV SCH (09:42)
--- NOTE | 2023-04-28 10:27 | PCM ---
Date of Service Date Seen by Provider: 04/28/23 Time Seen by Provider: 08:20 Admit Day/Time Admission Date: 04/27/23 Reason for Admission Chief Complaint: RSV; ASPIRATION PNEUMONIA; HYPOTENSION Hospital Provider Hospital Provider: TORITO CHAVARRIA, [facility] Primary Care Physician Primary Care Physician: SUN DE LA FUENTE MD History of Present Illness History of Present Illness: 82 yo male presented to ER from [facility] for shortness of breath. Patient was at [facility] under hospice care. POA does not wish for patient to return to [facility] at this time. He was sent to ER following an aspiration episode and shortness of breath. POA wished for ER doctor to complete full work-up and treat patient with antibiotics. Maintain DNR status with no vasopressors. Patient was found to have pneumonia, UTI, and possible infection to coccyx wound. Also found to have RSV. He was requiring 3-4 L of O2 in ER and was hypotensive. Admitted to med/surg inpatient. Case Discussed With Case Discussed With: Patient's case was discussed with the ER Physicians, Dr. Ely [facility] Medical History Oropharyngeal dysphagia R13.12 - Dysphagia, oropharyngeal phase (ICD-10) Cervical radiculopathy M54.12 - Radiculopathy, cervical region (ICD-10) Diabetes mellitus E11.9 - Type 2 diabetes mellitus without complications (ICD-10) CAD (coronary artery disease) I25.10 - Atherosclerotic heart disease of [place] coronary artery without angina pectoris (ICD-10) Left ventricular hypertrophy I51.7 - Cardiomegaly (ICD-10) Disc narrowing M99.79 - Connective tissue and disc stenosis of intervertebral foramina of abdomen and other regions (ICD-10) BPH (benign prostatic hyperplasia) N40.0 - Benign prostatic hyperplasia without lower urinary tract symptoms (ICD-10) Dementia F03.90 - Unspecified dementia without behavioral disturbance (ICD-10) Anemia D64.9 - Anemia, unspecified (ICD-10) Parkinson disease G20 - Parkinson's disease (ICD-10) Hypertension I10 - Essential (primary) hypertension (ICD-10) Gastroesophageal reflux disease K21.9 - Gastro-esophageal reflux disease without esophagitis (ICD-10) Hyperlipidemia E78.5 - Hyperlipidemia, unspecified (ICD-10) Chronic arthritis M19.90 - Unspecified osteoarthritis, unspecified site (ICD-10) Surgical History History of lumbar fusion Z98.1 - Arthrodesis status (ICD-10) History of cholecystectomy Z90.49 - Acquired absence of other specified parts of digestive tract (ICD- 10) History of heart artery stent Z95.5 - Presence of coronary angioplasty implant and graft (ICD-10) Family History FATHER Heart attack BROTHER Diabetes Social History Smoking and tobacco status: Former smoker Tobacco: How many years used: 30 Second hand smoke exposure: No Alcohol intake: former Substance use type: does not use History of recent travel: No Seatbelt use: always Allergies Allergies Allergy/AdvReac Type Severity Reaction Status Date / Time celecoxib [From Celebrex] AdvReac Verified 07/28/22 09:19 meloxicam [From Mobic] AdvReac Verified 07/28/22 09:19 Penicillins AdvReac Rash Verified 07/28/22 09:19 Current Medications Home Medications aspirin 81 mg tablet,delayed release (Aspir-) 81 mg PO DAILY 08/14/16 [History Confirmed 04/27/23 Last Taken 10/27/20] potassium chloride 20 mEq tablet,extended release 20 meq PO BID #60 tabs 08/25/20 [Rx Confirmed 04/27/23 Last Taken 10/27/20] hydrocodone 5 mg-acetaminophen 325 mg tablet 1 tab PO TID #45 tabs 11/13/20 [Rx Confirmed 04/27/23 Last Taken Unknown] acetaminophen 325 mg tablet 650 mg PO Q4H PRN fever or pain 06/01/22 [History Confirmed 04/27/23 Last Taken Unknown] bisacodyl 5 mg tablet 10 mg PO DAILY PRN Constipation 06/01/22 [History Confirmed 04/27/23 Last Taken Unknown] furosemide 40 mg tablet (Lasix) 20 mg PO BID 06/01/22 [History Confirmed 04/27/23 Last Taken Unknown] ipratropium 0.5 mg-albuterol 3 mg (2.5 mg base)/3 mL nebulization soln 3 ml inhalation Q8H PRN Shortness Of Breath Or Wheezing 06/01/22 [History Confirmed 04/27/23 Last Taken Unknown] scopolamine base 1 mg over 3 days transdermal patch 2 patch transdermal Q3D 06/01/22 [History Confirmed 04/27/23 Last Taken Unknown] cetirizine 10 mg tablet (24Hour Allergy) 10 mg PO DAILY 07/28/22 [History Confirmed 04/27/23 Last Taken Unknown] guaifenesin 600 mg tablet, extended release 12 hr (Mucinex) 600 mg PO BID 07/28/22 [History Confirmed 04/27/23 Last Taken Unknown] ondansetron 4 mg disintegrating tablet 4 mg PO Q6H PRN nausea and vomiting #14 tabs 08/07/22 [Rx Confirmed 04/27/23 Last Taken Unknown] acetaminophen 650 mg rectal suppository 650 mg NC Q6H PRN fever or pain 04/27/23 [History Confirmed 04/27/23 Last Taken Unknown] albuterol sulfate 90 mcg/actuation aerosol inhaler (Ventolin HFA) 1 puff inhalation TID 04/27/23 [History Confirmed 04/27/23 Last Taken Unknown] bisacodyl 10 mg rectal suppository (Dulcolax (bisacodyl)) 10 mg NC DAILY PRN constipation 04/27/23 [History Confirmed 04/27/23 Last Taken Unknown] carbidopa 25 mg-levodopa 100 mg tablet 1 tab PO TID 04/27/23 [History Confirmed 04/27/23 Last Taken Unknown] gentamicin 0.1 % topical ointment 1 applic topical DAILY 04/27/23 [History Confirmed 04/27/23 Last Taken Unknown] hyoscyamine sulfate 0.125 mg sublingual tablet 0.125 mg sublingual Q4H PRN dyspepsia 04/27/23 [History Confirmed 04/27/23 Last Taken Unknown] ipratropium 0.5 mg-albuterol 3 mg (2.5 mg base)/3 mL nebulization soln 3 ml inhalation QID Congestion/Wheezing 04/27/23 [History Confirmed 04/27/23 Last Taken Unknown] lactulose 10 gram/15 mL oral solution 30 ml PO DAILY PRN constipation 04/27/23 [History Confirmed 04/27/23 Last Taken Unknown] lorazepam 1 mg tablet 0.5 mg PO Q6HR PRN Restlessness/Anxiety 04/27/23 [History Confirmed 04/27/23 Last Taken Unknown] magnesium hydroxide 400 mg/5 mL oral suspension (Milk of Magnesia) 60 ml PO DAILY PRN constipation 04/27/23 [History Confirmed 04/27/23 Last Taken Unknown] morphine 10 mg/5 mL oral solution 1 - 2 mg PO Q3H PRN Pain/Anxiety/Breathing difficulty 04/27/23 [History Confirmed 04/27/23 Last Taken Unknown] nystatin 100,000 unit/gram topical powder (Nystop) 1 applic topical BID 04/27/23 [History Confirmed 04/27/23 Last Taken Unknown] sennosides 8.6 mg-docusate sodium 50 mg tablet (Laxative Stool Softener With Senna) 2 tab-cap PO BID 04/27/23 [History Confirmed 04/27/23 Last Taken Unknown] triamcinolone acetonide 0.1 % topical cream 1 applic topical BID 04/27/23 [History Confirmed 04/27/23 Last Taken Unknown] Home Acetaminophen (Acetaminophen 325 Mg Tablet) 650 mg PO Q4H PRN PRN Reason: Mild Pain Atropine Sulfate (Atropine Sulfate Opth 5 Ml Bertha) 2 drop SL Q6H [facility] Last Admin: 04/28/23 12:14 Dose: 2 drop Lorazepam (Lorazepam Oral Concentrate 2 Mg/1 Ml 30 Ml Bottle) 2 mg PO Q2H [facility] Last Admin: 04/28/23 13:18 Dose: 2 mg Morphine Sulfate (Morphine Sulfate 2 Mg/Ml Syringe) 2 mg IVP Q2H [facility] Last Admin: 04/28/23 12:14 Dose: 2 mg Ondansetron HCl (Ondansetron Hcl/Pf 4 Mg/2 Ml Sdv) 4 mg IVP Q6H PRN PRN Reason: Nausea / Vomiting Discontinued Medications Acetaminophen (Acetaminophen 650 Mg Supp.Rect) 650 mg RC ONCE ONE Stop: 04/28/23 05:02 Last Admin: 04/28/23 05:17 Dose: 650 mg Albuterol/Ipratropium (Ipratropium/Albuterol Vial.Neb) 3 ml NEB RTQ6H [facility] Last Admin: 04/28/23 05:12 Dose: 3 ml Sodium Chloride (Sodium Chloride) 1,000 mls @ 1,000 mls/hr IV BOLUS ONE Stop: 04/27/23 14:19 Last Infusion: 04/27/23 16:29 Dose: Infused CEFTRIAXONE/D5W 1 GM PREMIX (Rocephin 1 Gm/50 Ml D5w) 1 gm in 50 mls @ 100 mls/hr IV ONCE ONE Stop: 04/27/23 14:46 Last Admin: 04/27/23 14:34 Dose: 100 mls/hr Metronidazole (Flagyl 500 Mg/100 Ml) 500 mg in 100 mls @ 100 mls/hr IV ONCE ONE Stop: 04/27/23 15:16 Last Admin: 04/27/23 16:00 Dose: 100 mls/hr CEFTRIAXONE/D5W 1 GM PREMIX (Rocephin 1 Gm/50 Ml D5w) 1 gm in 50 mls @ 100 mls/hr IV DAILY [facility] Stop: 05/01/23 08:59 Last Admin: 04/28/23 09:42 Dose: 100 mls/hr Metronidazole (Flagyl 500 Mg/100 Ml) 500 mg in 100 mls @ 100 mls/hr IV Q8HR [facility] Stop: 04/30/23 22:29 Last Admin: 04/28/23 05:12 Dose: 100 mls/hr Sodium Chloride (Sodium Chloride) 1,000 mls @ 75 mls/hr IV .[id number] [facility] Last Infusion: 04/28/23 08:42 Dose: Infused Lactated Ringer's (Lactated Ringers) 1,000 mls @ 500 mls/hr IV BOLUS ONE Stop: 04/27/23 22:53 Last Admin: 04/28/23 08:41 Dose: Not Given Lactated Ringer's (Lactated Ringers) 500 mls @ 500 mls/hr IV BOLUS ONE Stop: 04/27/23 21:53 Last Infusion: 04/27/23 22:28 Dose: Infused Sodium Chloride (Sodium Chloride) 1,000 mls @ 100 mls/hr IV .Q10H [facility] Last Infusion: 04/28/23 12:02 Dose: 0 mls/hr Potassium Chloride (Potassium Chloride 20 Meq/100 Ml Premix) 20 meq in 100 mls @ 50 mls/hr IV ONCE ONE Stop: 04/28/23 10:13 Last Admin: 04/28/23 09:02 Dose: 50 mls/hr Lorazepam (Lorazepam Inj 2 Mg/Ml Vial) 2 mg IVP Q2H [facility] Methylprednisolone Sodium Succinate (Methylprednisolone Sod Succ/Pf 40 Mg/Ml Vial) 40 mg IVP Q8HR [facility] Last Admin: 04/28/23 05:33 Dose: 40 mg Scopolamine HBr (Scopolamine Hydrobromide 1.5 Mg Patch.Td72) 1 patch TD ONCE ONE Stop: 04/27/23 13:39 Last Admin: 04/27/23 13:40 Dose: Not Given Opioid Naive vs. Tolerant What is Opioid Naive?: *Opioid Naive implies the patient is not already taking opioids or not chronically receiving opioids on a daily basis. *PRN dosing is not "usually" associated with tolerance. *Patients are at higher risk of over-sedation and aspiration. What is Opioid Tolerant?: *Opioid Tolerance implies less than the expected response to an opioid. *Acquired tolerance is defined by the patient taking 60mg of oral morphine daily (or equianalgesic dose of another opioid) for 1 week or more. *Often associated with chronic pain. *May take more than usual dose to achieve desired pain control. Physical examination Most Recent Vital Signs: Most Recent Vital Signs Temperature 97.7 F 04/28/23 10:00 Temperature Source Axillary 04/28/23 10:00 Temperature Source Infrared 04/27/23 13:06 Pulse Rate 69 04/28/23 10:00 Respiratory Rate 15 04/28/23 10:00 Blood Pressure 108/64 04/28/23 10:00 Blood Pressure Mean 78 04/28/23 10:00 Blood Pressure Right Arm 149/51 04/27/23 17:08 Blood Pressure Location Right Arm 04/28/23 10:00 Blood Pressure Position Supine 04/28/23 10:00 O2 Sat by Pulse Oximetry 97 04/28/23 10:00 Oxygen Delivery Method Nasal Cannula 04/28/23 10:00 Oxygen Flow Rate 3.5 04/28/23 10:00 Height 5 ft 5 in 04/27/23 17:08 Weight 117 lb 9 oz 04/27/23 17:08 Telemetry Type Bedside Monitor 04/28/23 07:00 Telemetry Monitoring Continues 04/28/23 07:00 Telemetry Heart Rate 71 04/28/23 07:00 Telemetry SPO2 97 04/28/23 07:00 EKG NC Interval 0.16 04/28/23 07:00 EKG QRS Interval 0.06 04/28/23 07:00 Telemetry Strip Reading NSR 04/28/23 07:00 Appearance: Positive Ill-Appearing, Thin and Cachectic Skin: Positive Warm HEENT: Positive Normocephalic, Atraumatic and PERRLA Neck: Positive Supple and Midline Trachea Chest/Lungs: Positive Symmetrical With Equal Breath Sounds, Rhonci and Other (crackles throughout lung wolf) Heart: Positive RRR and Pulses Normal GI/: Positive Soft, Nontender, Bowel Sounds Normal and No Distention Musculoskeletal: Positive Not Examined Extremities: Positive Intact Peripheral Pulses and Stable Joints Without Laxity Neurological: Positive Other (lethargic, nonverbal) Labs This Visit Labs This Visit: Labs This Visit 04/27/23 04/27/23 04/27/23 13:30 13:33 14:19 WBC 8.43 RBC 4.45 L Hgb 11.9 L Hct 40.4 L MCV 90.8 MCH 26.7 L MCHC 29.5 L RDW Coeff of Leda 17.6 H Plt Count 262 Neutrophils % (Manual) 82.0 H Band Neutrophils % Lymphocytes % (Manual) 13.0 Monocytes % (Manual) 3.0 Eosinophils % (Manual) 2.0 Myelocytes % Promyelocytes % Anisocytosis Not present Sodium 146.3 H Potassium 3.66 Chloride 109.0 H Carbon Dioxide 30.2 H Anion Gap 10.76 BUN 43.4 H Creatinine 1.09 Estimated GFR (MDRD) 65.00 BUN/Creatinine Ratio 39.81 Glucose 169.6 H Lactic Acid 2.64 H Calcium 9.36 Total Bilirubin 0.41 AST 74.4 H ALT 21.7 Alkaline Phosphatase 134.6 H Troponin I 0.031 Total Protein 7.18 Albumin 3.68 Globulin 3.50 Albumin/Globulin Ratio 1.05 Procalcitonin Urine Color Yellow Urine Clarity Clear Urine pH >=9.0 Ur Specific Hume 1.015 Urine Protein 3+ H Urine Glucose (UA) Trace H Urine Ketones Trace H Urine Blood 3+ H Urine Nitrite Positive H Urine Bilirubin 1+ H Urine Urobilinogen 1.0 H Ur Leukocyte Esterase 3+ H Urine Microscopic RBC 10-20 Urine Microscopic WBC 10-20 Ur Squamous Epith Cells 2-5 Influ A Molecular Assay Negative by naat Influ B Molecular Assay Negative by naat SARS CoV-2 RNA Rapid ZACHARIAH Negative 04/28/23 05:03 WBC 6.14 RBC 3.64 L Hgb 9.9 L Hct 33.0 L D MCV 90.7 MCH 27.2 MCHC 30.0 L RDW Coeff of Leda 17.6 H Plt Count 209 Neutrophils % (Manual) 78.0 H Band Neutrophils % 5.0 Lymphocytes % (Manual) 11.0 Monocytes % (Manual) Eosinophils % (Manual) Myelocytes % 2.0 H Promyelocytes % 4.0 H Anisocytosis Not present Sodium 145.8 H Potassium 3.41 L Chloride 117.1 H Carbon Dioxide 27.7 Anion Gap 4.41 BUN 31.1 H Creatinine 0.84 Estimated GFR (MDRD) 88.00 BUN/Creatinine Ratio 37.02 Glucose 134.5 H Lactic Acid Calcium 8.62 Total Bilirubin 0.31 AST 53.8 ALT 31.7 Alkaline Phosphatase 106.6 D Troponin I Total Protein 5.89 L Albumin 2.88 L Globulin 3.01 Albumin/Globulin Ratio 0.95 Procalcitonin 1.22 H Urine Color Urine Clarity Urine pH Ur Specific Hume Urine Protein Urine Glucose (UA) Urine Ketones Urine Blood Urine Nitrite Urine Bilirubin Urine Urobilinogen Ur Leukocyte Esterase Urine Microscopic RBC Urine Microscopic WBC Ur Squamous Epith Cells Influ A Molecular Assay Influ B Molecular Assay SARS CoV-2 RNA Rapid ZACHARIAH Microbiology This Visit 04/27/23 17:35 Buttock Wound Culture - Preliminary 04/27/23 14:41 Urine,Random Urine Culture - Preliminary Imaging Imaging: EXAM: CHEST CTA WITH CONTRAST (PULMONARY ARTERY) IMPRESSION: 1. No pulmonary embolism. 2. Dense bilateral lower lobe consolidation consistent with pneumonia. Aspiration is not excluded. 3. Heavy coronary artery calcifications. 4. New nonspecific mediastinal and hilar adenopathy. Recommend follow-up. Review Statement Review Statement: I have independently reviewed and interpreted the labs/EKGs/imaging that were ordered by the ER provider. I have reviewed all outside records that are available currently in our EMR including imaging/notes/labs from previous visits. Plan Plan: 1. Acute Hypoxic Respiratory Failure in setting of Pneumonia - likely secondary to aspiration, rocephin and flagyl, blood cultures pending, wean oxygen as tolerated, steroids, nebs 2. UTI - culture showing gram negative rods, awaiting sensitivity, continue rocephin and flagyl 3. Coccyx wound - culture showing gram negative rods, awaiting sensitivity, continue rocephin and flagyl 4. Dysphagia - chronic, continuing to aspirate, speech eval ordered, NPO at this time 5. Hypokalemia - mild, replace and monitor Above is previous treatment plan prior to hospice plan. DVT Prophylaxis: none, comfort measures Time Spent: Greater than 80 minutes spent with patient, 50% of the time spent with this patient was devoted to counseling and coordination of care. [facility] minutes spent discussing advance care planning. Disposition: Admit to: Med/Surg Inpatient Discussed Plan of Care with Dr. Марина De La Fuente. After lengthy discussion with BYRON Vaughn and other two sons, they have all decided hospice care is the best option at this point. Preferred to go with [facility] due to already being established with this Servoy at the SNF. Initiated morphine IV Q2H, unable to order ativan IV due to shortage - ordered PO 2 mg Q2H at this time unless IV is needed at a later time, added on atropine gtts for secretions in addition to scopolamine patches. Hospice planning to evaluate at 9 am tomorrow. Medications Medication Orders: Medications Ordered Category Date Time Status Acetaminophen [Tylenol] Meds 04/27/23 16:38 Active 650 mg PO Q4H PRN Ceftriaxone/D5w 1 gm Premix [Rocephin 1 gm/50 ml D5w] Meds 04/28/23 09:00 Active 1 gm in 50 ml IV DAILY Dextrose 50 % in Water [Dextrose 50%-Water Abboject] Meds 04/27/23 17:52 Active 50 ml IVP ONCE PRN Ipratropium/Albuterol Neb [Duoneb] Meds 04/27/23 18:00 Active 3 ml NEB RTQ6H Methylprednisolone Sod Succ/Pf [Solu-Medrol 40 mg] Meds 04/27/23 20:00 Active 40 mg IVP Q8HR Metronidazole/Sodium Chloride [Flagyl 500 mg/100 ml] Meds 04/27/23 22:30 Active 500 mg in 100 ml IV Q8HR Ondansetron HCl/Pf [Zofran 4 mg/2 ml] Meds 04/27/23 16:38 Active 4 mg IVP Q6H PRN Sodium Chloride 0.45 % [Sodium Chloride] 1,000 ml Meds 04/27/23 22:26 Active IV 100 mls/hr
[2023-04-28] MEDS: ISOPTO ATROPINE SL SCH (12:14)
[2023-04-28] MEDS: MORPHINE 2 MG/ML SYRINGE IVP SCH (12:14)
[2023-04-28] MEDS ORDERED: ATIVAN IVP SCH (13:00)
[2023-04-28] MEDS: ATIVAN INTENSOL PO SCH (13:18)
[2023-04-29 05:26] VITALS: BP 85/54; TEMP 97.5
[2023-04-29 08:19] VITALS: PULSE 79; RESP 8
--- NOTE | 2023-04-29 11:34 | DCSUM ---
Admission Date Admission Date: 04/27/23 Discharge Date Discharge Date: 04/29/23 Admission Diagnosis Admission Diagnosis: 1. Acute Hypoxic Respiratory Failure in setting of Pneumonia 2. UTI 3. Coccyx wound 4. Dysphagia 5. Hypokalemia Discharge Diagnosis Discharge Diagnosis: 1. Acute Hypoxic Respiratory Failure in setting of Pneumonia 2. UTI 3. Coccyx wound 4. Dysphagia 5. Hypokalemia Hospital Provider Hospital Provider: TORITO CHAVARRIA, [facility] [place] Primary Care Physician: SUN NAGEL MD Summary of History and Physical Summary of History and Physical: 82 yo male presented to ER from [facility] for shortness of breath. Patient was at [facility] under hospice care. BYRON does not wish for patient to return to group home at this time. He was sent to ER following an aspiration episode and shortness of breath. BYRON wished for ER doctor to complete full work-up and treat patient with antibiotics. Maintain DNR status with no vasopressors. Patient was found to have pneumonia, UTI, and possible infection to coccyx wound. Also found to have RSV. He was requiring 3-4 L of O2 in ER and was hypotensive. Admitted to med/surg inpatient. Hospital Course Subjective: Patient was initially treated for aspiration pneumonia with rocephin and flagyl. Urine showed evidence of UTI and wound on coccyx concern for infection. Urine showed proteus and coccyx culture showed growth of E coli. Patient was continuing to aspirate when attempting any oral intake. Patient continued to decline, nonverbal, minimally responsive. After lengthy discussion with BYRON Vaughn and other two sons, they have all decided hospice care is the best option at this point. Patient has history of Parkinson's disease and has had multiple admissions over the past year for aspiration pneumonia. Has stage 3-4 decubitus ulcer to coccyx with e.coli growth on wound culture. Patient admitted to [facility] as of today. Has been receiving morphine 2mg IV Q2H and ativan PO 2 mg Q2H in addition to scopolamine patches and atropine gtts. Appearance: Ill-appearing HEENT: MMM CVS: No Murmur Abdomen: Soft Respiratory: Other (agonal respirations) Extremities: No Edema Vital Signs: Most Recent Vital Signs Temperature 97.5 F L 04/29/23 05:21 Temperature Source Temporal Artery Scan 04/29/23 05:21 Temperature Source Infrared 04/27/23 13:06 Pulse Rate 79 04/29/23 08:00 Respiratory Rate 8 L 04/29/23 08:00 Blood Pressure 85/54 L 04/29/23 05:21 Blood Pressure Mean 64 04/29/23 05:21 Blood Pressure Right Arm 149/51 04/27/23 17:08 Blood Pressure Location Right Arm 04/29/23 05:21 Blood Pressure Position Supine 04/29/23 05:21 O2 Sat by Pulse Oximetry 96 04/29/23 10:00 Oxygen Delivery Method Nasal Cannula 04/29/23 10:00 Oxygen Flow Rate 3.5 04/29/23 10:00 Height 5 ft 5 in 04/28/23 10:39 Weight 117 lb 9 oz 04/28/23 10:39 Telemetry Type Bedside Monitor 04/29/23 07:00 Telemetry Monitoring Continues 04/29/23 07:00 Telemetry Heart Rate 79 04/29/23 07:00 Telemetry SPO2 94 04/29/23 01:00 EKG NC Interval 0.14 04/29/23 07:00 EKG QRS Interval 0.06 04/29/23 07:00 Telemetry Strip Reading SR 04/29/23 07:00 Discharge Instructions Discharge Planning: Discharge Planning > 40 minutes If patient is discharged with left ventricular systolic dysfunction: NA Discharged with a beta elly? [] If no, why not? [] Discharged with an kyung/arb? [] If no, why not? [] DX: RESPIRATORY FAILURE ADMIT TO HOSPICE INPATIENT Discharge Medications: Medications at Discharge (Home Meds & RX) aspirin 81 mg tablet,delayed release (Aspir-) 81 mg PO DAILY 08/14/16 potassium chloride 20 mEq tablet,extended release 20 meq PO BID #60 tabs 08/25/20 hydrocodone 5 mg-acetaminophen 325 mg tablet 1 tab PO TID #45 tabs 11/13/20 acetaminophen 325 mg tablet 650 mg PO Q4H PRN fever or pain 06/01/22 bisacodyl 5 mg tablet 10 mg PO DAILY PRN Constipation 06/01/22 furosemide 40 mg tablet (Lasix) 20 mg PO BID 06/01/22 ipratropium 0.5 mg-albuterol 3 mg (2.5 mg base)/3 mL nebulization soln 3 ml inhalation Q8H PRN Shortness Of Breath Or Wheezing 06/01/22 scopolamine base 1 mg over 3 days transdermal patch 2 patch transdermal Q3D 06/01/22 cetirizine 10 mg tablet (24Hour Allergy) 10 mg PO DAILY 07/28/22 guaifenesin 600 mg tablet, extended release 12 hr (Mucinex) 600 mg PO BID 07/28/22 ondansetron 4 mg disintegrating tablet 4 mg PO Q6H PRN nausea and vomiting #14 tabs 08/07/22 acetaminophen 650 mg rectal suppository 650 mg NC Q6H PRN fever or pain 04/27/23 albuterol sulfate 90 mcg/actuation aerosol inhaler (Ventolin HFA) 1 puff inhalation TID 04/27/23 bisacodyl 10 mg rectal suppository (Dulcolax (bisacodyl)) 10 mg NC DAILY PRN constipation 04/27/23 carbidopa 25 mg-levodopa 100 mg tablet 1 tab PO TID 04/27/23 gentamicin 0.1 % topical ointment 1 applic topical DAILY 04/27/23 hyoscyamine sulfate 0.125 mg sublingual tablet 0.125 mg sublingual Q4H PRN dyspepsia 04/27/23 ipratropium 0.5 mg-albuterol 3 mg (2.5 mg base)/3 mL nebulization soln 3 ml inhalation QID Congestion/Wheezing 04/27/23 lactulose 10 gram/15 mL oral solution 30 ml PO DAILY PRN constipation 04/27/23 lorazepam 1 mg tablet 0.5 mg PO Q6HR PRN Restlessness/Anxiety 04/27/23 magnesium hydroxide 400 mg/5 mL oral suspension (Milk of Magnesia) 60 ml PO DAILY PRN constipation 04/27/23 morphine 10 mg/5 mL oral solution 1 - 2 mg PO Q3H PRN Pain/Anxiety/Breathing difficulty 04/27/23 nystatin 100,000 unit/gram topical powder (Nystop) 1 applic topical BID 04/27/23 sennosides 8.6 mg-docusate sodium 50 mg tablet (Laxative Stool Softener With Senna) 2 tab-cap PO BID 04/27/23 triamcinolone acetonide 0.1 % topical cream 1 applic topical BID 04/27/23 Discharge Plan Discharge Discharge Orders: Discharge Patient (ONCE); Ordered 04/29/23 Ordered By: SAAD BEACH Prescriptions: No Action aspirin [Aspir-81] 81 MG tablet,delayed release (DR/EC) 81 mg PO DAILY carbidopa-levodopa 25-100 mg tablet 1 tab PO TID Patient Comments: TAKE 1 TABLET BY MOUTH THREE TIMES A DAY gentamicin 0.1 % ointment 1 applic TOPICAL DAILY Patient Comments: APPLY TOPICALLY TO LEFT ELBOW EVERY SHIFT hyoscyamine sulfate 0.125 mg tablet, sublingual 0.125 mg sublingual Q4H PRN (Reason: dyspepsia) Patient Comments: TAKE 1 TABLET UNDER THE TONGUE EVERY 4 HOURS NEEDED FOR EXCESS SECRETIONS nystatin [Nystop] 100,000 unit/gram powder 1 applic TOPICAL BID Patient Comments: APPLY TO EXCORIATED GROIN AREA EVERY SHIFT AND NEEDED triamcinolone acetonide 0.1 % cream 1 applic TOPICAL BID Patient Comments: APPLY TOPICALLY TO ALL AFFECTED AREAS [BACK/ CHEST/ ABDOMEN/ UPPER ARMS/ AXILLA] TWICE A DAY FOR RASH (AM/PM) sennosides-docusate sodium [Lax Stool Softener With Senna] 8.6-50 mg tablet 2 tab-cap PO BID lactulose 10 gram/15 mL solution 30 ml PO DAILY PRN (Reason: constipation) magnesium hydroxide [Milk of Magnesia] 400 mg/5 mL suspension 60 ml PO DAILY PRN (Reason: constipation) acetaminophen 650 mg suppository 650 mg NC Q6H PRN (Reason: fever or pain) bisacodyl [Dulcolax (bisacodyl)] 10 mg suppository 10 mg NC DAILY PRN (Reason: constipation) ipratropium-albuterol 0.5 mg-3 mg(2.5 mg base)/3 mL solution for nebulization 3 ml inhalation QID morphine 10 mg/5 mL solution 1 - 2 mg PO Q3H PRN (Reason: Pain/Anxiety/Breathing difficulty) Rx Instructions: 1-2mg. po Q2-3 hours PRN lorazepam 1 mg tablet 0.5 mg PO Q6HR PRN (Reason: Restlessness/Anxiety) albuterol sulfate [Ventolin HFA] 90 mcg/actuation Hfa Aerosol Inhaler 1 puff INHALATION TID Rx Instructions: with spacer potassium chloride 20 mEq Tablet Extended Release 20 meq PO BID Qty: 60 1RF Rx Instructions: WITH FOOD, START TOMORROW hydrocodone-acetaminophen 5-325 mg Tablet 1 tab PO TID Qty: 45 0RF acetaminophen 325 mg Tablet 650 mg PO Q4H PRN (Reason: fever or pain) ipratropium-albuterol 0.5 mg-3 mg(2.5 mg base)/3 mL Solution For Nebulization 3 ml INHALATION Q8H PRN (Reason: Shortness Of Breath Or Wheezing) scopolamine base 1 mg over 3 days Patch 3 Day 2 patch TRANSDERMAL Q3D bisacodyl 5 mg Tablet 10 mg PO DAILY PRN (Reason: Constipation) furosemide [Lasix] 40 mg tablet 20 mg PO BID Rx Instructions: TAKE IN THE AM 30 MINS BEFORE BREAKFAST cetirizine [24Hour Allergy] 10 mg tablet 10 mg PO DAILY guaifenesin [Mucinex] 600 mg tablet extended release 12hr 600 mg PO BID ondansetron 4 mg tablet,disintegrating 4 mg PO Q6H PRN (Reason: nausea and vomiting) Qty: 14 0RF Did you review [place] [employer]OR for ALL controlled substances?: No Discussed opioids are addictive and Narcan is available by prescription or from pharmacy.: No Condition: Poor
== END 2023-04-29 12:31 | disposition hospice, inpatient (51) | DRG 178 ==
LOC: ED 13:04 → SCU 13:04 → OBSVTOIN 16:47 → SCU 17:15
PROVIDERS: ADMIT Hospitalist; ATTEND Nurse Practitioner Family
DX: E87.6 Hypokalemia; Z20.822 Contact with and (suspected) exposure to COVID-19; N39.0 Urinary tract infection, site not specified; L89.159 Pressure ulcer of sacral region, unspecified stage; R74.02 Elevation of levels of lactic acid dehydrogenase [LDH]; I95.9 Hypotension, unspecified; R59.9 Enlarged lymph nodes, unspecified; Z66 Do not resuscitate; J69.0 Pneumonitis due to inhalation of food and vomit; R13.10 Dysphagia, unspecified; B96.20 Unspecified Escherichia coli [E. coli] as the cause of diseases classified elsewhere

== ENCOUNTER 2023-04-29 13:16 | Inpatient (IN) ==
[2023-04-29 14:00] VITALS: BMI 19.4
[2023-04-29] MEDS ORDERED: TYLENOL PO PRN (14:04)
[2023-04-29] MEDS ORDERED: ZOFRAN 4 MG/2 ML IVP PRN (14:05)
[2023-04-29] MEDS ORDERED: TYLENOL RC PRN (14:08)
--- NOTE | 2023-04-29 14:33 | PCM ---
Date of Service Date Seen by Provider: 04/29/23 Admit Day/Time Admission Date: 04/29/23 Reason for Admission Chief Complaint: PARKINSON'S Hospital Provider Hospital Provider: TORITO CHAVARRIA, [facility] [place] Primary Care Physician Primary Care Physician: SUN NAGEL MD History of Present Illness History of Present Illness: 82 yo male admitted to inpatient hospice through [facility] after inpatient admission following aspiration pneumonia secondary to advanced Parkinson's disease. Patient has had frequent hospitalizations due to aspiration pneumonia. Unable to tolerate oral intake without aspirating at this time. Patient unresponsive thus unable to provide HPI. [facility] Medical History Oropharyngeal dysphagia R13.12 - Dysphagia, oropharyngeal phase (ICD-10) Cervical radiculopathy M54.12 - Radiculopathy, cervical region (ICD-10) Diabetes mellitus E11.9 - Type 2 diabetes mellitus without complications (ICD-10) CAD (coronary artery disease) I25.10 - Atherosclerotic heart disease of [place] coronary artery without angina pectoris (ICD-10) Left ventricular hypertrophy I51.7 - Cardiomegaly (ICD-10) Disc narrowing M99.79 - Connective tissue and disc stenosis of intervertebral foramina of abdomen and other regions (ICD-10) BPH (benign prostatic hyperplasia) N40.0 - Benign prostatic hyperplasia without lower urinary tract symptoms (ICD-10) Dementia F03.90 - Unspecified dementia without behavioral disturbance (ICD-10) Anemia D64.9 - Anemia, unspecified (ICD-10) Parkinson disease G20 - Parkinson's disease (ICD-10) Hypertension I10 - Essential (primary) hypertension (ICD-10) Gastroesophageal reflux disease K21.9 - Gastro-esophageal reflux disease without esophagitis (ICD-10) Hyperlipidemia E78.5 - Hyperlipidemia, unspecified (ICD-10) Chronic arthritis M19.90 - Unspecified osteoarthritis, unspecified site (ICD-10) Surgical History History of lumbar fusion Z98.1 - Arthrodesis status (ICD-10) History of cholecystectomy Z90.49 - Acquired absence of other specified parts of digestive tract (ICD- 10) History of heart artery stent Z95.5 - Presence of coronary angioplasty implant and graft (ICD-10) Family History FATHER Heart attack BROTHER Diabetes Social History Smoking and tobacco status: Former smoker Tobacco: How many years used: 30 Second hand smoke exposure: No Alcohol intake: former Substance use type: does not use History of recent travel: No Seatbelt use: always Allergies Allergies Allergy/AdvReac Type Severity Reaction Status Date / Time celecoxib [From Celebrex] AdvReac Verified 07/28/22 09:19 meloxicam [From Mobic] AdvReac Verified 07/28/22 09:19 Penicillins AdvReac Rash Verified 07/28/22 09:19 Current Medications Home Medications aspirin 81 mg tablet,delayed release (Aspir-) 81 mg PO DAILY 08/14/16 [History Confirmed 04/27/23 Last Taken 10/27/20] potassium chloride 20 mEq tablet,extended release 20 meq PO BID #60 tabs 08/25/20 [Rx Confirmed 04/27/23 Last Taken 10/27/20] hydrocodone 5 mg-acetaminophen 325 mg tablet 1 tab PO TID #45 tabs 11/13/20 [Rx Confirmed 04/27/23 Last Taken Unknown] acetaminophen 325 mg tablet 650 mg PO Q4H PRN fever or pain 06/01/22 [History Confirmed 04/27/23 Last Taken Unknown] bisacodyl 5 mg tablet 10 mg PO DAILY PRN Constipation 06/01/22 [History Confirmed 04/27/23 Last Taken Unknown] furosemide 40 mg tablet (Lasix) 20 mg PO BID 06/01/22 [History Confirmed 04/27/23 Last Taken Unknown] ipratropium 0.5 mg-albuterol 3 mg (2.5 mg base)/3 mL nebulization soln 3 ml inhalation Q8H PRN Shortness Of Breath Or Wheezing 06/01/22 [History Confirmed 04/27/23 Last Taken Unknown] scopolamine base 1 mg over 3 days transdermal patch 2 patch transdermal Q3D 06/01/22 [History Confirmed 04/27/23 Last Taken Unknown] cetirizine 10 mg tablet (24Hour Allergy) 10 mg PO DAILY 07/28/22 [History Confirmed 04/27/23 Last Taken Unknown] guaifenesin 600 mg tablet, extended release 12 hr (Mucinex) 600 mg PO BID 07/28/22 [History Confirmed 04/27/23 Last Taken Unknown] ondansetron 4 mg disintegrating tablet 4 mg PO Q6H PRN nausea and vomiting #14 tabs 08/07/22 [Rx Confirmed 04/27/23 Last Taken Unknown] acetaminophen 650 mg rectal suppository 650 mg RI Q6H PRN fever or pain 04/27/23 [History Confirmed 04/27/23 Last Taken Unknown] albuterol sulfate 90 mcg/actuation aerosol inhaler (Ventolin HFA) 1 puff inhalation TID 04/27/23 [History Confirmed 04/27/23 Last Taken Unknown] bisacodyl 10 mg rectal suppository (Dulcolax (bisacodyl)) 10 mg RI DAILY PRN constipation 04/27/23 [History Confirmed 04/27/23 Last Taken Unknown] carbidopa 25 mg-levodopa 100 mg tablet 1 tab PO TID 04/27/23 [History Confirmed 04/27/23 Last Taken Unknown] gentamicin 0.1 % topical ointment 1 applic topical DAILY 04/27/23 [History Confirmed 04/27/23 Last Taken Unknown] hyoscyamine sulfate 0.125 mg sublingual tablet 0.125 mg sublingual Q4H PRN dyspepsia 04/27/23 [History Confirmed 04/27/23 Last Taken Unknown] ipratropium 0.5 mg-albuterol 3 mg (2.5 mg base)/3 mL nebulization soln 3 ml inhalation QID Congestion/Wheezing 04/27/23 [History Confirmed 04/27/23 Last Taken Unknown] lactulose 10 gram/15 mL oral solution 30 ml PO DAILY PRN constipation 04/27/23 [History Confirmed 04/27/23 Last Taken Unknown] lorazepam 1 mg tablet 0.5 mg PO Q6HR PRN Restlessness/Anxiety 04/27/23 [History Confirmed 04/27/23 Last Taken Unknown] magnesium hydroxide 400 mg/5 mL oral suspension (Milk of Magnesia) 60 ml PO DAILY PRN constipation 04/27/23 [History Confirmed 04/27/23 Last Taken Unknown] morphine 10 mg/5 mL oral solution 1 - 2 mg PO Q3H PRN Pain/Anxiety/Breathing difficulty 04/27/23 [History Confirmed 04/27/23 Last Taken Unknown] nystatin 100,000 unit/gram topical powder (Nystop) 1 applic topical BID 04/27/23 [History Confirmed 04/27/23 Last Taken Unknown] sennosides 8.6 mg-docusate sodium 50 mg tablet (Laxative Stool Softener With Senna) 2 tab-cap PO BID 04/27/23 [History Confirmed 04/27/23 Last Taken Unknown] triamcinolone acetonide 0.1 % topical cream 1 applic topical BID 04/27/23 [History Confirmed 04/27/23 Last Taken Unknown] Home Acetaminophen (Acetaminophen 325 Mg Tablet) 650 mg PO Q4H PRN PRN Reason: Pain Acetaminophen (Acetaminophen 650 Mg Supp.Rect) 650 mg RC Q6H PRN PRN Reason: PAIN/FEVER Atropine Sulfate (Atropine Sulfate Opth 5 Ml Bertha) 2 drop SL Q6HR OSCAR Lorazepam (Lorazepam Oral Concentrate 2 Mg/1 Ml 30 Ml Bottle) 2 mg PO Q2H OSCAR Morphine Sulfate (Morphine Sulfate 2 Mg/Ml Syringe) 2 mg IVP Q2H OSCAR Ondansetron HCl (Ondansetron Hcl/Pf 4 Mg/2 Ml Sdv) 4 mg IVP Q6H PRN PRN Reason: Nausea / Vomiting Opioid Naive vs. Tolerant Does Patient Take Opioids?: No Is Patient Opioid Naive?: Yes What is Opioid Naive?: *Opioid Naive implies the patient is not already taking opioids or not chronically receiving opioids on a daily basis. *PRN dosing is not "usually" associated with tolerance. *Patients are at higher risk of over-sedation and aspiration. Is Patient Opioid Tolerant?: No What is Opioid Tolerant?: *Opioid Tolerance implies less than the expected response to an opioid. *Acquired tolerance is defined by the patient taking 60mg of oral morphine daily (or equianalgesic dose of another opioid) for 1 week or more. *Often associated with chronic pain. *May take more than usual dose to achieve desired pain control. Physical examination Most Recent Vital Signs: Most Recent Vital Signs Temperature 97.9 F 04/29/23 13:57 Pulse Rate 84 04/29/23 13:57 Respiratory Rate 10 L 04/29/23 13:57 Blood Pressure Left Arm 118/69 04/29/23 13:57 Blood Pressure Position Supine 04/29/23 13:57 O2 Sat by Pulse Oximetry 96 04/29/23 13:59 Oxygen Delivery Method Nasal Cannula 04/29/23 13:59 Oxygen Flow Rate 3.5 04/29/23 13:57 Height 5 ft 5 in 04/29/23 13:57 Weight 117 lb 04/29/23 13:57 Telemetry Heart Rate 79 04/29/23 07:00 Telemetry SPO2 94 04/29/23 01:00 Appearance: Positive Ill-Appearing, Thin and Cachectic Skin: Positive Warm HEENT: Positive Normocephalic Neck: Positive Supple and Midline Trachea Chest/Lungs: Positive Symmetrical With Equal Breath Sounds and Other (crackles throughout lung wolf) Heart: Positive RRR GI/: Positive Soft, Nontender, Bowel Sounds Normal and No Distention Musculoskeletal: Positive Not Examined Extremities: Positive Intact Peripheral Pulses Neurological: Positive Other (unresponsive) Review Statement Review Statement: I have independently reviewed and interpreted the labs/EKGs/imaging that were ordered by the ER provider. I have reviewed all outside records that are available currently in our EMR including imaging/notes/labs from previous visits. Plan Plan: 1. Advanced Parkinson's disease 2. Respiratory Failure secondary to aspiration pneumonia 3. UTI 4. Stage 3-4 Decubitus ulcer + Ecoli Morphine 2 mg Q2H IV Ativan 2 mg Q2H PO Atropine 2 drops Q6H SL Acetaminophen 650 mg rectal Q4H prn Zofran 4 mg Q6H prn DVT Prophylaxis: none, comfort measures Time Spent: Greater than 80 minutes spent with patient, 50% of the time spent with this patient was devoted to counseling and coordination of care. [facility] minutes spent discussing advance care planning. Disposition: Admit to: Med/Surg Inpatient Hospice under care of [facility] Discussed Plan of Care with Dr. Марина Nagel. Medications Medication Orders: Medications Ordered Category Date Time Status Acetaminophen [Tylenol] Meds 04/29/23 14:04 Active 650 mg PO Q4H PRN Acetaminophen [Tylenol] Meds 04/29/23 14:08 Active 650 mg RC Q6H PRN Atropine Sulfate Opth Bertha [Isopto Atropine] Meds 04/29/23 18:00 Active 2 drop SL Q6HR Lorazepam Oral Concentrate [Ativan Intensol] Meds 04/29/23 14:00 Active 2 mg PO Q2H Morphine Sulfate [Morphine 2 mg/ml Syringe] Meds 04/29/23 14:00 Active 2 mg IVP Q2H Ondansetron HCl/Pf [Zofran 4 mg/2 ml] Meds 04/29/23 14:05 Active 4 mg IVP Q6H PRN
[2023-04-29] MEDS: ATIVAN INTENSOL PO SCH (14:38)
[2023-04-29] MEDS: MORPHINE 2 MG/ML SYRINGE IVP SCH (14:41)
[2023-04-29] MEDS: ISOPTO ATROPINE SL SCH (18:27)
[2023-04-30] MEDS ORDERED: MORPHINE 4 MG/ML SYRINGE IVP SCH (09:30)
--- NOTE | 2023-04-30 09:52 | PCM.PROG ---
Date/Time Seen Date Seen by Provider: 04/30/23 Time Seen by Provider: 08:45 Provider Provider: TORITO CHAVARRIA, [facility] Chief Complaint Chief Complaint: PARKINSON'S Subjective Subjective: HR in 100s this am. RR 6-8. No changes in condition Objective Appearance: Positive Ill-Appearing, Thin and Cachectic Chest/Lungs: Positive Symmetrical With Equal Breath Sounds, Rhonci and Other Heart: Positive RRR and Pulses Normal GI/: Positive Soft, Nontender, Bowel Sounds Normal and No Distention Musculoskeletal: Positive Not Examined Neurological: Positive Other (unresponsive) Vital Signs Vital Signs: Vital Signs: Last 24 Hours 04/29/23 13:52 04/29/23 13:57 04/29/23 13:59 Temperature 97.9 F Temperature Source Pulse Rate 84 Respiratory Rate 10 L 10 L Blood Pressure Blood Pressure Mean Blood Pressure Left Arm 118/69 Blood Pressure Location Blood Pressure Position Supine O2 Sat by Pulse Oximetry 96 96 Oxygen Delivery Method Nasal Cannula Nasal Cannula Nasal Cannula Oxygen Flow Rate 3.5 3.5 Height 5 ft 5 in Weight 117 lb 04/29/23 18:00 04/29/23 20:00 04/29/23 20:00 Temperature 98.1 F Temperature Source Axillary Pulse Rate 84 Respiratory Rate 9 L 10 L Blood Pressure 99/68 Blood Pressure Mean 78 Blood Pressure Left Arm Blood Pressure Location Right Arm Blood Pressure Position Supine O2 Sat by Pulse Oximetry 95 97 Oxygen Delivery Method Nasal Cannula Nasal Cannula Nasal Cannula Oxygen Flow Rate 3.5 3.5 3.5 Height Weight 04/30/23 04:49 04/30/23 05:27 04/30/23 09:42 Temperature 99.4 F Temperature Source Temporal Artery Scan Pulse Rate 104 H Respiratory Rate 8 L Blood Pressure 118/61 Blood Pressure Mean 80 Blood Pressure Left Arm Blood Pressure Location Right Arm Blood Pressure Position Supine O2 Sat by Pulse Oximetry 98 96 96 Oxygen Delivery Method Nasal Cannula Nasal Cannula Nasal Cannula Oxygen Flow Rate 3.5 3.5 3.5 Height Weight Additional Comments Additional Comments: I have independently reviewed and interpreted the labs/EKGs/imaging ordered during this hospital stay. I have reviewed outside records that are available in our EMR that pertain to medical stay including imaging/notes/labs from previous visits. Active Medications Active Medications: Medications Generic Name Dose Route Start Last Admin Trade Name Freq PRN Reason Stop Dose Admin Acetaminophen 650 mg 04/29/23 14:04 Acetaminophen 325 Mg Tablet PO Q4H PRN Pain Acetaminophen 650 mg 04/29/23 14:08 Acetaminophen 650 Mg Supp.Rect RC Q6H PRN PAIN/FEVER Atropine Sulfate 2 drop 04/29/23 18:00 04/30/23 06:18 Atropine Sulfate Opth 5 Ml Bertha SL 2 drop Q6HR OSCAR Administration Lorazepam 2 mg 04/30/23 10:00 Lorazepam Oral Concentrate 2 Mg/1 Ml 30 Ml Bottle PO Q1HR OSCAR Morphine Sulfate 4 mg 04/30/23 10:00 Morphine Sulfate 4 Mg/Ml Syringe IVP Q1HR OSCAR Ondansetron HCl 4 mg 04/29/23 14:05 Ondansetron Hcl/Pf 4 Mg/2 Ml Sdv IVP Q6H PRN Nausea / Vomiting Plan Plan: 1. Advanced Parkinson's disease 2. Respiratory Failure secondary to aspiration pneumonia 3. UTI 4. Stage 3-4 Decubitus ulcer + Ecoli Morphine 2 mg Q2H IV - increased to 4 mg Q1H Ativan 2 mg Q2H PO - increased to Q1H Atropine 2 drops Q6H SL Acetaminophen 650 mg rectal Q4H prn Zofran 4 mg Q6H prn DVT Prophylaxis: none, comfort measures Review Statement Review Statement: I have personally discussed and reviewed the patient's visit/currently labs/imaging/decision making with Dr. De La Fuente, my supervising attending. Greater that 50 minutes spent with patient, 50% of the time spent with this patient was devoted to counseling and coordination of care.
[2023-04-30] MEDS ORDERED: MORPHINE 2 MG/ML SYRINGE IVP SCH (10:00)
[2023-04-30] MEDS: MORPHINE 4 MG/ML SYRINGE IVP SCH (10:04)
[2023-04-30] MEDS: ATIVAN INTENSOL PO SCH (10:05)
[2023-04-30 18:16] VITALS: BP 114/69; RESP 12; TEMP 98.5
[2023-04-30 20:09] VITALS: PULSE 109
--- NOTE | 2023-05-01 09:24 | DCSUM ---
Admission Date Admission Date: 04/29/23 Discharge Date Discharge Date: 05/01/23 Admission Diagnosis Admission Diagnosis: 1. Advanced Parkinson's disease 2. Respiratory Failure secondary to aspiration pneumonia 3. UTI 4. 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 Advanced Parkinson's disease 2. Respiratory Failure secondary to aspiration pneumonia 3. UTI 4. 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 Patient has had frequent hospitalizations due to aspiration pneumonia. Unable to tolerate oral intake without aspirating at this time. Patient unresponsive thus unable to provide HPI. Hospital Course Subjective: Patient was admitted to inpatient hospice under the care of [facility]. Treatment as follows: 04/29 Morphine 2 mg Q2H IV Ativan 2 mg Q2H PO Atropine 2 drops Q6H SL Acetaminophen 650 mg rectal Q4H prn Zofran 4 mg Q6H prn 04/30 Morphine 2 mg Q2H IV - increased to 4 mg Q1H Ativan 2 mg Q2H PO - increased to Q1H Atropine 2 drops Q6H SL Acetaminophen 650 mg rectal Q4H prn Zofran 4 mg Q6H prn Patient became tachycardic up into 190s-200s yesterday afternoon. Vital Signs: Most Recent Vital Signs Temperature 98.5 F 04/30/23 18:00 Temperature Source Temporal Artery Scan 04/30/23 18:00 Pulse Rate 109 H 04/30/23 20:00 Respiratory Rate 12 04/30/23 20:00 Blood Pressure 114/69 04/30/23 18:00 Blood Pressure Mean 84 04/30/23 18:00 Blood Pressure Left Arm 118/69 04/29/23 13:57 Blood Pressure Location Right Arm 04/30/23 05:27 Blood Pressure Position Supine 04/30/23 18:00 O2 Sat by Pulse Oximetry 96 04/30/23 19:48 Oxygen Delivery Method Nasal Cannula 04/30/23 20:00 Oxygen Flow Rate 3.5 04/30/23 20:00 Height 5 ft 5 in 04/29/23 13:57 Weight 117 lb 04/29/23 13:57 Telemetry Heart Rate 79 04/29/23 07:00 Telemetry SPO2 94 04/29/23 01:00 Discharge Instructions Discharge Planning: Discharge Planning > 40 minutes If patient is discharged with left ventricular systolic dysfunction: NA Discharged with a beta elly? [] If no, why not? [] Discharged with an kyung/arb? [] If no, why not? [] Cause of : Cardiopulmonary arrest Time of : 2219 Pronounced by ER provider, Dr. Macdonald. Discharge Medications: Medications at Discharge (Home Meds & RX) aspirin 81 mg tablet,delayed release (Aspir-) 81 mg PO DAILY 08/14/16 potassium chloride 20 mEq tablet,extended release 20 meq PO BID #60 tabs 08/25 hydrocodone 5 mg-acetaminophen 325 mg tablet 1 tab PO TID #45 tabs 11/13/20 acetaminophen 325 mg tablet 650 mg PO Q4H PRN fever or pain 06/01/22 bisacodyl 5 mg tablet 10 mg PO DAILY PRN Constipation 06/01/22 furosemide 40 mg tablet (Lasix) 20 mg PO BID 06/01/22 ipratropium 0.5 mg-albuterol 3 mg (2.5 mg base)/3 mL nebulization soln 3 ml inhalation Q8H PRN Shortness Of Breath Or Wheezing 06/01/22 scopolamine base 1 mg over 3 days transdermal patch 2 patch transdermal Q3D 06/01/22 cetirizine 10 mg tablet (24Hour Allergy) 10 mg PO DAILY 07/28/22 guaifenesin 600 mg tablet, extended release 12 hr (Mucinex) 600 mg PO BID 07/28/22 ondansetron 4 mg disintegrating tablet 4 mg PO Q6H PRN nausea and vomiting #14 tabs 08/07/22 acetaminophen 650 mg rectal suppository 650 mg MI Q6H PRN fever or pain 04/27/23 albuterol sulfate 90 mcg/actuation aerosol inhaler (Ventolin HFA) 1 puff inhalation TID 04/27/23 bisacodyl 10 mg rectal suppository (Dulcolax (bisacodyl)) 10 mg MI DAILY PRN constipation 04/27/23 carbidopa 25 mg-levodopa 100 mg tablet 1 tab PO TID 04/27/23 gentamicin 0.1 % topical ointment 1 applic topical DAILY 04/27/23 hyoscyamine sulfate 0.125 mg sublingual tablet 0.125 mg sublingual Q4H PRN dyspepsia 04/27/23 ipratropium 0.5 mg-albuterol 3 mg (2.5 mg base)/3 mL nebulization soln 3 ml inhalation QID Congestion/Wheezing 04/27/23 lactulose 10 gram/15 mL oral solution 30 ml PO DAILY PRN constipation 04/27/23 lorazepam 1 mg tablet 0.5 mg PO Q6HR PRN Restlessness/Anxiety 04/27/23 magnesium hydroxide 400 mg/5 mL oral suspension (Milk of Magnesia) 60 ml PO DAILY PRN constipation 04/27/23 morphine 10 mg/5 mL oral solution 1 - 2 mg PO Q3H PRN Pain/Anxiety/Breathing difficulty 04/27/23 nystatin 100,000 unit/gram topical powder (Nystop) 1 applic topical BID 04/27/23 sennosides 8.6 mg-docusate sodium 50 mg tablet (Laxative Stool Softener With Senna) 2 tab-cap PO BID 04/27/23 triamcinolone acetonide 0.1 % topical cream 1 applic topical BID 04/27/23 Discharge Plan Discharge Discharge Orders: Discharge Patient (ONCE); Ordered 05/01/23 Ordered By: SAAD BEACH Patient Disposition: Did you review [place] [employer] for ALL controlled substances?: No Discussed opioids are addictive and Narcan is available by prescription or from pharmacy.: No Date/Time: 04/30/23 22:20
== END 2023-05-01 00:45 | disposition expired | DRG 177 ==
LOC: SCU 13:16
PROVIDERS: ADMIT Hospitalist; ATTEND Nurse Practitioner Family